=== PATIENT | female | born 1950 | race Caucasian/White ===

== ENCOUNTER 2016-12-21 05:28 | Emergency (ER) | payer OTHER ==
[~2016-12-21] VITALS: Ht 160 cm; Wt 117.4 kg
[~2016-12-21 05:28] MED LIST: ALBU1AER9 INH; ALBU1NEB10 INH; BISA-16 PO; HYDR-5688 PO; PRAV40TA2 PO; RANITAB6 PO; RSTOPS OP; SYMIN160 INH
[2016-12-21 05:32] VITALS: TEMP 37; Ht 160 cm; Wt 117.4 kg
[2016-12-21] MEDS ORDERED: SODIUM CHLORIDE 0.9% 1000ML 1,000 ML IV STA (05:48)
[2016-12-21] MEDS ORDERED: CEFTRIAXONE SOD INJ 1 GM ADDVIAL IV STA (05:48)
[2016-12-21] MEDS ORDERED: ONDANSETRON INJ 2 MG/ML 2 ML VIAL IV STA (05:59)
[2016-12-21] MEDS ORDERED: KETOROLAC TROMETHAMINE 30 MG/ML VIAL IV STA (05:59)
[2016-12-21 06:07] LABS: BASO % 0.4 %; BASO ABS # 0.03 K/uL (0-0.2); COMPLETE YES; EOS % 3.1 %; IG% 0.3 %; LYMPH % 31.4 %; MEAN CELL VOLUME 85.9 fL (80-100); MEAN CORPUSCULAR HEMOGLOBIN 30.2 pg (25-34); MEAN CORPUSCULAR HGB CONC 35.1 g/dl (32-36); MEAN PLATELET VOLUME 10.9 fL (7.4-10.4); NEUT % 53.8 %; PLATELET COUNT 160 K/uL (130-400); RED BLOOD COUNT 4.54 M/uL (4.2-5.4)
[2016-12-21] MEDS ORDERED: TOLT1TAB6 PO (06:07)
--- NOTE | 2016-12-21 06:24 | EMERGENCY ROOM VISIT NOTE ---
History Report prepared by Carlene: Ron Reynoso Under the Supervision of: Dr. Randy Fritz M.D. First contact with patient: 05:36 Chief Complaint: FLANK PAIN Stated Complaint: PAIN LOWER BACK AROUND KIDNEYS History of Present Illness The patient is a 66 year old female who presents to the Emergency Room with complaints of worsening right sided flank pain that began a few days prior to arrival. The patient states that her symptoms began to worsen yesterday as she began to experience shakes, burning with urination, and increased urgency and pressure. She denies having any fevers. She has not received any relief from her pain with Aleve. The patient also noted that her urine has been very dark and strong smelling lately. She has a history of kidney stones, but states that this episode is not similar. She is a diabetic. 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 A total of 10 systems reviewed and were otherwise negative. Past Medical & Surgical Medical Problems: (1) Asthma (2) CAD (coronary artery disease) (3) CAD (coronary artery disease) (4) Chest discomfort (5) Chest pain (6) COPD (chronic obstructive pulmonary disease) (7) Depression (8) Diabetes mellitus type 2 (9) Dyspnea (10) Gastroesophageal reflux disease (11) HTN (hypertension) (12) Hyperlipidemia (13) Hypoxia (14) Lumbar stenosis with neurogenic claudication (15) Morbid Obesity (16) Obstructive sleep apnea syndrome (17) Osteoporosis Nos (18) SHORTNESS OF BREATH (19) Spinal stenosis (20) Vitamin D deficiency (21) Wheezing Surgical Problems: (1) History of cholecystectomy (2) History of cholecystectomy (3) History of herniorrhaphy (4) History of hysterectomy (5) History of repair of rotator cuff (6) Lens Replacement Nec Family History Diabetes mellitus Heart disease FATHER ( of [place]) Hypertension MOTHER Social History Smoking Status: Former Smoker Alcohol Use: none Marital Status: Housing Status: lives with family Occupation Status: retired Current/Historical Medications Scheduled Budesonide/Formoterol Fumarate (Symbicort 160/4.5 Inhaler ), 2 PUFFS INH HS Cyclosporine (Restasis Eye Drops), 1 DROP OP BID Pravastatin Sodium (Pravastatin Sodium), 40 MG PO HS Ranitidine Hcl (Zantac 150 Maximum Streng), 1 TAB PO HS Sulfa/Trimethoprim (Bactrim Ds 800MG/160MG), 1 TAB PO BID Tolterodine Tartrate (Tolterodine Tartrate), 1 MG PO DAILY Scheduled PRN Albuterol (Proair Hfa), 2 PUFFS INH QID PRN for SOB/Wheezing Allergies Coded Allergies: Perflutren (Verified Allergy, Severe, Back Pain, 09/01/16) Cardiopulmonary Tech states patient should not receive in the future. Lorazepam (Verified Adverse Reaction, Mild, DIZZY, 09/01/16) Codeine (Verified Adverse Reaction, Unknown, NAUSEA, 09/01/16) Meloxicam (Verified Adverse Reaction, Unknown, DIZZINESS, 09/01/16) Oxycodone (Verified Adverse Reaction, Unknown, GI SYMPTOMS, 09/01/16) Propoxyphene (Verified Adverse Reaction, Unknown, NAUSEA, 09/01/16) Tramadol (Verified Adverse Reaction, Unknown, GI SYMPTOMS, 09/01/16) Physical Exam Vital Signs Date Time Temp Pulse Resp B/P Pulse Ox O2 Delivery O2 Flow Rate FiO2 12/21/16 07:41 64 18 142/82 92 12/21/16 06:54 65 18 128/69 95 Room Air 12/21/16 05:32 37.0 74 16 179/98 95 Room Air Physical Exam GENERAL: Patient is a healthy-appearing well-nourished HEAD: Normocephalic atraumatic EYES: Ocular movements intact pupils equal and react to light OROPHARYNX mucous membranes are moist no exudates present no erythema or edema present NECK: Supple no nuchal rigidity CHEST: Good equal expansion LUNGS: Clear and equal to auscultation CARDIAC: Normal S1 and S2 ABDOMEN: Soft nontender no guarding BACK: Positive right sided CVA tenderness EXTREMITIES: No pain upon palpation normal muscle strength in all groups no clubbing cyanosis or edema NEURO: Patient is following commands is answering questions appropriately. Alert and oriented x3 Cranial Nerves 2-12 grossly intact Medical Decision & Procedures Laboratory Results 12/21/16 05:53 Red Blood Count 4.54, Mean Corpuscular Volume 85.9, Mean Corpuscular Hemoglobin 30.2, Mean Corpuscular Hemoglobin Concent 35.1, Mean Platelet Volume 10.9, Neutrophils (%) (Auto) 53.8, Lymphocytes (%) (Auto) 31.4, Monocytes (%) (Auto) 11.0, Eosinophils (%) (Auto) 3.1, Basophils (%) (Auto) 0.4, Neutrophils # (Auto ) 3.76, Lymphocytes # (Auto) 2.20, Monocytes # (Auto) 0.77, Eosinophils # (Auto ) 0.22, Basophils # (Auto) 0.03 12/21/16 05:53 Test 12/21/16 05:53 White Blood Count 7.00 K/uL (4.8-10.8) Red Blood Count 4.54 M/uL (4.2-5.4) Hemoglobin 13.7 g/dL (12.0-16.0) Hematocrit 39.0 % (37-47) Mean Corpuscular Volume 85.9 fL (80-100) Mean Corpuscular Hemoglobin 30.2 pg (25-34) Mean Corpuscular Hemoglobin Concent 35.1 g/dl (32-36) Platelet Count 160 K/uL (130-400) Mean Platelet Volume 10.9 fL (7.4-10.4) Neutrophils (%) (Auto) 53.8 % Lymphocytes (%) (Auto) 31.4 % Monocytes (%) (Auto) 11.0 % Eosinophils (%) (Auto) 3.1 % Basophils (%) (Auto) 0.4 % Neutrophils # (Auto) 3.76 K/uL (1.4-6.5) Lymphocytes # (Auto) 2.20 K/uL (1.2-3.4) Monocytes # (Auto) 0.77 K/uL (0.11-0.59) Eosinophils # (Auto) 0.22 K/uL (0-0.5) Basophils # (Auto) 0.03 K/uL (0-0.2) RDW Standard Deviation 42.6 fL (36.4-46.3) RDW Coefficient of Variation 13.6 % (11.5-14.5) Immature Granulocyte % (Auto) 0.3 % Immature Granulocyte # (Auto) 0.02 K/uL (0.00-0.02) Urine Color YELLOW Urine Appearance CLEAR (CLEAR) Urine pH 5.5 (4.5-7.5) Urine Specific [place] 1.014 (1.000-1.030) Urine Protein NEG (NEG) Urine Glucose (UA) NEG (NEG) Urine Ketones NEG (NEG) Urine Occult Blood NEG (NEG) Urine Nitrite NEG (NEG) Urine Bilirubin NEG (NEG) Urine Urobilinogen NEG (NEG) Urine Leukocyte Esterase MODERATE (NEG) Urine WBC (Auto) 1-5 /hpf (0-5) Urine RBC (Auto) 0-4 /hpf (0-4) Urine Hyaline Casts (Auto) 1-5 /lpf (0-5) Urine Epithelial Cells (Auto) >30 /lpf (0-5) Urine Bacteria (Auto) NEG (NEG) Anion Gap 9.0 mmol/L (3-11) Est Creatinine Clear Calc Drug Dose 92.5 ml/min Estimated GFR () 97.8 Estimated GFR (Non- 84.4 BUN/Creatinine Ratio 17.1 (10-20) Calcium Level 9.2 mg/dl (8.5-10.1) Total Bilirubin 0.4 mg/dl (0.2-1) Direct Bilirubin < 0.1 mg/dl (0-0.2) Aspartate Amino Transf (AST/SGOT) 27 U/L (15-37) Alanine Aminotransferase (ALT/SGPT) 26 U/L (12-78) Alkaline Phosphatase 114 U/L (45-117) Total Protein 6.7 gm/dl (6.4-8.2) Albumin 3.2 gm/dl (3.4-5.0) Lipase 207 U/L (73-393) Labs reviewed by ED physician. Medications Administered Medications (Trade) Dose Ordered Sig/Oz Route Start Time Stop Time Status Last Admin Dose Admin Sodium Chloride (Nss 1000ml) 1,000 ml @ 999 mls/hr Q1H1M STAT IV 12/21/16 05:48 12/21/16 06:48 DC 12/21/16 06:19 999 MLS/HR Ceftriaxone Sodium (Rocephin Inj) 1 gm NOW STAT IV 12/21/16 05:48 12/21/16 05:50 DC 12/21/16 06:19 1 GM Ketorolac Tromethamine (Toradol Inj) 30 mg NOW STAT IV 12/21/16 05:59 12/21/16 06:01 DC 12/21/16 06:20 30 MG Ondansetron HCl (Zofran Inj) 4 mg NOW STAT IV 12/21/16 05:59 12/21/16 06:01 DC 12/21/16 06:20 4 MG Trimethoprim/ Sulfamethoxazole (Septra Ds 800/ 160MG Tab) 1 tab NOW STAT PO 12/21/16 07:35 12/21/16 07:36 DC 12/21/16 07:40 1 TAB ED Course 0537: The patient was evaluated and HPI was obtained by the medical student prior to my evaluation. 0548: Ordered Rocephin 1 gm IV, Sodium Chloride 1000 mL @ 999 mL/hr IV. 0550: Past medical records reviewed. The patient was evaluated in room B3. A complete history and physical examination was performed. 0559: Ordered Zofran 4 mg IV, Toradol 30 mg IV. Medical Decision The patient's history was concerning for abdominal pain. Differential diagnosis: Etiologies such as appendicitis, diverticulitis, PUD, biliary pathology, UTI, pancreatitis, obstruction, mesenteric ischemia, aortic pathology, infections, inflammatory bowel disease, renal colic, as well as others were entertained. This is a 66-year-old female who presents emergency department complaining of right CVA tenderness. The patient's urine dip does appear to have some white blood cells in it for this reason the patient was started on normal saline bolus and given Rocephin. Patient was also given Toradol. Repeat examination revealed improvement patient's symptoms. The patient was sent for CAT scan of the abdomen and pelvis to rule out kidney stone. I did discuss the case with Dr. Barber at change of shift. Impression Primary Impression: Flank pain Scribe Attestation The scribe's documentation has been prepared under my direction and personally reviewed by me in its entirety. I confirm that the note above accurately reflects all work, treatment, procedures, and medical decision making performed by me. Departure Information Dispostion Still a Patient Prescriptions Sulfa/Trimethoprim (Bactrim Ds 800MG/160MG) Tab 1 TAB PO BID for 10 Days, #20 TAB Prov: Randy Fritz MD 12/21/16 Referrals RV. Zepeda MD (PCP) Patient Instructions My [facility]
[2016-12-21 06:26] LABS: ALT/SGPT 26 U/L (12-78); AST/SGOT 27 U/L (15-37); BLOOD UREA NITROGEN 13 mg/dl (7-18); BUN/CREATININE RATIO 17.1 (10-20); CALCIUM 9.2 mg/dl (8.5-10.1); CARBON DIOXIDE 26 mmol/L (21-32); CHLORIDE 108 mmol/L (98-107); CREATININE 0.74 mg/dl (0.60-1.20); GLUCOSE 106 mg/dl (70-99); SODIUM 143 mmol/L (136-145)
[2016-12-21 06:29] LABS: ALKALINE PHOSPHATASE 114 U/L (45-117)
[2016-12-21 06:35] LABS: URINE APPEARANCE CLEAR (CLEAR); URINE BILIRUBIN NEG (NEG); URINE COLOR YELLOW; URINE EPITHELIAL CELL AUTO >30 /lpf (0-5); URINE NITRITE NEG (NEG); URINE PH 5.5 (4.5-7.5); URINE SPECIFIC GRAVITY 1.014 (1.000-1.030); UROBILINOGEN NEG (NEG)
[2016-12-21] MEDS ORDERED: SULF800T23 PO (06:36)
[2016-12-21] MEDS ORDERED: HYDR-5688 PO (06:36)
[2016-12-21 06:42] LABS: MANUAL MICROSCOPIC REQUIRED? NO; REVIEW REQ? NO
--- NOTE | 2016-12-21 07:04 | DIAGNOSTIC IMAGING REPORT ---
CT SCAN OF THE ABDOMEN AND PELVIS WITHOUT CONTRAST CLINICAL HISTORY: Right flank pain COMPARISON STUDY: 06/11/2016 TECHNIQUE: CT scan of the abdomen and pelvis was performed from the lung bases to the proximal femurs. Images are reviewed in the axial, sagittal, and coronal planes. IV contrast was not administered for this examination. CT DOSE: 2075.71 mGy.cm FINDINGS: Lower chest: There are coronary artery calcifications present. There are prominent lymph nodes within the right cardiophrenic angle fat measuring up to 14 mm in diameter. These remain similar. There are left basilar atelectatic changes. Liver: The liver is slightly nodular in contour. No focal masses are visualized on this noncontrast study. Cirrhosis most be considered given the slight hepatic nodularity Gallbladder: Surgically absent Spleen: Top normal in size measuring 11.4 cm Pancreas: Unremarkable. Adrenal glands: Unremarkable. Kidneys: No renal calculi are visualized. No ureteral or bladder calculi are visualized. Bowel: There are no transition zones indicate bowel obstruction. There are no findings to indicate acute diverticulitis. There are no findings to indicate acute appendicitis. Peritoneum: There is no intraperitoneal free air or abdominal ascites. Vasculature: The abdominal aorta is normal in course and caliber. Adenopathy: None. Pelvic viscera: The uterus is either surgically absent or atrophic. There are postsurgical changes of a prior ventral hernia repair Skeletal structures: There are postsurgical changes present within the lumbar spine. IMPRESSION: 1. No acute findings. 2. No renal, ureteral, or bladder calculi identified 3. No evidence of bowel obstruction. No evidence of free air 4. Interval lumbar spinal fusion. Electronically signed by: Jose Conley M.D. 12/21/2016 7:02 AM Dictated Date/Time: 12/21/2016 6:54 AM
--- NOTE | 2016-12-21 07:19 | EMERGENCY ROOM VISIT NOTE ---
ED Visit Note This patient was signed out to me awaiting CT scan and urinalysis. Urinalysis reveals leukocyte esterase. The patient was given a dose of Bactrim by mouth here. A prescription for Bactrim was given. CT scan did not show any acute abnormality. The patient was told results the test. She was discharged. The patient declined narcotic prescriptions as she is allergic to codeine and did not want the hydrocodone. Prescription for Bactrim sent to [facility]
[2016-12-21] MEDS ORDERED: SULFAMETHOXAZOLE/TRIMETHOPRIM DS 800/160MG TAB PO STA (07:35)
[2016-12-21 07:41] VITALS: BP 142/82; PULSE 64; O2SAT 92
[2017-02-20] MEDS ORDERED: CYCL0.052 OPB (08:07)
[2017-02-23] MEDS ORDERED: LYR50 PO (10:01)
[2017-07-07] MEDS ORDERED: FRS/40 PO (08:16)
[2017-07-07] MEDS ORDERED: CLOT1PAK TOP (08:16)
[2017-07-07] MEDS ORDERED: PRAV20TA PO (08:16)
[2017-07-07] MEDS ORDERED: BISA-16 PO (08:16)
[2017-07-07] MEDS ORDERED: CYAN1KIT3 INJ (08:16)
[2017-07-07] MEDS ORDERED: PRLSR20 PO (08:16)
[2017-07-07] MEDS ORDERED: ALBUTEROL NEB INH (08:17)
[2017-07-26] MEDS ORDERED: DLD2 PO (07:33)
[2017-07-26] MEDS ORDERED: ASPEC325 PO (07:33)
== END 2016-12-21 07:41 | disposition home or self-care (01) ==
LOC: C.EDB 05:30
DX: R10.9 Unspecified abdominal pain (principal); J45.909 Unspecified asthma, uncomplicated; I25.10 Atherosclerotic heart disease of native coronary artery without angina pectoris; J44.9 Chronic obstructive pulmonary disease, unspecified; F32.9 Major depressive disorder, single episode, unspecified; E11.9 Type 2 diabetes mellitus without complications; K21.9 Gastro-esophageal reflux disease without esophagitis; I10 Essential (primary) hypertension; E78.5 Hyperlipidemia, unspecified; G47.33 Obstructive sleep apnea (adult) (pediatric); Z90.49 Acquired absence of other specified parts of digestive tract; Z87.891 Personal history of nicotine dependence

== ENCOUNTER → 2016-12-24 | Outpatient (CLI) | payer OTHER ==
[~2016-12-24] MED LIST changes: -ALBU1NEB10 INH; +ALBUTEROL NEB INH; +ASPEC325 PO; +CLOT1PAK TOP; +CYAN1KIT3 INJ; +CYCL0.052 OPB; +DLD2 PO; +FRS/40 PO; -HYDR-5688 PO; +LYR50 PO; +PRAV20TA PO; +PRLSR20 PO; +SULF800T23 PO; +TOLT1TAB6 PO
[2016-12-24 13:21] LABS: ESTIMATED AVERAGE GLUCOSE 126 mg/dl; HA1C FLAG Normal (Normal)
[2016-12-24 13:29] LABS: CHOLESTEROL/HDL RATIO 2.4
== END | disposition home or self-care (01) ==
LOC: C.LABBC 09:36
PROVIDERS: ATTEND Internal Medicine
DX: E53.8 Deficiency of other specified B group vitamins (principal); E11.9 Type 2 diabetes mellitus without complications; E78.5 Hyperlipidemia, unspecified

== ENCOUNTER → 2017-02-20 | Outpatient (CLI) | payer OTHER ==
[~2017-02-20] MED LIST changes: -SULF800T23 PO
[2017-02-20 12:20] LABS: URINE APPEARANCE CLEAR (CLEAR); URINE BILIRUBIN NEG (NEG); URINE COLOR YELLOW; URINE NITRITE NEG (NEG); URINE PH 7.5 (4.5-7.5); URINE SPECIFIC GRAVITY 1.007 (1.000-1.030); UROBILINOGEN NEG (NEG); ZZUR CULT IF INDIC CLEAN CATCH NO
[2017-02-20 12:24] LABS: MANUAL MICROSCOPIC REQUIRED? NO; REVIEW REQ? NO
[2017-02-20 12:39] LABS: BLOOD UREA NITROGEN 8 mg/dl (7-18); BUN/CREATININE RATIO 12.3 (10-20); CARBON DIOXIDE 28 mmol/L (21-32); CHLORIDE 108 mmol/L (98-107); CREATININE 0.64 mg/dl (0.60-1.20); GLUCOSE 94 mg/dl (70-99); POTASSIUM 3.9 mmol/L (3.5-5.1); SODIUM 143 mmol/L (136-145)
== END | disposition home or self-care (01) ==
LOC: C.LAB1850 11:17
PROVIDERS: ATTEND Physician Assistant
DX: R35.0 Frequency of micturition (principal); Z86.39 Personal history of other endocrine, nutritional and metabolic disease

== ENCOUNTER → 2017-02-20 | Outpatient (CLI) | payer OTHER ==
--- NOTE | 2017-02-20 12:28 | DIAGNOSTIC IMAGING REPORT ---
ULTRASOUND RIGHT UPPER QUADRANT ABDOMEN CLINICAL HISTORY: Cirrhosis. COMPARISON STUDY: Abdominal CT dated 12/21/2016. TECHNIQUE: Real-time, grayscale, and color flow sonography of the right upper quadrant of the abdomen was performed. Images are reviewed in the transverse and longitudinal planes. FINDINGS: Liver: The liver is cirrhotic in morphology and heterogeneous in echotexture. There is nodularity of the surface contour. There is minimal central intrahepatic biliary ductal dilatation. The main portal vein is patent. Gallbladder: The gallbladder is surgically absent. The common bile duct measures up to 0.7 cm in diameter. Pancreas: Visualized portions of the pancreatic head and body are normal in appearance. Right kidney: Survey images of the right kidney demonstrate cortical atrophy. There is no hydronephrosis. Ascites: None. IMPRESSION: 1. The liver is cirrhotic in morphology and heterogeneous in echotexture. 2. The gallbladder surgically absent. Electronically signed by: Devang Camp M.D. 02/20/2017 12:27 PM Dictated Date/Time: 02/20/2017 12:23 PM
== END | disposition home or self-care (01) ==
LOC: C.ULTR 11:54
PROVIDERS: ATTEND Internal Medicine
DX: K74.60 Unspecified cirrhosis of liver (principal); Z90.49 Acquired absence of other specified parts of digestive tract; R35.0 Frequency of micturition; Z86.39 Personal history of other endocrine, nutritional and metabolic disease

== ENCOUNTER → 2017-02-23 | Day surgery (SDC) | payer OTHER ==
[2017-02-20 08:08] VITALS: Ht 160 cm; Wt 121.4 kg
[~2017-02-23] VITALS: Ht 160 cm; Wt 121.4 kg
[~2017-02-23] MED LIST changes: +LIDOCAINE HCL 2% 2 ML VIAL (20MG/ML) ONE; +ONDANSETRON INJ 2 MG/ML 2 ML VIAL ONE; +PROPOFOL IV EMULSION 10 MG/ML 20 ML VIAL IV ONE; -RSTOPS OP; +SODIUM CHLORIDE 0.9% 500ML 500 ML IV ONE
--- NOTE | 2017-02-23 10:31 | Endo History and Physical ---
History & Physical Date of Service: Feb 23, 2017. Chief Complaint: Hx Cirrhosis, Bloating Referring Physician: Dr Gar History of Present Illness cirrhosis and bloating Past Medical History Asthma, Anxiety, Reflux, High Cholesterol, Heart Disease Past Surgical History Hx Cardiac Surgery: No Hx Internal Defibrillator: No Hx Pacemaker: No Hx Abdominal Surgery: Yes (LAP IRMA, TESHA BSO, EXP LAP WITH REMOVAL OF ABDOMINAL TUMOR) Hx of Implantable Prosthesis: No Hx Post-Op Nausea and Vomiting: Yes Hx Cancer Surgery: No Hx Thoracic Surgery: No Hx Orthopedic: Yes (LUMBAR FUSION) Hx Urinary Tract Surgery: No Family History None Social History Smoking Status: Former Smoker Hx Substance Use: No Hx Alcohol Use: No Allergies Coded Allergies: Metformin (Verified Allergy, Unknown, DIARRHEA, 02/20/17) Lorazepam (Verified Adverse Reaction, Mild, DIZZY, 02/20/17) Codeine (Verified Adverse Reaction, Unknown, NAUSEA, 02/20/17) Meloxicam (Verified Adverse Reaction, Unknown, DIZZINESS, 02/20/17) Oxycodone (Verified Adverse Reaction, Unknown, GI SYMPTOMS, 02/20/17) Propoxyphene (Verified Adverse Reaction, Unknown, NAUSEA, 02/20/17) Tramadol (Verified Adverse Reaction, Unknown, GI SYMPTOMS, 02/20/17) Current Medications Reported Home Medications Medications Dose Route/Sig Max Daily Dose Days Date Category Lyrica (Pregabalin) 50 Mg Cap 50 Mg PO HS 02/23/17 Reported Restasis (Cyclosporine (Ophth)) 0.05 % Emu 1 Drop OPB BID PRN 02/20/17 Reported Tolterodine Tartrate 1 Mg Tab 1 Mg PO QAM 12/21/16 Reported Pravastatin Sodium 40 Mg Tab 40 Mg PO HS 06/02/16 Reported Zantac 150 Maximum Streng (Ranitidine Hcl) 150 Mg Tab 1 Tab PO HS 05/29/16 Reported Proair Hfa (Albuterol) Aers 2 Puffs INH QID PRN 12/22/14 Reported Symbicort 160/4.5 Inhaler (Budesonide/Formoterol Fumarate) Aero 2 Puffs INH BID PRN 12/22/14 Reported Vital Signs Weight (Kilograms): 121.36 Height (Feet): 5 Height (Inches): 3 Date Time Temp Pulse Resp B/P Pulse Ox O2 Delivery O2 Flow Rate FiO2 02/23/17 10:06 36.9 84 20 169/76 95 Room Air Physical Exam General Appearance: WD/WN, no apparent distress Assessment and Plan EGD today
--- NOTE | 2017-02-23 10:58 | GI REPORT ---
Procedure Date: 02/23/2017 10:41 AM Procedure: Upper GI endoscopy Indications: Cirrhosis rule out esophageal varices, Abdominal bloating Medicines: Propofol per Anesthesia Complications: No immediate complications. Estimated blood loss: Minimal. Estimated Blood Loss: Estimated blood loss was minimal. Procedure: Pre-Anesthesia Assessment: - Prior to the procedure, a History and Physical was performed, and patient medications, allergies and sensitivities were reviewed. The patient's tolerance of previous anesthesia was reviewed. - The risks and benefits of the procedure and the sedation options and risks were discussed with the patient. All questions were answered and informed consent was obtained. - Patient identification and proposed procedure were verified prior to the procedure by the physician and the nurse. The procedure was verified in the pre-procedure area in the procedure room. - Mental Status Examination: alert and oriented. Airway Examination: normal oropharyngeal airway and neck mobility. Respiratory Examination: clear to auscultation. CV Examination: normal. Abdominal Examination: bowel sounds present, abdomen soft and non-tender, no masses or organomegaly noted. - ASA Grade Assessment: III - A patient with severe systemic disease. After obtaining informed consent, the endoscope was passed under direct vision. Throughout the procedure, the patient's blood pressure, pulse, and oxygen saturations were monitored continuously. The scope was introduced through the mouth, and advanced to the second part of duodenum. The upper GI endoscopy was accomplished without difficulty. The patient tolerated the procedure well. Findings: The esophagus was normal. Few non-bleeding superficial gastric ulcers with no stigmata of bleeding were found in the gastric antrum. Biopsies were taken with a cold forceps for Helicobacter pylori testing. Verification of patient identification for the specimen was done by the physician and nurse using the patient's name and date. Estimated blood loss was minimal. The examined duodenum was normal. Biopsies for histology were taken with a cold forceps for evaluation of celiac disease. Verification of patient identification for the specimen was done by the physician and nurse using the patient's name and date. Estimated blood loss was minimal. Impression: - Normal esophagus. No varices. - Non-bleeding gastric ulcers with no stigmata of bleeding. Biopsied. - Normal examined duodenum. Biopsied. Recommendation: - Await pathology results. - No aspirin, ibuprofen, naproxen, or other non-steroidal anti-inflammatory drugs. - Use Prilosec (omeprazole) 20 mg PO BID for 6 weeks then once a day thereafter. - Return to referring physician as previously scheduled. - Discharge patient to home. Jailene Riggins D.O. Jailene Riggins, 02/23/2017 10:57:34 AM This report has been signed electronically. Note Initiated On: 02/23/2017 10:41 AM I attest to the content of the Intraoperative Record and orders documented therein, exceptions below
--- NOTE | 2017-02-23 11:25 | Anesthesiology Progress Note ---
Anesthesia Post Op Note Date & Time Feb 23, 2017 at 11:25 Vital Signs Pain Intensity: 0 Vital Signs Past 12 Hours Date Time Temp Pulse Resp B/P Pulse Ox O2 Delivery O2 Flow Rate FiO2 02/23/17 11:10 75 20 133/76 93 Room Air 02/23/17 10:58 78 20 90/30 95 Room Air 02/23/17 10:06 36.9 84 20 169/76 95 Room Air Notes Mental Status: alert / awake / arousable, participated in evaluation Pt Amnestic to Procedure: Yes Nausea / Vomiting: adequately controlled Pain: adequately controlled Airway Patency, RR, SpO2: stable & adequate BP & HR: stable & adequate Hydration State: stable & adequate Anesthetic Complications: no major complications apparent
[2017-02-23 11:29] VITALS: BP 115/56; PULSE 70; O2SAT 93
--- NOTE | 2017-02-23 11:31 | Discharge Instructions ---
Endoscopy Patient Instructions Date / Procedure(s) Performed Feb 23, 2017. EGD Allergy Information Coded Allergies: Metformin (Verified Allergy, Unknown, DIARRHEA, 02/20/17) Lorazepam (Verified Adverse Reaction, Mild, DIZZY, 02/20/17) Codeine (Verified Adverse Reaction, Unknown, NAUSEA, 02/20/17) Meloxicam (Verified Adverse Reaction, Unknown, DIZZINESS, 02/20/17) Oxycodone (Verified Adverse Reaction, Unknown, GI SYMPTOMS, 02/20/17) Propoxyphene (Verified Adverse Reaction, Unknown, NAUSEA, 02/20/17) Tramadol (Verified Adverse Reaction, Unknown, GI SYMPTOMS, 02/20/17) Discharge Date / Findings Feb 23, 2017. Gastric ulcers Medication Instructions Restart Stopped Medication(s): OK to resume home medications. Take omeprazole 20 mg twice a day for 6 weeks then once a day thereafter. Avoid ibuprofen, Excedrin, Aleve, etc. Provider Instructions Activity Restrictions - No exercising or heavy lifting for 24 hours. - Do not drink alcohol the day of the procedure. - Do not drive a car or operate machinery until the day after the procedure. - Do not make any important decisions or sign important papers in 24 hours after the procedure. Following Day: - Return to full activity which may include returning to work/school. Diet Start your diet with liquids and light foods (jello, soup, juice, toast). Then eat your usual diet if not nauseated. Treatment For Common After Affects For mild abdominal pain, bloating, or excessive gas: - Rest - Eat lightly - Lie on right side Follow-Up Information Follow-up with Dr Gar as scheduled Anesthesia Information What You Should Know You have had a procedure that required some medicine to reduce anxiety and discomfort. This treatment is called moderate sedation. After receiving the treatment, you may be sleepy, but you will be able to breathe on your own. The effects of the treatment may last for several hours. Follow these instructions along with Activity/Diet recommendations noted above: * Do NOT do anything where dizziness or clumsiness would be dangerous. * Rest quietly at home today, then you can be up and about tomorrow. * Have a responsible person stay with you the rest of today. * You may have had an I.V. today. If so, you may take the dressing off later today. Recommendations Call your doctor if: * Trouble breathing * Continuous vomiting for more than 24 hours * Temperature above 101 degrees * Severe abdominal pain or bloating * Pain not relieved by pain medicine ordered * There is increased drainage or redness from any incision * A large amount of rectal bleeding greater than 2-3 tablespoons. (If you had a polyp/s removed or have hemorrhoids, a small amount of blood - from the rectum is to be expected.) * You have any unanswered questions or concerns. IN THE EVENT OF A SERIOUS EMERGENCY, GO TO THE NEAREST EMERGENCY ROOM Your discharge instructions were prepared by provider Jailene Riggins. Patient Instructions Signature Page Citlalli Roche Patient (or Guardian) Signature/Date: I have read and understand the instructions given to me by my caregivers. Caregiver/RN/Doctor Signature/Date: The above-named patient and/or guardian has received patient instructions on this date. + Original Patient Signature Page (only) stays with chart. Please make copy for patient.
== END | disposition home or self-care (01) ==
LOC: C.GI 09:44
PROVIDERS: ATTEND Internal Medicine
DX: K29.70 Gastritis, unspecified, without bleeding (principal); K74.69 Other cirrhosis of liver; K25.5 Chronic or unspecified gastric ulcer with perforation; K21.9 Gastro-esophageal reflux disease without esophagitis; J45.909 Unspecified asthma, uncomplicated; F41.9 Anxiety disorder, unspecified; E78.5 Hyperlipidemia, unspecified; I51.9 Heart disease, unspecified; Z98.890 Other specified postprocedural states; Z98.1 Arthrodesis status; Z88.5 Allergy status to narcotic agent; Z88.8 Allergy status to other drugs, medicaments and biological substances

== ENCOUNTER → 2017-03-06 | Outpatient (CLI) | payer OTHER ==
[~2017-03-06] MED LIST changes: -DLD2 PO; +HYDR2TAB3 PO; -LIDOCAINE HCL 2% 2 ML VIAL (20MG/ML) ONE; -ONDANSETRON INJ 2 MG/ML 2 ML VIAL ONE; -PROPOFOL IV EMULSION 10 MG/ML 20 ML VIAL IV ONE; -SODIUM CHLORIDE 0.9% 500ML 500 ML IV ONE
[2017-03-06 11:43] LABS: BASO % 0.4 %; BASO ABS # 0.02 K/uL (0-0.2); COMPLETE YES; EOS % 4.1 %; HEMATOCRIT 37.1 % (37-47); IG% 0.2 %; LYMPH % 31.9 %; LYMPH ABS # 1.64 K/uL (1.2-3.4); MEAN CELL VOLUME 87.1 fL (80-100); MEAN CORPUSCULAR HGB CONC 35.6 g/dl (32-36); MEAN PLATELET VOLUME 11.4 fL (7.4-10.4); MONO % 13.2 %; NEUT % 50.2 %; PLATELET COUNT 178 K/uL (130-400); RED BLOOD COUNT 4.26 M/uL (4.2-5.4); WHITE BLOOD COUNT 5.14 K/uL (4.8-10.8)
== END | disposition home or self-care (01) ==
LOC: C.LABBC 08:58
PROVIDERS: ATTEND Physician Assistant
DX: M54.5 Low back pain (principal)

== ENCOUNTER → 2017-03-23 | Outpatient (CLI) | payer OTHER ==
--- NOTE | 2017-03-23 13:30 | DIAGNOSTIC IMAGING REPORT ---
MRI OF THE LUMBAR SPINE WITHOUT CONTRAST CLINICAL HISTORY: Low back pain. Prior lumbar spine surgery. COMPARISON STUDY: Lumbar spine MRI November 26, 2016. TECHNIQUE: Utilizing a 0.7 Laura open magnet and dedicated coil, multiplanar, multiecho imaging of the lumbar spine was performed without IV contrast. FINDINGS: There are findings consistent with an L4-L5 discectomy and L2-S1 bilateral pedicle screw fusion with decompression. A 5.9 x 2.7 x 4.2 cm laminectomy bed fluid collection is similar to exam of November 26, 2016. Adjacent increased T2 signal is likely postsurgical. There are no additional fluid collections. The conus terminates at the mid L2 level. There is no additional fluid collection. Mild anterolisthesis of L4 and L5 is unchanged. A hemangioma within T12 is unchanged. L1-2: There is mild disc bulge, ligamentous hypertrophy and facet arthrosis. Central canal and neural foramen are patent. L2-3: There is disc bulge. The central canal is patent. The neural foramen are patent. L3-4: Central canal is patent. There is mild mass effect upon the thecal sac by the fluid collection. Neural foramen are patent. L4-5: There is grade I anterolisthesis. There is mild narrowing of the thecal sac due to mass effect by the fluid collection. This is unchanged. There is mild narrowing of both neural foramen. L5-S1: The central canal and neural foramen are patent. There is moderate right-sided neural foraminal stenosis. IMPRESSION: 1. Status post L4-L5 discectomy and L2-S1 bilateral pedicle screw fusion with decompression. 2. No significant change in the 5.9 x 2.7 x 4.2 cm laminectomy bed fluid collection since exam of November 26, 2016. Mild stable mass effect upon the posterior aspect of the thecal sac. This is postsurgical and could reflect a seroma. A pseudomeningocele could appear similar although is considered less likely. 3. No significant change in appearance of the lumbar spine since prior exam, as described above. Electronically signed by: Jaiden Tucker M.D. 03/23/2017 1:28 PM Dictated Date/Time: 03/23/2017 12:59 PM
== END | disposition home or self-care (01) ==
LOC: C.OPENMRI 10:26
PROVIDERS: ATTEND Orthopaedic Surgery Orthopaedic Surgery of the Spine
DX: M54.16 Radiculopathy, lumbar region (principal); Z98.1 Arthrodesis status; R93.7 Abnormal findings on diagnostic imaging of other parts of musculoskeletal system

== ENCOUNTER → 2017-06-24 | Outpatient (CLI) | payer OTHER ==
[~2017-06-24] MED LIST changes: +DLD2 PO; -HYDR2TAB3 PO
--- NOTE | 2017-06-24 09:21 | DIAGNOSTIC IMAGING REPORT ---
C-SPINE ROUTINE 4 OR 5 VIEWS HISTORY: Pain M62.838 Muscle [id number] COMPARISON: None. FINDINGS: Limited study due to patient body habitus. There is no fracture. No subluxation. Moderate degenerative disc change. Osteophytic narrowing of the neuroforamina at C4 C5 and to a lesser extent C5-C6. Degenerative change of lateral elements. IMPRESSION: Moderate degenerative change. Osteophytic narrowing of the neural foramina as noted. No acute process. The above report was generated using voice recognition software. It may contain grammatical, syntax or spelling errors. Electronically signed by: Melecio Johnson M.D. 06/24/2017 9:20 AM Dictated Date/Time: 06/24/2017 9:18 AM
== END | disposition home or self-care (01) ==
LOC: C.RAD1850 08:56
PROVIDERS: ATTEND Internal Medicine
DX: M62.838 Other muscle spasm (principal)

== ENCOUNTER 2017-07-24 08:50 | Inpatient (IN) | payer OTHER ==
[2017-07-07 08:18] VITALS: BMI 46.0
--- NOTE | 2017-07-07 08:56 | PAT Medication Instructions ---
Service Date Jul 07, 2017. Current Home Medication List Albuterol (Proair Hfa), 2 PUFFS INH QID PRN for SOB/Wheezing Bisacodyl (Dulcolax), 2 TAB PO UD PRN for PRN Budesonide/Formoterol Fumarate (Symbicort 160/4.5 Inhaler ), 2 PUFFS INH BID PRN for Shortness of Breath Hjstzzayhtch-Tndwwrxgxvnmf-Mfr (Dermacinrx Therazole Regan 1-0.05 & 20 %), 1 DOSE TOP BID PRN for RN Cyanocobalamin (B-12 Compliance Injection), 1,000 MCG INJ MONTHLY Furosemide (Lasix), 40 MG PO PRN Omeprazole (Prilosec), 20 MG PO BID Pravastatin (Pravachol ), 20 MG PO HS Tolterodine Tartrate (Tolterodine Tartrate), 1 MG PO QAM [Albuterol Neb], 1 DOSE INH PRN Medication Instructions For Your Scheduled Surgery -Continue as directed: Cyanocobalamin (B-12 Compliance Injection), 1,000 MCG INJ MONTHLY - Hold the following medications 24 hours prior to surgery: Hkzvjlaqshzl-Lmnihtwbnfroa-Dmh (Dermacinrx Therazole Regan 1-0.05 & 20 %), 1 DOSE TOP BID PRN for RN - Hold the following medications the morning of surgery: Bisacodyl (Dulcolax), 2 TAB PO UD PRN for PRN Tolterodine Tartrate (Tolterodine Tartrate), 1 MG PO QAM Furosemide (Lasix), 40 MG PO PRN - Take the following medications the morning of surgery with a sip of water OTHERWISE NOTHING TO EAT OR DRINK AFTER MIDNIGHT: [Albuterol Neb], 1 DOSE INH PRN Albuterol (Proair Hfa), 2 PUFFS INH QID PRN for SOB/Wheezing (use if needed; BRING TO HOSPITAL) Omeprazole (Prilosec), 20 MG PO BID Budesonide/Formoterol Fumarate (Symbicort 160/4.5 Inhaler ), 2 PUFFS INH BID PRN for Shortness of Breath - Take the following medications as scheduled the night before surgery: [Albuterol Neb], 1 DOSE INH PRN Albuterol (Proair Hfa), 2 PUFFS INH QID PRN for SOB/Wheezing Pravastatin (Pravachol ), 20 MG PO HS Omeprazole (Prilosec), 20 MG PO BID Budesonide/Formoterol Fumarate (Symbicort 160/4.5 Inhaler ), 2 PUFFS INH BID PRN for Shortness of Breath If you have any questions please call us at [phone] or [phone] or [phone]
--- NOTE | 2017-07-07 09:50 | DIAGNOSTIC IMAGING REPORT ---
CHEST PREADMISSION(PA/LAT) HISTORY: Preop. COMPARISON: Chest 06/02/2016. FINDINGS: Cardiac silhouette is normal in size. No pleural effusions. No pneumothorax. Partially visualized lumbar spine fusion hardware. Small linear scarlike density at the lingula. The lungs are otherwise clear. IMPRESSION: No acute process. Electronically signed by: Eliseo Marroquin M.D. 07/07/2017 9:48 AM Dictated Date/Time: 07/07/2017 9:47 AM
[2017-07-07 10:12] LABS: BASO % 0.2 %; BASO ABS # 0.02 K/uL (0-0.2); COMPLETE YES; EOS % 1.9 %; HEMATOCRIT 40.9 % (37-47); IG% 0.4 %; LYMPH % 21.4 %; LYMPH ABS # 2.13 K/uL (1.2-3.4); MEAN CELL VOLUME 88.3 fL (80-100); MEAN CORPUSCULAR HEMOGLOBIN 30.5 pg (25-34); MEAN CORPUSCULAR HGB CONC 34.5 g/dl (32-36); MEAN PLATELET VOLUME 11.1 fL (7.4-10.4); NEUT % 64.1 %; PLATELET COUNT 156 K/uL (130-400); RED BLOOD COUNT 4.63 M/uL (4.2-5.4); WHITE BLOOD COUNT 9.97 K/uL (4.8-10.8)
[2017-07-07 10:17] LABS: BUN/CREATININE RATIO 19.1 (10-20); CALCIUM 8.9 mg/dl (8.5-10.1); CREATININE 0.69 mg/dl (0.60-1.20); POTASSIUM 3.9 mmol/L (3.5-5.1)
[2017-07-07 10:18] LABS: PARTIAL THROMBOPLASTIN RATIO 0.9; PROTHROMBIN TIME (PATIENT) 11.2 SECONDS (9.0-12.0)
[2017-07-07 10:48] LABS: URINE APPEARANCE CLEAR (CLEAR); URINE BILIRUBIN NEG (NEG); URINE COLOR YELLOW; URINE NITRITE NEG (NEG); URINE SPECIFIC GRAVITY 1.016 (1.000-1.030); UROBILINOGEN NEG (NEG)
[2017-07-07 10:54] LABS: MANUAL MICROSCOPIC REQUIRED? NO; REVIEW REQ? NO
--- NOTE | 2017-07-23 16:50 | HISTORY & PHYSICAL EXAMINATION ---
DATE OF ADMISSION: 07/24/2017 CHIEF COMPLAINT: Primary osteoarthritis of the right hip. HISTORY OF PRESENT ILLNESS: Citlalli is a pleasant 67-year-old female who has been dealing with a several year history of right hip and leg pain. She had lumbar procedure done by Dr. Patel in 2015. That helped with her radicular symptoms, but she is still having a lot of right hip and groin pain. She has gotten to the point where she is ambulating with a cane. She has extensive physical therapy without relief. X-rays and clinical examination were diagnostic for primary osteoarthritis of the right hip. After failing extensive conservative treatment, she elected to proceed with a right total hip arthroplasty. PAST MEDICAL HISTORY: Significant for borderline diet controlled diabetes, primary osteoarthritis, hyperlipidemia, GERD and asthma. PAST SURGICAL HISTORY: Significant for shoulder arthroscopy with rotator cuff repair, hernia repair, cholecystectomy, tumor removal and lumbar fusion in August by Dr. Patel. ALLERGIES: None. MEDICATIONS: Pravastatin daily and albuterol as needed. FAMILY HISTORY: Noncontributory. SOCIAL HISTORY: She is . Rarely drinks. She is moderately active. REVIEW OF SYSTEMS: She complains of right hip and groin pain. All other pertinent review of systems are negative. PHYSICAL EXAMINATION: GENERAL: She is awake, alert and oriented x3. She is in no apparent distress. She is very pleasant. HEENT: Pupils are equal, round and reactive to light. Extraocular motion intact. Oral mucosa is pink and moist. HEART: Regular rate per radial pulse. LUNGS: Earline symmetrically bilaterally with no audible breath sounds. ABDOMEN: Soft, nontender, and nondistended. MUSCULOSKELETAL: On physical examination of the right hip, she walks with a cane and a very antalgic gait. She is morbidly obese. She has limited range of motion with severe pain with forced internal and external rotation. No discernible leg length discrepancy. X-rays from an outside institution show advanced osteoarthritis of the right hip with ncal-tn-wuco articulation. There is complete loss of joint space and osteophyte formation. IMPRESSION: Advanced osteoarthritis of the right hip. PLAN: We will proceed with a right total hip arthroplasty. Postoperatively, she will be started on aspirin for DVT prophylaxis. She will be kept in the hospital likely for 2 midnights for postoperative medical management.
[2017-07-24] VITALS (8 sets, daily range): BP systolic 108–190; BP diastolic 57–82; PULSE 71–88; TEMP 36.6–36.9; O2SAT 91–95; Ht 160 cm; Wt 119.6 kg
[~2017-07-24] VITALS: Ht 160 cm; Wt 119.6 kg
[~2017-07-24 08:50] MED LIST changes: +ACETAMINOPHEN 500 MG TAB PO SCH; -ASPEC325 PO; +BUPIVACAINE 0.5 % 5 MG/1 ML PF 10ML VIAL ONE; +CEFAZOLIN 2000 MG/60 ML D5W 60 ML IV SCH; -CYCL0.052 OPB; -DLD2 PO; +LACTATED RINGER'S 1000ML 1,000 ML IV SCH; +LACTATED RINGER'S 1000ML 500 ML IV ONE; +LACTATED RINGER'S 1000ML IV SCH; -LYR50 PO; -PRAV40TA2 PO; -RANITAB6 PO; +ROPIVACAINE 5MG/ML 30 ML 150 MG, BUPIVACAINE/EPINEPHR 0.5% MPF 30 ML, KETOROLAC TROMETH... INFIL SCH
--- NOTE | 2017-07-24 08:59 | History & Physical Bridge Note ---
H&P Re-Evaluation Bridge Note: I have examined the patient, reviewed the History & Physical and in the interval since the performance of the History & Physical I have noted the following changes of clinical significance: No changes noted
[2017-07-24] MEDS ORDERED: FENTANYL CITRATE INJ 50 MCG/1 ML 2 ML VIAL ONE (10:30)
[2017-07-24] MEDS ORDERED: MIDAZOLAM HCL 1 MG/ML 2ML VIAL ONE (10:30)
[2017-07-24] MEDS ORDERED: PROPOFOL IV EMULSION 10 MG/ML 20 ML VIAL IV ONE (11:40)
[2017-07-24] MEDS ORDERED: ORTHO JOINT ANESTHETIC ONE (12:21)
[2017-07-24] MEDS ORDERED: BACITRACIN 50000 UNIT VIAL ONE (12:21)
[2017-07-24] MEDS ORDERED: FENTANYL CITRATE INJ 50 MCG/1 ML 2 ML VIAL IV PRN (13:00)
[2017-07-24] MEDS ORDERED: PROMETHAZINE HCL INJ 6.25 MG in SODIUM CHLORIDE 0.9% 50ML 50 ML IV PRN (13:00)
[2017-07-24] MEDS ORDERED: EpHEDrine SULFATE INJ 50 MG/ML AMP IV PRN (13:00)
[2017-07-24] MEDS ORDERED: ONDANSETRON INJ 2 MG/ML 2 ML VIAL IV PRN ×2 (13:00→14:45)
[2017-07-24] MEDS ORDERED: ATROPINE SULFATE 0.1 MG/ML 5ML SYR IV PRN (13:00)
--- NOTE | 2017-07-24 13:56 | DIAGNOSTIC IMAGING REPORT ---
RIGHT HIP UNILATERAL 1 VIEW CLINICAL HISTORY: Postop right hip replacement. COMPARISON STUDY: Right hip 05/19/2017. FINDINGS: Single AP view of the pelvis was submitted. Near nondiagnostic evaluation of the pelvis due to the patient's large body habitus. There is evidence for a right total hip arthroplasty. The femoral spacer is in place. No definite acute fracture or dislocation. Lumbar spine fusion hardware is partially visualized. IMPRESSION: Interval right total hip arthroplasty. Electronically signed by: Eliseo Marroquin M.D. 07/24/2017 1:55 PM Dictated Date/Time: 07/24/2017 1:53 PM
[2017-07-24] MEDS ORDERED: PHENYLEPHRINE 100MCG/ML 5ML SYR ONE (13:57)
--- NOTE | 2017-07-24 14:34 | [facility] Post Operative Brief Note ---
Immediate Operative Summary Operative Date Jul 24, 2017. Pre-Operative Diagnosis Advanced Osteoarthritis Right Hip Post-Operative Diagnosis Advanced Osteoarthritis Right Hip Procedure(s) Performed Right Lateral Total Hip Arthroplasty--Uncemented Surgeon Dr. Anguiano Sand Mill Operator Core Sand Surgeon(s) CHRISTIAN Alejandra Estimated Blood Loss 250 ml Findings ABOVE Specimens A. Right Femoral Head Complication(s) None Disposition Recovery Room / PACU
[2017-07-24] MEDS ORDERED: BUDESONIDE/FORMOTEROL FUMARATE 160/4.5 60 PUFFS/INHALER INH PRN (14:45)
[2017-07-24] MEDS ORDERED: MAGNESIUM HYDROXIDE SUSP 30 ML UDC PO PRN (14:45)
[2017-07-24] MEDS ORDERED: BISACODYL 10 MG SUPP PR PRN (14:45)
[2017-07-24] MEDS ORDERED: HYDROmorphone INJ 1 MG/ML SYR IV PRN (14:45)
[2017-07-24] MEDS ORDERED: FUROSEMIDE 40 MG TAB PO PRN (14:45)
[2017-07-24] MEDS ORDERED: METOCLOPRAMIDE HCL INJ 5 MG/ML 2 ML VIAL IV PRN (14:45)
[2017-07-24] MEDS ORDERED: ALBUTEROL HFA 8 GM INHALER INH PRN (14:45)
[2017-07-24] MEDS ORDERED: SILVER SULFADIAZINE 1% CR 50 GM JAR EXT PRN (14:45)
[2017-07-24] MEDS ORDERED: SOD PHOSPHATE/SOD BIPHOSPHATE ENEMA 132 ML BTL PR PRN (14:45)
--- NOTE | 2017-07-24 15:10 | OPERATIVE REPORT ---
DATE OF OPERATION: 07/24/2017 PREOPERATIVE DIAGNOSIS: Primary osteoarthritis of the right hip. PROCEDURE: Right total hip arthroplasty. SURGEON: Dr. Andre Anguiano. NAVAL DESIGNER: Lex Aragon PA-C, whose assistance was necessary for positioning of the leg and helping with retraction. ANESTHESIA: Spinal with sedation. COMPLICATIONS: None. CONDITION: Stable to PACU. IMPLANTS USED: I used a [employer] Taperloc total hip arthroplasty system with a size 11 standard offset Taperloc stem, a size 50 G7 acetabulum with a single 30-mm screw, a G7 E1 poly liner and a 36 standard ceramic head. INDICATIONS: Citlalli is a pleasant 67-year-old female who presented to my office with chronic right hip and groin pain. X-rays and clinical examination revealed primary osteoarthritis of the right hip. After failing extensive conservative treatment, she elected to undergo a right total hip arthroplasty. DESCRIPTION OF PROCEDURE: On 07/24/2017, she arrived at [facility] for the above procedure. She was seen in the preoperative holding area and the operative extremity was identified and signed. She was given a preoperative antibiotic and a spinal anesthetic. She was taken back to the operating room, laid on the table in the supine position and put under basic sedation. She was then put in the lateral decubitus position. The right hip was prepped and draped in sterile fashion. Time-out was done and the patient and operative extremity was properly identified. Because of her size, I decided to a lateral Hardinge approach. Dissection was taken down through the fascia and the anterior third of the abductors were elevated off the greater trochanter. The capsule was then excised. The femoral neck was resected and the femoral head was removed. The acetabulum was exposed. Time was spent doing a complete circumferential capsular and labral release. Sequential reaming up to a size 49 reamer was done. This gave good circumferential bleeding bone. A size 50 G7 cup was then impacted into place and a single 30-mm screw was placed. The E1 poly liner was then snapped into place. The proximal femur was then exposed. Sequential broaching up to a size 11 broach was done. A standard head and neck assembly was applied and the hip was reduced. A single flat plate x-ray was taken and I was happy with the alignment of the components and the leg length. The stem was removed and the final size 11 Taperloc standard offset stem was impacted into place. A size 36 standard neck ceramic head was then impacted on the trunnion, the hip was reduced, brought through a full range of motion and felt to be stable. The wound was then irrigated. The surrounding soft tissues were injected with 100 mL of an orthopedic pain control cocktail. The joint was then irrigated with a total of 3 liters of normal saline solution with bacitracin. The abductors were then tenodesed back to the greater trochanter with transosseous FiberWire sutures and [id number] sutures. A drain was placed. The deep fascia was closed with #1 Vicryl and skin was then closed with 2-0 Vicryl and 3-0 V-Loc suture and wesley. She was placed in a soft dressing and taken to the postanesthesia care unit in stable condition. She tolerated the procedure well. I attest to the content of the Intraoperative Record and any orders documented therein. Any exception s are noted below.
--- NOTE | 2017-07-24 15:12 | Anesthesiology Progress Note ---
Anesthesia Post Op Note Date & Time Jul 24, 2017 at 15:12 Vital Signs Pain Intensity: 0 Vital Signs Past 12 Hours Date Time Temp Pulse Resp B/P (MAP) Pulse Ox O2 Delivery O2 Flow Rate FiO2 07/24/17 14:36 36.5 80 16 126/51 96 Nasal Cannula 4 07/24/17 09:40 36.9 88 20 190/82 95 Room Air Notes Mental Status: alert / awake / arousable, participated in evaluation Pt Amnestic to Procedure: Yes Nausea / Vomiting: adequately controlled Pain: adequately controlled Airway Patency, RR, SpO2: stable & adequate BP & HR: stable & adequate Hydration State: stable & adequate Neuraxial Anesthesia: was administered, sensory block is resolving Anesthetic Complications: no major complications apparent
--- NOTE | 2017-07-24 15:24 | DIAGNOSTIC IMAGING REPORT ---
AP PELVIS, CROSSTABLE LATERAL RIGHT HIP History: Right total hip arthroplasty. Degenerative arthritis. Postop. FINDINGS: The patient is status post a right total hip arthroplasty. The hardware is intact. No fracture or dislocation. Skin wesley and surgical drains are in place. IMPRESSION: Right total hip arthroplasty. No evidence for hardware complication Electronically signed by: Eliseo Marroquin M.D. 07/24/2017 3:22 PM Dictated Date/Time: 07/24/2017 3:22 PM
[2017-07-24] MEDS ORDERED: NURSING DECISION MEDICATION ORDER SCH (15:45)
[2017-07-24] MEDS: SODIUM CHLORIDE 0.9% 1000ML 1,000 ML IV SCH (16:51)
[2017-07-24] MEDS: ACETAMINOPHEN IV 1,000 MG in EMPTY BAG 0 ML IV SCH (18:04)
[2017-07-24] MEDS: KETOROLAC TROMETHAMINE 15 MG/ML VIAL IV. SCH (18:05)
[2017-07-24] MEDS: HYDROmorphone HCL 2 MG TAB PO PRN (19:58)
[2017-07-24] MEDS: CEFAZOLIN IV 2,000 MG in DEXTROSE 5% 50ML 50 ML IV SCH (19:58)
[2017-07-24] MEDS: ASPIRIN 325 MG ECTAB PO SCH (20:54)
[2017-07-24] MEDS: PRAVASTATIN SOD 20 MG TAB PO SCH (20:55)
[2017-07-24] MEDS: DOCUSATE SODIUM 100 MG CAP PO SCH (20:55)
[2017-07-24] MEDS: SENNA 8.6 MG TAB PO SCH (20:59)
[2017-07-25] MEDS: SODIUM CHLORIDE 0.9% 1000ML 1,000 ML IV SCH ×2 (00:42→11:30)
[2017-07-25] MEDS: KETOROLAC TROMETHAMINE 15 MG/ML VIAL IV. SCH ×4 (00:42→17:37)
[2017-07-25] MEDS: ACETAMINOPHEN IV 1,000 MG in EMPTY BAG 0 ML IV SCH ×2 (02:19→10:21)
[2017-07-25 03:59] VITALS: BP 114/62; PULSE 69; TEMP 37.1; O2SAT 93
[2017-07-25] MEDS: CEFAZOLIN IV 2,000 MG in DEXTROSE 5% 50ML 50 ML IV SCH (04:09)
[2017-07-25] MEDS: HYDROmorphone HCL 2 MG TAB PO PRN ×4 (04:09→19:48)
[2017-07-25 06:53] LABS: COMPLETE YES; HEMATOCRIT 36.1 % (37-47); IG% 0.5 %; LYMPH % 5.4 %; LYMPH ABS # 1.09 K/uL (1.2-3.4); MEAN CORPUSCULAR HEMOGLOBIN 30.4 pg (25-34); MEAN CORPUSCULAR HGB CONC 34.9 g/dl (32-36); MEAN PLATELET VOLUME 10.7 fL (7.4-10.4); MONO % 6.1 %; PLATELET COUNT 199 K/uL (130-400); RED BLOOD COUNT 4.15 M/uL (4.2-5.4); WHITE BLOOD COUNT 20.26 K/uL (4.8-10.8)
[2017-07-25 07:28] LABS: BUN/CREATININE RATIO 9.1 (10-20); CALCIUM 8.6 mg/dl (8.5-10.1); CREATININE 1.2 mg/dl (0.60-1.20); POTASSIUM 3.9 mmol/L (3.5-5.1)
[2017-07-25 09:00] VITALS: BP 133/74; PULSE 72; TEMP 37; O2SAT 94
[2017-07-25] MEDS: DOCUSATE SODIUM 100 MG CAP PO SCH ×2 (09:17→20:43)
[2017-07-25] MEDS: PANTOprazole SOD 40 MG TAB PO SCH (09:17)
[2017-07-25] MEDS: ASPIRIN 325 MG ECTAB PO SCH ×2 (09:17→20:43)
[2017-07-25] MEDS: TOLTERODINE TARTRATE 1 MG TAB PO SCH (09:18)
[2017-07-25] MEDS: MULTIVITAMIN TAB PO SCH (09:18)
--- NOTE | 2017-07-25 11:11 | PROGRESS NOTE ---
DATE: 07/25/2017 DATE: 07/25/2017 CHIEF COMPLAINT: Status post right total hip arthroplasty postop day #1. PROGRESS: Citlalli was seen and examined at bedside today. Overall she is doing fairly well. She is sitting upright in a chair. She was already ambulating with physical therapy. She has no complaints. PHYSICAL EXAMINATION: RIGHT HIP: The dressing is clean and dry and the drain is to suction. She has active dorsiflexion and plantarflexion of her right ankle and sensation is intact throughout. LABORATORY DATA: She has an H&H today of 12.6 and 36.1. Her white count is a little high at 20.26. Her glucose is 167. Her vital signs are all stable on room air. She is voiding on her own. X-rays postoperatively of the right hip show the prosthesis to be anatomical alignment without any evidence of fracture, dislocation or loosening. IMPRESSION: Status post right total hip arthroplasty postop day #1. PLAN: At this point, she is doing very well and happy with her progress. She will continue to work with physical therapy. She is on aspirin for DVT prophylaxis. Tomorrow morning the nursing staff can pull the drain and change the dressing. Will likely discharge her to home with home health.
[2017-07-25 11:17] VITALS: BP 130/69; PULSE 65; TEMP 36.4; O2SAT 94
[2017-07-25 15:11] VITALS: BP 115/67; PULSE 66; TEMP 36.3; O2SAT 95
[2017-07-25] MEDS: ACETAMINOPHEN 500 MG TAB PO SCH (17:38)
[2017-07-25] MEDS: PRAVASTATIN SOD 20 MG TAB PO SCH (20:43)
[2017-07-25] MEDS: SENNA 8.6 MG TAB PO SCH (20:43)
[2017-07-25 22:47] VITALS: BP 128/74; PULSE 68; TEMP 36.6; O2SAT 93
[2017-07-26] MEDS: KETOROLAC TROMETHAMINE 15 MG/ML VIAL IV. SCH ×2 (00:24→06:08)
[2017-07-26] MEDS: ACETAMINOPHEN 500 MG TAB PO SCH (02:09)
[2017-07-26 06:54] VITALS: BP 130/74; PULSE 64; TEMP 36.5; O2SAT 96
[2017-07-26] MEDS ORDERED: DLD2 PO (07:33)
[2017-07-26] MEDS ORDERED: ASPEC325 PO (07:33)
--- NOTE | 2017-07-26 07:34 | Discharge Instructions ---
Discharge Instructions Date of Service Jul 26, 2017. Admission Reason for Admission: Right Hip Degenerative Joint Disease Discharge Discharge Diagnosis / Problem: Right Total Hip Discharge Goals Goal(s): Decrease discomfort, Improve function Activity Recommendations Activity Limitations: as noted below . Instructions / Follow-Up Instructions / Follow-Up Activity and Therapy Recommendations: * If you are using [facility] then Physical Therapy will be provided until they feel you are ready to start Outpatient Physical Therapy. If you are not using a Home Health agency then Outpatient Physical Therapy should start about 3-5 days from your day of surgery. Therapy will last about 3-6 weeks * You were shown a series of exercises in the hospital. Do these exercises three times each day including the exercises you were shown in physical therapy. * Get up and walk several times each day.~ For the first four weeks, try not to stand or walk for more than one hour at a time. If you do stand or walk for more than one hour, you will not hurt anything, but your leg will likely swell.~ ~ * As you feel comfortable, you may change from the walker or crutches to a cane and~then to independent walking. Medications: * Narcotic You will likely be sent home from the hospital with a prescription for the narcotic pain medication that worked best throughout your stay. * Aspirin Most patients will be required to take Aspirin 325mg twice a day for 6 weeks after surgery. This is obtained kcaq-mny-bgljtyy and a prescription is not necessary. * Other medications may be prescribed for specific circumstances. If you have any questions, please call the office at . * Resume previous home medications unless otherwise instructed TEDs/Elastic Stockings: The white elastic stockings help limit swelling and prevent blood clots from forming in your legs. The more you wear them, the more they work. Wear them for six weeks. Showering: You may shower 5 days from the day of surgery. Let the soapy shower water run over the wesley. Do not scrub or soak the incision. Things To Watch For: * Drainage from the incision site that occurs more than one week after your surgery. * Increased redness at the incision site. * Fever above 102 degrees Fahrenheit. * Unusual chest pain or shortness of breath. * Call [facility] at with any of the above problems Follow-Up Visit: Follow-up with Dr. Anguiano 2-3 weeks after your day of surgery. An appointment was probably scheduled when you signed-up for surgery in the office. If you have any questions call Office Instructions: More detailed instructions as well as Frequently Asked Questions were provided in a folder by our office when you signed-up for surgery. Please review these instructions when you get home. If you have any further questions or concerns, please feel free to call the office at [phone] Current Hospital Diet Patient's current hospital diet: Regular Diet Discharge Diet Recommended Diet: Regular Diet Procedures Procedures Performed: Right Lateral Total Hip Arthroplasty--Uncemented Pending Studies Studies pending at discharge: no Medical Emergencies . Who to Call and When: Medical Emergencies: If at any time you feel your situation is an emergency, please call 911 immediately. . Non-Emergent Contact Non-Emergency issues call your: Surgeon Call Non-Emergent contact if: wound has increased drainage, wound has increased redness . "Provider Documentation" section prepared by Andre Anguiano. . VTE Core Measure Inpt VTE Proph given/why not?: Other Anticoagulation (Aspirin 325 twice a day for 6 weeks)
--- NOTE | 2017-07-26 08:15 | PROGRESS NOTE ---
DATE: 07/26/2017 CHIEF COMPLAINT: Status post right total hip arthroplasty, postop day #2. PROGRESS: Citlalli was seen and examined at bedside today. Overall, she is doing very well. She states she has very little pain in her hip. She is working well with physical therapy, has no complaints. PHYSICAL EXAMINATION: RIGHT HIP: The dressing has been changed and drain has been pulled. Her leg lengths are equal. She is neurovascularly intact. IMPRESSION: Status post right total hip arthroplasty, postoperative day #2. PLAN: At this point, she is doing very well and happy with the progress. She is on aspirin for DVT prophylaxis. She will be seen by physical therapy this morning and we will discharge her to home on oral pain medications.
[2017-07-26] MEDS: DOCUSATE SODIUM 100 MG CAP PO SCH (08:33)
[2017-07-26] MEDS: TOLTERODINE TARTRATE 1 MG TAB PO SCH (08:33)
[2017-07-26] MEDS: ASPIRIN 325 MG ECTAB PO SCH (08:34)
[2017-07-26] MEDS: MULTIVITAMIN TAB PO SCH (08:34)
[2017-07-26] MEDS: HYDROmorphone HCL 2 MG TAB PO PRN (08:34)
[2017-07-26] MEDS: PANTOprazole SOD 40 MG TAB PO SCH (08:34)
[2017-07-26 08:47] VITALS: BP 130/74; PULSE 64; TEMP 36.5; O2SAT 96
--- NOTE | 2017-07-26 22:24 | DISCHARGE SUMMARY ---
DISCHARGE DIAGNOSIS: Primary osteoarthritis of the right hip. PROCEDURE: Right total hip arthroplasty on 07/24/[address] Andre Anguiano. DISCHARGE INSTRUCTIONS: 1. Aspirin 325 mg twice a day. 2. Dilaudid 2 mg every 4 hours as needed for pain. 3. Albuterol 2 puffs 4 times a day as needed. 4. Dulcolax 2 tabs as needed. 5. Symbicort inhaler 2 puffs twice a day as needed. 6. Lasix 40 mg as needed. 7. Prilosec 20 mg twice a day. 8. Pravachol 20 mg at night. 9. Tolterodine 1 tab daily. 10. Vitamin B12 injection every month. 11. Follow up with Dr. Anguiano in 2-3 weeks. 12. Call the office of Dr. Anguiano with any questions or concerns. HOSPITAL COURSE: Citlalli is a pleasant 67-year-old female who presented to my office with complaints of chronic right hip pain. X-rays and clinical examination were diagnostic for primary osteoarthritis of the right hip. After failing conservative treatment, she elected to undergo a right total hip arthroplasty. On 07/24/2017, she arrived at [facility] and underwent a right hip replacement without complications. She had a spinal anesthetic. Postoperatively, she was discharged to general orthopedic floors and started on aspirin 325 mg twice a day. Her hospital course was uneventful. On postop day #1, her H&H was stable at 12.6 and 36.1. She was able to ambulate well with physical therapy and her pain was controlled. On postoperative day #2, the dressing was changed, the drain was pulled and she continued to work well with physical therapy. She was subsequently discharged to home with oral pain medications, un[place] and the above instructions.
== END 2017-07-26 10:30 | disposition home health service (06) | DRG 470 ==
LOC: C.ACU 08:50 → C.3E 11:44 → ENRESERV 15:04
PROVIDERS: ADMIT Orthopaedic Surgery; ATTEND Orthopaedic Surgery
PROC: 0SR904A Replacement of Right Hip Joint with Ceramic on Polyethylene Synthetic Substitute, Uncemented, Open Approach (ICD-10-PCS; principal; 2017-07-24 11:40)
DX: M16.11 Unilateral primary osteoarthritis, right hip (principal); Z68.42 Body mass index [BMI] 45.0-49.9, adult; J44.9 Chronic obstructive pulmonary disease, unspecified; E11.9 Type 2 diabetes mellitus without complications; E78.5 Hyperlipidemia, unspecified; K21.9 Gastro-esophageal reflux disease without esophagitis; Z98.1 Arthrodesis status; K76.0 Fatty (change of) liver, not elsewhere classified; E78.00 Pure hypercholesterolemia, unspecified; G47.33 Obstructive sleep apnea (adult) (pediatric); K44.9 Diaphragmatic hernia without obstruction or gangrene; E66.01 Morbid (severe) obesity due to excess calories; Z79.899 Other long term (current) drug therapy; Z79.51 Long term (current) use of inhaled steroids

== ENCOUNTER → 2017-08-24 | Outpatient (CLI) | payer OTHER ==
[~2017-08-24] MED LIST changes: -ACETAMINOPHEN 500 MG TAB PO SCH; +ASPEC325 PO; -BUPIVACAINE 0.5 % 5 MG/1 ML PF 10ML VIAL ONE; -CEFAZOLIN 2000 MG/60 ML D5W 60 ML IV SCH; +DLD2 PO; -LACTATED RINGER'S 1000ML 1,000 ML IV SCH; -LACTATED RINGER'S 1000ML 500 ML IV ONE; -LACTATED RINGER'S 1000ML IV SCH; -ROPIVACAINE 5MG/ML 30 ML 150 MG, BUPIVACAINE/EPINEPHR 0.5% MPF 30 ML, KETOROLAC TROMETH... INFIL SCH
[2017-08-24 11:42] LABS: URINE APPEARANCE CLOUDY (CLEAR); URINE BILIRUBIN NEG (NEG); URINE COLOR YELLOW; URINE EPITHELIAL CELL AUTO >30 /lpf (0-5); URINE NITRITE NEG (NEG); URINE SPECIFIC GRAVITY 1.016 (1.000-1.030); UROBILINOGEN NEG (NEG)
[2017-08-24 11:43] LABS: ALT/SGPT 22 U/L (12-78); AST/SGOT 27 U/L (15-37); BLOOD UREA NITROGEN 8 mg/dl (7-18); BUN/CREATININE RATIO 10.6 (10-20); CALCIUM 9.5 mg/dl (8.5-10.1); CARBON DIOXIDE 24 mmol/L (21-32); CHLORIDE 105 mmol/L (98-107); CHOLESTEROL 184 mg/dl (0-200); CREATININE 0.79 mg/dl (0.60-1.20); GLUCOSE 101 mg/dl (70-99); POTASSIUM 4.2 mmol/L (3.5-5.1); SODIUM 138 mmol/L (136-145)
[2017-08-24 11:44] LABS: MANUAL MICROSCOPIC REQUIRED? NO; REVIEW REQ? NO
[2017-08-24 11:45] LABS: ZZUR CULT IF INDIC CLEAN CATCH NO
[2017-08-24 11:46] LABS: ALB/GLOB RATIO 0.9 (0.9-2); ALKALINE PHOSPHATASE 149 U/L (45-117); CHOLESTEROL/HDL RATIO 3.3; HDL CHOLESTEROL 55 mg/dl; LDL CHOLESTEROL CALCULATED 100 mg/dl; TRIGLYCERIDES 144 mg/dl (0-150); VERY LOW DENSITY LIPOPROT CALC 29 mg/dl
== END | disposition home or self-care (01) ==
LOC: C.LAB1850 10:11
PROVIDERS: ATTEND Internal Medicine
DX: E78.5 Hyperlipidemia, unspecified (principal); R35.0 Frequency of micturition

== ENCOUNTER → 2017-09-11 | Outpatient (CLI) | payer OTHER ==
--- NOTE | 2017-09-11 12:42 | DIAGNOSTIC IMAGING REPORT ---
ABDOMEN COMPLETE (US) CLINICAL HISTORY: R10.811 Right upper quadrant abdominal [id number] COMPARISON STUDY: 02/20/2017 FINDINGS: The examination was limited from a technical standpoint due to the patient's body habitus. The liver was enlarged measuring 22 cm. There is increased hepatic echogenicity, likely secondary to hepatic steatosis. No focal masses were visualized. The gallbladder is surgically absent. The visualized portions of the pancreas appear within normal limits. The spleen measures 12.6 cm. The common bile duct measured 7 mm. Visualized portions of the aorta reveal no dilatation. The right kidney measured 10 cm in length. The left kidney measures 12.1 cm in length. There is a suspected dromedary hump. Review of a noncontrast CT scan performed November 2016 revealed no suspicious mid pole left renal mass although the examination was limited due to the lack of intravenous contrast IMPRESSION: 1. Technically limited study secondary to the patient's body habitus 2. Limited penetration of the liver. Possible hepatic steatosis 3. Surgically absent gallbladder 4. 7 mm common bile duct 5. Contour deformity involving the midpole the left kidney, likely representing a dromedary hump. Electronically signed by: Jose Conley M.D. 09/11/2017 12:41 PM Dictated Date/Time: 09/11/2017 12:37 PM
== END | disposition home or self-care (01) ==
LOC: C.ULTR 11:25
PROVIDERS: ATTEND Internal Medicine
DX: R10.811 Right upper quadrant abdominal tenderness (principal); R93.2 Abnormal findings on diagnostic imaging of liver and biliary tract; R93.422 Abnormal radiologic findings on diagnostic imaging of left kidney; Z90.49 Acquired absence of other specified parts of digestive tract

== ENCOUNTER → 2017-10-14 | Outpatient (CLI) | payer OTHER ==
[~2017-10-14] MED LIST changes: -DLD2 PO; +HYDR2TAB3 PO; +OPTIRAY 320 IV PRN
--- NOTE | 2017-10-14 11:49 | DIAGNOSTIC IMAGING REPORT ---
CT OF THE ABDOMEN AND PELVIS WITH CONTRAST CLINICAL HISTORY: Upper abdominal pain. Early satiety. COMPARISON STUDY: CT of the abdomen and pelvis April or 2016 and abdominal ultrasound September 11, 2017. TECHNIQUE: Following IV administration of 94 mL of Optiray-320, axial images of the abdomen and pelvis were obtained from the lung bases to the proximal femurs. Images were reviewed in the axial, sagittal, and coronal planes. IV contrast was administered without complication. A dose lowering technique was utilized adhering to the principles of ALARA. Oral contrast was administered. CT DOSE: 1757.75 mGy.cm FINDINGS: There is subtle nodularity of the liver surface. Paraumbilical vein is recannulated. There are small upper abdominal varices. Mild splenomegaly is unchanged. There is no ascites. Sensitivity for detection of hypervascular hepatic lesions is diminished on this portal venous phase study however no hepatic lesions are identified. The main, left and right portal veins are patent. There is no biliary ductal dilatation status post cholecystectomy. The adrenal glands, kidneys and pancreas are unremarkable. There is moderate atherosclerotic plaque of the abdominal aorta. Caliber and wall thickness of small and large bowel are normal. The appendix is not visualized. A right hip arthroplasty and postoperative findings within the spine are incidentally noted. There are no suspicious osseous lesions. IMPRESSION: 1. No acute process within the abdomen or pelvis. 2. Fatty infiltration of the liver with suspected cirrhosis and small upper abdominal collaterals which suggest portal hypertension. Electronically signed by: Jaiden Tucker M.D. 10/14/2017 11:48 AM Dictated Date/Time: 10/14/2017 11:40 AM
== END | disposition home or self-care (01) ==
LOC: C.CTS 11:04
PROVIDERS: ATTEND Physician Assistant
DX: R68.81 Early satiety (principal)

== ENCOUNTER → 2018-01-11 | Outpatient (CLI) | payer OTHER ==
[~2018-01-11] MED LIST changes: -OPTIRAY 320 IV PRN
--- NOTE | 2018-01-11 10:07 | DIAGNOSTIC IMAGING REPORT ---
ABDOMINAL ULTRASOUND, RIGHT UPPER QUADRANT HISTORY: LIVER CIRRHOSIS SECONDARY TO NONALCOHOLIC STEATOHEPATITIS. COMPARISON: Abdominal ultrasound 09/11/2017. FINDINGS: Pancreas: The pancreatic tail is obscured by overlying bowel gas. The remaining portions of the pancreas are within normal limits. Liver: The liver is echogenic consistent with fatty change. Slightly nodular contour to the liver consistent with cirrhosis. No hepatic masses. The liver measures 17.5 cm in length. Gallbladder: The gallbladder is surgically absent. CBD: 6 mm. Right kidney: No hydronephrosis. IMPRESSION: 1. Cirrhotic liver demonstrating fatty change. 2. Cholecystectomy. Electronically signed by: Eliseo Marroquin M.D. 01/11/2018 10:05 AM Dictated Date/Time: 01/11/2018 10:03 AM
== END | disposition home or self-care (01) ==
LOC: C.ULTR 09:37
PROVIDERS: ATTEND Internal Medicine
DX: K75.81 Nonalcoholic steatohepatitis (NASH) (principal); K74.60 Unspecified cirrhosis of liver; E11.9 Type 2 diabetes mellitus without complications; K21.9 Gastro-esophageal reflux disease without esophagitis; E66.9 Obesity, unspecified; Z68.42 Body mass index [BMI] 45.0-49.9, adult

== ENCOUNTER → 2018-02-23 | Outpatient (CLI) | payer OTHER ==
[~2018-02-23] MED LIST changes: +TOLT1TAB PO; -TOLT1TAB6 PO
--- NOTE | 2018-02-23 12:07 | DIAGNOSTIC IMAGING REPORT ---
LUMBAR SPINE W/O CONTRAST CLINICAL HISTORY: 67 years-old Female presenting with LUMBAR SPINE PAIN. TECHNIQUE: Multisequence, multiplanar MR imaging of the lumbar spine was performed 03/23/2017. IV contrast: None. COMPARISON: None. FINDINGS: Localizer images: Posterior lumbar fusion hardware from L2 to S1. Bilateral transpedicular screw and russel fixation from L2 to S1. Regional susceptibility artifact somewhat limits evaluation. An interbody spacer is noted at L4-5. No bony edema at the operative levels. Extensive edema in the spinal musculature at the operative bed, where there are laminectomy defects of and L2-L5. A fluid collection is again noted along the dorsal aspect of the thecal sac at the L3-4 level, slightly decreased in size from prior, now measuring 5.4 x 2.2 x 4.1 cm, previously 5.9 x 2.7 x 4.2 cm. There is no gross evidence of continuity with the thecal sac with the fluid collection. Subcutaneous edema in the lumbar region also noted. T1 hyperintense, T2 hyperintense, partially fat containing lesion at T12 is most consistent with a benign a hemangioma and is unchanged from prior. 2 to 3 mm of grade 1 anterolisthesis of L4 on L5 is unchanged. Otherwise normal lumbar lordosis. Mild intervertebral disc desiccation from L1-2 through L3-4. Minimal disc bulges noted at these levels greatest at L1-2. More significantly, at L1-2, there is facet hypertrophy and ligamentum flavum thickening that further efface the thecal sac resulting in mild spinal stenosis. CSF signal intensity is preserved at this level. Moderate to severe bilateral neural foraminal narrowing at L1-2. The operative levels demonstrate grossly patent neural foramina and adequate decompression of the posterior thecal sac. The spinal cord ends at L2. Cauda equina grossly normal in morphology. IMPRESSION: 1. Postsurgical changes of L2-S1 fusion with laminectomies of L2-L5. 2. Redemonstration of the laminectomy bed fluid collection, which is stable to minimally decreased in size. This does not have a clear connection with the thecal sac and is favored to represent a seroma. The primary alternative differential consideration is a pseudomeningocele, which is considered less likely. 3. Adjacent level degenerative change at L1-2 has minimally progressed with greater neural foraminal narrowing. Electronically signed by: Hermelindo Taveras M.D. 02/23/2018 12:06 PM Dictated Date/Time: 02/23/2018 11:57 AM
== END | disposition home or self-care (01) ==
LOC: C.MRI 10:54
PROVIDERS: ATTEND Physician Assistant Medical
DX: M54.16 Radiculopathy, lumbar region (principal); Z98.1 Arthrodesis status

== ENCOUNTER → 2018-03-05 | Outpatient (CLI) | payer OTHER ==
[2018-03-05 12:28] LABS: BASO % 0.3 %; BASO ABS # 0.02 K/uL (0-0.2); EOS % 3.1 %; EOS ABS # 0.18 K/uL (0-0.5); HEMATOCRIT 41.7 % (37-47); HEMOGLOBIN 14.4 g/dL (12.0-16.0); IG# 0.02 K/uL (0.00-0.02); LYMPH % 31.7 %; LYMPH ABS # 1.87 K/uL (1.2-3.4); MEAN CELL VOLUME 87.2 fL (80-100); MEAN CORPUSCULAR HEMOGLOBIN 30.1 pg (25-34); MEAN CORPUSCULAR HGB CONC 34.5 g/dl (32-36); MEAN PLATELET VOLUME 11.7 fL (7.4-10.4); MONO % 15.1 %; MONO ABS # 0.89 K/uL (0.11-0.59); NEUT % 49.5 %; NEUT ABS # 2.92 K/uL (1.4-6.5); PLATELET COUNT 160 K/uL (130-400); RED CELL DISTRIBUTION WIDTH CV 14.4 % (11.5-14.5)
[2018-03-05 16:40] LABS: ALBUMIN 3.6 gm/dl (3.4-5.0); ALT/SGPT 37 U/L (12-78); AST/SGOT 43 U/L (15-37); BLOOD UREA NITROGEN 8 mg/dl (7-18); CARBON DIOXIDE 25 mmol/L (21-32); GLUCOSE 100 mg/dl (70-99); POTASSIUM 3.8 mmol/L (3.5-5.1); SODIUM 139 mmol/L (136-145)
[2018-03-05 16:51] LABS: ALKALINE PHOSPHATASE 139 U/L (45-117); CHOLESTEROL 193 mg/dl (0-200); LDL CHOLESTEROL CALCULATED 117 mg/dl; TOTAL PROTEIN 7.1 gm/dl (6.4-8.2)
== END | disposition home or self-care (01) ==
LOC: C.LAB1850 11:10
PROVIDERS: ATTEND Internal Medicine
DX: E53.8 Deficiency of other specified B group vitamins (principal); I10 Essential (primary) hypertension; E88.81 Metabolic syndrome and other insulin resistance; R09.82 Postnasal drip

== ENCOUNTER → 2018-03-08 | Outpatient (CLI) | payer OTHER ==
[2018-03-08 14:41] LABS: ALBUMIN 3.4 gm/dl (3.4-5.0)
== END | disposition home or self-care (01) ==
LOC: C.LAB 12:00
PROVIDERS: ATTEND Internal Medicine
DX: R74.8 Abnormal levels of other serum enzymes (principal)

== ENCOUNTER → 2018-04-16 | Outpatient (CLI) | payer OTHER ==
--- NOTE | 2018-04-16 10:41 | DIAGNOSTIC IMAGING REPORT ---
LEFT SHOULDER MRI HISTORY: Left shoulder pain. TECHNIQUE: Multiplanar multisequence MRI of the left shoulder was performed without contrast. COMPARISON STUDY: None. FINDINGS: AC joint: Moderate AC joint arthrosis demonstrated by joint space narrowing and marginal osteophytes. Rotator cuff: Mild fatty atrophy of the supraspinatus muscle. The infraspinatus demonstrates mild tendinopathy without definite tear. There is a focal full-thickness tear involving the supraspinatus tendon which measures 8 x 3 mm. The teres minor and subscapularis tendons appear intact. Trace fluid within the subacromial/subdeltoid bursa. Labrum: Suboptimal evaluation due to the patient's body habitus. No definite labral tear identified. Biceps tendon: Intact Bones: Small focus of cystic change at the lateral humeral head. No fracture or dislocation. Cartilage: Mild cartilage thinning within the glenoid and humeral head. Miscellaneous: No significant joint effusion. IMPRESSION: 1. Small focal full-thickness tear within the supraspinatus tendon. This mild fatty atrophy of the supraspinatus muscle. 2. Infraspinatus tendinopathy. 3. Moderate AC joint arthrosis. Electronically signed by: Eliseo Marroquin M.D. 04/16/2018 11:12 AM Dictated Date/Time: 04/16/2018 10:39 AM
== END | disposition home or self-care (01) ==
LOC: C.MRI 04-08 09:27
PROVIDERS: ATTEND Orthopaedic Surgery
DX: M75.102 Unspecified rotator cuff tear or rupture of left shoulder, not specified as traumatic (principal); M75.82 Other shoulder lesions, left shoulder; M19.012 Primary osteoarthritis, left shoulder

== ENCOUNTER 2018-07-16 18:16 | Emergency (ER) | payer OTHER ==
[~2018-07-16] VITALS: Ht 160 cm; Wt 116.7 kg
[~2018-07-16 18:16] MED LIST changes: -ASPEC325 PO; -BISA-16 PO; -FRS/40 PO; -HYDR2TAB3 PO; +NAPR1TAB9 PO; -PRAV20TA PO; -PRLSR20 PO; -TOLT1TAB PO
[2018-07-16 18:23] VITALS: Ht 160 cm; Wt 116.7 kg
--- NOTE | 2018-07-16 19:51 | DIAGNOSTIC IMAGING REPORT ---
L KNEE 3 VIEWS CLINICAL HISTORY: Left knee pain following fall. COMPARISON: Knee radiographs February 20, 2018. FINDINGS: Note is made of a vertical nondisplaced fracture through the lateral patella. A left knee joint effusion is noted. There are no additional fractures. Note is made of mild to moderate tricompartmental osteophytosis of the left knee. IMPRESSION: 1. Acute vertical nondisplaced fracture of the lateral patella. 2. Left knee joint effusion. Electronically signed by: Jaiden Tucker M.D. 07/16/2018 7:50 PM Dictated Date/Time: 07/16/2018 7:49 PM
--- NOTE | 2018-07-16 20:17 | EMERGENCY ROOM VISIT NOTE ---
History Report prepared by Carlene: Layla Burns Under the Supervision of: Dr. Ezra Meyers M.D. First contact with patient: 18:43 Chief Complaint: KNEEPAIN Stated Complaint: FALL- HURT LEFT SIDE/KNEE History of Present Illness The patient is a 68 year old female who presents to the Emergency Room with complaints of left knee pain beginning at 1330 today. She reports she was walking through her front door when she slipped and hit her left knee on the door and ground. She applied ice to her knee which alleviated some of her pain, but she is in pain so she came to the ED. Pt denies any back pain. Source of History: patient Onset: 1330 today Position: knee (left) Quality: other (left knee pain) Modifying Factors (Relieving): ice Associated Symptoms: No back pain Review of Systems See HPI for pertinent positives and negatives. A total of ten systems were reviewed and were otherwise negative. Past Medical & Surgical Medical Problems: (1) Asthma (2) CAD (coronary artery disease) (3) CAD (coronary artery disease) (4) Chest discomfort (5) Chest pain (6) COPD (chronic obstructive pulmonary disease) (7) Depression (8) Diabetes mellitus type 2 (9) Dyspnea (10) Gastroesophageal reflux disease (11) HTN (hypertension) (12) Hyperlipidemia (13) Hypoxia (14) Lumbar stenosis with neurogenic claudication (15) Morbid Obesity (16) Obstructive sleep apnea syndrome (17) Osteoarthritis of right hip (18) Osteoporosis Nos (19) SHORTNESS OF BREATH (20) Spinal stenosis (21) Vitamin D deficiency (22) Wheezing Surgical Problems: (1) History of cholecystectomy (2) History of cholecystectomy (3) History of herniorrhaphy (4) History of hysterectomy (5) History of repair of rotator cuff (6) Lens Replacement Nec Family History Diabetes mellitus Heart disease FATHER ( of [place]) Hypertension MOTHER Social History Smoking Status: Never Smoker Alcohol Use: none Marital Status: Housing Status: lives with family Occupation Status: retired Current/Historical Medications Scheduled Cyanocobalamin (B-12 Compliance Injection), 1,000 MCG INJ MONTHLY Naproxen (Aleve), 440 MG PO BID [Albuterol Neb], 1 DOSE INH PRN Scheduled PRN Albuterol (Proair Hfa), 2 PUFFS INH QID PRN for SOB/Wheezing Budesonide/Formoterol Fumarate (Symbicort 160/4.5 Inhaler ), 2 PUFFS INH BID PRN for Shortness of Breath Pmqdxotqnory-Iiadgrsvfxhhr-Tks (Dermacinrx Therazole Regan 1-0.05 & 20 %), 1 DOSE TOP BID PRN for RN Allergies Coded Allergies: Lorazepam (Verified Adverse Reaction, Mild, DIZZY, 07/07/17) Codeine (Verified Adverse Reaction, Unknown, NAUSEA, 07/07/17) Gabapentin (Unverified Adverse Reaction, Unknown, DIZZINESS, FIDGETY, 07/21) Lovastatin (Unverified Adverse Reaction, Unknown, WASN'T EFFECTIVE, 07/07/17 ) Meloxicam (Verified Adverse Reaction, Unknown, DIZZINESS, 07/07/17) Metformin (Unverified Adverse Reaction, Unknown, DIARRHEA, 07/21/17) Oxycodone (Verified Adverse Reaction, Unknown, GI SYMPTOMS-DISORIENTATION , 07/07/17) Propoxyphene (Verified Adverse Reaction, Unknown, NAUSEA, 07/07/17) Tramadol (Verified Adverse Reaction, Unknown, GI SYMPTOMS, 07/07/17) Physical Exam Vital Signs Date Time Temp Pulse Resp B/P (MAP) Pulse Ox O2 Delivery O2 Flow Rate FiO2 07/16/18 18:23 36.7 82 16 100/46 94 Room Air Physical Exam GENERAL: Awake, alert, well-appearing, in no acute distress HENT: Normocephalic, atraumatic. Oropharynx unremarkable. EYES: Normal conjunctiva. Sclera non-icteric. NECK: Supple. No nuchal rigidity. RESPIRATORY: Clear to auscultation. Normal respiratory effort. CARDIAC: Normal rate. Normal rhythm. Extremities warm and well perfused. GI: Obese soft, non-distended. No tenderness to palpation. No rebound or guarding. RECTAL: Deferred. MUSCULOSKELETAL: Atraumatic. Chest examination reveals no tenderness. LOWER EXTREMITIES: Calves are equal size bilaterally and non-tender. Mild ecchymosis and tenderness of the left patella. Intact extension of LLE. Pain on ROM of L knee. NEURO: Normal sensorium. No sensory or motor deficits noted. No facial droop. SKIN: Warm and dry. No rash or jaundice noted. Medical Decision & Procedures ER Provider Diagnostic Interpretation: Radiology results as stated below per my review and radiologist interpretation: L KNEE 3 VIEWS CLINICAL HISTORY: Left knee pain following fall. COMPARISON: Knee radiographs February 20, 2018. FINDINGS: Note is made of a vertical nondisplaced fracture through the lateral patella. A left knee joint effusion is noted. There are no additional fractures. Note is made of mild to moderate tricompartmental osteophytosis of the left knee. IMPRESSION: 1. Acute vertical nondisplaced fracture of the lateral patella. 2. Left knee joint effusion. Electronically signed by: Jaiden Tucker M.D. 07/16/2018 7:50 PM ED Course 184: The patient was evaluated in room D1. A complete history and physical exam was performed. 1952: I reevaluated the patient. Discussed results and discharge instructions: She verbalized understanding and agreement. The patient is ready for discharge. Medical Decision Triage Nursing notes reviewed. Differential diagnosis: Etiologies such as fracture, dislocation, intra-abdominal, pneumothorax, intrathoracic , intracranial, neurologic, as well as other traumatic pathologies were entertained. Patient suffered a mechanical fall while walking to her house at her entryway today. Fell to her knees with pain in the left knee. Took some Aleve and ice the area but still with pain so came here for evaluation. No hip pain or back pain. No injury to the right lower leg. Left knee pain only. No distal numbness that is new. Some evidence of slight bruising overlying the area. No significant effusion noted. Doubt DVT or infection. Knee x-ray to exclude fracture completed. Does not appear dislocated. Did not strike head and have no concerns about any further traumatic injuries. Does not seem syncopal according to her. X-ray showed nondisplaced vertical lateral small patellar fracture. Doubt other significant injuries and I believe another x-rays are indicated. Intact extensor mechanism. She is advised to continue use Aleve that she is tolerated for along with ice to the area. He also use some over-the -counter Aspercreme with lidocaine to assist with pain control given her multiple allergies. Rest advised. Placed in knee immobilizer. Has a cane that she can utilize to assist ambulation. Follow-up with orthopedic doctor (Dr. Anguiano) in the next week to ensure healing. Medication Reconcilliation Current Medication List: was personally reviewed by me Blood Pressure Screening Patient's blood pressure: Normal blood pressure Blood pressure disposition: Did not require urgent referral Impression Primary Impression: Left patella fracture Scribe Attestation The scribe's documentation has been prepared under my direction and personally reviewed by me in its entirety. I confirm that the note above accurately reflects all work, treatment, procedures, and medical decision making performed by me. Departure Information Dispostion Home / Self-Care Referrals Za Gee M.D. (PCP) Forms HOME CARE DOCUMENTATION FORM, IMPORTANT VISIT INFORMATION Patient Instructions My [facility] Additional Instructions Utilize a knee immobilizer to help with pain and use a cane to help with her ambulation. Keep the area iced to help with swelling and pain. Elevate as able. May continue to use Aleve to help with pain. Recommend follow-up with your regular doctor orthopedist in the next week. Please be careful to avoid additional falls. Problem Qualifiers Primary Impression: Left patella fracture Encounter type: initial encounter Fracture type: closed Fracture morphology : other fracture Qualified Codes: S82.092A - Other fracture of left patella, initial encounter for closed fracture
[2018-07-16 20:18] VITALS: BP 100/46; PULSE 82; TEMP 36.7; O2SAT 94
== END 2018-07-16 20:20 | disposition home or self-care (01) ==
LOC: C.EDB 18:19 → C.EDD 20:20
DX: S82.092A Other fracture of left patella, initial encounter for closed fracture (principal); W01.198A Fall on same level from slipping, tripping and stumbling with subsequent striking against other object, initial encounter; Y93.01 Activity, walking, marching and hiking; Z88.8 Allergy status to other drugs, medicaments and biological substances; Z88.6 Allergy status to analgesic agent; Z88.5 Allergy status to narcotic agent

== ENCOUNTER 2020-01-18 08:41 | Inpatient (IN) ==
--- NOTE | 2019-12-28 11:28 | PAT Medication Instructions ---
Medication Instructions Date of Service December 28, 2019 Home Medications Medication Instructions Recorded budesonide-formoterol HFA 160 2 puffs INH BID #10.2 gm 11/16/19 mcg-4.5 mcg/actuation aerosol inhaler albuterol sulfate 2.5 mg INH Q4H PRN #90 ml 12/06/19 rosuvastatin 5 mg tablet 5 mg PO QAM #90 tab 12/06/19 nebulizer accessories #1 ea 12/07/19 methylprednisolone 4 mg tablets in See Rx Instructions .ROUTE 12/28/19 a dose pack .COMPLEX #21 ea albuterol sulfate 90 mcg/actuation aerosol inhaler 2 puffs INH Q4H PRN pantoprazole 20 mg tablet,delayed release 20 mg PO BID naproxen sodium [Aleve] 220 mg PO UD PRN budesonide-formoterol HFA 160 mcg-4.5 mcg/actuation aerosol inhaler 2 puffs INH BID clotrimazole-betamethasone 1 %-0.05 % topical cream 1 applic TOPICAL DAILY PRN cyclobenzaprine 10 mg tablet 10 mg PO TID PRN albuterol sulfate 2.5 mg INH Q4H PRN rosuvastatin 5 mg tablet 5 mg PO QAM B 12 Injection 1 dose UD hydroxyzine pamoate 25 mg PO TID PRN lidocaine [Lidoderm] 1 patch TOP UD PRN methylprednisolone 4 mg tablets in a dose pack See Rx Instructions .ROUTE .COMPLEX Continue as directed lidocaine [Lidoderm] 1 patch TOP UD PRN (okay to continue as directed but avoid placement over surgery site prior to surgery) methylprednisolone 4 mg tablets in a dose pack See Rx Instructions .ROUTE .COMPLEX ASK your surgeon for instructions naproxen sodium [Aleve] 220 mg PO UD PRN STOP taking 24 hours before surgery clotrimazole-betamethasone 1 %-0.05 % topical cream 1 applic TOPICAL DAILY PRN DO NOT take the morning of surgery cyclobenzaprine 10 mg tablet 10 mg PO TID PRN B 12 Injection 1 dose UD hydroxyzine pamoate 25 mg PO TID PRN Take morning of surgery With a small sip of water, OTHERWISE NOTHING TO EAT OR DRINK AFTER MIDNIGHT: albuterol sulfate 90 mcg/actuation aerosol inhaler 2 puffs INH Q4H PRN (use if needed; please bring with you to hospital day of surgery if possible) pantoprazole 20 mg tablet,delayed release 20 mg PO BID budesonide-formoterol HFA 160 mcg-4.5 mcg/actuation aerosol inhaler 2 puffs INH BID albuterol sulfate 2.5 mg INH Q4H PRN (use if needed; please bring with you to hospital day of surgery if possible) rosuvastatin 5 mg tablet 5 mg PO QAM Take evening before surgery albuterol sulfate 90 mcg/actuation aerosol inhaler 2 puffs INH Q4H PRN (if needed) pantoprazole 20 mg tablet,delayed release 20 mg PO BID budesonide-formoterol HFA 160 mcg-4.5 mcg/actuation aerosol inhaler 2 puffs INH BID cyclobenzaprine 10 mg tablet 10 mg PO TID PRN (if needed) albuterol sulfate 2.5 mg INH Q4H PRN (if needed) hydroxyzine pamoate 25 mg PO TID PRN (if needed) Other Notes If you have any questions please call us at [phone] or [phone] or [phone] or [phone]
--- NOTE | 2019-12-29 14:21 | Anesthesiology Consultation ---
Date of Service December 29, 2019 Assessment & Plan (1) Encounter for pre-operative examination: Chart Review Chart Review: Pending: Refer to Additional Notes / Consult section (Awaiting PCP clearance/response from PCP re: glucose (PCP clearance 01/02) and awaiting pulm clearance (01/10)) and Patient seen in Pre Admission Testing Pt with significant history of PONV- also admits to mild memory impairment- will leave to anesthesiologist discretion re: scop patch AM of surgery At [facility] appt- pt requesting left arm be used for vitals due to pain to right UE from back- ongoing/stable. Previous lumbar surgery 09/01/16- [place]- Grade I view- [place] #2- 1 attempt (pt does have significant decreased ROM of neck, thick short neck, and small mouth/airway) Glucose significantly elevated- pt is taking steroid but denied hx of pre diabetes or diabetes- note wrote to surgeon- still awaiting response re: sugar and PCP clearance (01/02). Also awaiting pulm clearance (01/10) Surgeon's office was informed of elevated glucose History Surgery Operation Date: 01/18/20 10:55 Proposed Procedures p L1-L2 Decompression, T11-L2 Fusion, L2-S1 Hardware Removal, Spinal Cord Monitoring - Adrian Patel, DO Height/Weight Height: 5 ft 1 in Weight: 113.5 kg Allergies Allergy/AdvReac Type Severity Reaction Status Date / Time gabapentin Allergy Mild DIZZINESS, Verified 12/26/19 11:42 FIDGETY hydrocodone Allergy Unknown "MADE ME Verified 12/26/19 11:42 FEEL WEIRD" ampicillin AdvReac Unknown Nausea/vomi Verified 12/26/19 11:42 ting codeine AdvReac Unknown NAUSEA Verified 12/26/19 11:42 lorazepam AdvReac Unknown DIZZY Verified 12/26/19 11:42 lovastatin AdvReac Unknown WASN'T Verified 12/26/19 11:42 EFFECTIVE meloxicam AdvReac Unknown DIZZINESS Verified 12/26/19 11:42 metformin AdvReac Unknown DIARRHEA Verified 12/26/19 11:42 oxycodone AdvReac Unknown GI Verified 12/26/19 11:42 SYMPTOMS, DISORIENTATION propoxyphene AdvReac Unknown NAUSEA Verified 12/26/19 11:42 tramadol AdvReac Unknown GI SYMPTOMS Verified 12/26/19 11:42 Medications Home Medications Medication Instructions Recorded Confirmed Last Taken albuterol sulfate 90 mcg/actuation 2 puffs INH Q4H PRN gm 08/07/19 12/26/19 10/18/19 aerosol inhaler pantoprazole 20 mg tablet,delayed 20 mg PO BID tab 09/09/19 12/26/19 10/16/19 release naproxen sodium [Aleve] 220 mg PO UD PRN 10/11/19 12/26/19 10/15/19 budesonide-formoterol HFA 160 2 puffs INH BID #10.2 gm 11/16/19 12/26/19 Unknown mcg-4.5 mcg/actuation aerosol inhaler clotrimazole-betamethasone 1 1 applic TOPICAL DAILY PRN gm 11/21/19 12/26/19 Unknown %-0.05 % topical cream cyclobenzaprine 10 mg tablet 10 mg PO TID PRN tab 12/05/19 12/26/19 Unknown albuterol sulfate 2.5 mg INH Q4H PRN #90 ml 12/06/19 12/26/19 Unknown rosuvastatin 5 mg tablet 5 mg PO QAM #90 tab 12/06/19 12/26/19 Unknown nebulizer accessories #1 ea 12/07/19 12/22/19 Unknown B 12 Injection 1 dose UD 12/26/19 12/26/19 Unknown hydroxyzine pamoate 25 mg PO TID PRN 12/26/19 12/26/19 Unknown lidocaine [Lidoderm] 1 patch TOP UD PRN 12/26/19 12/26/19 Unknown methylprednisolone 4 mg tablets in See Rx Instructions .ROUTE 12/28/19 12/28/19 Unknown a dose pack .COMPLEX #21 ea Past Medical History Medical History Anxiety (Chronic) Asthma (Chronic) Stable- has albuterol nebulizer and inhaler- uses 1-2 times daily Borderline high cholesterol BPPV (benign paroxysmal positional vertigo) CAD (coronary artery disease) (Chronic) Pt denies COPD (chronic obstructive pulmonary disease) (Chronic) Depression (Chronic 01/03/12) Dysmetabolic syndrome X (Chronic) Fatty (change of) liver, not elsewhere classified (Chronic) Gastroesophageal reflux disease with esophagitis (Chronic) Well controlled with Protonix 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 Hiatal hernia Hypertension (Chronic) Impaired memory (Chronic) Mild- feels back pain making memory worse Lumbar stenosis with neurogenic claudication (Chronic) Morbid obesity with BMI of 45.0-49.9, adult Nausea and vomiting after administration of anesthetic agent Obstructive sleep apnea syndrome (Chronic 01/03/12) Uses CPAP q HS Osteopenia (Chronic) Prediabetes (Chronic) Pt denies - pre op glucose 249- getting clarification from PCP Restrictive lung disease (Chronic) Unspecified cirrhosis of liver (Chronic) Secondary to fatty liver - follows with GI - stable at this time (LFTs WNL 11/07/19) Venous insufficiency (Chronic) Varicose veins- no treatment needed - no current LE edema Exercise / Class Metabolic Activity III < 4 Walking/Shop/Light housework (ambulates with cane/walker; one flight of stairs - once daily- AVELAR- stops alf up- rests- continues- no chest pain (limited activity secondary to back pain)) Past Family History Family History Unknown Heart disease Father Asthma Mother Alzheimer disease Aortic aneurysm Aunt Family history of diabetes mellitus Grandmother Family history of diabetes mellitus Other No family history of adverse response to anesthesia Past Surgical History Surgical History History of abdominal surgery removed benign tumor from stomach History of bilateral cataract extraction History of cardiac cath 30+YR AGO, NO SIG ISSUES PER PT- DENIES STENTS OR BYPASS History of carpal tunnel surgery of right wrist History of cholecystectomy (Resolved) History of colonoscopy History of esophagogastroduodenoscopy (EGD) History of herniorrhaphy (Resolved) History of lumbar fusion (Resolved) L2 through S1 fusion August [address] Patel History of right shoulder replacement History of tonsillectomy and adenoidectomy History of tooth extraction all upper teeth History of total hysterectomy with bilateral salpingo-oophorectomy (BSO) History of total right hip arthroplasty (Resolved) Status post trigger finger release HX OF right hand Past Anesthesia History No Hx of Anesthesia Complications (only PONV ) and No Family Hx of Anesthesia Complications History of PONV No Hx of Motion Sickness and History of PONV Social History Smoking Status: Never smoker Do You Dip or Chew Tobacco: No Hx Alcohol Use: No Hx Substance Use: No substance use type: does not use Review of Systems Occ cough due to dry mouth- PCP did put pt on steroid - Medrol dose pack curren tly x six days- last dose expected 01/04/20 AVELAR with mild wheezing- chronic/stable. Patient denies chest pain, palpitations. Reflux- controlled with meds No hx of seizures, stroke, PA. No hx of blood clots or blood transfusions Physical Exam Vital Signs VITALS BP 146/87 (checks at home- usually 130s/70's) P 83 TEMP 98.1 SP02 93% RESP 20 Constitutional + morbidly obese; no acute distress ENMT Mouth: + small oral opening; no TMJ clicking Thyromental Distance: > or= 3.5 Finger Breadths (3.5) Mallampati Class: III Full upper dentures. Several missing molars on bottom Neck + short neck, + thick neck and + limited neck extension (significant ) Respiratory normal respiratory effort; no respiratory distress Auscultation: lungs clear to auscultation bilaterally and + diminished lung sounds (throughout); no wheezes Cardiovascular Rate/Rhythm: regular rate and regular rhythm Vessels: no carotid bruit Musculoskeletal Spine: + limited cervical ROM and + pain with cervical ROM (moderate pain ) No LE edema Psychiatric Orientation: alert Testing Laboratory Results 12/29/19 14:35 12/29/19 14:35 PT 11.2 Seconds (9.0-12.0) 12/29/19 14:35 INR 1.1 (0.9-1.1) 12/29/19 14:35 APTT 23.6 Seconds (21.0-31.0) 12/29/19 14:35 Urine Color Yellow 12/29/19 14:35 Urine Appearance Clear (Clear) 12/29/19 14:35 Urine pH 5.5 (4.5-7.5) 12/29/19 14:35 Ur Specific [place] 1.009 (1.000-1.030) 12/29/19 14:35 Urine Protein Negative (Negative) 12/29/19 14:35 Urine Glucose (UA) 1+ (Negative) H 12/29/19 14:35 Urine Ketones Negative (Negative) 12/29/19 14:35 Urine Nitrite Negative (Negative) 12/29/19 14:35 Ur Leukocyte Esterase Negative (Negative) 12/29/19 14:35 Blood Type B Positive 12/29/19 14:35 Antibody Screen NEGATIVE 12/29/19 14:35 Electrocardiogram Date: 12/05/19 Findings: + NSR @ (62) Chest X-Ray Date: 12/28/19 Findings: + NAD Anterior fusion of the thoracic spine suggestive of diffuse idiopathic skeletal hyperostosis.
[2019-12-29 15:18] LABS: Appearance Urine Clear (Clear); Bilirubin Urine Negative (Negative); Blood Urine Negative (Negative); Color Urine Yellow; Glucose Urine UA 1+ (Negative); Ketones Urine Negative (Negative); Leukocyte Esterase Urine Negative (Negative); Nitrite Urine Negative (Negative); Protein Urine Negative (Negative); Specific Gravity Urine 1.009 (1.000-1.030); Urobilinogen Urine Negative (Negative); pH Urine 5.5 (4.5-7.5)
[2019-12-29 15:21] LABS: Basophils # (auto) 0.01 K/uL (0-0.2); Basophils % (auto) 0.1 %; Eosinophils # (auto) 0.02 K/uL (0-0.5); Eosinophils % (auto) 0.2 %; Hematocrit (blood only) 42.7 % (37-47); Immature Granulocytes # (auto) 0.03 K/uL (0.00-0.02); Immature Granulocytes % (auto) 0.4 %; Lymphocytes # (auto) 0.64 K/uL (1.2-3.4); Lymphocytes % (auto) 7.6 %; Mean Corpuscular Hgb Conc 35.1 g/dL (32-36); Mean Corpuscular Volume 94.1 fL (80-100); Mean Platelet Volume 11.8 fL (7.4-10.4); Monocytes # (auto) 0.17 K/uL (0.11-0.59); Neutrophils # (auto) 7.58 K/uL (1.4-6.5); Neutrophils % (auto) 89.7 %; Platelet Count 188 K/uL (130-400); RDW Coefficient of Variation 13.5 % (11.5-14.5); RDW Standard Deviation 46.7 fL (36.4-46.3); Red Blood Count 4.54 M/uL (4.2-5.4); White Blood Count 8.45 K/uL (4.8-10.8)
[2019-12-29 15:24] LABS: BUN Creatinine Ratio 17.6 (10-20); Creatinine Clr Calc Pharmacy 67.5 ml/min; Est GFR (African American) 73.6; Est GFR (Non-African American) 63.5; Potassium 4.2 mmol/L (3.5-5.1)
[2019-12-29 15:37] LABS: INR 1.1 (0.9-1.1); Partial Thromboplastin Ratio 0.9; Partial Thromboplastin Time 23.6 Seconds (21.0-31.0); Prothrombin Time 11.2 Seconds (9.0-12.0)
--- NOTE | 2019-12-29 16:04 | XRay Report ---
XR chest Pre-admission PA/Lat HISTORY: Preop. COMPARISON: Chest 11/18/2018. FINDINGS: The lungs are clear. The heart is normal in size. No pleural effusions. No pneumothorax. An terior fusion of the thoracic spine suggestive of diffuse idiopathic skeletal hyperostosis. There is partially visualized lumbar spinal fusion hardware. IMPRESSION: No acute process. ACT 112: Negative or not required by law. Electronically signed by: Eliseo Marroquin M.D. 12/29/2019 4:02 PM
[~2020-01-18 08:41] MED LIST changes: +ACETAMINOPHEN 500 MG TAB PO SCH; -ALBU1AER9 INH; -ALBUTEROL NEB INH; +CEFAZOLIN 2000MG 2,000 MG/15 ML SYR IV SCH; +CEFAZOLIN 3000MG 72.5 ML IV SCH; -CLOT1PAK TOP; -CYAN1KIT3 INJ; +GABAPENTIN 300 MG CAP PO SCH; +LR 15ML/HR IV SCH; -NAPR1TAB9 PO; -SYMIN160 INH
[2020-01-18] MEDS ORDERED: CeleBREX 200 MG CAP ONE (09:39)
[2020-01-18] MEDS ORDERED: DEXAMETHASONE SOD INJ 4 MG/ML VIAL ONE (09:47)
[2020-01-18] MEDS ORDERED: fentaNYL citrate 100 MCG/2 ML VIAL ONE ×3 (09:47→14:44)
[2020-01-18] MEDS ORDERED: MIDAZOLAM HCL 1 MG/ML 2ML VIAL ONE (09:47)
[2020-01-18] MEDS ORDERED: LIDOCAINE HCL 2% 2 ML VIAL/AMP(20MG/ML) INFIL ONE (09:47)
[2020-01-18] MEDS ORDERED: ONDANSETRON INJ 2 MG/ML 2 ML VIAL ONE (09:47)
[2020-01-18] MEDS ORDERED: PROPOFOL IV EMULSION 10 MG/ML 20 ML VIAL IV ONE (09:47)
[2020-01-18] MEDS ORDERED: ROCURONIUM BROMIDE 10 MG/ML 5 ML VIAL ONE ×2 (09:47→13:27)
[2020-01-18] MEDS ORDERED: NEOSTIGMINE METHYLSULFATE 1 MG/ML 10ML VIAL ONE (09:47)
[2020-01-18] MEDS ORDERED: GLYCOPYRROLATE 0.2 MG/ML VIAL ONE (09:47)
--- NOTE | 2020-01-18 10:31 | History & Physical Bridge Note ---
Date of Service January 18, 2020 History & Physical Bridge Note I have examined the patient, reviewed the History & Physical and in the interval since the performance of the History & Physical I have noted the following changes of clinical significance: no changes noted
--- NOTE | 2020-01-18 10:32 | History & Physical Report ---
Date of Service January 18, 2020 Assessment & Plan (1) Neurogenic claudication due to lumbar spinal stenosis: L1-L2 decompression, T11-L2 fusion, possible L2-S1 hardware removal. Present on Admission?: Yes History of Present Illness Chief Complaint: Back and bilateral leg pain Primary Care Provider: Za Gee MD This is a 69-year-old female who presents with chronic persistent back and bilateral leg pain. After failing extensive course of nonoperative care she is here for surgical intervention. Allergies Allergy/AdvReac Type Severity Reaction Status Date / Time metformin AdvReac Intermediate DIARRHEA Verified 01/18/20 09:16 oxycodone AdvReac Intermediate GI Verified 01/18/20 09:16 SYMPTOMS, DISORIENTATION ampicillin AdvReac Mild Nausea/vomi Verified 01/18/20 09:16 ting codeine AdvReac Mild NAUSEA Verified 01/18/20 09:16 gabapentin AdvReac Mild DIZZINESS, Verified 01/18/20 09:16 FIDGETY hydrocodone AdvReac Mild "MADE ME Verified 01/18/20 09:16 FEEL WEIRD" lorazepam AdvReac Mild DIZZY Verified 01/18/20 09:16 lovastatin AdvReac Mild WASN'T Verified 01/18/20 09:16 EFFECTIVE meloxicam AdvReac Mild DIZZINESS Verified 01/18/20 09:16 propoxyphene AdvReac Mild NAUSEA Verified 01/18/20 09:16 tramadol AdvReac Mild GI SYMPTOMS Verified 01/18/20 09:16 narcotics AdvReac Mild Gastrointestinal Uncoded 01/18/20 09:17 Upset Home Medications Home Medications Medication Instructions Recorded Confirmed Type albuterol sulfate 90 mcg/actuation 2 puffs INH Q4H PRN gm 08/07/19 01/18/20 History aerosol inhaler pantoprazole 20 mg tablet,delayed 20 mg PO BID tab 09/09/19 01/18/20 History release naproxen sodium [Aleve] 220 mg PO UD PRN 10/11/19 01/18/20 History budesonide-formoterol HFA 160 2 puffs INH BID #10.2 gm 11/16/19 01/18/20 Rx mcg-4.5 mcg/actuation aerosol inhaler clotrimazole-betamethasone 1 1 applic TOPICAL DAILY PRN gm 11/21/19 01/18/20 History %-0.05 % topical cream cyclobenzaprine 10 mg tablet 10 mg PO TID PRN tab 12/05/19 01/18/20 History albuterol sulfate 2.5 mg INH Q4H PRN #90 ml 12/06/19 01/18/20 Rx rosuvastatin 5 mg tablet 5 mg PO QAM #90 tab 12/06/19 01/18/20 Rx nebulizer accessories #1 ea 12/07/19 01/10/20 Rx lidocaine [Lidoderm] 1 patch TOP UD PRN 12/26/19 01/18/20 History cyanocobalamin (vitamin B-12) 100 mcg IM MONTHLY ml 01/10/20 01/18/20 History 1,000 mcg/mL injection solution hydroxyzine pamoate [Vistaril] 25 mg PO TID PRN 01/18/20 01/18/20 History Past Med/Surg History Medical History Anxiety (Chronic) Asthma (Chronic) Stable- has albuterol nebulizer and inhaler- uses 1-2 times daily Borderline high cholesterol BPPV (benign paroxysmal positional vertigo) CAD (coronary artery disease) (Chronic) Pt denies COPD (chronic obstructive pulmonary disease) (Chronic) Depression (Chronic 01/03/12) Dysmetabolic syndrome X (Chronic) Fatty (change of) liver, not elsewhere classified (Chronic) Gastroesophageal reflux disease with esophagitis (Chronic) Well controlled with Protonix 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 Hiatal hernia Hypertension (Chronic) Impaired memory (Chronic) Mild- feels back pain making memory worse Lumbar stenosis with neurogenic claudication (Chronic) Morbid obesity with BMI of 45.0-49.9, adult Nausea and vomiting after administration of anesthetic agent Obstructive sleep apnea syndrome (Chronic 01/03/12) Uses CPAP q HS Osteopenia (Chronic) Prediabetes (Chronic) Pt denies - pre op glucose 249- getting clarification from PCP Restrictive lung disease (Chronic) Unspecified cirrhosis of liver (Chronic) Secondary to fatty liver - follows with GI - stable at this time (LFTs WNL 11/07/19) Venous insufficiency (Chronic) Varicose veins- no treatment needed - no current LE edema Surgical History History of abdominal surgery removed benign tumor from stomach History of bilateral cataract extraction History of cardiac cath 30+YR AGO, NO SIG ISSUES PER PT- DENIES STENTS OR BYPASS History of carpal tunnel surgery of right wrist History of cholecystectomy (Resolved) History of colonoscopy History of esophagogastroduodenoscopy (EGD) History of herniorrhaphy (Resolved) History of lumbar fusion (Resolved) L2 through S1 fusion August [address] Patel History of right shoulder replacement History of tonsillectomy and adenoidectomy History of tooth extraction all upper teeth History of total hysterectomy with bilateral salpingo-oophorectomy (BSO) History of total right hip arthroplasty (Resolved) Status post trigger finger release HX OF right hand Family History Unknown Heart disease Father Asthma Mother Alzheimer disease Aortic aneurysm Aunt Family history of diabetes mellitus Grandmother Family history of diabetes mellitus Other No family history of adverse response to anesthesia Social History Preferred Language: Kazakh Communication Ability: Effective Visual Impairment: Limited Hearing Ability: Hard of Hearing Forming Process Worker Required: No Beliefs That Will Affect Care: None marital status: Current Living Situation: Spouse and Family Current Living Situation Comment: Lives with and older son current occupational status: retired Other Information That Helps Us Care for You: No Feels Safe at Home: Yes Smoking Status: Never smoker Do You Dip or Chew Tobacco: No ; Smoking End Date: IN 20'S ; Second Hand Exposure: Yes ( smoked) ; Hx Alcohol Use: No Hx Substance Use: No caffeine: Yes Seatbelt Use: always Physical Exam Physical Exam: Patient is alert and oriented neurologically intact. Results & Data Vital Signs (Past 12 Hours) Vital Signs Temp Pulse Resp BP Pulse Ox 01/18/20 09:43 36.9 C 84 20 158/77 H 94
[2020-01-18] MEDS ORDERED: BUPIVACAINE/EPINEPHRINE 0.5% MPF 1:200,000 10 ML VIAL ONE (10:54)
[2020-01-18] MEDS ORDERED: BACITRACIN INJ 50,000 UNIT VIAL ONE (10:54)
[2020-01-18] MEDS ORDERED: FLOSEAL HEMOSTATIC MATRIX 10ML TOP ONE (12:17)
--- NOTE | 2020-01-18 14:15 | Operative Report ---
Post Operative Report Pre & Post Diagnosis Operation Date: 01/18/20 10:55 Pre-Op Diagnosis: LUMBAR SPINAL STENOSIS W/NEUROGENIC CLAUDICATION Post-Op Diagnosis: LUMBAR SPINAL STENOSIS W/NEUROGENIC CLAUDICATION I identified the patient and participated in the time-out.: Yes Procedure Operation Date: 01/18/20 10:55 Actual Procedures #1 lumbar decompression with bilateral medial facetectomies and foraminotomies T12-L1, L1-L2. #2 posterior spinal fusion T11-L2. #3 placement posterior segmental instrumentation T11-L1 with globus connecting rods to L2-3. #4 interbody fusion L1-2. #5 placement of peek cage 8 x 22 mm at L1-2. #6 placement locally harvested morselized autograft in the posterior lateral gutters. #7 placement infuse collagen sponge, master graft in the posterior lateral gutters and ostial amp and interbody space. Surgeon Adrian Patel, DO Bag Tester Yudelka Andrews Estimated Blood Loss 300 Findings See Below The patient is 5 foot 1 inch tall weighing over 113 kg with a BMI in excess of 47. The patient's body habitus did add significant technical difficulty throughout the procedure requiring her deepest retractors and longest instruments in order to perform surgery. She will also require closer postoperative care in light of her body habitus and concerns for healing. This added at least 50% increase in operative time. Specimens None Indications This is a 69-year-old female known to me the presents with above-mentioned diagnosis after failing extensive course of nonoperative care is here to undergo the above-mentioned procedure. Description of Procedure Patient was met with identified informed consent obtained. Patient was then taken to the operative suite underwent intubation placed in prone position the Mars table on top of the Arturo frame. All bony prominences well-padded eyes inspected to ensure no external pressure placed upon the. This point the thoracolumbar spine is prepped and draped in sterile fashion. Sharp dissection with the assistance of Bovie cautery was performed down to and exposing the lamina and transverse processes of T11 T12-L1 and instrumentation L2-L3 bilaterally. I then proceeded perform a midline complete laminectomy of L1 and partial laminectomy of T12 addressing severe bilateral neuroforaminal disease and lateral recess stenosis. Pedicle screws were then placed in T11 T12-L1 bilaterally with assistance of fluoroscopy and globus connecting apparatus was then used to attached to the proximal portion of the russel between L to L3 to the new screws placed from T11-L1. By way of a transforaminal approach on the right a complete discectomy of L1-2 was performed endplates curetted to subcortical bleeding bone and an 8 x 22 mm peek cage filled with osteo-bone graft tapped in position. The rods were then locked into final position bilaterally. The lamina and transverse processes at T11-T12 L1-L2 were then burred to subcortical being bone. Infuse collagen sponge master graft local autograft was placed in the posterior gutters. 15 round JULIAN drain inserted. The incision was then closed with 1 Vicryl in the fascia 2-0 Vicryl subcutaneously and 4 Monocryl for final skin closure. Steri-Strip sterile dressings placed. Patient will continue PACU stable addition. Please note spinal cord monitoring was utilized that procedure no changes noted. Lastly Yudelka Andrews was present at the entire procedure involved the patient positioning complex portions of the surgery and final skin closure I attest to the content of the Intraoperative Record and any orders documented therein. Any exceptions are noted below.
--- NOTE | 2020-01-18 14:37 | Fluoroscopy Report ---
FL lumbar spine 2-3V CLINICAL HISTORY: L2-S1 REMOVE HARDWARE,L1-2 DECOMPRESSION,T11-L2 FUSION COMPARISON STUDY: None FLUOROSCOPY TIME: 24 seconds NUMBER OF FLUOROSCOPIC IMAGES: 3 FINDINGS: Image intensifier support for lumbar laminectomy and fusion and hardware revision IMPRESSION: Image intensifier support for lumbar laminectomy, fusion, and hardware revision. ACT 112: Negative or not required by law. The above report was generated using voice recognition software. It may contain grammatical, syntax or spelling errors. Electronically signed by: Melecio Johnson M.D. 01/18/2020 2:35 PM
[2020-01-18] MEDS ORDERED: ATROPINE SULFATE 0.1 MG/ML 10ML SYR IV PRN (14:46)
[2020-01-18] MEDS ORDERED: ONDANSETRON INJ 2 MG/ML 2 ML VIAL IV PRN ×2 (14:46→15:57)
[2020-01-18] MEDS ORDERED: HYDROmorphone INJ 2 MG/ML SYR/VIAL IV PRN (14:46)
[2020-01-18] MEDS ORDERED: fentaNYL citrate 100 MCG/2 ML VIAL IV PRN (14:46)
[2020-01-18] MEDS ORDERED: PROMETHAZINE HCL 12.5 MG in SODIUM CHLORIDE 0.9% 50 ML IV PRN ×2 (14:46→15:57)
[2020-01-18] MEDS ORDERED: METOCLOPRAMIDE HCL INJ 5 MG/ML 2 ML VIAL IV PRN ×2 (14:46→15:57)
[2020-01-18] MEDS ORDERED: ePHEDrine sulfate 50 MG/ML AMP IV PRN (14:46)
--- NOTE | 2020-01-18 15:46 | Anesthesiology Progress Note ---
Date of Service January 18, 2020 Anesthesia Post Procedure Vital Signs Vital Signs: Temp Pulse Pulse Resp BP Pulse Ox 01/18/20 15:35 36.7 C 64 14 114/53 L 96 01/18/20 15:25 36.7 C 67 13 122/60 96 01/18/20 15:15 36.7 C 66 12 144/75 H 95 01/18/20 15:05 60 10 L 125/80 92 01/18/20 14:55 72 14 145/80 H 95 01/18/20 14:45 84 23 162/91 H 98 01/18/20 14:36 36.2 C L 94 H 12 183/90 H 96 01/18/20 09:43 36.9 C 84 20 158/77 H 94 Pain Intensity Back: Pain Intensity: 4 Transfer of Care Handoff Completed per policy Notes Mental Status: alert / awake / arousable and participated in evaluation Patient Amnestic to Procedure: Yes Nausea / Vomiting: adequately controlled Pain: adequately controlled Airway Patency, RR, SpO2: stable & adequate BP & HR: stable & adequate Hydration State: stable & adequate Anesthetic Complications: no major complications apparent
[2020-01-18] MEDS ORDERED: ONDANSETRON 4 MG OD TAB PO PRN (15:57)
[2020-01-18] MEDS ORDERED: FAMOTIDINE 20 MG TAB PO PRN (15:57)
[2020-01-18] MEDS ORDERED: DO NOT ADMINISTER FLU VACCINE PRN (15:57)
[2020-01-18] MEDS ORDERED: LORazepam 0.5 MG TAB PO PRN (15:57)
[2020-01-18] MEDS ORDERED: DO NOT ADMINISTER PNEUMOCOCCAL VACCINE PRN (15:57)
[2020-01-18] MEDS ORDERED: ALBUTEROL HFA 8 GM INHALER INH PRN (15:57)
[2020-01-18] MEDS ORDERED: LORazepam 0.5 MG/1 ML VIAL IV PRN (15:57)
[2020-01-18] MEDS ORDERED: ALBUTEROL 0.083% NEBU SOLN 3 ML VIAL INH PRN (15:57)
[2020-01-18] MEDS ORDERED: SOD PHOSPHATE/SOD BIPHOSPHATE ENEMA 132 ML BTL PR PRN (15:57)
[2020-01-18] MEDS ORDERED: bisacodyL 10 MG SUPP PR PRN (15:57)
[2020-01-18] MEDS ORDERED: ALUMINUM/MAGNESIUM SUSP 30 ML UDC PO PRN (15:57)
[2020-01-18] MEDS ORDERED: NALOXONE HCL 0.4 MG/1 ML VIAL/CARP IV PRN (15:57)
[2020-01-18] MEDS ORDERED: MAGNESIUM HYDROXIDE SUSP 30 ML UDC PO PRN (15:57)
[2020-01-18] MEDS: ACETAMINOPHEN 1,000 MG/100 ML VIAL IV PRN (17:00)
[2020-01-18] MEDS: CLINDAMYCIN 600 MG in DEXTROSE 5% 50 ML IV SCH (18:33)
[2020-01-18] MEDS: SODIUM CHLORIDE 0.9% 1000ML 1,000 ML IV SCH (18:33)
[2020-01-18] MEDS: DOCUSATE SODIUM/SENNA 50/8.6MG TAB PO SCH (20:44)
[2020-01-18] MEDS: PANTOprazole 40 MG TAB PO SCH (20:45)
[2020-01-19] MEDS: CLINDAMYCIN 600 MG in DEXTROSE 5% 50 ML IV SCH (02:15)
[2020-01-19] MEDS: ACETAMINOPHEN 1,000 MG/100 ML VIAL IV PRN ×2 (04:59→15:47)
[2020-01-19] MEDS: POLYETHYLENE (MIRALAX) 17 GM PACK PO SCH ×3 (05:23→17:45)
[2020-01-19] MEDS: SODIUM CHLORIDE 0.9% 1000ML 1,000 ML IV SCH (05:56)
[2020-01-19 07:58] LABS: Basophils # (auto) 0.01 K/uL (0-0.2); Basophils % (auto) 0.1 %; Eosinophils # (auto) 0.02 K/uL (0-0.5); Eosinophils % (auto) 0.2 %; Hematocrit (blood only) 32.9 % (37-47); Hemoglobin 11.4 g/dL (12.0-16.0); Immature Granulocytes # (auto) 0.03 K/uL (0.00-0.02); Immature Granulocytes % (auto) 0.3 %; Lymphocytes # (auto) 0.79 K/uL (1.2-3.4); Lymphocytes % (auto) 7.6 %; Mean Corpuscular Hemoglobin 31.9 pg (25-34); Mean Corpuscular Hgb Conc 34.7 g/dL (32-36); Mean Corpuscular Volume 92.2 fL (80-100); Mean Platelet Volume 11.4 fL (7.4-10.4); Monocytes % (auto) 8.7 %; Neutrophils # (auto) 8.58 K/uL (1.4-6.5); Neutrophils % (auto) 83.1 %; Platelet Count 149 K/uL (130-400); Platelet Estimate Normal (Normal); RDW Coefficient of Variation 13.2 % (11.5-14.5); RDW Standard Deviation 44.4 fL (36.4-46.3); Red Blood Count 3.57 M/uL (4.2-5.4); White Blood Count 10.33 K/uL (4.8-10.8)
[2020-01-19] MEDS: FLUTICASONE/VILANTEROL 100/25MCG 14 PUFFS/INHALER INH SCH (08:07)
[2020-01-19] MEDS: ROSUVASTATIN CALCIUM 5 MG TAB PO SCH (08:08)
[2020-01-19] MEDS: CeleBREX 200 MG CAP PO SCH (08:08)
[2020-01-19] MEDS: PANTOprazole 40 MG TAB PO SCH ×2 (08:08→20:39)
[2020-01-19 08:16] LABS: BUN Creatinine Ratio 19.3 (10-20); Calcium 8.9 mg/dl (8.5-10.1); Creatinine Clr Calc Pharmacy 81.7 ml/min; Est GFR (African American) 92.8
--- NOTE | 2020-01-19 08:19 | Orthopedic Progress Note ---
Date of Service January 19, 2020 Assessment & Plan (1) Neurogenic claudication due to lumbar spinal stenosis: Initiate physical therapy today monitor her JULIAN output. Hopefully she will be candidate for rehab in the next few days. Present on Admission?: Yes Admission and Anticipated Discharge Date Admission Date: January 18, 2020 Subjective Back pain controlled leg symptoms improved. Physical Exam Physical Exam: Patient is good strength testing. Appears comfortable. Results & Data ([facility]) Vital Signs (Past 12 Hours) Vital Signs Temp Pulse Pulse Resp BP Pulse Ox 01/19/20 07:08 36.8 C 62 18 115/65 93 01/19/20 02:15 36.5 C 77 16 115/68 91 01/18/20 23:21 36.8 C 70 16 118/73 92 01/18/20 22:52 73 14 93
--- NOTE | 2020-01-19 10:21 | Anesthesiology Progress Note ---
Date of Service January 19, 2020 Anesthesia Post Procedure Vital Signs Vital Signs: Temp Pulse Pulse Pulse Pulse Resp BP 01/19/20 07:08 36.8 C 62 18 01/19/20 02:15 36.5 C 77 16 01/18/20 23:21 36.8 C 70 16 01/18/20 22:52 73 14 01/18/20 18:42 36.4 C L 72 15 133/80 01/18/20 17:46 36.6 C 68 18 111/73 01/18/20 16:45 36.6 C 64 18 109/66 01/18/20 16:15 36.6 C 61 18 106/67 01/18/20 15:45 36.5 C 62 14 119/59 L 01/18/20 15:35 36.7 C 64 14 114/53 L 01/18/20 15:25 36.7 C 67 13 122/60 01/18/20 15:15 36.7 C 66 12 144/75 H 01/18/20 15:05 60 10 L 125/80 01/18/20 14:55 72 14 145/80 H 01/18/20 14:45 84 23 162/91 H 01/18/20 14:36 36.2 C L 94 H 12 183/90 H BP Pulse Ox 01/19/20 07:08 115/65 93 01/19/20 02:15 115/68 91 01/18/20 23:21 118/73 92 01/18/20 22:52 93 01/18/20 18:42 94 01/18/20 17:46 99 01/18/20 16:45 97 01/18/20 16:15 97 01/18/20 15:45 96 01/18/20 15:35 96 01/18/20 15:25 96 01/18/20 15:15 95 01/18/20 15:05 92 01/18/20 14:55 95 01/18/20 14:45 98 01/18/20 14:36 96 Pain Intensity Back: Pain Intensity: 4 Notes Mental Status: alert / awake / arousable and participated in evaluation Patient Amnestic to Procedure: Yes Nausea / Vomiting: adequately controlled Pain: adequately controlled Airway Patency, RR, SpO2: stable & adequate BP & HR: stable & adequate Hydration State: stable & adequate Anesthetic Complications: no major complications apparent and Pt Satisfied with anesthetic care
--- NOTE | 2020-01-19 11:16 | Hospitalist Consultation ---
Date of Consultation January 19, 2020 Assessment & Plan (1) Neurogenic claudication due to lumbar spinal stenosis: S/p T12/L1 & L1/L2 fusion with Dr. Patel on 01/18. No complications noted, though EBL was 300 mL. - Acute blood loss anemia -> baseline hgb ~15, now down to 11.4. - Will give one dose of IV iron - Post-op pain control, PT/OT, and DVT ppx per primary team (2) Asthma: Reports mild symptoms this morning with hospital CPAP, but no wheezing on exam. - Continue home inhalers - Albuterol PRN (3) Hypertension: BP today is 140/60. Does not appear to be on any meds at home. - Monitor (4) Prediabetes: A1c was 5.5% this month. - Blood sugars elevated on BMPs - Will start sliding scale insulin ACHS (5) Obstructive sleep apnea syndrome: Used hospital CPAP last night, but felt it worsened her asthma. - will bring in home device. Can use overnights. (6) Hyperlipidemia: - Continue statin (7) DVT prophylaxis: SCDs - Heparin per primary team given post-op status History of Present Illness Attending Physician: Adrian Patel, DO History of Present Illness 69yo F w/ hx of lower back pain and asthma who presents as a medical consult after surgery with Dr. Patel. Overall, her back hurts today, but not too badly. Her breathing is stable. She does hav asthma, but doesn't have any wheezing today. Allergies Allergy/AdvReac Type Severity Reaction Status Date / Time metformin AdvReac Intermediate DIARRHEA Verified 01/18/20 09:16 oxycodone AdvReac Intermediate GI Verified 01/18/20 09:16 SYMPTOMS, DISORIENTATION ampicillin AdvReac Mild Nausea/vomi Verified 01/18/20 09:16 ting codeine AdvReac Mild NAUSEA Verified 01/18/20 09:16 gabapentin AdvReac Mild DIZZINESS, Verified 01/18/20 09:16 FIDGETY hydrocodone AdvReac Mild "MADE ME Verified 01/18/20 09:16 FEEL WEIRD" lorazepam AdvReac Mild DIZZY Verified 01/18/20 09:16 lovastatin AdvReac Mild WASN'T Verified 01/18/20 09:16 EFFECTIVE meloxicam AdvReac Mild DIZZINESS Verified 01/18/20 09:16 propoxyphene AdvReac Mild NAUSEA Verified 01/18/20 09:16 tramadol AdvReac Mild GI SYMPTOMS Verified 01/18/20 09:16 narcotics AdvReac Mild Gastrointestinal Uncoded 01/18/20 09:17 Upset Home Medications Home Medications Medication Instructions Recorded Confirmed Type albuterol sulfate 90 mcg/actuation 2 puffs INH Q4H PRN gm 08/07/19 01/18/20 History aerosol inhaler pantoprazole 20 mg tablet,delayed 20 mg PO BID tab 09/09/19 01/18/20 History release naproxen sodium [Aleve] 220 mg PO UD PRN 10/11/19 01/18/20 History budesonide-formoterol HFA 160 2 puffs INH BID #10.2 gm 11/16/19 01/18/20 Rx mcg-4.5 mcg/actuation aerosol inhaler clotrimazole-betamethasone 1 1 applic TOPICAL DAILY PRN gm 11/21/19 01/18/20 H istory %-0.05 % topical cream cyclobenzaprine 10 mg tablet 10 mg PO TID PRN tab 12/05/19 01/18/20 History albuterol sulfate 2.5 mg INH Q4H PRN #90 ml 12/06/19 01/18/20 Rx rosuvastatin 5 mg tablet 5 mg PO QAM #90 tab 12/06/19 01/18/20 Rx nebulizer accessories #1 ea 12/07/19 01/10/20 Rx lidocaine [Lidoderm] 1 patch TOP UD PRN 12/26/19 01/18/20 History cyanocobalamin (vitamin B-12) 100 mcg IM MONTHLY ml 01/10/20 01/18/20 History 1,000 mcg/mL injection solution hydroxyzine pamoate [Vistaril] 25 mg PO TID PRN 01/18/20 01/18/20 History Patient History Medical History Anxiety (Chronic) Asthma (Chronic) Stable- has albuterol nebulizer and inhaler- uses 1-2 times daily Borderline high cholesterol BPPV (benign paroxysmal positional vertigo) CAD (coronary artery disease) (Chronic) Pt denies COPD (chronic obstructive pulmonary disease) (Chronic) Depression (Chronic 01/03/12) Dysmetabolic syndrome X (Chronic) Fatty (change of) liver, not elsewhere classified (Chronic) Gastroesophageal reflux disease with esophagitis (Chronic) Well controlled with Protonix 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 Hiatal hernia Hypertension (Chronic) Impaired memory (Chronic) Mild- feels back pain making memory worse Lumbar stenosis with neurogenic claudication (Chronic) Morbid obesity with BMI of 45.0-49.9, adult Obstructive sleep apnea syndrome (Chronic 01/03/12) Uses CPAP q HS Osteopenia (Chronic) Prediabetes (Chronic) Pt denies - pre op glucose 249- getting clarification from PCP Restrictive lung disease (Chronic) Unspecified cirrhosis of liver (Chronic) Secondary to fatty liver - follows with GI - stable at this time (LFTs WNL 11/07/19) Venous insufficiency (Chronic) Varicose veins- no treatment needed - no current LE edema Surgical History History of abdominal surgery removed benign tumor from stomach History of bilateral cataract extraction History of cardiac cath 30+YR AGO, NO SIG ISSUES PER PT- DENIES STENTS OR BYPASS History of carpal tunnel surgery of right wrist History of cholecystectomy (Resolved) History of colonoscopy History of esophagogastroduodenoscopy (EGD) History of herniorrhaphy (Resolved) History of lumbar fusion (Resolved) L2 through S1 fusion August [address] Patel History of right shoulder replacement History of tonsillectomy and adenoidectomy History of tooth extraction all upper teeth History of total hysterectomy with bilateral salpingo-oophorectomy (BSO) History of total right hip arthroplasty (Resolved) Nausea and vomiting after administration of anesthetic agent Status post trigger finger release HX OF right hand Family History Unknown Heart disease Father Asthma Mother Alzheimer disease Aortic aneurysm Aunt Family history of diabetes mellitus Grandmother Family history of diabetes mellitus Other No family history of adverse response to anesthesia Social History Preferred Language: Argentine Communication Ability: Effective Visual Impairment: Limited Hearing Ability: Hard of Hearing Surveillance Operator Required: No Beliefs That Will Affect Care: None marital status: Current Living Situation: Spouse and Family Current Living Situation Comment: Lives with and older son current occupational status: retired Other Information That Helps Us Care for You: No Feels Safe at Home: Yes Smoking Status: Never smoker Do You Dip or Chew Tobacco: No ; Smoking End Date: IN ; Second Hand Exposure: Yes ( smoked) ; Hx Alcohol Use: No Hx Substance Use: No caffeine: Yes Seatbelt Use: always Review of Systems Review of Systems: All systems reviewed & are unremarkable except as noted in HPI & below Physical Exam Constitutional: WD/WN, vitals as above Eyes: EOM intact bilaterally; no conjunctival abnormality ENMT: external ear and nose normal, oropharynx normal Neck: trachea midline, no thyromegaly normal visual inspection Respiratory: normal respiratory effort, lungs clear to auscultation no respiratory distress Cardiovascular: RRR, no murmur, no edema Gastrointestinal (Abdomen): Inspection/Auscultation: abdomen normal to inspection; abdomen not distended Musculoskeletal: no cyanosis or clubbing, extremities motor strength 5/5 Skin: no rashes, warm and dry + wound (Right knee abrasion from falling.) Neurologic: moves all extremities and awake Psychiatric: Orientation: alert, oriented to person and cooperative Results & Data ([facility]) Vital Signs (Past 12 Hours) Vital Signs Temp Pulse Resp BP Pulse Ox 01/19/20 11:00 36.8 C 70 20 137/63 96 01/19/20 07:08 36.8 C 62 18 115/65 93 01/19/20 02:15 36.5 C 77 16 115/68 91 01/18/20 23:21 36.8 C 70 16 118/73 92 PG Care Time/CCT Total # of Minutes Spent Total Time Spent with Patient: Total time spent is greater than 50% in coordination of care (as documented) at patient's floor/unit and/or counseling patient: Coding Level of Care Code 66922 Inpt Consult Level 4 Diagnoses Neurogenic claudication due to lumbar spinal stenosis M48.062 Asthma J45.909 Asthma complication type: with acute exacerbation Hypertension I10 Prediabetes R73.03 Obstructive sleep apnea syndrome G47.33 Hyperlipidemia E78.5 DVT prophylaxis Z29.9 (1) Asthma Asthma complication type: with acute exacerbation
[2020-01-19] MEDS ORDERED: IRON SUCROSE 200 MG in 0.9 % SODIUM CHLORIDE 100 ML IV ONE (12:15)
[2020-01-19] MEDS: MICONAZOLE NITRATE POWDER 43 GM EXT PRN (14:36)
[2020-01-19] MEDS: DOCUSATE SODIUM/SENNA 50/8.6MG TAB PO SCH (20:39)
[2020-01-20] MEDS: POLYETHYLENE (MIRALAX) 17 GM PACK PO SCH ×5 (00:42→23:42)
[2020-01-20] MEDS: ACETAMINOPHEN 500 MG TAB PO PRN ×2 (05:24→17:59)
[2020-01-20 06:59] LABS: Mean Corpuscular Hemoglobin 32.3 pg (25-34); Mean Corpuscular Hgb Conc 34.4 g/dL (32-36); Mean Corpuscular Volume 93.8 fL (80-100); Mean Platelet Volume 10.5 fL (7.4-10.4); Platelet Count 130 K/uL (130-400); RDW Coefficient of Variation 13.4 % (11.5-14.5); RDW Standard Deviation 46.4 fL (36.4-46.3); Red Blood Count 3.41 M/uL (4.2-5.4); White Blood Count 6.89 K/uL (4.8-10.8)
[2020-01-20] MEDS: ROSUVASTATIN CALCIUM 5 MG TAB PO SCH (07:56)
[2020-01-20] MEDS: CeleBREX 200 MG CAP PO SCH (07:56)
[2020-01-20] MEDS: FLUTICASONE/VILANTEROL 100/25MCG 14 PUFFS/INHALER INH SCH (07:57)
[2020-01-20] MEDS: PANTOprazole 40 MG TAB PO SCH ×2 (08:19→21:07)
--- NOTE | 2020-01-20 09:25 | Orthopedic Progress Note ---
Date of Service January 20, 2020 Assessment & Plan (1) Neurogenic claudication due to lumbar spinal stenosis: At this time we will give her a small dose of Decadron will attempt Dilaudid for pain control hopefully she will be able to tolerate this. I will obtain x-rays today. Present on Admission?: Yes Admission and Anticipated Discharge Date Admission Date: January 18, 2020 Subjective Patient complaining of considerable back pain and left sciatica. Physical Exam Physical Exam: On exam she is good strength testing. Results & Data ([facility]) Vital Signs (Past 12 Hours) Vital Signs Temp Pulse Pulse Resp BP Pulse Ox 01/20/20 07:55 36.6 C 93 H 20 130/80 94 01/19/20 23:39 37.0 C 78 16 126/66 92
[2020-01-20] MEDS ORDERED: DEXAMETHASONE SOD PHOSPHATE 8 MG in SYRINGE 0 ML IV ONE (09:30)
--- NOTE | 2020-01-20 10:39 | XRay Report ---
LUMBAR SPINE 3 VIEWS CLINICAL HISTORY: Postoperative examination. FINDINGS: AP, lateral, and cone-down views of the thoracolumbar spine are compared to study dated 08/01 and correlated with MRI lumbar spine dated 12/15/2019. The skeletal structures are osteopenic. There is no radiographic evidence of acute fracture or malalignment. Vertebral body height is maintai ilir throughout the lumbar spine. There is minimal anterolisthesis at L2-L3 and L3-L4. There is extens aneesh postoperative change seen throughout the thoracolumbar spine. There has been laminectomy and post erior fusion with interposition bone graft seen from T11-S1. Interpedicular screws are present at all levels. The orthopedic hardware appears intact. There is evidence of discectomy at L1-L2 and L4-L5. Mild disc space narrowing is seen at the remaining lumbar levels. Posterior disc osteophyte complexes are seen at L2-L3 and L3-L4. A surgical drain is in place. The visualized bony pelvis appears intact . A right hip arthroplasty is partially visualized. There is no evidence of bowel obstruction. Cholec ystectomy clips are noted in the right upper quadrant. Advanced atherosclerotic calcification is seen in the abdominal aorta. IMPRESSION: 1. No acute bony abnormality is identified. 2. Osteopenia with extensive postoperative change as above. Electronically signed by: Devang Camp M.D. 01/20/2020 10:37 AM
[2020-01-20] MEDS: MICONAZOLE NITRATE POWDER 43 GM EXT PRN (10:42)
[2020-01-20] MEDS: HYDROmorphone INJ 0.5 MG/0.5 ML SYR IV PRN ×2 (12:09→21:01)
[2020-01-20] MEDS ORDERED: CARBOHYDRATES FOR HYPOGLYCEMIA PO PRN (14:21)
[2020-01-20] MEDS ORDERED: GLUCAGON FOR INJ 1 MG VIAL SQ PRN (14:21)
[2020-01-20] MEDS ORDERED: GLUCOSE 40% GEL 15 GM TUBE PO PRN (14:21)
[2020-01-20] MEDS ORDERED: DEXTROSE 50% 50 ML SYRINGE IV PRN (14:21)
[2020-01-20] MEDS ORDERED: GLUCOSE 10 TABS/TUBE PO PRN (14:21)
--- NOTE | 2020-01-20 14:21 | Hospitalist Progress Note ---
Date of Service January 20, 2020 Assessment & Plan (1) Neurogenic claudication due to lumbar spinal stenosis: S/p T12/L1 & L1/L2 fusion with Dr. Patel on 01/18. No complications noted, though EBL was 300 mL. - Acute blood loss anemia -> baseline hgb ~15, now down to 11.0. - Got one dose of IV iron on 01/19 - Post-op pain control, PT/OT, and DVT ppx per primary team - Lumbar x-rays today for left radicular pain. They are stable per my read and radiologist's read. (2) Asthma: Reports mild symptoms this morning with hospital CPAP, but no wheezing on exam. - Continue home inhalers - Albuterol PRN - Doing well today. (3) Hypertension: BP today is 135/80. Does not appear to be on any meds at home. - Monitor (4) Prediabetes: A1c was 5.5% this month. - Blood sugars elevated on BMPs - Will start sliding scale insulin ACHS (5) Obstructive sleep apnea syndrome: Used hospital CPAP last night, but felt it worsened her asthma. - Now with home device. (6) Hyperlipidemia: - Continue statin (7) DVT prophylaxis: SCDs - Heparin per primary team given post-op status Given medical stability, Hospital Medicine team will sign off. Please re-consult with any questions or concerns. Thank you for letting us assist in the care of this patient! Admission and Anticipated Discharge Date Admission Date: January 18, 2020 Subjective Has some radicular left leg pain. Breathing is better using her own CPAP. Reports no fevers/chills, chest pain, shortness of breath, abdominal pain, nausea, or vomiting. Physical Exam Constitutional: WD/WN, vitals as above Eyes: EOM intact bilaterally; no conjunctival abnormality ENMT: external ear and nose normal, oropharynx normal Neck: trachea midline, no thyromegaly normal visual inspection Respiratory: normal respiratory effort, lungs clear to auscultation no respiratory distress Cardiovascular: RRR, no murmur, no edema Gastrointestinal (Abdomen): Inspection/Auscultation: abdomen normal to inspection; abdomen not distended Musculoskeletal: no cyanosis or clubbing, extremities motor strength 5/5 Skin: no rashes, warm and dry + wound (Right knee abrasion from falling.) Neurologic: moves all extremities and awake Psychiatric: Orientation: alert, oriented to person and cooperative Results & Data ([facility]) Vital Signs (Past 12 Hours) Vital Signs Temp Pulse Resp BP Pulse Ox 01/20/20 12:07 36.7 C 79 19 136/78 93 01/20/20 07:55 36.6 C 93 H 20 130/80 94 PG Care Time/CCT Total # of Minutes Spent Total Time Spent with Patient: Total time spent is greater than 50% in coordination of care (as documented) at patient's floor/unit and/or counseling patient: Coding Level of Care Code 72539 Subseq Hosp Care Lvl 2 Diagnoses Neurogenic claudication due to lumbar spinal stenosis M48.062 Asthma J45.909 Asthma complication type: with acute exacerbation Hypertension I10 Prediabetes R73.03 Obstructive sleep apnea syndrome G47.33 Hyperlipidemia E78.5 DVT prophylaxis Z29.9 (1) Asthma Asthma complication type: with acute exacerbation
[2020-01-20] MEDS: INSULIN ASPART 100 UNITS/ML 3 ML PEN SC SCH ×2 (17:32→21:06)
[2020-01-20] MEDS: DOCUSATE SODIUM/SENNA 50/8.6MG TAB PO SCH (21:07)
[2020-01-21] MEDS: POLYETHYLENE (MIRALAX) 17 GM PACK PO SCH (06:03)
[2020-01-21] MEDS: FLUTICASONE/VILANTEROL 100/25MCG 14 PUFFS/INHALER INH SCH (07:27)
[2020-01-21] MEDS: ROSUVASTATIN CALCIUM 5 MG TAB PO SCH (07:28)
[2020-01-21] MEDS: PANTOprazole 40 MG TAB PO SCH (07:28)
[2020-01-21] MEDS: CeleBREX 200 MG CAP PO SCH (07:28)
[2020-01-21] MEDS: INSULIN ASPART 100 UNITS/ML 3 ML PEN SC SCH ×2 (07:30→12:25)
[2020-01-21] MEDS: ACETAMINOPHEN 500 MG TAB PO PRN (09:16)
--- NOTE | 2020-01-21 09:43 | Discharge Summary ---
Date of Service January 21, 2020 Admission HPI Per Admitting Provider This is a 69-year-old female who presents with chronic persistent back and bilateral leg pain. After failing extensive course of nonoperative care she is here for surgical intervention. Principal Diagnosis Lumbar spinal stenosis with neurogenic claudication Discharge Data Allergies Allergy/AdvReac Type Severity Reaction Status Date / Time metformin AdvReac Intermediate DIARRHEA Verified 01/18/20 09:16 oxycodone AdvReac Intermediate GI Verified 01/18/20 09:16 SYMPTOMS, DISORIENTATION ampicillin AdvReac Mild Nausea/vomi Verified 01/18/20 09:16 ting codeine AdvReac Mild NAUSEA Verified 01/18/20 09:16 gabapentin AdvReac Mild DIZZINESS, Verified 01/18/20 09:16 FIDGETY hydrocodone AdvReac Mild "MADE ME Verified 01/18/20 09:16 FEEL WEIRD" lorazepam AdvReac Mild DIZZY Verified 01/18/20 09:16 lovastatin AdvReac Mild WASN'T Verified 01/18/20 09:16 EFFECTIVE meloxicam AdvReac Mild DIZZINESS Verified 01/18/20 09:16 propoxyphene AdvReac Mild NAUSEA Verified 01/18/20 09:16 tramadol AdvReac Mild GI SYMPTOMS Verified 01/18/20 09:16 narcotics AdvReac Mild Gastrointestinal Uncoded 01/18/20 09:17 Upset Consultations 01/18/20 15:57 Consult Case Management - Discharge Planning Routine Consult Hospitalist Routine Procedures Performed Operation Date: 01/18/20 10:55 Actual Procedures p L1-L2 Decompression, T12-L2 Fusion, Interbody Insertion L1-L2, Spinal Cord Monitoring(Not Applicable) - Adrian Patel DO Ordered Studies 01/18/20 10:55 FL fluoroscopy <1hr Routine FL lumbar spine 2-3V Routine Hospital Course (1) Neurogenic claudication due to lumbar spinal stenosis: Patient underwent thoracolumbar fusion tolerated so was taken to orthopedic floor possibly. Postop day 1 she was ambulating leg symptoms improve d progressed to postop day #2 JULIAN drain decreasing appropriately. Subsequently postop day #3 she was discharged to rehab. She was sitting in a chair with good strength testing appearing comfortable. Discharge orders instructions from the chart for further review. Total Time Total Time Spent Total Time Spent (In Minutes): 20 minutes Discharge Plan Discharge Items Patient Disposition: Transfer Inpatient Rehab Fac Reason For Visit: LUMBAR SPINAL STENOSIS W/NEUROGENIC CLAUDICATION Discharge Diagnosis: lumbar stenosis Activity: As commented below Non-emergency contact: Primary Care Provider Call non-emergency contact if: you have any medication questions Follow-up/Referrals: Za Gee MD [Primary Care Provider] - Diet: Regular Addtl Attending Provider Instructions: ACTIVITY RECOMMENDATIONS: SELF CARE INSTRUCTIONS AFTER THORACIC/LUMBAR FUSIONS 1. You may walk to your tolerance. It is good exercise for your legs and back. Expect some back and intermittent leg aches and pains. 2. You may perform "counter-top" level activities (make a sandwich, vicente with a project, etc.). 3. No bending or lifting of more than 10 pounds or back twisting of any nature (roll like a log when turning in bed). 4. You may ride in a car for 20-30 minutes at a time. No driving until after your first visit with your doctor. 5. Frequent changes of position and restricting sitting to 30 minutes at a time will help limit the amount of back spasms and stiffness you may experience. 6. You may discontinue the use of ambulatory aids (cane, crutches, etc.) once your strength and confidence allow. 7. You may wharfinger chief the shower and let water strike your incision when you arrive home at least once daily. Do not take a tub bath, sit in a hot tub or go into a swimming pool until after your first recheck in the office. SPECIAL CARE INSTRUCTIONS: VERY IMPORTANT TO READ AND REVIEW A. Your surgical incision has been closed with a cosmetic suture under the skin that will dissolve in about 6 weeks. In 14 days, you can use a pair of clean scissors and cut the suture that is left outside of the skin at the ends of your incision. 1. The small skin tapes can be removed 7 days after surgery if they have not fallen off by that point. 2. You may keep the wound open to air as much as possible to promote healing after post-op day number 5 unless told otherwise by your doctor. 3. If you think the wound looks like it is becoming infected (redness or worsening drainage) and/or you are experiencing fever, chill or worsening back pain and muscle spasms, contact the office so that we may evaluate you as soon as possible. B. Complications are uncommon, but please contact us if you have any signs or symptoms of: 1. wound infection (fever higher than 102.5 degrees F, redness, separation of wound, drainage, or increasing pain from the incision) 2. blood clots in legs (pain, swelling, redness and warmth in legs) 3. urinary tract infection (fever higher than 102.5 degrees F, burning upon urination or increased frequency of urination) 4. nerve problems (inability to walk on your toes or heels, numbness, loss of bowel or bladder control) 5. any other symptoms that concern you C. Please call the office at if you have any concerns or questions about your operation or recovery. D. No smoking! Smoking drastically decreases the chance of a solid fusion. E. Do not take any anti-inflammatory medications (Indocin, Advil, Motrin, Aspirin, Naprosyn, etc.) as these may inhibit the chance of a solid fusion. Tylenol is okay to take for pain. MANAGING PAIN AFTER SPINAL SURGERY 1. Narcotic medication is intended for short-term use and will be provided for surgical pain. Surgical pain usually lasts for a period of 4-6 weeks. Narcotic medication includes Percocet, Vicodin, Darvocet, Tylenol #3 or Lortab. 2. Longer-term pain is more appropriately treated with non-narcotic medication such as Tylenol ES. 3. Muscle spasm is not appropriately treated with narcotics. Muscle relaxers such as Soma, Flexeril or Skelaxin can be used along with Tylenol ES. 4. Remember that we all live with some "aches and pains". This is not unusual or uncommon after an injury or as we get older. a. Back pain is expected and may include muscle spasms for 4 to 6 weeks after surgery. The pain should gradually improve. If the pain worsens for no apparent reason, please contact the office. b. Intermittent leg pain may also be experienced and should not be concerned about unless it worsens for no apparent reason. If so, please contact the office. 5. We will provide appropriate medication within the normal guidelines of their prescribed use. We will also be very cautious and aware of potential abuse and extended duration of patients' medication needs. a. Pain medications are for your comfort and to assist with sleep and rest so that the tissue can heal. They are not provided in order to return to normal activity and should not be used through the day. To do so or worsening pain at night can result from ongoing tissue damage and development of tolerance to the prescribed medicine. 6. Please allow 2-3 days to process refills. Prescriptions will not be mailed but must be picked up at the office. FOLLOW UP VISIT: Keep your scheduled follow-up appointment. Any questions, please call the office at . Pending Studies at Discharge: No Stand-Alone Forms: My [facility] Skilled Items Patient informed of condition?: Yes DNR: No Discharge Level of Care: Acute rehab Communicable Disease: No Lines: None Urinary Catheter: No Medications and DC Order Prescriptions: Continued albuterol sulfate [ProAir HFA] 90 mcg/actuation HFA aerosol inhaler 2 puffs INH Q4H PRN (Reason: shortness of breath or wheezing) RF: 0 Symbicort 160-4.5 mcg/actuation HFA aerosol inhaler 2 puffs INH BID Qty: 10.2 RF: 2 albuterol sulfate 2.5 mg /3 mL (0.083 %) solution for nebulization 2.5 mg INH Q4H PRN (Reason: shortness of breath or wheezing) Qty: 90 RF: 5 rosuvastatin [Crestor] 5 mg tablet 5 mg PO QAM Qty: 90 RF: 1 (DME) nebulizer accessories Kit See Rx Instructions .ROUTE .MEDSUPPLY Qty: 1 RF: 0 cyanocobalamin (vitamin B-12) 1,000 mcg/mL solution 100 mcg IM MONTHLY RF: 0 clotrimazole-betamethasone [Lotrisone] 1-0.05 % cream 1 applic TOPICAL DAILY PRN (Reason: Rash) RF: 0 cyclobenzaprine 10 mg tablet 10 mg PO TID PRN (Reason: muscle spasm) RF: 0 lidocaine [Lidoderm] 5 % adhesive patch,medicated 1 patch TOP UD PRN (Reason: Pain) RF: 0 hydroxyzine pamoate [Vistaril] 25 mg capsule 25 mg PO TID PRN (Reason: Itching) RF: 0 pantoprazole 20 mg tablet,delayed release (DR/EC) 20 mg PO BID RF: 0 naproxen sodium [Aleve] 220 mg Tablet 220 mg PO UD PRN (Reason: Pain) RF: 0 Discharge Orders: Discharge Order (Routine); Ordered 01/21/20 Ordered By: Adrian Patel Admission Data Admit Date/Time: 01/18/20 14:51 Attending Provider: Adrian Patel Admit Provider: Adrian Patel Primary Care Provider: Za Gee Other Providers: Enmanuel Bryan ; Miriam Carvajal [facility]
== END 2020-01-21 12:44 | DRG 454 ==
LOC: ASU 08:41 → 3E 14:51

== ENCOUNTER 2020-04-05 15:37 | Inpatient (IN) ==
[2020-04-05] MEDS ORDERED: SODIUM CHLORIDE 0.9% 1000ML 2,000 ML IV ONE (15:57)
[2020-04-05] MEDS ORDERED: ACETAMINOPHEN 1000 MG/100 ML IV IV ONE (15:57)
--- NOTE | 2020-04-05 16:01 | Emergency Department Note ---
Impression & Plan TOMMY (acute kidney injury), Abdominal pain, Acute dehydration ED Provider Note NAME: IZABELLA DOUGLASS AGE: 69 SEX: F : 1950 ARRIVES VIA: Ambulance INFORMANT: Patient, ED PROVIDER(S): Samson Tapia MD Chief Complaint: Abdominal pain, weakness HPI: Patient does present from home with the above complaints. Patient has had abdominal pain since yesterday. The patient was seen and evaluated here where she did have a rectal disimpaction enema given and the patient did have subsequent bowel movements. Patient reportedly has had continued valgus at home. The patient does have mid abdominal discomfort. It has been constant. Nonradiating. Patient states he does feel similar to compared to yesterday. No alleviating factors. It is worse with palpation. No fevers or chills. Patient does not present with cough, fevers, chills, coronavirus contacts, coronavirus testing, or recent travel. ROS: See HPI for pertinent positives and negatives. A total of 10 systems were reviewed and otherwise negative. Past medical history: See below Surgical history: See below Social history: See below Physical Exam: GENERAL: Pale in appearance, mildly uncomfortable. Wearing a mask. EYE EXAM: Normal conjunctiva. PERRL, no anisocoria and EOM's grossly intact w/o pain. NECK: Supple, no nuchal rigidity, no adenopathy, non-tender. No signs of meningismus. LUNGS: Clear to auscultation. Normal chest wall mechanics. HEART: NSR, no MRG. ABDOMEN: Mild abdominal distention with mid abdominal pain, not peritonitic, no masses, no rebound or guarding. BACK: No CVA TTP. SKIN: No rashes and no bruising. UPPER EXTREMITIES: Upper extremities are grossly normal. LOWER EXTREMITIES: Grossly normal, no edema. NEURO EXAM: Awake alert, follows commands, slurred speech, no anisocoria, moves all 4 extremities. Differential diagnoses: Appendicitis, ovarian cyst, ovarian torsion, ectopic , TOA, PID, infections, diverticulitis, UTI, obstruction, mesenteric ischemia, aortic pathology, inflammatory bowel disease, renal colic, PUD, pancreatitis, biliary pathology, hernia, volvulus, constipation, as well as ot her pathologies. Course: Patient was seen in [facility] at the bedside. A full history and physical exam was performed. EKG: Indication: Abdominal pain Normal sinus rhythm, rate of 99, prolonged QT, left axis deviation, T wave inversions in the anterior lateral leads. Imaging Studies: Radiology results as stated below per my review in the radiologist's interpretation: ABDOMEN AND PELVIS CT WITHOUT CONTRAST CT DOSE: 2184.82 mGy.cm HISTORY: Generalized abdominal pain. Acute kidney injury. TECHNIQUE: Multiaxial CT images of the abdomen and pelvis were performed without contrast. A dose lowering technique was utilized adhering to the principles of ALARA. COMPARISON STUDY: Abdomen and pelvis CT 04/04/2020. FINDINGS: Patchy bilateral lower lobe densities are nonspecific but favor atelectasis. A pneumonia could also have a similar appearance but is considered less likely. No pneumoperitoneum. No pneumatosis. There is a right total hip arthroplasty. Posterior decompression and fusion within the lower thoracic and lumbar spine with pedicle screws and rods. Cholecystectomy. Subtle nodular contour to the liver consistent with mild cirrhosis. Hepatic steatosis. The unenhanced spleen and pancreas are unremarkable. Contrast remaining within the kidneys from the prior CT examination. No hydronephrosis. Surgical clips within the expected location of the right adrenal gland. There is a 7 mm left adrenal gland nodule. No retroperitoneal lymphadenopathy. Normal caliber abdominal aorta containing mild calcified plaque. Contrast within the bladder from the prior CT examination. No bladder wall thickening. Borderline distended fluid-filled loops of large and small bowel. No transition point to suggest obstruction at this time. This may represent a reactive ileus. Mild bowel wall thickening involving the sigmoid colon and moderate thickening of the rectum with surrounding inflammatory change. Findings likely represent a distal posterior colitis. This has slightly progressed in the interval. The uterus is surgically absent. The appendix is not identified and reportedly surgically absent. IMPRESSION: 1. Slight progression of the distal proctocolitis. This may represent an infect ious or inflammatory process. 2. Fluid-filled borderline distended loops of large and small bowel. No clear transition point. This may represent an ileus or diarrheal illness. A low-grade partial large bowel obstruction due to the thickened distal sigmoid colon/rectum could also have a similar appearance. 3. Cirrhotic liver. 4. Additional findings as described above. ACT 112: Negative or not required by law. Electronically signed by: Eliseo Marroquin M.D. 04/05/2020 5:34 PM Dictated: 04/05/201724 Transcribed: 04/05/201724 Cardiac monitoring: An order was placed for continuous cardiac monitoring. The monitor shows a rate of 101 with sinus tachycardia rhythm. MDM: Patient was seen and there was concern for abdominal pain. Patient has had some persistent bowel movement since yesterday. The patient does complain of persistent mid abdominal discomfort. The patient was diagnosed with a rectal disimpaction yesterday but no other acute findings on CAT scan of the abdomen a nd pelvis. Repeat CAT scan was ordered along with blood work and IV fluids as the patient was hypotensive. IV was started patient was given IV fluids. Patient was given some over math. Patient's blood work showed does show concern for TOMMY. Patient does have a borderline elevated troponin of 0.046. Zosyn was ordered given the patient's white count of 22,000. A MRSA screen was also ordered as well and received the patient would require additional broad-spectrum antibiotics. Initial lactate was 2.8. Repeat was 2.6. Patient did go to CAT scan. CAT scan did show possible distal proctocolitis which may be infectious or inflammatory. There were some borderline distended loops of large and small bowel without any transition point which could be an ileus or diarrheal illness. Patient has been having a lot of bowel movements. I do not believe that the patient has a large bowel obstruction as the patient is actively having bowel movements in the emergency department. I believe the majority of her symptoms are unforeseen related to persistent bowel movements since she received her enema and medications to help stimulate bowel movements. This certainly may have precipitated the TOMMY and dehydration as well. I did speak the on-call hospitalist who agreed to further evaluate treat the patient. The patient was subsequently mated to the medicine service. Was ordered additional IV fluids a Prasad was placed. Patient did have modest improvement in her blood pressure 90s over 50s. Also of note the patient's lactate did improve slightly but certainly was not worsening. The patient's troponin was slightly positive with some T wave inversions I believe this is more related to the patient's dehydration and volume status. Do not believe the patient requires a heparin drip at this time. 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 Required: No Beliefs That Will Affect Care: None marital status: Current Living Situation: Spouse and Family Current Living Situation Comment: AND SON current occupational status: retired Feels Safe at Home: Yes Smoking Status: Never smoker Second Hand Exposure: Yes ( smoked/parents smoked) ; Hx Alcohol Use: No Hx Substance Use: No caffeine: Yes Seatbelt Use: always Allergies Allergies Allergy/AdvReac Type Severity Reaction Status Date / Time metformin AdvReac Intermediate DIARRHEA Verified 04/05/20 16:46 oxycodone AdvReac Intermediate GI Verified 04/05/20 16:46 SYMPTOMS, DISORIENTATION ampicillin AdvReac Mild Nausea/vomi Verified 04/05/20 16:46 ting codeine AdvReac Mild NAUSEA Verified 04/05/20 16:46 gabapentin AdvReac Mild DIZZINESS, Verified 04/05/20 16:46 FIDGETY hydrocodone AdvReac Mild "MADE ME Verified 04/05/20 16:46 FEEL WEIRD" lorazepam AdvReac Mild DIZZY Verified 04/05/20 16:46 lovastatin AdvReac Mild WASN'T Verified 04/05/20 16:46 EFFECTIVE meloxicam AdvReac Mild DIZZINESS Verified 04/05/20 16:46 propoxyphene AdvReac Mild NAUSEA Verified 04/05/20 16:46 tramadol AdvReac Mild GI SYMPTOMS Verified 04/05/20 16:46 narcotics AdvReac Mild Hallucinati Uncoded 04/05/20 16:46 ng Home Meds Home Medications Medication Instructions Recorded Confirmed albuterol sulfate 90 mcg/actuation 2 puffs INH Q4H PRN gm 08/07/19 04/05/20 aerosol inhaler pantoprazole 20 mg tablet,delayed 20 mg PO BID tab 09/09/19 04/05/20 release naproxen sodium [Aleve] 220 mg PO BID 10/11/19 04/05/20 lidocaine [Lidoderm] 1 patch TOP UD PRN 12/26/19 04/05/20 hydroxyzine pamoate [Vistaril] 25 mg PO TID PRN 01/18/20 04/05/20 albuterol sulfate 2.5 mg INH BID 04/04/20 04/05/20 cyclobenzaprine 10 mg PO TID PRN 04/04/20 04/05/20 Previous Rx's Medication Instructions Recorded budesonide-formoterol HFA 160 2 puffs INH BID #10.2 gm 11/16/19 mcg-4.5 mcg/actuation aerosol inhaler rosuvastatin 5 mg tablet 5 mg PO QAM #90 tab 12/06/19 nebulizer accessories #1 ea 12/07/19 cyanocobalamin (vitamin B-12) 1,000 mcg IM MONTHLY #10 ml 02/28/20 1,000 mcg/mL injection solution syringe with needle 3 mL 25 gauge #3 ea 02/28/20 x 1" fluconazole 150 mg tablet 150 mg PO .COMPLEX 28 Days #4 tab 03/14/20 nystatin 100,000 unit/gram topical 1 appln TOP BID #60 gm 03/14/20 powder miscellaneous medical supply #1 ea 03/23/20 Wheelchair (Manual or Powered) #1 ea 03/26/20 Results & Data (ED) Vital Signs Vital Signs - 24 hr 04/05/20 15:46 04/05/20 15:50 04/05/20 16:00 Temperature Temperature Source Pulse Rate 107 H 109 H 110 H Pulse Rate [Right] Pulse Rate from SpO2 Sensor 107 H 109 H Pulse Rhythm [Right] Pulse Strength [Right] Respiratory Rate 18 Respiratory Effort / Characteristics Respiratory Depth Blood Pressure 74/42 L Blood Pressure [Right Arm] Blood Pressure Mean 53 Blood Pressure Mean [Right Arm] Blood Pressure Position [Right Arm] Pulse Oximetry 92 92 Oxygen Delivery Method Sepsis Recent Fever Within 48 Hours Sepsis Action Taken by Nursing 04/05/20 16:01 04/05/20 16:03 04/05/20 16:06 Temperature 36.7 C Temperature Source Oral Pulse Rate 109 H 109 H 113 H Pulse Rate [Right] Pulse Rate from SpO2 Sensor 109 H 109 H Pulse Rhythm [Right] Pulse Strength [Right] Respiratory Rate 20 22 Respiratory Effort / Characteristics Non-Labored Spontaneous Respiratory Depth Normal Blood Pressure 90/51 L 74/42 L Blood Pressure [Right Arm] Blood Pressure Mean 61 52 Blood Pressure Mean [Right Arm] Blood Pressure Position [Right Arm] Pulse Oximetry 91 91 94 Oxygen Delivery Method Room Air Sepsis Recent Fever Within 48 Hours No Sepsis Action Taken by Nursing No Action Required 04/05/20 16:30 04/05/20 16:31 04/05/20 16:37 Temperature Temperature Source Pulse Rate 100 H 106 H 100 H Pulse Rate [Right] Pulse Rate from SpO2 Sensor 103 H Pulse Rhythm [Right] Pulse Strength [Right] Respiratory Rate 32 H 29 H Respiratory Effort / Characteristics Respiratory Depth Blood Pressure 80/49 L 103/44 L Blood Pressure [Right Arm] Blood Pressure Mean 53 61 Blood Pressure Mean [Right Arm] Blood Pressure Position [Right Arm] Pulse Oximetry 93 Oxygen Delivery Method Sepsis Recent Fever Within 48 Hours Sepsis Action Taken by Nursing 04/05/20 17:00 04/05/20 17:13 04/05/20 17:30 Temperature Temperature Source Pulse Rate 94 H 100 H 98 H Pulse Rate [Right] Pulse Rate from SpO2 Sensor 97 H 98 H 103 H Pulse Rhythm [Right] Pulse Strength [Right] Respiratory Rate 28 H 21 20 Respiratory Effort / Characteristics Respiratory Depth Blood Pressure 77/46 L 84/55 L 82/49 L Blood Pressure [Right Arm] Blood Pressure Mean 62 60 66 Blood Pressure Mean [Right Arm] Blood Pressure Position [Right Arm] Pulse Oximetry 93 95 94 Oxygen Delivery Method Sepsis Recent Fever Within 48 Hours Sepsis Action Taken by Nursing 04/05/20 17:58 04/05/20 18:00 04/05/20 18:05 Temperature Temperature Source Pulse Rate 104 H 107 H 106 H Pulse Rate [Right] Pulse Rate from SpO2 Sensor 101 H 100 H 104 H Pulse Rhythm [Right] Pulse Strength [Right] Respiratory Rate 19 20 Respiratory Effort / Characteristics Respiratory Depth Blood Pressure 77/50 L 76/47 L 63/53 L Blood Pressure [Right Arm] Blood Pressure Mean 61 53 54 Blood Pressure Mean [Right Arm] Blood Pressure Position [Right Arm] Pulse Oximetry 93 92 91 Oxygen Delivery Method Sepsis Recent Fever Within 48 Hours Sepsis Action Taken by Nursing 04/05/20 18:06 04/05/20 18:13 04/05/20 18:30 Temperature Temperature Source Pulse Rate 103 H 107 H 104 H Pulse Rate [Right] Pulse Rate from SpO2 Sensor 107 H 104 H 104 H Pulse Rhythm [Right] Pulse Strength [Right] Respiratory Rate 22 20 20 Respiratory Effort / Characteristics Respiratory Depth Blood Pressure 79/51 L 78/44 L Blood Pressure [Right Arm] 68/42 L Blood Pressure Mean 31 53 61 Blood Pressure Mean [Right Arm] 50 Blood Pressure Position [Right Arm] Pulse Oximetry 91 90 92 Oxygen Delivery Method Sepsis Recent Fever Within 48 Hours Sepsis Action Taken by Nursing 04/05/20 18:46 04/05/20 19:32 04/05/20 19:55 Temperature Temperature Source Pulse Rate 102 H Pulse Rate [Right] 105 H 107 H Pulse Rate from SpO2 Sensor 104 H Pulse Rhythm [Right] Regular Regular Pulse Strength [Right] Normal Respiratory Rate 24 20 16 Respiratory Effort / Characteristics Non-Labored Spontaneous Non-Labored Spontaneous Respiratory Depth Normal Normal Blood Pressure 87/51 L Blood Pressure [Right Arm] 80/45 L 91/51 L Blood Pressure Mean 68 Blood Pressure Mean [Right Arm] 56 64 Blood Pressure Position [Right Arm] Lying Lying Pulse Oximetry 93 93 Oxygen Delivery Method Room Air Room Air Sepsis Recent Fever Within 48 Hours Sepsis Action Taken by Skilled Nursing Medications Current Medication List: was personally reviewed by me Laboratory Data Attestation: I reviewed the patient's lab results. Result diagrams: 04/05/20 16:35 04/05/20 16:35 Lab Results 04/05/20 04/05/20 04/05/20 Range/Units 16:35 16:35 16:35 WBC 21.48 H (4.8-10.8) K/uL RBC 4.78 (4.2-5.4) M/uL Hgb 14.6 (12.0-16.0) g/dL Hct 42.5 (37-47) % MCV 88.9 (80-100) fL MCH 30.5 (25-34) pg MCHC 34.4 (32-36) g/dL RDW Std Deviation 45.2 (36.4-46.3) fL RDW Coeff of Ricardo 13.9 (11.5-14.5) % Plt Count 200 (130-400) K/uL MPV 10.9 H (7.4-10.4) fL Immature Gran % (Auto) 1.4 % Neut % (Auto) 86.5 % Lymph % (Auto) 3.8 % Mcminn % (Auto) 8.1 % Eos % (Auto) 0.1 % Baso % (Auto) 0.1 % Immature Gran # (Auto) 0.31 H (0.00-0.02) K/uL Neut # (Auto) 18.57 H (1.4-6.5) K/uL Lymph # (Auto) 0.81 L (1.2-3.4) K/uL Mcminn # (Auto) 1.75 H (0.11-0.59) K/uL Eos # (Auto) 0.02 (0-0.5) K/uL Baso # (Auto) 0.02 (0-0.2) K/uL Sodium 138 (136-145) mmol/L Potassium 3.2 L (3.5-5.1) mmol/L Chloride 107 (98-107) mmol/L Carbon Dioxide 23 (21-32) mmol/L Anion Gap 8.0 (3-11) BUN 13 (7-18) mg/dl Creatinine 2.01 H D (0.6-1.2) mg/dl Est Cr Clr Drug Dosing Not Reportable Est GFR ( Amer) 28.6 Est GFR (Non-Af Amer) 24.7 BUN/Creatinine Ratio 6.6 L (10-20) Glucose 109 H (70-99) mg/dl Lactate 2.8 H* (0.4-2.0) mmol/L Calcium 8.7 (8.5-10.1) mg/dl Total Bilirubin 0.9 (0.2-1) mg/dl AST 77 H (15-37) U/L ALT 36 (12-78) U/L Alkaline Phosphatase 134 H (45-117) U/L Troponin I 0.046 H* (0-0.045) ng/ml Total Protein 5.5 L D (6.4-8.2) gm/dl Albumin 2.4 L (3.4-5.0) gm/dl Globulin 3.1 (2.5-4.0) gm/dl Albumin/Globulin Ratio 0.8 L (0.9-2) Lipase 22 L (73-393) U/L Urine Color Urine Appearance (Clear) Urine pH (4.5-7.5) Ur Specific Zoe (1.000-1.030) Urine Protein (Negative) Urine Glucose (UA) (Negative) Urine Ketones (Negative) Urine Blood (Negative) Urine Nitrite (Negative) Urine Bilirubin (Negative) Urine Urobilinogen (Negative) Ur Leukocyte Esterase (Negative) Urine RBC (0-4) /hpf Urine WBC (0-5) /hpf Ur Epithelial Cells (0-5) /lpf Urine Bacteria (Negative) Nasal Screen MRSA (PCR) (Negative) 04/05/20 04/05/20 04/05/20 Range/Units 18:31 18:50 18:50 WBC (4.8-10.8) K/uL RBC (4.2-5.4) M/uL Hgb (12.0-16.0) g/dL Hct (37-47) % MCV (80-100) fL MCH (25-34) pg MCHC (32-36) g/dL RDW Std Deviation (36.4-46.3) fL RDW Coeff of Ricardo (11.5-14.5) % Plt Count (130-400) K/uL MPV (7.4-10.4) fL Immature Gran % (Auto) % Neut % (Auto) % Lymph % (Auto) % Mcminn % (Auto) % Eos % (Auto) % Baso % (Auto) % Immature Gran # (Auto) (0.00-0.02) K/uL Neut # (Auto) (1.4-6.5) K/uL Lymph # (Auto) (1.2-3.4) K/uL Mcminn # (Auto) (0.11-0.59) K/uL Eos # (Auto) (0-0.5) K/uL Baso # (Auto) (0-0.2) K/uL Sodium (136-145) mmol/L Potassium (3.5-5.1) mmol/L Chloride (98-107) mmol/L Carbon Dioxide (21-32) mmol/L Anion Gap (3-11) BUN (7-18) mg/dl Creatinine (0.6-1.2) mg/dl Est Cr Clr Drug Dosing Est GFR ( Amer) Est GFR (Non-Af Amer) BUN/Creatinine Ratio (10-20) Glucose (70-99) mg/dl Lactate 2.6 H* (0.4-2.0) mmol/L Calcium (8.5-10.1) mg/dl Total Bilirubin (0.2-1) mg/dl AST (15-37) U/L ALT (12-78) U/L Alkaline Phosphatase (45-117) U/L Troponin I (0-0.045) ng/ml Total Protein (6.4-8.2) gm/dl Albumin (3.4-5.0) gm/dl Globulin (2.5-4.0) gm/dl Albumin/Globulin Ratio (0.9-2) Lipase (73-393) U/L Urine Color Hilda Urine Appearance Slightly Cloudy (Clear) Urine pH 5.0 (4.5-7.5) Ur Specific Zoe 1.015 (1.000-1.030) Urine Protein Negative (Negative) Urine Glucose (UA) Negative (Negative) Urine Ketones Trace H (Negative) Urine Blood Negative (Negative) Urine Nitrite Positive A (Negative) Urine Bilirubin Negative (Negative) Urine Urobilinogen Negative (Negative) Ur Leukocyte Esterase Negative (Negative) Urine RBC 0-4 (0-4) /hpf Urine WBC 5-10 H (0-5) /hpf Ur Epithelial Cells >30 H (0-5) /lpf Urine Bacteria Negative (Negative) Nasal Screen MRSA (PCR) Positive A (Negative) Administered Medications Discontinued Medications Acetaminophen (Ofirmev) 1,000 mg IV ONE ONE Stop: 04/05/20 15:58 Last Admin: 04/05/20 16:19 Dose: 1,000 mg Documented by: [id number] Sodium Chloride (Nss 1000ml) 2,000 mls @ 999 mls/hr IV .Q2H1M ONE Stop: 04/05/20 17:57 Last Infusion: 04/05/20 18:13 Dose: 0 mls/hr Documented by: [id number] Admin: 04/05/20 16:16 Dose: 999 mls/hr Documented by: [id number] Piperacillin Sod/Tazobactam Sod (Zosyn) 4.5 gm in 120 mls @ 240 mls/hr IV NOW ONE Stop: 04/05/20 17:38 Last Infusion: 04/05/20 17:56 Dose: 0 mls/hr Documented by: [id number] Admin: 04/05/20 17:28 Dose: 240 mls/hr Documented by: [id number] Sodium Chloride (Nss 1000ml) 1,000 mls @ 999 mls/hr IV .Q1H1M ONE Stop: 04/05/20 19:07 Last Infusion: 04/05/20 19:21 Dose: 0 mls/hr Documented by: [id number] Admin: 04/05/20 18:13 Dose: 999 mls/hr Documented by: [id number] Discharge Plan Visit Data Chief Complaint: Abdominal Pain Stated Complaint: WEAKNESS, AB PAIN, ED Provider: Samson Tapia Discharge Problem: TOMMY (acute kidney injury), Abdominal pain, Acute dehydration Forms Stand Alone Forms: My [facility] Prescriptions Prescriptions: No Action albuterol sulfate [ProAir HFA] 90 mcg/actuation HFA aerosol inhaler 2 puffs INH Q4H PRN (Reason: shortness of breath or wheezing) RF: 0 Symbicort 160-4.5 mcg/actuation HFA aerosol inhaler 2 puffs INH BID Qty: 10.2 RF: 2 rosuvastatin [Crestor] 5 mg tablet 5 mg PO QAM Qty: 90 RF: 1 (DME) nebulizer accessories Kit See Rx Instructions .ROUTE .MEDSUPPLY Qty: 1 RF: 0 (DME) BD Luer-Rafat Syringe 3 mL 25 gauge x 1" syringe See Rx Instructions .ROUTE .MEDSUPPLY Qty: 3 RF: 3 cyanocobalamin (vitamin B-12) 1,000 mcg/mL solution 1,000 mcg IM MONTHLY Qty: 10 RF: 3 fluconazole [Diflucan] 150 mg tablet 150 mg PO .COMPLEX 28 Days Qty: 4 RF: 0 nystatin 100,000 unit/gram powder 1 appln TOP BID Qty: 60 RF: 0 (DME) Wheelchair (Manual) Device See Rx Instructions .ROUTE .MEDSUPPLY Qty: 1 RF: 0 (DME) Hospital Bed Misc See Rx Instructions .ROUTE .MEDSUPPLY Qty: 1 RF: 0 lidocaine [Lidoderm] 5 % adhesive patch,medicated 1 patch TOP UD PRN (Reason: Pain) RF: 0 hydroxyzine pamoate [Vistaril] 25 mg capsule 25 mg PO TID PRN (Reason: Itching) RF: 0 cyclobenzaprine 10 mg tablet 10 mg PO TID PRN (Reason: Muscle Spasm) RF: 0 albuterol sulfate 2.5 mg /3 mL (0.083 %) solution for nebulization 2.5 mg INH BID RF: 0 pantoprazole 20 mg tablet,delayed release (DR/EC) 20 mg PO BID RF: 0 naproxen sodium [Aleve] 220 mg Tablet 220 mg PO BID RF: 0 Discharge Problem: Abdominal pain Qualifiers: Abdominal location: periumbilical Qualified Code(s): R10.33 - Periumbilical pain
[2020-04-05 17:01] LABS: Basophils # (auto) 0.02 K/uL (0-0.2); Basophils % (auto) 0.1 %; Eosinophils # (auto) 0.02 K/uL (0-0.5); Eosinophils % (auto) 0.1 %; Hematocrit (blood only) 42.5 % (37-47); Hemoglobin 14.6 g/dL (12.0-16.0); Immature Granulocytes # (auto) 0.31 K/uL (0.00-0.02); Immature Granulocytes % (auto) 1.4 %; Lymphocytes # (auto) 0.81 K/uL (1.2-3.4); Lymphocytes % (auto) 3.8 %; Mean Corpuscular Hemoglobin 30.5 pg (25-34); Mean Corpuscular Hgb Conc 34.4 g/dL (32-36); Mean Corpuscular Volume 88.9 fL (80-100); Mean Platelet Volume 10.9 fL (7.4-10.4); Monocytes # (auto) 1.75 K/uL (0.11-0.59); Monocytes % (auto) 8.1 %; Neutrophils # (auto) 18.57 K/uL (1.4-6.5); Neutrophils % (auto) 86.5 %; Platelet Count 200 K/uL (130-400); RDW Coefficient of Variation 13.9 % (11.5-14.5); RDW Standard Deviation 45.2 fL (36.4-46.3); Red Blood Count 4.78 M/uL (4.2-5.4); White Blood Count 21.48 K/uL (4.8-10.8)
[2020-04-05 17:05] LABS: Alanine Aminotransferase 36 U/L (12-78); Albumin Globulin Ratio 0.8 (0.9-2); Albumin Level 2.4 gm/dl (3.4-5.0); Alkaline Phosphatase 134 U/L (45-117); Aspartate Aminotransferase 77 U/L (15-37); BUN Creatinine Ratio 6.6 (10-20); Bilirubin,Total 0.9 mg/dl (0.2-1); Blood Urea Nitrogen 13 mg/dl (7-18); Calcium 8.7 mg/dl (8.5-10.1); Carbon Dioxide 23 mmol/L (21-32); Chloride 107 mmol/L (98-107); Est GFR (African American) 28.6; Est GFR (Non-African American) 24.7; Globulin 3.1 gm/dl (2.5-4.0); Glucose 109 mg/dl (70-99); Lipase 22 U/L (73-393); Potassium 3.2 mmol/L (3.5-5.1); Sodium 138 mmol/L (136-145); Total Protein 5.5 gm/dl (6.4-8.2)
[2020-04-05 17:06] LABS: Troponin I 0.046 ng/ml (0-0.045)
[2020-04-05] MEDS ORDERED: PIPERACILL/TAZOBAC CONSULT ACTIVE PRN (17:09)
[2020-04-05] MEDS ORDERED: PIPERACILLIN/TAZOBACTAM 4.5 GM/120 ML BAG IV ONE (17:09)
--- NOTE | 2020-04-05 17:36 | CT Scan Report ---
ABDOMEN AND PELVIS CT WITHOUT CONTRAST CT DOSE: 2184.82 mGy.cm HISTORY: Generalized abdominal pain. Acute kidney injury. TECHNIQUE: Multiaxial CT images of the abdomen and pelvis were performed without contrast. A dose lo wering technique was utilized adhering to the principles of ALARA. COMPARISON STUDY: Abdomen and pelvis CT 04/04/2020. FINDINGS: Patchy bilateral lower lobe densities are nonspecific but favor atelectasis. A pneumonia co uld also have a similar appearance but is considered less likely. No pneumoperitoneum. No pneumatosis . There is a right total hip arthroplasty. Posterior decompression and fusion within the lower thorac ic and lumbar spine with pedicle screws and rods. Cholecystectomy. Subtle nodular contour to the live r consistent with mild cirrhosis. Hepatic steatosis. The unenhanced spleen and pancreas are unremarka ble. Contrast remaining within the kidneys from the prior CT examination. No hydronephrosis. Surgical clips within the expected location of the right adrenal gland. There is a 7 mm left adrenal gland no dule. No retroperitoneal lymphadenopathy. Normal caliber abdominal aorta containing mild calcified pl aque. Contrast within the bladder from the prior CT examination. No bladder wall thickening. Borderli ne distended fluid-filled loops of large and small bowel. No transition point to suggest obstruction at this time. This may represent a reactive ileus. Mild bowel wall thickening involving the sigmoid c olon and moderate thickening of the rectum with surrounding inflammatory change. Findings likely repr esent a distal posterior colitis. This has slightly progressed in the interval. The uterus is surgica lly absent. The appendix is not identified and reportedly surgically absent. IMPRESSION: 1. Slight progression of the distal proctocolitis. This may represent an infectious or inflammatory p rocess. 2. Fluid-filled borderline distended loops of large and small bowel. No clear transition point. This may represent an ileus or diarrheal illness. A low-grade partial large bowel obstruction due to the t hickened distal sigmoid colon/rectum could also have a similar appearance. 3. Cirrhotic liver. 4. Additional findings as described above. ACT 112: Negative or not required by law. Electronically signed by: Eliseo Marroquin M.D. 04/05/2020 5:34 PM
[2020-04-05] MEDS ORDERED: SODIUM CHLORIDE 0.9% 1000ML 1,000 ML IV ONE (18:07)
[2020-04-05 19:21] LABS: Appearance Urine Slightly Cloudy (Clear); Blood Urine Negative (Negative); Color Urine Amber; Glucose Urine UA Negative (Negative); Ketones Urine Trace (Negative); Leukocyte Esterase Urine Negative (Negative); Nitrite Urine Positive (Negative); Protein Urine Negative (Negative); Specific Gravity Urine 1.015 (1.000-1.030); Urobilinogen Urine Negative (Negative)
[2020-04-05 19:24] LABS: Bilirubin Urine Negative (Negative); Ictotest Urine Negative (Negative)
[2020-04-05 19:25] LABS: Bacteria Urine Negative (Negative); Epithelial Cell Urine >30 /lpf (0-5); RBC Urine 0-4 /hpf (0-4)
[2020-04-05] MEDS ORDERED: ACETAMINOPHEN 325 MG TAB PO PRN (21:15)
[2020-04-05] MEDS: LACTATED RINGER'S 1,000 ML IV SCH (21:18)
[2020-04-05] MEDS ORDERED: ALBUTEROL HFA 8 GM INHALER INH PRN (21:31)
[2020-04-05 22:01] LABS: Magnesium 1.9 mg/dl (1.8-2.4); Phosphorus 3.9 mg/dl (2.5-4.9)
[2020-04-05] MEDS: NYSTATIN POWDER 15GM BTL EXT SCH (22:47)
[2020-04-05] MEDS: PANTOprazole 40 MG TAB PO SCH (22:48)
--- NOTE | 2020-04-05 23:42 | History & Physical Report ---
Date of Service April 05, 2020 Assessment & Plan (1) Hypotension: Patient with significant hypotension on arrival to the ER. Ddx to include hypovolemia in setting of persistent diarrhea, sepsis. BP has improved with crystalloid infusion - 4L given in ER, now on maintenance fluids. MAP is >65 -Admit to medical floor -Closely monitor BP -Continue IVF - LR at 125mL/hr -Hold antihypertensive agents Present on Admission?: Yes (2) Diarrhea: Patient continues to have copious amounts of watery diarrhea. ?secondary to medications administered for previous constipation vs infectious/inflammatory colitis. Patient appears quite dry on clinical exam, laboratory evidence of poor perfusion to include increased Cr, lactate -IVF as above -Check stool for C.diff, stool culture and fecal leukocytes -Repeat Lactate in AM - if persistently elevated, persistent abdominal discomfort or worsening of symptoms would consider General Surgery consultation Present on Admission?: Yes (3) Abdominal pain: Concern for proctitis/colitis, less likely large bowel obstruction. CT with slight worsening of colitis -Tx as above for diarrhea -Check KUB in AM Present on Admission?: Yes (4) TOMMY (acute kidney injury): Patient with acutely elevated Cr = 2.01 from 0.7. Possibly secondary to hypotension, pre-renal azotemia + ATN. Also with elevated CK -Aggressive IVF -Monitor BUN, Cr, electrolytes -Repeat CK in AM -Avoid nephrotoxic agents -Renal dosing where needed Present on Admission?: Yes (5) Elevated troponin: Patient denies chest pain. Troponin = 0.046, EKG with lateral TWI. Repeat troponin improved. Suspect demand ischemic in setting of prolonged hypotension -Continue to trend troponin -ASA 81mg po daily Present on Admission?: Yes (6) Asthma: Chronic. No SOB or wheeze -Albuterol PRN -Continue Trelegy -Supplemental O2 as needed Present on Admission?: Yes (7) CAD (coronary artery disease): Chronic -ASA 81mg po daily initiated -Continue Crestor 5mg po qAM Present on Admission?: Yes (8) COPD (chronic obstructive pulmonary disease): Stable. No SOB/Cough/Wheeze or other respiratory complaints -Continue Albuterol, Fluticasone/Vilanterol Present on Admission?: Yes (9) Hyperlipidemia: Chronic -Continue Crestor Present on Admission?: Yes (10) Hypertension: Hypotension as above. Patient currently not on any anti-hypertensives -Closely monitor BP F/E/N - LR at 125mL/hr, monitor electrolytes and replete as needed, NPO for now Ppx - Heparin Code - Full Dispo - Admit to medical floor Present on Admission?: Yes Admission and Anticipated Discharge Date Admission Date: April 05, 2020 Anticipated date of discharge: 04/08/20 History of Present Illness Chief Complaint: diarrhea, hypotension Primary Care Provider: Za Gee MD Citlalli Roche is a 69yo C female with history of CAD, COPD, Depression, HTN. She was seen in the ER yesterday with complaint of constipation x 7-8 days with abdominal pain. CT of the abdomen was performed which revealed rectal fecal impaction with mild perirectal infiltrative change suggesting proctitis. Patient had rectal disimpaction performed. Noted to have nonbleeding hemorrhoids, no melena or hematochezia. She was treated with and enema, Lactulose, Senna/Docusate with successful BM and discharged home in stable condition. She returns to the ER today with complaint of abdominal pain and weakness since yesterday. She has had continuous diarrhea at home. In the ER the patient was afebrile, tachycardic (94-110), significantly hypotensive with BP ranging 63-103/42-59, adequate oxygenation on room air She was administered NSS x 4L bolus with improvement in blood pressure ER Course: Tylenol, NSS x 4L bolus, Zosyn 4.5gm Allergies Allergy/AdvReac Type Severity Reaction Status Date / Time metformin AdvReac Intermediate DIARRHEA Verified 04/05/20 16:46 oxycodone AdvReac Intermediate GI Verified 04/05/20 16:46 SYMPTOMS, DISORIENTATION ampicillin AdvReac Mild Nausea/vomi Verified 04/05/20 16:46 ting codeine AdvReac Mild NAUSEA Verified 04/05/20 16:46 gabapentin AdvReac Mild DIZZINESS, Verified 04/05/20 16:46 FIDGETY hydrocodone AdvReac Mild "MADE ME Verified 04/05/20 16:46 FEEL WEIRD" lorazepam AdvReac Mild DIZZY Verified 04/05/20 16:46 lovastatin AdvReac Mild WASN'T Verified 04/05/20 16:46 EFFECTIVE meloxicam AdvReac Mild DIZZINESS Verified 04/05/20 16:46 propoxyphene AdvReac Mild NAUSEA Verified 04/05/20 16:46 tramadol AdvReac Mild GI SYMPTOMS Verified 04/05/20 16:46 narcotics AdvReac Mild Hallucinati Uncoded 04/05/20 16:46 ng Home Medications Home Medications Medication Instructions Recorded Confirmed Type albuterol sulfate 90 mcg/actuation 2 puffs INH Q4H PRN gm 08/07/19 04/05/20 History aerosol inhaler pantoprazole 20 mg tablet,delayed 20 mg PO BID tab 09/09/19 04/05/20 History release naproxen sodium [Aleve] 220 mg PO BID 10/11/19 04/05/20 History budesonide-formoterol HFA 160 2 puffs INH BID #10.2 gm 11/16/19 04/05/20 Rx mcg-4.5 mcg/actuation aerosol inhaler rosuvastatin 5 mg tablet 5 mg PO QAM #90 tab 12/06/19 04/05/20 Rx nebulizer accessories #1 ea 12/07/19 04/04/20 Rx lidocaine [Lidoderm] 1 patch TOP UD PRN 12/26/19 04/05/20 History hydroxyzine pamoate [Vistaril] 25 mg PO TID PRN 01/18/20 04/05/20 History cyanocobalamin (vitamin B-12) 1,000 mcg IM MONTHLY #10 ml 02/28/20 04/05/20 Rx 1,000 mcg/mL injection solution syringe with needle 3 mL 25 gauge #3 ea 02/28/20 04/04/20 Rx x 1" fluconazole 150 mg tablet 150 mg PO .COMPLEX 28 Days #4 tab 03/14/20 04/05/20 Rx nystatin 100,000 unit/gram topical 1 appln TOP BID #60 gm 03/14/20 04/05/20 Rx powder miscellaneous medical supply #1 ea 03/23/20 04/04/20 Rx Wheelchair (Manual or Powered) #1 ea 03/26/20 04/04/20 Rx albuterol sulfate 2.5 mg INH BID 04/04/20 04/05/20 History cyclobenzaprine 10 mg PO TID PRN 04/04/20 04/05/20 History Past Med/Surg History Social History Preferred Language: Italian Communication Ability: Effective Visual Impairment: Limited Hearing Ability: Hard of Hearing Ski Topper Required: No Beliefs That Will Affect Care: None marital status: Current Living Situation: Spouse and Family Current Living Situation Comment: AND SON current occupational status: retired Other Information That Helps Us Care for You: No Feels Safe at Home: Yes Safety Concerns: Feels Safe At This Time Smoking Status: Never smoker Second Hand Exposure: Yes ( smoked/parents smoked) ; Hx Alcohol Use: No Hx Substance Use: No caffeine: Yes Seatbelt Use: always Review of Systems Review of Systems: Unobtainable due to cognitive status Patient not answering questions Physical Exam Physical Exam: General: patient appears uncomfortable, answers some questions and follows some commands Skin: warm, dry, intact, no rashes or lesions HEENT: NC/AT, PERRL, anicteric sclera, conjunctiva without injection, external ear normal to inspection and nontender, nares patent, dry mucus membranes, dentition intact, no oropharyngeal lesions, neck supple, trachea midline, no LAD, no thyromegaly, no JVD Heart: +S1/S2, regular, tachycardic, no m/r/g Lungs: equal air entry bilaterally, no rales/rhonchi/wheezes Abd: +BS, soft, ND, mildly tender with deep palpation with some voluntary guarding, no rebound Ext: warm, 2+ pulses in UE/LE bilaterally, no clubbing/cyanosis or edema Neuro: nonfocal Results & Data Results & Data ([facility]) Vital Signs (Past 12 Hours) Vital Signs Temp Pulse Pulse Resp BP BP Pulse Ox 04/05/20 21:25 90/57 L 04/05/20 21:15 36.8 C 110 H 24 88/59 L 97 04/05/20 20:42 100 H 16 98/49 L 99 04/05/20 19:55 107 H 16 91/51 L 93 04/05/20 19:32 105 H 20 80/45 L 04/05/20 18:46 102 H 24 87/51 L 93 04/05/20 18:30 104 H 20 78/44 L 92 04/05/20 18:13 107 H 20 79/51 L 68/42 L 90 04/05/20 18:06 103 H 22 91 04/05/20 18:05 106 H 20 63/53 L 91 04/05/20 18:00 107 H 19 76/47 L 92 04/05/20 17:58 104 H 77/50 L 93 04/05/20 17:30 98 H 20 82/49 L 94 04/05/20 17:13 100 H 21 84/55 L 95 04/05/20 17:00 94 H 28 H 77/46 L 93 04/05/20 16:37 100 H 29 H 103/44 L 93 04/05/20 16:31 106 H 32 H 80/49 L 04/05/20 16:30 100 H 04/05/20 16:06 36.7 C 113 H 22 74/42 L 94 04/05/20 16:03 109 H 20 90/51 L 91 04/05/20 16:01 109 H 91 04/05/20 16:00 110 H 04/05/20 15:50 109 H 18 92 04/05/20 15:46 107 H 74/42 L 92 Laboratory Results Lab Results 04/05/20 04/05/20 04/05/20 Range/Units 16:35 16:35 16:35 WBC 21.48 H (4.8-10.8) K/uL RBC 4.78 (4.2-5.4) M/uL Hgb 14.6 (12.0-16.0) g/dL Hct 42.5 (37-47) % MCV 88.9 (80-100) fL MCH 30.5 (25-34) pg MCHC 34.4 (32-36) g/dL RDW Std Deviation 45.2 (36.4-46.3) fL RDW Coeff of Ricardo 13.9 (11.5-14.5) % Plt Count 200 (130-400) K/uL MPV 10.9 H (7.4-10.4) fL Immature Gran % (Auto) 1.4 % Neut % (Auto) 86.5 % Lymph % (Auto) 3.8 % Amelia % (Auto) 8.1 % Eos % (Auto) 0.1 % Baso % (Auto) 0.1 % Immature Gran # (Auto) 0.31 H (0.00-0.02) K/uL Neut # (Auto) 18.57 H (1.4-6.5) K/uL Lymph # (Auto) 0.81 L (1.2-3.4) K/uL Amelia # (Auto) 1.75 H (0.11-0.59) K/uL Eos # (Auto) 0.02 (0-0.5) K/uL Baso # (Auto) 0.02 (0-0.2) K/uL Sodium 138 (136-145) mmol/L Potassium 3.2 L (3.5-5.1) mmol/L Chloride 107 (98-107) mmol/L Carbon Dioxide 23 (21-32) mmol/L Anion Gap 8.0 (3-11) BUN 13 (7-18) mg/dl Creatinine 2.01 H D (0.6-1.2) mg/dl Est Cr Clr Drug Dosing Not Reportable Est GFR ( Amer) 28.6 Est GFR (Non-Af Amer) 24.7 BUN/Creatinine Ratio 6.6 L (10-20) Glucose 109 H (70-99) mg/dl Lactate 2.8 H* (0.4-2.0) mmol/L Calcium 8.7 (8.5-10.1) mg/dl Phosphorus (2.5-4.9) mg/dl Magnesium (1.8-2.4) mg/dl Total Bilirubin 0.9 (0.2-1) mg/dl AST 77 H (15-37) U/L ALT 36 (12-78) U/L Alkaline Phosphatase 134 H (45-117) U/L Total Creatine Kinase (26-192) U/L Troponin I 0.046 H* (0-0.045) ng/ml Total Protein 5.5 L D (6.4-8.2) gm/dl Albumin 2.4 L (3.4-5.0) gm/dl Globulin 3.1 (2.5-4.0) gm/dl Albumin/Globulin Ratio 0.8 L (0.9-2) Lipase 22 L (73-393) U/L Urine Color Urine Appearance (Clear) Urine pH (4.5-7.5) Ur Specific [place] (1.000-1.030) Urine Protein (Negative) Urine Glucose (UA) (Negative) Urine Ketones (Negative) Urine Blood (Negative) Urine Nitrite (Negative) Urine Bilirubin (Negative) Urine Urobilinogen (Negative) Ur Leukocyte Esterase (Negative) Urine RBC (0-4) /hpf Urine WBC (0-5) /hpf Ur Epithelial Cells (0-5) /lpf Urine Bacteria (Negative) Nasal Screen MRSA (PCR) (Negative) 04/05/20 04/05/20 04/05/20 Range/Units 18:31 18:50 18:50 WBC (4.8-10.8) K/uL RBC (4.2-5.4) M/uL Hgb (12.0-16.0) g/dL Hct (37-47) % MCV (80-100) fL MCH (25-34) pg MCHC (32-36) g/dL RDW Std Deviation (36.4-46.3) fL RDW Coeff of Ricardo (11.5-14.5) % Plt Count (130-400) K/uL MPV (7.4-10.4) fL Immature Gran % (Auto) % Neut % (Auto) % Lymph % (Auto) % Amelia % (Auto) % Eos % (Auto) % Baso % (Auto) % Immature Gran # (Auto) (0.00-0.02) K/uL Neut # (Auto) (1.4-6.5) K/uL Lymph # (Auto) (1.2-3.4) K/uL Amelia # (Auto) (0.11-0.59) K/uL Eos # (Auto) (0-0.5) K/uL Baso # (Auto) (0-0.2) K/uL Sodium (136-145) mmol/L Potassium (3.5-5.1) mmol/L Chloride (98-107) mmol/L Carbon Dioxide (21-32) mmol/L Anion Gap (3-11) BUN (7-18) mg/dl Creatinine (0.6-1.2) mg/dl Est Cr Clr Drug Dosing Est GFR ( Amer) Est GFR (Non-Af Amer) BUN/Creatinine Ratio (10-20) Glucose (70-99) mg/dl Lactate 2.6 H* (0.4-2.0) mmol/L Calcium (8.5-10.1) mg/dl Phosphorus (2.5-4.9) mg/dl Magnesium (1.8-2.4) mg/dl Total Bilirubin (0.2-1) mg/dl AST (15-37) U/L ALT (12-78) U/L Alkaline Phosphatase (45-117) U/L Total Creatine Kinase (26-192) U/L Troponin I (0-0.045) ng/ml Total Protein (6.4-8.2) gm/dl Albumin (3.4-5.0) gm/dl Globulin (2.5-4.0) gm/dl Albumin/Globulin Ratio (0.9-2) Lipase (73-393) U/L Urine Color Hilda Urine Appearance Slightly Cloudy (Clear) Urine pH 5.0 (4.5-7.5) Ur Specific [place] 1.015 (1.000-1.030) Urine Protein Negative (Negative) Urine Glucose (UA) Negative (Negative) Urine Ketones Trace H (Negative) Urine Blood Negative (Negative) Urine Nitrite Positive A (Negative) Urine Bilirubin Negative (Negative) Urine Urobilinogen Negative (Negative) Ur Leukocyte Esterase Negative (Negative) Urine RBC 0-4 (0-4) /hpf Urine WBC 5-10 H (0-5) /hpf Ur Epithelial Cells >30 H (0-5) /lpf Urine Bacteria Negative (Negative) Nasal Screen MRSA (PCR) Positive A (Negative) 04/05/20 04/05/20 Range/Units 21:24 22:31 WBC (4.8-10.8) K/uL RBC (4.2-5.4) M/uL Hgb (12.0-16.0) g/dL Hct (37-47) % MCV (80-100) fL MCH (25-34) pg MCHC (32-36) g/dL RDW Std Deviation (36.4-46.3) fL RDW Coeff of Ricardo (11.5-14.5) % Plt Count (130-400) K/uL MPV (7.4-10.4) fL Immature Gran % (Auto) % Neut % (Auto) % Lymph % (Auto) % Amelia % (Auto) % Eos % (Auto) % Baso % (Auto) % Immature Gran # (Auto) (0.00-0.02) K/uL Neut # (Auto) (1.4-6.5) K/uL Lymph # (Auto) (1.2-3.4) K/uL Amelia # (Auto) (0.11-0.59) K/uL Eos # (Auto) (0-0.5) K/uL Baso # (Auto) (0-0.2) K/uL Sodium (136-145) mmol/L Potassium (3.5-5.1) mmol/L Chloride (98-107) mmol/L Carbon Dioxide (21-32) mmol/L Anion Gap (3-11) BUN (7-18) mg/dl Creatinine (0.6-1.2) mg/dl Est Cr Clr Drug Dosing Est GFR ( Amer) Est GFR (Non-Af Amer) BUN/Creatinine Ratio (10-20) Glucose (70-99) mg/dl Lactate (0.4-2.0) mmol/L Calcium (8.5-10.1) mg/dl Phosphorus 3.9 (2.5-4.9) mg/dl Magnesium 1.9 (1.8-2.4) mg/dl Total Bilirubin (0.2-1) mg/dl AST (15-37) U/L ALT (12-78) U/L Alkaline Phosphatase (45-117) U/L Total Creatine Kinase 964 H (26-192) U/L Troponin I 0.037 (0-0.045) ng/ml Total Protein (6.4-8.2) gm/dl Albumin (3.4-5.0) gm/dl Globulin (2.5-4.0) gm/dl Albumin/Globulin Ratio (0.9-2) Lipase (73-393) U/L Urine Color Urine Appearance (Clear) Urine pH (4.5-7.5) Ur Specific [place] (1.000-1.030) Urine Protein (Negative) Urine Glucose (UA) (Negative) Urine Ketones (Negative) Urine Blood (Negative) Urine Nitrite (Negative) Urine Bilirubin (Negative) Urine Urobilinogen (Negative) Ur Leukocyte Esterase (Negative) Urine RBC (0-4) /hpf Urine WBC (0-5) /hpf Ur Epithelial Cells (0-5) /lpf Urine Bacteria (Negative) Nasal Screen MRSA (PCR) (Negative) Diagnostic Findings ABDOMEN AND PELVIS CT WITHOUT CONTRAST CT DOSE: 2184.82 mGy.cm HISTORY: Generalized abdominal pain. Acute kidney injury. TECHNIQUE: Multiaxial CT images of the abdomen and pelvis were performed without contrast. A dose lowering technique was utilized adhering to the principles of ALARA. COMPARISON STUDY: Abdomen and pelvis CT 04/04/2020. FINDINGS: Patchy bilateral lower lobe densities are nonspecific but favor atelectasis. A pneumonia could also have a similar appearance but is considered less likely. No pneumoperitoneum. No pneumatosis. There is a right total hip arthroplasty. Posterior decompression and fusion within the lower thoracic and lumbar spine with pedicle screws and rods. Cholecystectomy. Subtle nodular contour to the liver consistent with mild cirrhosis. Hepatic steatosis. The unenhanced spleen and pancreas are unremarkable. Contrast remaining within the kidneys from the prior CT examination. No hydronephrosis. Surgical clips within the expected location of the right adrenal gland. There is a 7 mm left adrenal gland nodule. No retroperitoneal lymphadenopathy. Normal caliber abdominal aorta containing mild calcified plaque. Contrast within the bladder from the prior CT examination. No bladder wall thickening. Borderline distended fluid-filled loops of large and small bowel. No transition point to suggest obstruction at this time. This may represent a reactive ileus. Mild bowel wall thickening involving the sigmoid colon and moderate thickening of the rectum with surrounding inflammatory change. Findings likely represent a distal posterior colitis. This has slightly progressed in the interval. The uterus is surgically absent. The appendix is not identified and reportedly surgically absent. IMPRESSION: 1. Slight progression of the distal proctocolitis. This may represent an infectious or inflammatory process. 2. Fluid-filled borderline distended loops of large and small bowel. No clear transition point. This may represent an ileus or diarrheal illness. A low-grade partial large bowel obstruction due to the thickened distal sigmoid colon/rectum could also have a similar appearance. 3. Cirrhotic liver. 4. Additional findings as described above. ACT 112: Negative or not required by law. Electronically signed by: Eliseo Marroquin M.D. 04/05/2020 5:34 PM Dictated: 04/05/201724 Transcribed: 04/05/201724 ECG Additional Comments: Thew study shows NSR at 99bpm, leftward axis lateral TWI, [id number] Code Status & VTE Plan Code Status FULL PG Care Time/CCT Total # of Minutes Spent Total Time Spent with Patient: Total time spent is greater than 50% in coordination of care (as documented) at patient's floor/unit and/or counseling patient: Coding Level of Care Code 86106 Initial Inpt Care Lvl 3 Diagnoses Hypotension I95.9 Hypotension type: unspecified hypotension type Diarrhea R19.7 Diarrhea type: unspecified type Abdominal pain R10.33 Abdominal location: periumbilical TOMMY (acute kidney injury) N17.9 Elevated troponin R79.89 Asthma J45.40 Asthma complication type: unspecified Asthma severity: moderate Asthma persistence: persistent CAD (coronary artery disease) I25.10 Coronary Disease-Associated Artery/Lesion type: unspecified vessel or lesion type [place] vs. transplanted heart: [place] heart Associated angina: without angina COPD (chronic obstructive pulmonary disease) J44.9 COPD type: unspecified COPD Hyperlipidemia E78.5 Hyperlipidemia type: unspecified Hypertension I10 Hypertension type: essential hypertension (1) Hypotension Hypotension type: unspecified hypotension type Qualified Code(s): I95.9 - Hypotension, unspecified (2) Diarrhea Diarrhea type: unspecified type Qualified Code(s): R19.7 - Diarrhea, unspecified (3) Abdominal pain Abdominal location: periumbilical Qualified Code(s): R10.33 - Periumbilical pain (4) Asthma Asthma complication type: unspecified Asthma severity: moderate Asthma persistence: persistent Qualified Code(s): J45.40 - Moderate persistent asthma, uncomplicated (5) CAD (coronary artery disease) Coronary Disease-Associated Artery/Lesion type: unspecified vessel or lesion type [place] vs. transplanted heart: [place] heart Associated angina: without angina Qualified Code(s): I25.10 - Atherosclerotic heart disease of [place] coronary artery without angina pectoris (6) COPD (chronic obstructive pulmonary disease) COPD type: unspecified COPD Qualified Code(s): J44.9 - Chronic obstructive pulmonary disease, unspecified (7) Hyperlipidemia Hyperlipidemia type: unspecified Qualified Code(s): E78.5 - Hyperlipidemia, unspecified (8) Hypertension Hypertension type: essential hypertension Qualified Code(s): I10 - Essential (primary) hypertension
[2020-04-06 01:07] LABS: Cdiff Antigen Positive; Cdiff Toxin A+B Negative Cdiff Toxin (Negative)
[2020-04-06 03:04] LABS: Basophils # (auto) 0.01 K/uL (0-0.2); Basophils % (auto) 0.1 %; Eosinophils # (auto) 0.08 K/uL (0-0.5); Eosinophils % (auto) 0.6 %; Immature Granulocytes # (auto) 0.11 K/uL (0.00-0.02); Immature Granulocytes % (auto) 0.8 %; Lymphocytes # (auto) 0.68 K/uL (1.2-3.4); Lymphocytes % (auto) 5.1 %; Mean Corpuscular Hemoglobin 30.9 pg (25-34); Mean Corpuscular Volume 88.3 fL (80-100); Mean Platelet Volume 11.1 fL (7.4-10.4); Monocytes # (auto) 1.66 K/uL (0.11-0.59); Monocytes % (auto) 12.5 %; Neutrophils # (auto) 10.76 K/uL (1.4-6.5); Neutrophils % (auto) 80.9 %; Platelet Count 166 K/uL (130-400); RDW Coefficient of Variation 14.1 % (11.5-14.5); RDW Standard Deviation 45.6 fL (36.4-46.3); Red Blood Count 4.53 M/uL (4.2-5.4)
[2020-04-06 03:21] LABS: Albumin Level 2.2 gm/dl (3.4-5.0); Bilirubin Direct 0.4 mg/dl (0-0.2); Calcium 7.9 mg/dl (8.5-10.1); Creatinine Clr Calc Pharmacy 27.6 ml/min; Est GFR (African American) 26.8; Est GFR (Non-African American) 23.2; Potassium 3.2 mmol/L (3.5-5.1)
[2020-04-06 03:36] LABS: Bilirubin,Total 0.8 mg/dl (0.2-1); Total Protein 5.1 gm/dl (6.4-8.2)
--- NOTE | 2020-04-06 05:04 | Surgery Consultation ---
Date of Consultation April 06, 2020 Assessment & Plan (1) Abdominal pain: This is a 69y F with PMH of CAD, HTN, pre diabetes, eustachian tube dysfunction and speech difficulties, cirrhosis, COPD, and depression who presents to the [facility] ED on 04/05 with complaints of abdominal pain. Patient here on 04/04 for constipation and was manually disimpacted and given laxatives with success. After being sent home from the ED she developed abdominal pain and diarrhea and returned to the ED. CT scan on 04/05 concerning for progression of the distal proctocolitis, possibly representing an infectious or inflammatory process. She also has fluid-filled borderline distended loops of large and small bowel, this may represent an ileus or diarrheal illness or a low-grade partial large bowel obstruction due to the thickened distal sigmoid colon/rectum could also have a similar appearance. Since admission pt has been given 4L IVF with ongoing hypotension and labs revealing a rising lactate. On examination patient appears uncomfortable. Her abdomen is soft, non distended, and she is tender to palpation mostly in the upper quadrants bilaterally. At this time we would recommend a transfer to the ICU for aggressive resuscitation, close monitoring of vital signs, trending of labs, and would start empiric abx such as IV zosyn & flagyl. This is most likely representing an infectious process & development of a colitis... agree with sending off stool studies for cdiff and cultures (ordered) and sending off blood cultures. No plans for surgical intervention at this time. We will continue to follow with you. as above. clinical picture is infectious colitis with associated dehydration, ileus, and possible bacteremia. pt seen. denies abdominal pain currently. discussed with Dr. Draper. Pt doing better already with antibiotics and resuscitation. abd: soft. with mild diffuse tenderness. no peritoneal signs. continue supportive care and antibiotics. will continue to follow. Dr. Yuan covering for weekend. History of Present Illness Attending Physician: Dory Youngblood DO History of Present Illness This is a 69y F with PMH of CAD, HTN, pre diabetes, eustachian tube dysfunction and speech difficulties, cirrhosis, COPD, and depression who presents to the [facility] ED on 04/05 with complaints of abdominal pain. Of note the patient was evaluated in the ED the day prior on (04/04) with constipation. CT showed fecal impaction, and she underwent manual disimpaction & was given laxatives with success. She was sent home from the ED and since return started having multiple loose bowel movements in addition to a development in abdominal pain. Her abdominal pain remained constant prompting her to return for evaluation. A subsequent CT a/p was obtained that revealed slight progression of the distal proctocolitis, possibly representing an infectious or inflammatory process, with fluid-filled borderline distended loops of large and small bowel without a clear transition point. This may represent an ileus or diarrheal illness, but low- grade partial large bowel obstruction due to the thickened distal sigmoid colon/rectum could also have a similar appearance. Patient was admitted under the medicine service for CT findings and hypotension & TOMMY (Cr: 2). Since admission her labs were trended including WBC initially 21 now 13, but a increase in lactate from 2.6 to 3.7, and elevated CK >1000. Surgery was consulted to rule out possible ischemic etiology from possible bowel obstruction as patient continues to remain hypotensive with a rising lactate despite IVF resuscitation and continues with ongoing abdominal pain. Majority of history obtained from chart review and hospitalists, due to patient's speech difficulty. Allergies Allergy/AdvReac Type Severity Reaction Status Date / Time metformin AdvReac Intermediate DIARRHEA Verified 04/05/20 16:46 oxycodone AdvReac Intermediate GI Verified 04/05/20 16:46 SYMPTOMS, DISORIENTATION ampicillin AdvReac Mild Nausea/vomi Verified 04/05/20 16:46 ting codeine AdvReac Mild NAUSEA Verified 04/05/20 16:46 gabapentin AdvReac Mild DIZZINESS, Verified 04/05/20 16:46 FIDGETY hydrocodone AdvReac Mild "MADE ME Verified 04/05/20 16:46 FEEL WEIRD" lorazepam AdvReac Mild DIZZY Verified 04/05/20 16:46 lovastatin AdvReac Mild WASN'T Verified 04/05/20 16:46 EFFECTIVE meloxicam AdvReac Mild DIZZINESS Verified 04/05/20 16:46 propoxyphene AdvReac Mild NAUSEA Verified 04/05/20 16:46 tramadol AdvReac Mild GI SYMPTOMS Verified 04/05/20 16:46 narcotics AdvReac Mild Hallucinati Uncoded 04/05/20 16:46 ng Home Medications Home Medications Medication Instructions Recorded Confirmed Type albuterol sulfate 90 mcg/actuation 2 puffs INH Q4H PRN gm 08/07/19 04/05/20 History aerosol inhaler pantoprazole 20 mg tablet,delayed 20 mg PO BID tab 09/09/19 04/05/20 History release naproxen sodium [Aleve] 220 mg PO BID 10/11/19 04/05/20 History budesonide-formoterol HFA 160 2 puffs INH BID #10.2 gm 11/16/19 04/05/20 Rx mcg-4.5 mcg/actuation aerosol inhaler rosuvastatin 5 mg tablet 5 mg PO QAM #90 tab 12/06/19 04/05/20 Rx nebulizer accessories #1 ea 12/07/19 04/04/20 Rx lidocaine [Lidoderm] 1 patch TOP UD PRN 12/26/19 04/05/20 History hydroxyzine pamoate [Vistaril] 25 mg PO TID PRN 01/18/20 04/05/20 History cyanocobalamin (vitamin B-12) 1,000 mcg IM MONTHLY #10 ml 02/28/20 04/05/20 Rx 1,000 mcg/mL injection solution syringe with needle 3 mL 25 gauge #3 ea 02/28/20 04/04/20 Rx x 1" fluconazole 150 mg tablet 150 mg PO .COMPLEX 28 Days #4 tab 03/14/20 04/05/20 Rx nystatin 100,000 unit/gram topical 1 appln TOP BID #60 gm 03/14/20 04/05/20 Rx powder miscellaneous medical supply #1 ea 03/23/20 04/04/20 Rx Wheelchair (Manual or Powered) #1 ea 03/26/20 04/04/20 Rx albuterol sulfate 2.5 mg INH BID 04/04/20 04/05/20 History cyclobenzaprine 10 mg PO TID PRN 04/04/20 04/05/20 History Patient History Medical History Anxiety (Chronic) Asthma (Chronic) Stable- has albuterol nebulizer and inhaler- uses 1-2 times daily Borderline high cholesterol BPPV (benign paroxysmal positional vertigo) CAD (coronary artery disease) (Chronic) Pt denies COPD (chronic obstructive pulmonary disease) (Chronic) Depression (Chronic 02/04/12) Dysmetabolic syndrome X (Chronic) Fatty (change of) liver, not elsewhere classified (Chronic) Gastroesophageal reflux disease with esophagitis (Chronic) Well controlled with Protonix 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 Hiatal hernia Hypertension (Chronic) Impaired memory (Chronic) Mild- feels back pain making memory worse Lumbar stenosis with neurogenic claudication (Chronic) Morbid obesity with BMI of 45.0-49.9, adult Obstructive sleep apnea syndrome (Chronic 01/03/12) Uses CPAP q HS Osteopenia (Chronic) Prediabetes (Chronic) Pt denies - pre op glucose 249- getting clarification from PCP Restrictive lung disease (Chronic) Unspecified cirrhosis of liver (Chronic) Secondary to fatty liver - follows with GI - stable at this time (LFTs WNL 11/07/19) Venous insufficiency (Chronic) Varicose veins- no treatment needed - no current LE edema Surgical History History of abdominal surgery removed benign tumor from stomach History of bilateral cataract extraction History of cardiac cath 30+YR AGO, NO SIG ISSUES PER PT- DENIES STENTS OR BYPASS History of carpal tunnel surgery of right wrist History of cholecystectomy (Resolved) History of colonoscopy History of esophagogastroduodenoscopy (EGD) History of herniorrhaphy (Resolved) History of lumbar fusion (Resolved) L2 through S1 fusion August [address] Patel History of right shoulder replacement History of tonsillectomy and adenoidectomy History of tooth extraction all upper teeth History of total hysterectomy with bilateral salpingo-oophorectomy (BSO) History of total right hip arthroplasty (Resolved) Nausea and vomiting after administration of anesthetic agent Status post trigger finger release HX OF right hand Family History Unknown Heart disease Father Asthma Mother Alzheimer disease Aortic aneurysm Aunt Family history of diabetes mellitus Grandmother Family history of diabetes mellitus Other No family history of adverse response to anesthesia Social History Preferred Language: Mauritanian Communication Ability: Effective Visual Impairment: Limited Hearing Ability: Hard of Hearing 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: No Beliefs That Will Affect Care: None marital status: Current Living Situation: Spouse and Family Current Living Situation Comment: AND SON current occupational status: retired Other Information That Helps Us Care for You: No Feels Safe at Home: Yes Safety Concerns: Feels Safe At This Time Smoking Status: Never smoker Second Hand Exposure: Yes ( smoked/parents smoked) ; Hx Alcohol Use: No Hx Substance Use: No caffeine: Yes Seatbelt Use: always Review of Systems Gastrointestinal: + abdominal pain (pt points to upper abdomen); no nausea and no vomiting Physical Exam Physical Exam: awake, moaning intermittently Constitutional: + morbidly obese appears uncomfortable, moaning intermitte ntly Respiratory: normal respiratory effort Gastrointestinal (Abdomen): Inspection/Auscultation: abdomen not distended Percussion/Palpation: + abdomen tender (ttp mostly in upper abdomen) and abdomen soft + rectal roll out manager in place with brown liquid output Results & Data Vital Signs (Past 12 Hours) Vital Signs Temp Pulse Pulse Resp BP BP BP 04/06/20 03:38 93/63 L 04/06/20 02:00 106 H 18 80/52 L 78/41 L 04/06/20 00:20 36.6 C 108 H 20 91/56 L 04/05/20 21:25 90/57 L 04/05/20 21:15 36.8 C 110 H 24 88/59 L 04/05/20 20:42 100 H 16 98/49 L 04/05/20 19:55 107 H 16 91/51 L 04/05/20 19:32 105 H 20 80/45 L 04/05/20 18:46 102 H 24 87/51 L 04/05/20 18:30 104 H 20 78/44 L 04/05/20 18:13 107 H 20 79/51 L 68/42 L 04/05/20 18:06 103 H 22 04/05/20 18:05 106 H 20 63/53 L 04/05/20 18:00 107 H 19 76/47 L 04/05/20 17:58 104 H 77/50 L 04/05/20 17:30 98 H 20 82/49 L 04/05/20 17:13 100 H 21 84/55 L Pulse Ox 04/06/20 03:38 04/06/20 02:00 94 04/06/20 00:20 92 04/05/20 21:25 04/05/20 21:15 97 04/05/20 20:42 99 04/05/20 19:55 93 04/05/20 19:32 04/05/20 18:46 93 04/05/20 18:30 92 04/05/20 18:13 90 04/05/20 18:06 91 04/05/20 18:05 91 04/05/20 18:00 92 04/05/20 17:58 93 04/05/20 17:30 94 04/05/20 17:[address] WITHOUT CONTRAST CT DOSE: 2184.82 mGy.cm HISTORY: Generalized abdominal pain. Acute kidney injury. TECHNIQUE: Multiaxial CT images of the abdomen and pelvis were performed without contrast. A dose lowering technique was utilized adhering to the principles of ALARA. COMPARISON STUDY: Abdomen and pelvis CT 04/04/2020. FINDINGS: Patchy bilateral lower lobe densities are nonspecific but favor atelectasis. A pneumonia could also have a similar appearance but is considered less likely. No pneumoperitoneum. No pneumatosis. There is a right total hip arthroplasty. Posterior decompression and fusion within the lower thoracic and lumbar spine with pedicle screws and rods. Cholecystectomy. Subtle nodular co ntour to the liver consistent with mild cirrhosis. Hepatic steatosis. The unenhanced spleen and pancreas are unremarkable. Contrast remaining within the kidneys from the prior CT examination. No hydronephrosis. Surgical clips within the expected location of the right adrenal gland. There is a 7 mm left adrenal gland nodule. No retroperitoneal lymphadenopathy. Normal caliber abdominal aorta containing mild calcified plaque. Contrast within the bladder from the prior CT examination. No bladder wall thickening. Borderline distended fluid-filled loops of large and small bowel. No transition point to suggest obstruction at this time. This may represent a reactive ileus. Mild bowel wall thickening involving the sigmoid colon and moderate thickening of the rectum with surrounding inflammatory change. Findings likely represent a distal posterior colitis. This has slightly progressed in the interval. The uterus is surgically absent. The appendix is not identified and reportedly surgically absent. IMPRESSION: 1. Slight progression of the distal proctocolitis. This may represent an infectious or inflammatory process. 2. Fluid-filled borderline distended loops of large and small bowel. No clear transition point. This may represent an ileus or diarrheal illness. A low-grade partial large bowel obstruction due to the thickened distal sigmoid colon/rectum could also have a similar appearance. 3. Cirrhotic liver. 4. Additional findings as described above. ACT 112: Negative or not required by law. Electronically signed by: Eliseo Marroquin M.D. 04/05/2020 5:34 PM PG Care Time/CCT Total # of Minutes Spent Total Time Spent with Patient: Total time spent is greater than 50% in coordina tion of care (as documented) at patient's floor/unit and/or counseling patient: Coding Level of Care Code 68474 Initial Inpt Care Lvl 3 Diagnoses Abdominal pain R10.33 Abdominal location: periumbilical (1) Abdominal pain Abdominal location: periumbilical Qualified Code(s): R10.33 - Periumbilical pain
[2020-04-06] MEDS: metroNIDAZOLE 500 MG/100 ML BAG IV SCH ×3 (06:05→21:25)
[2020-04-06] MEDS: LACTATED RINGER'S 1,000 ML IV SCH (06:05)
[2020-04-06] MEDS: BENZOCAINE 20% AER SPR 82.5 GM CAN EXT PRN (06:08)
--- NOTE | 2020-04-06 08:15 | Hospitalist Progress Note ---
Date of Service April 06, 2020 Assessment & Plan (1) Septic shock: Patient with significant hypotension and profuse diarrhea requiring rectal tube in setting of likely stercoral colitis/suspected bacterial translocation. BP only minimally improved with crystalloid infusion - 4L given then on m aintenance fluids. Overnight pt had rising lactate, worsening abdominal pain. Surgical consult obtained and recommended no surgery but transfer to ICU Pt then with worsening status and had BPs 60s systolic on AM after admission--> bolused IVFs and transferred to ICU for vasopressors and continued volume resuscitation and treatment of septic shock. With leukocytosis, tachycardia, tachypnea, lactate rising to 5, hypotension, but afebrile. Source intraabdominal with distal colitis and ileus. -Random cortisol checked and 25 (noted surgical clips in region of right adrenal gland noted on CT UA without evidence of infection CXR without PNA -transfer to ICU -continue IVFs with D5LR (also with hypoglycemia) -start levophed -consult Plumbing Foreman appreciated -Central line and A-line placed -follow lactate-defer to ICU for further orders -follow lytes, renal function, CBC-leukocytosis improving -treat with broad spectrum abx Cefepime and Flagyl -follow blood, stool cultures -C. diff gene positive but toxin negative-no po Vanco indicated -sodium bicarb and IV calcium given (2) Elevated lactic acid level: With lactic acidosis, accounts for tachypnea No ischemic bowel suspected but with colitis on CT Follow lactate -continue IVF resuscitation (3) Diarrhea: Patient continues to have copious amounts of watery diarrhea. ?secondary to medications administered for previous constipation vs infectious/inflammatory colitis. Patient appears quite dry on clinical exam, laboratory evidence of poor perfusion to include increased Cr, lactate -IVF as above -Check stool for C.diff, stool culture and fecal leukocytes -Repeat Lactate in AM - if persistently elevated, persistent abdominal discomfort or worsening of symptoms would consider General Surgery consultation (4) Abdominal pain: Concern for proctitis/colitis, less likely large bowel obstruction. CT with slight worsening of colitis -Tx as above for diarrhea -KUB shows ileus as does CT abd/pel (5) TOMMY (acute kidney injury): Patient with acutely elevated Cr = 2.01 from 0.7 on admission. Possibly secondary to hypotension, pre-renal azotemia + ATN. Also with elevated CK Cable Splicer Assistant now down to 2.12 UOP low CPK trending downward to 800 -continue aggressive IVF -Monitor BUN, Cr, electrolytes -Avoid nephrotoxic agents -Renal dosing where needed (6) Elevated troponin: Patient denies chest pain. Troponin = 0.046 and repeat down to within normal range x 2, EKG with lateral TWI. Suspect demand ischemic in setting of prolonged hypotension -ASA 81mg po daily (7) Hypokalemia: replaced follow bmp (8) Asthma: Chronic. No SOB or wheeze -Albuterol PRN -Continue Trelegy -Supplemental O2 as needed (9) CAD (coronary artery disease): Chronic -ASA 81mg po daily initiated -Continue Crestor 5mg po qAM (10) COPD (chronic obstructive pulmonary disease): Stable. No SOB/Cough/Wheeze or other respiratory complaints -Continue Albuterol, Fluticasone/Vilanterol (11) Hyperlipidemia: Chronic -Continue Crestor (12) Hypertension: Hypotension as above. Patient currently not on any anti-hypertensives -Closely monitor BP (13) Unspecified cirrhosis of liver: likely secondary to DOLAN no acute issues (14) Obstructive sleep apnea syndrome: -continue CPAP qhs (15) DVT prophylaxis: - Heparin Code - Full Dispo - transfer to ICU I called her Pablo and discussed her care with him today Admission and Anticipated Discharge Date Admission Date: April 05, 2020 Subjective I was contacted by the RN early this AM noting that the pt did not look well and was not able to articulate any words, had a possible rt facial droop and right- sided weakness. The RN had just come on shift and did not have a baseline to compare to. I asked her to call a stroke alert as I was on my way to urgently evaluate her. When I arrived, the pt appeared in distress and could only grunt at me and was pointing towards her lower abdomen. She did have a slight right sided facial droop and mild RUE drift but had 4/5 strength throughout right side, 5/5 on the left. Review of her chart noted she p/w right sided weakness and dysarthria with a normal MRI brain back in January to our ER. Her BP was 64 systolic and she was tachypneic, tachycardic. She was placed in Trendelenberg and bolused a liter of NS. I called the Plumbing Foreman who was already on his way to the bedside for the stroke alert. Given her prior history, noted severe hypotension and septic shock, deemed unlikely she was having a new stroke and moreso neuro changes from hypotension. Stroke alert was then cancelled. I discussed her care with Plumbing Foreman and she was transferred to ICU, had central line and a-line placed and started on vasopressors. Review of Systems Review of Systems: Unobtainable due to cognitive status Physical Exam Constitutional: + acute distress, + ill appearing and + obese Eyes: + anicteric sclerae and EOM intact bilaterally ENMT: Mouth: + oral mucosal abnormality (dry mucus membranes) Neck: trachea midline, no thyromegaly Respiratory: + labored breathing and + tachypneic Auscultation: + diminished lung sounds (throughout due to body habitus) Cardiovascular: Rate/Rhythm: regular rhythm and + tachycardic Heart Sounds: no murmur Extremities: no edema Chest (Breasts): Chest: normal inspection of chest Gastrointestinal (Abdomen): Inspection/Auscultation: abdomen normal to inspection (except rectal tube in place with brown liquid stool in bag), + abdomen distended (mild) and + hypoactive bowel sounds Percussion/Palpation: + abdomen tender (diffusely, no guarding) and abdomen soft; abdomen not rigid Musculoskeletal: Extremities: extremities normal to inspection; no cyanosis and no clubbing Skin: no rashes, warm and dry Neurologic: awake Speech / Cognition: + abnormal speech and + expressive aphasia (moaning noises) Motor/Sensory: + pronator drift (RUE only) Right corner of mouth with slight droop when asked to smile with teeth Tongue protrudes in midline EOMI RUE and RLE 4/5 strength, Left side with 5/5 strength throughout Psychiatric: Orientation: alert and cooperative (followed all commands) Eye Contact: good eye contact Affect: + anxious affect Cognition: + language not intact Lymphatic: no lymphedema Results & Data Results & Data ([facility]) Vital Signs (Past 12 Hours) Vital Signs Temp Pulse Resp BP BP Pulse Ox 04/06/20 06:26 94/61 L 04/06/20 03:38 93/63 L 04/06/20 02:00 106 H 18 80/52 L 78/41 L 94 04/06/20 00:20 36.6 C 108 H 20 91/56 L 92 04/05/20 21:25 90/57 L 04/05/20 21:15 36.8 C 110 H 24 88/59 L 97 04/05/20 20:42 100 H 16 98/49 L 99 Laboratory Results 04/06/20 04/06/20 04/06/20 Range/Units 17:01 16:17 12:07 WBC (4.8-10.8) K/uL RBC (4.2-5.4) M/uL Hgb (12.0-16.0) g/dL Hct (37-47) % MCV (80-100) fL MCH (25-34) pg MCHC (32-36) g/dL RDW Std Deviation (36.4-46.3) fL RDW Coeff of Ricardo (11.5-14.5) % Plt Count (130-400) K/uL MPV (7.4-10.4) fL Immature Gran % (Auto) % Neut % (Auto) % Lymph % (Auto) % [place] % (Auto) % Eos % (Auto) % Baso % (Auto) % Immature Gran # (Auto) (0.00-0.02) K/uL Neut # (Auto) (1.4-6.5) K/uL Lymph # (Auto) (1.2-3.4) K/uL [place] # (Auto) (0.11-0.59) K/uL Eos # (Auto) (0-0.5) K/uL Baso # (Auto) (0-0.2) K/uL Toxic Granulation Echinocytes Sample Site POC pH (7.35-7.45) POC pCO2 (35-46) mmHg POC pO2 (80-95) mmHg POC HCO3 (19-24) andie/L POC Total CO2 (24-31) mmol/L POC Base Excess (-9-1.8) andie/L POC ABG O2 Sat (90-95) % Maxime Test O2 Delivery Device Sodium (136-145) mmol/L Potassium (3.5-5.1) mmol/L Chloride (98-107) mmol/L Carbon Dioxide (21-32) mmol/L Anion Gap (3-11) BUN (7-18) mg/dl Creatinine (0.6-1.2) mg/dl Est Cr Clr Drug Dosing ml/min Est GFR ( Amer) Est GFR (Non-Af Amer) BUN/Creatinine Ratio (10-20) Glucose (70-99) mg/dl POC Glucose 82 (70-99) mg/dl POC Glucose (other) 114 H (70-99) mg/dl Lactate 5.8 H* (0.4-2.0) mmol/L Calcium (8.5-10.1) mg/dl Total Bilirubin (0.2-1) mg/dl Direct Bilirubin (0-0.2) mg/dl AST (15-37) U/L ALT (12-78) U/L Alkaline Phosphatase (45-117) U/L Total Creatine Kinase (26-192) U/L Troponin I (0-0.045) ng/ml Total Protein (6.4-8.2) gm/dl Albumin (3.4-5.0) gm/dl Globulin (2.5-4.0) gm/dl Albumin/Globulin Ratio (0.9-2) Random Cortisol mcg/dl Stl C. diff Tox B Gene (Neg) Stl C.difficile Tox A&B (Negative) 04/06/20 04/06/20 04/06/20 Range/Units 11:49 10:52 10:52 WBC (4.8-10.8) K/uL RBC (4.2-5.4) M/uL Hgb (12.0-16.0) g/dL Hct (37-47) % MCV (80-100) fL MCH (25-34) pg MCHC (32-36) g/dL RDW Std Deviation (36.4-46.3) fL RDW Coeff of Ricardo (11.5-14.5) % Plt Count (130-400) K/uL MPV (7.4-10.4) fL Immature Gran % (Auto) % Neut % (Auto) % Lymph % (Auto) % [place] % (Auto) % Eos % (Auto) % Baso % (Auto) % Immature Gran # (Auto) (0.00-0.02) K/uL Neut # (Auto) (1.4-6.5) K/uL Lymph # (Auto) (1.2-3.4) K/uL [place] # (Auto) (0.11-0.59) K/uL Eos # (Auto) (0-0.5) K/uL Baso # (Auto) (0-0.2) K/uL Toxic Granulation Echinocytes Sample Site POC pH (7.35-7.45) POC pCO2 (35-46) mmHg POC pO2 (80-95) mmHg POC HCO3 (19-24) andie/L POC Total CO2 (24-31) mmol/L POC Base Excess (-9-1.8) andie/L POC ABG O2 Sat (90-95) % Maxime Test O2 Delivery Device Sodium 143 (136-145) mmol/L Potassium 3.9 D (3.5-5.1) mmol/L Chloride 111 H (98-107) mmol/L Carbon Dioxide 22 (21-32) mmol/L Anion Gap 10.0 (3-11) BUN 17 (7-18) mg/dl Creatinine 2.06 H (0.6-1.2) mg/dl Est Cr Clr Drug Dosing 28.4 ml/min Est GFR ( Amer) 27.8 Est GFR (Non-Af Amer) 24.0 BUN/Creatinine Ratio 8.3 L (10-20) Glucose 57 L (70-99) mg/dl POC Glucose 48 L* (70-99) mg/dl POC Glucose (other) (70-99) mg/dl Lactate (0.4-2.0) mmol/L Calcium 8.5 (8.5-10.1) mg/dl Total Bilirubin 0.8 (0.2-1) mg/dl Direct Bilirubin (0-0.2) mg/dl AST 99 H (15-37) U/L ALT 38 (12-78) U/L Alkaline Phosphatase 94 (45-117) U/L Total Creatine Kinase 800 H (26-192) U/L Troponin I (0-0.045) ng/ml Total Protein 4.6 L (6.4-8.2) gm/dl Albumin 1.9 L (3.4-5.0) gm/dl Globulin 2.7 (2.5-4.0) gm/dl Albumin/Globulin Ratio 0.7 L (0.9-2) Random Cortisol 25.15 mcg/dl Stl C. diff Tox B Gene (Neg) Stl C.difficile Tox A&B (Negative) 04/06/20 04/06/20 04/06/20 Range/Units 10:52 10:52 08:57 WBC 11.90 H (4.8-10.8) K/uL RBC 4.20 (4.2-5.4) M/uL Hgb 12.8 (12.0-16.0) g/dL Hct 37.1 (37-47) % MCV 88.3 (80-100) fL MCH 30.5 (25-34) pg MCHC 34.5 (32-36) g/dL RDW Std Deviation 45.9 (36.4-46.3) fL RDW Coeff of Ricardo 14.3 (11.5-14.5) % Plt Count 150 (130-400) K/uL MPV 10.9 H (7.4-10.4) fL Immature Gran % (Auto) 0.8 % Neut % (Auto) 80.7 % Lymph % (Auto) 5.1 % [place] % (Auto) 12.2 % Eos % (Auto) 1.0 % Baso % (Auto) 0.2 % Immature Gran # (Auto) 0.10 H (0.00-0.02) K/uL Neut # (Auto) 9.60 H (1.4-6.5) K/uL Lymph # (Auto) 0.61 L (1.2-3.4) K/uL [place] # (Auto) 1.45 H (0.11-0.59) K/uL Eos # (Auto) 0.12 (0-0.5) K/uL Baso # (Auto) 0.02 (0-0.2) K/uL Toxic Granulation 1+ Echinocytes 1+ Sample Site Art Line POC pH 7.29 L (7.35-7.45) POC pCO2 42 (35-46) mmHg POC pO2 60 L (80-95) mmHg POC HCO3 20 (19-24) andie/L POC Total CO2 21 L (24-31) mmol/L POC Base Excess -7.0 (-9-1.8) andie/L POC ABG O2 Sat 87.0 L (90-95) % Maxime Test NA O2 Delivery Device Cannula Sodium (136-145) mmol/L Potassium (3.5-5.1) mmol/L Chloride (98-107) mmol/L Carbon Dioxide (21-32) mmol/L Anion Gap (3-11) BUN (7-18) mg/dl Creatinine (0.6-1.2) mg/dl Est Cr Clr Drug Dosing ml/min Est GFR ( Amer) Est GFR (Non-Af Amer) BUN/Creatinine Ratio (10-20) Glucose (70-99) mg/dl POC Glucose (70-99) mg/dl POC Glucose (other) (70-99) mg/dl Lactate 4.8 H* (0.4-2.0) mmol/L Calcium (8.5-10.1) mg/dl Total Bilirubin (0.2-1) mg/dl Direct Bilirubin (0-0.2) mg/dl AST (15-37) U/L ALT (12-78) U/L Alkaline Phosphatase (45-117) U/L Total Creatine Kinase (26-192) U/L Troponin I (0-0.045) ng/ml Total Protein (6.4-8.2) gm/dl Albumin (3.4-5.0) gm/dl Globulin (2.5-4.0) gm/dl Albumin/Globulin Ratio (0.9-2) Random Cortisol mcg/dl Stl C. diff Tox B Gene (Neg) Stl C.difficile Tox A&B (Negative) 04/06/20 04/06/20 04/06/20 Range/Units 07:40 07:27 02:57 WBC (4.8-10.8) K/uL RBC (4.2-5.4) M/uL Hgb (12.0-16.0) g/dL Hct (37-47) % MCV (80-100) fL MCH (25-34) pg MCHC (32-36) g/dL RDW Std Deviation (36.4-46.3) fL RDW Coeff of Ricardo (11.5-14.5) % Plt Count (130-400) K/uL MPV (7.4-10.4) fL Immature Gran % (Auto) % Neut % (Auto) % Lymph % (Auto) % [place] % (Auto) % Eos % (Auto) % Baso % (Auto) % Immature Gran # (Auto) (0.00-0.02) K/uL Neut # (Auto) (1.4-6.5) K/uL Lymph # (Auto) (1.2-3.4) K/uL [place] # (Auto) (0.11-0.59) K/uL Eos # (Auto) (0-0.5) K/uL Baso # (Auto) (0-0.2) K/uL Toxic Granulation Echinocytes Sample Site POC pH (7.35-7.45) POC pCO2 (35-46) mmHg POC pO2 (80-95) mmHg POC HCO3 (19-24) andie/L POC Total CO2 (24-31) mmol/L POC Base Excess (-9-1.8) andie/L POC ABG O2 Sat (90-95) % Maxime Test O2 Delivery Device Sodium (136-145) mmol/L Potassium (3.5-5.1) mmol/L Chloride (98-107) mmol/L Carbon Dioxide (21-32) mmol/L Anion Gap (3-11) BUN (7-18) mg/dl Creatinine (0.6-1.2) mg/dl Est Cr Clr Drug Dosing ml/min Est GFR ( Amer) Est GFR (Non-Af Amer) BUN/Creatinine Ratio (10-20) Glucose (70-99) mg/dl POC Glucose 119 H (70-99) mg/dl POC Glucose (other) (70-99) mg/dl Lactate 3.7 H* (0.4-2.0) mmol/L Calcium (8.5-10.1) mg/dl Total Bilirubin (0.2-1) mg/dl Direct Bilirubin (0-0.2) mg/dl AST (15-37) U/L ALT (12-78) U/L Alkaline Phosphatase (45-117) U/L Total Creatine Kinase (26-192) U/L Troponin I 0.022 (0-0.045) ng/ml Total Protein (6.4-8.2) gm/dl Albumin (3.4-5.0) gm/dl Globulin (2.5-4.0) gm/dl Albumin/Globulin Ratio (0.9-2) Random Cortisol mcg/dl Stl C. diff Tox B Gene (Neg) Stl C.difficile Tox A&B (Negative) 04/06/20 04/06/20 04/05/20 Range/Units 02:57 02:57 22:31 WBC 13.30 H (4.8-10.8) K/uL RBC 4.53 (4.2-5.4) M/uL Hgb 14.0 (12.0-16.0) g/dL Hct 40.0 (37-47) % MCV 88.3 (80-100) fL MCH 30.9 (25-34) pg MCHC 35.0 (32-36) g/dL RDW Std Deviation 45.6 (36.4-46.3) fL RDW Coeff of Ricardo 14.1 (11.5-14.5) % Plt Count 166 (130-400) K/uL MPV 11.1 H (7.4-10.4) fL Immature Gran % (Auto) 0.8 % Neut % (Auto) 80.9 % Lymph % (Auto) 5.1 % [place] % (Auto) 12.5 % Eos % (Auto) 0.6 % Baso % (Auto) 0.1 % Immature Gran # (Auto) 0.11 H (0.00-0.02) K/uL Neut # (Auto) 10.76 H (1.4-6.5) K/uL Lymph # (Auto) 0.68 L (1.2-3.4) K/uL [place] # (Auto) 1.66 H (0.11-0.59) K/uL Eos # (Auto) 0.08 (0-0.5) K/uL Baso # (Auto) 0.01 (0-0.2) K/uL Toxic Granulation Echinocytes Sample Site POC pH (7.35-7.45) POC pCO2 (35-46) mmHg POC pO2 (80-95) mmHg POC HCO3 (19-24) andie/L POC Total CO2 (24-31) mmol/L POC Base Excess (-9-1.8) andie/L POC ABG O2 Sat (90-95) % Maxime Test O2 Delivery Device Sodium 143 (136-145) mmol/L Potassium 3.2 L (3.5-5.1) mmol/L Chloride 113 H (98-107) mmol/L Carbon Dioxide 20 L (21-32) mmol/L Anion Gap 10.0 (3-11) BUN 17 (7-18) mg/dl Creatinine 2.12 H (0.6-1.2) mg/dl Est Cr Clr Drug Dosing 27.6 ml/min Est GFR ( Amer) 26.8 Est GFR (Non-Af Amer) 23.2 BUN/Creatinine Ratio 8.0 L (10-20) Glucose 102 H (70-99) mg/dl POC Glucose (70-99) mg/dl POC Glucose (other) (70-99) mg/dl Lactate (0.4-2.0) mmol/L Calcium 7.9 L (8.5-10.1) mg/dl Total Bilirubin 0.8 (0.2-1) mg/dl Direct Bilirubin 0.4 H (0-0.2) mg/dl AST 95 H (15-37) U/L ALT 38 (12-78) U/L Alkaline Phosphatase 107 (45-117) U/L Total Creatine Kinase 1081 H (26-192) U/L Troponin I 0.037 (0-0.045) ng/ml Total Protein 5.1 L (6.4-8.2) gm/dl Albumin 2.2 L (3.4-5.0) gm/dl Globulin (2.5-4.0) gm/dl Albumin/Globulin Ratio (0.9-2) Random Cortisol mcg/dl Stl C. diff Tox B Gene (Neg) Stl C.difficile Tox A&B (Negative) 04/05/20 Range/Units 22:30 WBC (4.8-10.8) K/uL RBC (4.2-5.4) M/uL Hgb (12.0-16.0) g/dL Hct (37-47) % MCV (80-100) fL MCH (25-34) pg MCHC (32-36) g/dL RDW Std Deviation (36.4-46.3) fL RDW Coeff of Ricardo (11.5-14.5) % Plt Count (130-400) K/uL MPV (7.4-10.4) fL Immature Gran % (Auto) % Neut % (Auto) % Lymph % (Auto) % [place] % (Auto) % Eos % (Auto) % Baso % (Auto) % Immature Gran # (Auto) (0.00-0.02) K/uL Neut # (Auto) (1.4-6.5) K/uL Lymph # (Auto) (1.2-3.4) K/uL [place] # (Auto) (0.11-0.59) K/uL Eos # (Auto) (0-0.5) K/uL Baso # (Auto) (0-0.2) K/uL Toxic Granulation Echinocytes Sample Site POC pH (7.35-7.45) POC pCO2 (35-46) mmHg POC pO2 (80-95) mmHg POC HCO3 (19-24) andie/L POC Total CO2 (24-31) mmol/L POC Base Excess (-9-1.8) andie/L POC ABG O2 Sat (90-95) % Maxime Test O2 Delivery Device Sodium (136-145) mmol/L Potassium (3.5-5.1) mmol/L Chloride (98-107) mmol/L Carbon Dioxide (21-32) mmol/L Anion Gap (3-11) BUN (7-18) mg/dl Creatinine (0.6-1.2) mg/dl Est Cr Clr Drug Dosing ml/min Est GFR ( Amer) Est GFR (Non-Af Amer) BUN/Creatinine Ratio (10-20) Glucose (70-99) mg/dl POC Glucose (70-99) mg/dl POC Glucose (other) (70-99) mg/dl Lactate (0.4-2.0) mmol/L Calcium (8.5-10.1) mg/dl Total Bilirubin (0.2-1) mg/dl Direct Bilirubin (0-0.2) mg/dl AST (15-37) U/L ALT (12-78) U/L Alkaline Phosphatase (45-117) U/L Total Creatine Kinase (26-192) U/L Troponin I (0-0.045) ng/ml Total Protein (6.4-8.2) gm/dl Albumin (3.4-5.0) gm/dl Globulin (2.5-4.0) gm/dl Albumin/Globulin Ratio (0.9-2) Random Cortisol mcg/dl Stl C. diff Tox B Gene Positive Cdiff Gene H (Neg) Stl C.difficile Tox A&B Negative Cdiff Toxin (Negative) Diagnostic Findings CT Abd/pel: IMPRESSION: 1. Slight progression of the distal proctocolitis. This may represent an infectious or inflammatory process. 2. Fluid-filled borderline distended loops of large and small bowel. No clear transition point. This may represent an ileus or diarrheal illness. A low-grade partial large bowel obstruction due to the thickened distal sigmoid colon/rectum could also have a similar appearance. 3. Cirrhotic liver. PG Care Time/CCT Total # of Minutes Spent Total Time Spent with Patient: Total time spent is greater than 50% in coordination of care (as documented) at patient's floor/unit and/or counseling patient: Coding Level of Care Code 68592 Subseq Hosp Care Lvl 3 Diagnoses Septic shock A41.9; R65.21 Elevated lactic acid level R79.89 Diarrhea R19.7 Diarrhea type: unspecified type Abdominal pain R10.33 Abdominal location: periumbilical TOMMY (acute kidney injury) N17.9 Elevated troponin R79.89 Hypokalemia E87.6 Asthma J45.40 Asthma complication type: unspecified Asthma persistence: persistent Asthma severity: moderate CAD (coronary artery disease) I25.10 Associated angina: without angina Coronary Disease-Associated Artery/Lesion type: unspecified vessel or lesion type [place] vs. transplanted heart: [place] heart COPD (chronic obstructive pulmonary disease) J44.9 COPD type: unspecified COPD Hyperlipidemia E78.5 Hyperlipidemia type: unspecified Hypertension I10 Hypertension type: essential hypertension Unspecified cirrhosis of liver K74.60 Obstructive sleep apnea syndrome G47.33 DVT prophylaxis Z29.9 (1) CAD (coronary artery disease) Associated angina: without angina Coronary Disease-Associated Artery/Lesion type: unspecified vessel or lesion type [place] vs. transplanted heart: [place] heart Qualified Code(s): I25.10 - Atherosclerotic heart disease of [place] coronary artery without angina pectoris (2) Diarrhea Diarrhea type: unspecified type Qualified Code(s): R19.7 - Diarrhea, unspecified (3) Hyperlipidemia Hyperlipidemia type: unspecified Qualified Code(s): E78.5 - Hyperlipidemia, unspecified (4) COPD (chronic obstructive pulmonary disease) COPD type: unspecified COPD Qualified Code(s): J44.9 - Chronic obstructive pulmonary disease, unspecified (5) Abdominal pain Abdominal location: periumbilical Qualified Code(s): R10.33 - Periumbilical pain (6) Hypertension Hypertension type: essential hypertension Qualified Code(s): I10 - Essential (primary) hypertension (7) Asthma Asthma complication type: unspecified Asthma persistence: persistent Asthma severity: moderate Qualified Code(s): J45.40 - Moderate persistent asthma, uncomplicated
[2020-04-06] MEDS: ASPIRIN 81 MG ECTAB PO SCH (08:33)
[2020-04-06] MEDS: PANTOprazole 40 MG TAB PO SCH ×2 (08:33→20:51)
[2020-04-06] MEDS: FLUTICASONE/VILANTEROL 200/25MCG 14 PUFFS/INHALER INH SCH (08:33)
[2020-04-06] MEDS: ROSUVASTATIN CALCIUM 5 MG TAB PO SCH (08:33)
--- NOTE | 2020-04-06 08:41 | Electrocardiogram Report ---
Test Reason : Blood Pressure : / mmHG Vent. Rate : 099 BPM Atrial Rate : 099 BPM P-R Int : 154 ms QRS Dur : 090 ms QT Int : 434 ms P-R-T Axes : 021 -20 147 degrees QTc Int : 556 ms Poor data quality, interpretation may be adversely affected Normal sinus rhythm with sinus arrhythmia Left ventricular hypertrophy with repolarization abnormality Poor R wave progression, consider anterior MA vs. lead placement vs. LVH Prolonged QT Abnormal ECG When compared with ECG of 21-FEB-2020 12:49, Inverted T waves have replaced nonspecific T wave abnormality in Lateral leads QT has lengthened Confirmed by Mil Rodríguez ([id number]) on 04/06/2020 8:41:13 AM Referred By: REFERRED SELF Confirmed By:Mil Rodríguez
[2020-04-06] MEDS ORDERED: NORMOSOL-R 2,000 ML IV ONE (08:43)
[2020-04-06] MEDS ORDERED: STAT IV Infusion **Titration per Protocol STA (08:43)
[2020-04-06] MEDS: NYSTATIN POWDER 15GM BTL EXT SCH ×2 (08:46→20:50)
[2020-04-06] MEDS: HEPARIN SOD 5,000 UNIT/0.5 ML VIAL SQ SCH ×2 (08:47→20:50)
--- NOTE | 2020-04-06 08:58 | XRay Report ---
XR chest 1V portable CLINICAL HISTORY: 69 years-old Female presenting with line placement. TECHNIQUE: Portable upright AP view of the chest was obtained. COMPARISON: 12/29/2019. FINDINGS: Left IJ central venous catheter terminates at the brachiocephalic confluence. Atherosclerosis of the aortic arch. Cardiac silhouette moderately enlarged. Pulmonary vascular prominence and interstitial p rominence new from prior. Low lung volumes new from prior. Poor aeration of the left lung base. Bandl pau opacity at the right lung base. No large effusion or pneumothorax. Degenerative changes of the th oracic spine. Lumbar fusion hardware. Cholecystectomy clips noted. IMPRESSION: 1. Appropriately positioned left IJ central venous catheter. No pneumothorax. 2. Cardiomegaly with volume overload and congestive change. No olga pulmonary edema at this time. 3. Low lung volumes with bibasilar atelectasis. ACT 112: Negative or not required by law. Electronically signed by: Hermelindo Taveras M.D. 04/06/2020 8:56 AM
[2020-04-06] MEDS ORDERED: CALCIUM CHLORIDE 10% 1,000 MG in SODIUM CHLORIDE 0.9% 50 ML IV ONE (09:00)
--- NOTE | 2020-04-06 09:05 | Procedure Note ---
Procedure Note Date of Service April 06, 2020 CENTRAL LINE PROCEDURE NOTE: Procedure: Central Line Placement Provider: Adrian Draper MD Indication: Central Drug Administration, Poor Venous Access, Multiple Lab Draws Necessary, etc. Anesthesia: 5 mL's 1% lidocaine without epinephrine Site: Left internal jugular Verbal consent was obtained to the patient after explaining risks and benefits. Unable to obtain written consent due to acuity of situation A time-out was completed verifying correct patient, procedure, site, positionin g, and implants(s) or special equipment if applicable. Patients left neck was cleansed and draped in the typical sterile fashion using Chloraprep. The Internal Jugular Vein and Carotid Artery were identified using ultrasound. The superficial tissue was anesthetized using 5 mL of 1% lidocaine without epinephrine under direct visualization with the ultrasound. After adequate anesthetization was achieved, the Internal Jugular vein was cannulated under direct ultrasound guidance using an introducer needle on a syringe. Good venous blood return was maintained prior to removal of syringe from introducer needle. Using Seldinger Technique, a guide wire was advanced through the introducer needle without resistance. The introducer needle was removed and ultrasound images were obtained of the guide wire within the Internal Jugular Vein and saved to the patients medical record. A small incision was made in penetrating fashion at the guide wire insertion site utilizing an 11 blade scalpel. The di lator was advanced to the vessel without resistance. The dilator was exchanged for the triple lumen catheter which was advanced into the vessel without resistance. The guide wire was removed intact from the catheter without issue. Claves were placed on each catheter tip with confirmation of good blood flow from each lumen. Each port was easily flushed with sterile saline. The catheter was placed at 24 cm and sut[address] in place. BioPatch was applied to the catheter and a sterile Tegaderm dressing was applied over the catheter with careful attention to sterility. Patient tolerated procedure well. No immediate complications were met. Post procedure x-ray was completed, placement was appropriate and no pneumothorax was noted. Ultrasound images were not able to be saved due to acuity of the situation Coding CPT Codes Tubes, Drains, and Vasc Access - Tubes, Drains, and Vasc Access: [id number] Place catheter in vein superior or inferior vena cava ([id number]) Tubes, Drains, and Vasc Access - Tubes, Drains, and Vasc Access: [id number] Ultrasound Guidance For Vascular ([id number]) [facility] Procedure Codes (Charges) Tubes, Drains, and Vasc Access Procedure 1: Tubes, Drains, and Vasc Access: [id number] Place catheter in vein superior or inferior vena cava Procedure 2: Tubes, Drains, and Vasc Access: [id number] Ultrasound Guidance For Vascular
--- NOTE | 2020-04-06 09:08 | Procedure Note ---
Procedure Note Date of Service April 06, 2020 ARTERIAL LINE PROCEDURE NOTE: Procedure: Arterial Line Placement Provider: Adrian Draper MD Indication: Monitoring on Pressors Anesthesia: None Risks and benefits were explained to the patient and verbal consent was identified. Due to acuity of the situation, written consent was not obtainable. A time-out was completed verifying correct patient, procedure, site, positioning, and implant(s) or special equipment if applicable. Allens test was performed to ensure adequate perfusion. Patients right wrist was prepped and draped in the usual sterile fashion. A 20g Arrow arterial line was introduced into the right radial artery. Catheter was threaded, and the needle was removed with appropriate blood return. Good waveform was observed. The patient tolerated the procedure well. Blood Loss: Minimal Complications: None Coding CPT Codes Tubes, Drains, and Vasc Access - Tubes, Drains, and Vasc Access: [id number] Insertion Catheter, Artery ([id number]) [facility] [place] Codes (Charges) Tubes, Drains, and Vasc Access Procedure 1: Tubes, Drains, and Vasc Access: [id number] Insertion Catheter, Artery
[2020-04-06] MEDS ORDERED: SODIUM BICARB 8.4% INJ 50 MEQ/50 ML SYR IV ONE (09:09)
[2020-04-06 09:12] LABS: iSTAT Arterial Blood Gas HCO3 20 meg/L (19-24); iSTAT Arterial Blood Gas pCO2 42 mmHg (35-46); iSTAT Arterial Blood Gas pH 7.29 (7.35-7.45); iSTAT Arterial Blood Gas pO2 60 mmHg (80-95); iSTAT Carbon Dioxide 21 mmol/L (24-31); iSTAT Site Art Line
[2020-04-06] MEDS ORDERED: POTASSIUM CHLORIDE / WTR 20 MEQ/100 ML PLCT IV ONE (09:15)
--- NOTE | 2020-04-06 09:26 | Critical Care Consultation ---
Date of Consultation April 06, 2020 Assessment & Plan (1) Septic shock: Impression: 69-year-old female with history of coronary disease, obstructive lung disease, and morbid obesity presenting with septic shock, likely secondary to bacterial translocation from recent manual disimpaction and colonic distention. She likely has some degree of proctitis as well. She was transferred to the ICU 04/06/2020 due to persistent hypotension and progressive lactic acidosis with progressive acute renal failure. Recommendations: 1. Neurologic: Patient did have some neurologic findings on presentation to the ICU largely consisting of expressive aphasia. She is able to move all 4 extremities without focal weakness and I suspect that her neurological complaints may be related to her hypotension. Will correct her electrolyte acid-base abnormalities and treat her septic shock and follow neurological issues. If she fails to improve, additional imaging will be required. Of note the patient did undergo an evaluation for stroke February 21, 2020 with an MRI of the brain without contrast which demonstrated no abnormality at that time. Interestingly the study was performed due to dysarthria and right-sided weakness. 2. Cardiovascular: Severe sepsis with septic shock: Continue volume resuscitati on. Norepinephrine as needed to maintain mean arterial pressure of 65. Check random cortisol. The patient did have a mildly elevated troponin of 0.037 on presentation which decreased to 0.022. I suspect this is likely supply demand mismatch due to hypotension and tachycardia. No indication for systemic anticoagulation. If the patient's blood pressure fails to improve may consider echocardiogram. Continue her lipid-lowering agent. 3. Pulmonary: History of COPD although PFTs are not available in review the electronic medical record. She does not appear bronchospastic currently. She is at risk for restrictive lung disease due to body habitus and diaphragm. Continue CPAP at night at 8 cm of water with oxygen bleed. Can continue inhalers as needed. 4. Renal: Acute renal failure/acute kidney injury: Suspect this is ATN due to hypovolemia. Continue volume resuscitation and follow blood gases. Will trend electrolytes. She is hypocalcemic and has an acidosis. Bicarb and calcium administered as well as potassium. Will follow electrolytes and replete. Prasad catheter in place. Monitor urine output. No evidence of hydronephrosis on CT scan of the abdomen. Will check urine electrolytes and urinalysis. CPK mildly elevated. Continue to trend. 5. GI: Proctitis/colitis likely due to the recent obstipation and manual disimpaction. Continue antibiotics to cover enteric garth. We will continue Flagyl and cefepime. Await cultures and response to therapy. He does continue to complain of some abdominal pain. Appreciate general surgery consultation and following along. No indication for repeat imaging currently. At risk for ischemic colitis however the description on the CT scan would be unusual to develop in rectal region. Notes in the chart indicates cirrhosis, suspect related to nonalcoholic steatohepatitis. 6. ID: Again suspect intra-abdominal process. Day #1 cefepime Flagyl. Continue antibiotics pending culture data. 7. Endocrine: Metabolic syndrome. We will continue to monitor blood sugar and glycemic control per protocol. Await random cortisol. 8. Disposition: Continue to follow in ICU pending clinical improvement. The patient is critically ill at this point time. A total of 65 minutes exclusive of procedures a spent in evaluation management stabilization of this patient. (2) TOMMY (acute kidney injury): History of Present Illness Attending Physician: Jacklyn Gan MD History of Present Illness Asked by hospitalist to assist in care management of this patient admitted with abdominal pain, lactic acidosis, and refractory hypotension. History is obtained from review the electronic medical record as well as discussion with the admitting service. Patient is a 69-year-old female with a history of morbid obesity, coronary disease, depression, and hypertension. She was seen 1 day prior to admission with complaints of constipation. CT showed rectal fecal impaction with some perirectal infiltrates. She had manual disimpaction performed was placed on lactulose senna and docusate. She was discharged home but returned to the emergency room with weakness and progressive abdominal pain yesterday with loose stool output. In the emergency room she was hypotensive. She received fluids which resulted in improvement in her blood pressure. She had an initial elevated lactate and was thought to be appropriate to admit to the floor. She was checked for C. difficile colitis and was found to be gene positive toxin negative. She was now placed on antibiotics. She did have an elevated white blood cell count. During the night she continued to have abdominal pain as well as hypotension. Her lactate was increasing. General surgical consultation was obtained. They did not feel the patient warranted immediate surgical intervention but did feel that additional resuscitation was required and recommended transfer to the ICU. This morning when I arrived to the ICU I contacted the hospitalist. During the course of that conversation, the patient was apparently found to have some altered speech and subjective weakness. A stroke alert was initiated. I presented to the floor to evaluate the patient. She apparently had blood pressures in the 60s. I suspected that her neurological symptoms were likely sequelae of her underlying infection and septic and recommended immediate transfer to the intensive care unit. Once the patient arrived I placed a central line and continue with volume resuscitation. An arterial line was also placed. Electrolyte resuscitation was also conducted. Her heart rate is come down to about 140 with additional crystalloid and vasoactive medications. Antibiotics were also initiated. Discussed with Dr. Gerard this morning from general surgery. Allergies Allergy/AdvReac Type Severity Reaction Status Date / Time metformin AdvReac Intermediate DIARRHEA Verified 04/05/20 16:46 oxycodone AdvReac Intermediate GI Verified 04/05/20 16:46 SYMPTOMS, DISORIENTATION ampicillin AdvReac Mild Nausea/vomi Verified 04/05/20 16:46 ting codeine AdvReac Mild NAUSEA Verified 04/05/20 16:46 gabapentin AdvReac Mild DIZZINESS, Verified 04/05/20 16:46 FIDGETY hydrocodone AdvReac Mild "MADE ME Verified 04/05/20 16:46 FEEL WEIRD" lorazepam AdvReac Mild DIZZY Verified 04/05/20 16:46 lovastatin AdvReac Mild WASN'T Verified 04/05/20 16:46 EFFECTIVE meloxicam AdvReac Mild DIZZINESS Verified 04/05/20 16:46 propoxyphene AdvReac Mild NAUSEA Verified 04/05/20 16:46 tramadol AdvReac Mild GI SYMPTOMS Verified 04/05/20 16:46 narcotics AdvReac Mild Hallucinati Uncoded 04/05/20 16:46 ng Home Medications Home Medications Medication Instructions Recorded Confirmed Type albuterol sulfate 90 mcg/actuation 2 puffs INH Q4H PRN gm 08/07/19 04/05/20 History aerosol inhaler pantoprazole 20 mg tablet,delayed 20 mg PO BID tab 09/09/19 04/05/20 History release naproxen sodium [Aleve] 220 mg PO BID 10/11/19 04/05/20 History budesonide-formoterol HFA 160 2 puffs INH BID #10.2 gm 11/16/19 04/05/20 Rx mcg-4.5 mcg/actuation aerosol inhaler rosuvastatin 5 mg tablet 5 mg PO QAM #90 tab 12/06/19 04/05/20 Rx nebulizer accessories #1 ea 12/07/19 04/04/20 Rx lidocaine [Lidoderm] 1 patch TOP UD PRN 12/26/19 04/05/20 History hydroxyzine pamoate [Vistaril] 25 mg PO TID PRN 01/18/20 04/05/20 History cyanocobalamin (vitamin B-12) 1,000 mcg IM MONTHLY #10 ml 02/28/20 04/05/20 Rx 1,000 mcg/mL injection solution syringe with needle 3 mL 25 gauge #3 ea 02/28/20 04/04/20 Rx x 1" fluconazole 150 mg tablet 150 mg PO .COMPLEX 28 Days #4 tab 03/14/20 04/05/20 Rx nystatin 100,000 unit/gram topical 1 appln TOP BID #60 gm 03/14/20 04/05/20 Rx powder miscellaneous medical supply #1 ea 03/23/20 04/04/20 Rx Wheelchair (Manual or Powered) #1 ea 03/26/20 04/04/20 Rx albuterol sulfate 2.5 mg INH BID 04/04/20 04/05/20 History cyclobenzaprine 10 mg PO TID PRN 04/04/20 04/05/20 History Patient History Medical History Anxiety (Chronic) Asthma (Chronic) Stable- has albuterol nebulizer and inhaler- uses 1-2 times daily Borderline high cholesterol BPPV (benign paroxysmal positional vertigo) CAD (coronary artery disease) (Chronic) Pt denies COPD (chronic obstructive pulmonary disease) (Chronic) Depression (Chronic 01/03/12) Dysmetabolic syndrome X (Chronic) Fatty (change of) liver, not elsewhere classified (Chronic) Gastroesophageal reflux disease with esophagitis (Chronic) Well controlled with Protonix 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 Hiatal hernia Hypertension (Chronic) Impaired memory (Chronic) Mild- feels back pain making memory worse Lumbar stenosis with neurogenic claudication (Chronic) Morbid obesity with BMI of 45.0-49.9, adult Obstructive sleep apnea syndrome (Chronic 01/03/12) Uses CPAP q HS Osteopenia (Chronic) Prediabetes (Chronic) Pt denies - pre op glucose 249- getting clarification from PCP Restrictive lung disease (Chronic) Unspecified cirrhosis of liver (Chronic) Secondary to fatty liver - follows with GI - stable at this time (LFTs WNL 11/07/19) Venous insufficiency (Chronic) Varicose veins- no treatment needed - no current LE edema Surgical History History of abdominal surgery removed benign tumor from stomach History of bilateral cataract extraction History of cardiac cath 30+YR AGO, NO SIG ISSUES PER PT- DENIES STENTS OR BYPASS History of carpal tunnel surgery of right wrist History of cholecystectomy (Resolved) History of colonoscopy History of esophagogastroduodenoscopy (EGD) History of herniorrhaphy (Resolved) History of lumbar fusion (Resolved) L2 through S1 fusion August [address] Patel History of right shoulder replacement History of tonsillectomy and adenoidectomy History of tooth extraction all upper teeth History of total hysterectomy with bilateral salpingo-oophorectomy (BSO) History of total right hip arthroplasty (Resolved) Nausea and vomiting after administration of anesthetic agent Status post trigger finger release HX OF right hand Family History Unknown Heart disease Father Asthma Mother Alzheimer disease Aortic aneurysm Aunt Family history of diabetes mellitus Grandmother Family history of diabetes mellitus Other No family history of adverse response to anesthesia Social History Preferred Language: Romanian Communication Ability: Effective Visual Impairment: Limited Hearing Ability: Hard of Hearing Managing Editor Required: No Beliefs That Will Affect Care: None marital status: Current Living Situation: Spouse and Family Current Living Situation Comment: AND SON current occupational status: retired Other Information That Helps Us Care for You: No Feels Safe at Home: Yes Safety Concerns: Feels Safe At This Time Smoking Status: Never smoker Second Hand Exposure: Yes ( smoked/parents smoked) ; Hx Alcohol Use: No Hx Substance Use: No caffeine: Yes Seatbelt Use: always Review of Systems Review of Systems: Unobtainable due to cognitive status Physical Exam Constitutional: + ill appearing and + obese Eyes: PERRL, conjunctivae normal, anicteric sclerae Neck: Obese, unable to assess JVD. Trachea is midline Respiratory: Breath sounds diminished bilaterally. Exam limited due to body habitus Cardiovascular: Rate/Rhythm: + tachycardic Heart Sounds: normal S1 and normal S2; no murmur Gastrointestinal (Abdomen): Bowel sounds diminished. She is diffusely tender to palpation. She does not appear overtly distended although again her body habitus limits sensitivity physical exam Skin: Few small skin tears and Results & Data Results & Data ([facility]) Vital Signs (Past 12 Hours) Vital Signs Temp Pulse Resp BP BP Pulse Ox 04/06/20 06:26 94/61 L 04/06/20 03:38 93/63 L 04/06/20 02:00 106 H 18 80/52 L 78/41 L 94 04/06/20 00:20 36.6 C 108 H 20 91/56 L 92 04/05/20 21:25 90/57 L Laboratory Results 04/06/20 02:57 04/06/20 02:57 Diagnostic Findings Post procedure chest x-ray was reviewed. The internal jugular appears to be in the brachiocephalic vein. No pneumothorax. Lung volumes are small. Cardiomegaly is noted. CT the abdomen and pelvis from yesterday dependently reviewed: HISTORY: Generalized abdominal pain. Acute kidney injury. TECHNIQUE: Multiaxial CT images of the abdomen and pelvis were performed without contrast. A dose lowering technique was utilized adhering to the principles of ALARA. COMPARISON STUDY: Abdomen and pelvis CT 04/04/2020. FINDINGS: Patchy bilateral lower lobe densities are nonspecific but favor atelectasis. A pneumonia could also have a similar appearance but is considered less likely. No pneumoperitoneum. No pneumatosis. There is a right total hip arthroplasty. Posterior decompression and fusion within the lower thoracic and lumbar spine with pedicle screws and rods. Cholecystectomy. Subtle nodular contour to the liver consistent with mild cirrhosis. Hepatic steatosis. The unenhanced spleen and pancreas are unremarkable. Contrast remaining within the kidneys from the prior CT examination. No hydronephrosis. Surgical clips within the expected location of the right adrenal gland. There is a 7 mm left adrenal gland nodule. No retroperitoneal lymphadenopathy. Normal caliber abdominal aorta containing mild calcified plaque. Contrast within the bladder from the prior CT examination. No bladder wall thickening. Borderline distended fluid-filled loops of large and small bowel. No transition point to suggest obstruction at this time. This may represent a reactive ileus. Mild bowel wall thickening involving the sigmoid colon and moderate thickening of the rectum with surrounding inflammatory change. Findings likely represent a distal posterior colitis. This has slightly progressed in the interval. The uterus is surgically absent. The appendix is not identified and reportedly surgically absent. IMPRESSION: 1. Slight progression of the distal proctocolitis. This may represent an infectious or inflammatory process. 2. Fluid-filled borderline distended loops of large and small bowel. No clear transition point. This may represent an ileus or diarrheal illness. A low-grade partial large bowel obstruction due to the thickened distal sigmoid colon/rectum could also have a similar appearance. 3. Cirrhotic liver. 4. Additional findings as described above. Coding Level of Care Code Critical Care 1st 30-74 mins Diagnoses Septic shock A41.9; R65.21 TOMMY (acute kidney injury) N17.9 Time Spent (min) 65
--- NOTE | 2020-04-06 09:28 | XRay Report ---
KUB CLINICAL HISTORY: Abdominal pain. COMPARISON STUDY: CT of the abdomen and pelvis April 05, 2020. FINDINGS: Incidental note is made of postoperative findings within the spine and a right hip arthropl asty. Mild gaseous distention of small and large bowel is similar to CT of April 05, 2020. IMPRESSION: No significant change in mild dilatation of small and large bowel since CT of April 05 0. The findings favor an ileus although a distal colonic obstruction could appear similar. ACT 112: Negative or not required by law. Electronically signed by: Jaiden Tucker M.D. 04/06/2020 9:27 AM
[2020-04-06] MEDS: NOREPINEPHRINE BIT INJ 8 MG in DEXTROSE 5% 500 ML IV SCH ×2 (09:47→23:57)
[2020-04-06] MEDS ORDERED: CEFEPIME 2,000 MG in SYRINGE 7.5 ML IV ONE (10:00)
[2020-04-06] MEDS ORDERED: CEFEPIME CONSULT ACTIVE PRN (10:14)
[2020-04-06] MEDS ORDERED: NORMOSOL-R 1,000 ML IV SCH (10:30)
[2020-04-06 11:06] LABS: Hematocrit (blood only) 37.1 % (37-47); Hemoglobin 12.8 g/dL (12.0-16.0); Mean Corpuscular Hemoglobin 30.5 pg (25-34); Mean Corpuscular Hgb Conc 34.5 g/dL (32-36); Mean Corpuscular Volume 88.3 fL (80-100); Mean Platelet Volume 10.9 fL (7.4-10.4); Platelet Count 150 K/uL (130-400); RDW Coefficient of Variation 14.3 % (11.5-14.5); RDW Standard Deviation 45.9 fL (36.4-46.3)
[2020-04-06 11:27] LABS: Albumin Level 1.9 gm/dl (3.4-5.0); BUN Creatinine Ratio 8.3 (10-20); Calcium 8.5 mg/dl (8.5-10.1); Creatinine Clr Calc Pharmacy 28.4 ml/min; Est GFR (African American) 27.8; Potassium 3.9 mmol/L (3.5-5.1)
[2020-04-06 11:42] LABS: Basophils # (auto) 0.02 K/uL (0-0.2); Basophils % (auto) 0.2 %; Echinocytes 1+; Eosinophils # (auto) 0.12 K/uL (0-0.5); Immature Granulocytes % (auto) 0.8 %; Lymphocytes # (auto) 0.61 K/uL (1.2-3.4); Lymphocytes % (auto) 5.1 %; Monocytes # (auto) 1.45 K/uL (0.11-0.59); Monocytes % (auto) 12.2 %; Neutrophils % (auto) 80.7 %; Toxic Granulation 1+
[2020-04-06] MEDS ORDERED: DEXTROSE 50% 50 ML SYRINGE IV ONE (11:50)
[2020-04-06 11:51] LABS: Albumin Globulin Ratio 0.7 (0.9-2); Bilirubin,Total 0.8 mg/dl (0.2-1); Globulin 2.7 gm/dl (2.5-4.0); Total Protein 4.6 gm/dl (6.4-8.2)
[2020-04-06] MEDS: D5W AND LACTATED RINGERS 1,000 ML IV SCH ×2 (13:11→23:59)
--- NOTE | 2020-04-06 20:07 | XRay Report ---
XR KUB/Abdomen 1 view CLINICAL HISTORY: OG tube tube position COMPARISON STUDY: No previous studies for comparison. FINDINGS: Nasogastric tube placed in the distal stomach. Infiltrative changes left lung base. IMPRESSION: Nasogastric tube placed in the distal stomach. ACT 112: Negative or not required by law. The above report was generated using voice recognition software. It may contain grammatical, syntax or spelling errors. Electronically signed by: Melecio Johnson M.D. 04/06/2020 8:06 PM
[2020-04-06] MEDS ORDERED: fentaNYL citrate 100 MCG/2 ML VIAL IV STA (20:23)
[2020-04-06] MEDS ORDERED: fentaNYL citrate 100 MCG/2 ML VIAL ONE (20:25)
[2020-04-06] MEDS ORDERED: IOVERSOL 100ml IV PRN (23:27)
[2020-04-07] MEDS ORDERED: fentaNYL citrate 100 MCG/2 ML VIAL IV STA (00:57)
[2020-04-07] MEDS: NOREPINEPHRINE BIT INJ 8 MG in DEXTROSE 5% 500 ML IV SCH (02:25)
[2020-04-07] MEDS: metroNIDAZOLE 500 MG/100 ML BAG IV SCH ×3 (05:26→22:57)
[2020-04-07 06:04] LABS: Hematocrit (blood only) 40.1 % (37-47); Hemoglobin 13.7 g/dL (12.0-16.0); Mean Corpuscular Hemoglobin 30.2 pg (25-34); Mean Corpuscular Hgb Conc 34.2 g/dL (32-36); Mean Corpuscular Volume 88.3 fL (80-100); Mean Platelet Volume 10.3 fL (7.4-10.4); Platelet Count 191 K/uL (130-400); RDW Coefficient of Variation 14.6 % (11.5-14.5); RDW Standard Deviation 47.1 fL (36.4-46.3); Red Blood Count 4.54 M/uL (4.2-5.4); White Blood Count 10.36 K/uL (4.8-10.8)
[2020-04-07 06:21] LABS: Potassium 3.5 mmol/L (3.5-5.1)
[2020-04-07 06:22] LABS: Albumin Level 2.2 gm/dl (3.4-5.0); BUN Creatinine Ratio 10.3 (10-20); Calcium 8.3 mg/dl (8.5-10.1); Creatinine Clr Calc Pharmacy 27.7 ml/min; Est GFR (African American) 25.9; Est GFR (Non-African American) 22.4; Magnesium 1.8 mg/dl (1.8-2.4)
[2020-04-07 06:31] LABS: Basophils # (auto) 0.02 K/uL (0-0.2); Basophils % (auto) 0.2 %; Dohle Bodies 1+; Echinocytes 3+; Eosinophils # (auto) 0.47 K/uL (0-0.5); Eosinophils % (auto) 4.5 %; Immature Granulocytes # (auto) 0.12 K/uL (0.00-0.02); Immature Granulocytes % (auto) 1.2 %; Lymphocytes # (auto) 0.47 K/uL (1.2-3.4); Lymphocytes % (auto) 4.5 %; Monocytes % (auto) 12.5 %; Neutrophils # (auto) 7.98 K/uL (1.4-6.5); Neutrophils % (auto) 77.1 %; Toxic Vacuolation 2+
[2020-04-07 06:53] LABS: Albumin Globulin Ratio 0.8 (0.9-2); Bilirubin,Total 0.7 mg/dl (0.2-1); Globulin 2.9 gm/dl (2.5-4.0); Phosphorus 3.2 mg/dl (2.5-4.9); Total Protein 5.1 gm/dl (6.4-8.2)
--- NOTE | 2020-04-07 06:54 | CT Scan Report ---
CT abd pelvis oral and IV con CLINICAL HISTORY: 69 years-old Female presenting with generalized abdominal pain, concern for bowel i schemia. TECHNIQUE: Multidetector CT of the abdomen and pelvis was performed after the administration of oral and intravenous contrast. IV contrast: 55 mL of Optiray 320. One or more dose lowering techniques wer e used consistent with the principles of ALARA (as low as reasonably achievable), including automatic exposure control, mA or kV adjustment to individual patient size, and/or use of iterative reconstruc tion. COMPARISON: Noncontrast CT from 04/15/2020. CT DOSE (mGy.cm): The estimated cumulative dose is 2218.76 mGy.cm. FINDINGS: Chronic Care Nurse topogram: Cholecystectomy clips, thoracolumbar fusion hardware, and total right hip arthroplast y. Image quality is degraded by patient body habitus and positioning of the arms at the sides. Lung bases: Mild multichamber enlargement of the heart. Coronary artery calcification. Small right an d trace left pleural effusions. Extensive bibasilar volume loss and consolidation cystic with atelect asis, increased from prior. A minority of the lower lobes remain aerated. Liver: Micronodular contour of the liver suggested. No gross evidence of a lesion allowing for image quality single phase of contrast. Grossly patent vasculature. Biliary: Mild biliary ductal prominence likely a reservoir effect in the post cholecystectomy state. Gallbladder surgically absent. Pancreas: Mild parenchymal atrophy. Spleen: Normal. No enlargement, measuring 10 cm in maximal sagittal dimension. Adrenal glands: The right adrenal gland appears absent with surgical clips in the right suprarenal fo ssa. Left adrenal gland normal. Kidneys and ureters: Normal. No hydronephrosis. Bladder: Decompressed with a Prasad catheter. Pelvic organs: Uterus surgically absent. Bowel: Severe wall thickening of the lower rectum, which is circumferential. Moderate wall circumfere ntial wall thickening also extends proximally to involve the entire length of the rectum as well as t he sigmoid colon. There is no significant wall thickening of the descending colon or more proximal co renea. Distal small bowel is decompressed. There is mild distention of proximal to mid small bowel with out a focal transition point. Nasogastric tube terminates in the gastric body. Peritoneal cavity: Small volume ascites in the pelvis. Retroperitoneal fluid in the presacral region is also evident similar to prior. No free intraperitoneal gas. Lymph nodes: No enlarged lymph nodes in the abdomen or pelvis. Vasculature: Atherosclerosis of the normal caliber abdominal aorta. Allowing for the phase of contras t, mesenteric vessels appear grossly patent. IVC patent. Abdominal wall: Postsurgical changes of the periumbilical abdominal wall. Mild to moderate body wall edema predominantly involving the flanks. Overlying skin thickening. Focus of gas within the subcutan eous tissue in the anterior left lower quadrant may relate to medication administration. Musculoskeletal: Thoracolumbar fusion hardware. Extensive degenerative changes of the spine. Since of laminectomy defects. Total right hip arthroplasty. There is an axially oriented fracture deformity a t the superior aspect of the fused levels. The violates the anterior osteophytosis and involves the s uperior endplate of T11 extending into the T10-11 intervertebral disc space. This appears new since t he prior lumbar radiographs on 01/20/2020. This does not appear to involve the posterior elements. Flavio wing anterior osteophytosis in the lower thoracic spine suggest diffuse idiopathic skeletal hyperosto sis and a rigid spine. IMPRESSION: 1. Significant interval increase in extensive bilateral lower lobe atelectasis. 2. Cirrhosis. No convincing evidence of portal hypertension. 3. Atherosclerosis. Allowing for the phase of contrast, mesenteric vessels are grossly patent. 4. Persistent moderate to severe wall thickening of the rectum and sigmoid colon. Compatible with pr octocolitis. The distribution suggests an infectious or inflammatory etiology. This is unchanged from prior. 5. Mild small bowel distention in the proximal to mid portion likely represents an ileus. No convinc ing evidence of bowel obstruction. 6. Fracture of the anterior osteophytosis and superior endplate of T11 the superior margin of the th oracolumbar fusion, new since December. No extension into the posterior elements. This represents fra cture of the rigid spine. 7. Diffuse idiopathic skeletal hyperostosis in the lower thoracic spine. ACT 112: Negative or not required by law. Electronically signed by: Hermelindo Taveras M.D. 04/07/2020 6:53 AM
[2020-04-07] MEDS ORDERED: POTASSIUM CHLORIDE 20 MEQ/15 ML UDC PO STA (07:06)
--- NOTE | 2020-04-07 07:35 | Surgery Progress Note ---
Date of Service April 07, 2020 Assessment & Plan (1) Colitis: con't resuscitation IV abx abdominal exam without peritonitis no surgical issues at this time Subjective moans and reacts to voice won't follow commands Review of Systems Review of Systems: Unobtainable due to cognitive status Physical Exam Constitutional: well developed and well nourished Neck: trachea midline Respiratory: normal respiratory effort, lungs clear to auscultation Cardiovascular: Rate/Rhythm: regular rhythm and + tachycardic Heart Sounds: normal S1 and normal S2 Gastrointestinal (Abdomen): Inspection/Auscultation: abdomen normal to inspection and normal bowel sounds Percussion/Palpation: + abdomen tender; no guarding, abdomen not rigid and no hernia Musculoskeletal: Head/Neck/Chest: normocephalic and head atraumatic Skin: no rashes, warm and dry Results & Data Vital Signs (Past 12 Hours) Vital Signs Temp Pulse Resp BP Pulse Ox 04/07/20 06:55 25 H 95 04/07/20 04:00 103 H 04/07/20 03:37 103 H 19 96 04/07/20 03:27 104 H 21 97/77 L 100 04/07/20 02:27 104 H 18 117/62 97 04/07/20 02:00 105 H 17 97 04/07/20 01:26 110 H 15 136/55 L 96 04/07/20 00:26 109 H 20 126/84 91 04/07/20 00:18 109 H 25 H 95 04/07/20 00:00 112 H 17 148/49 H 99 04/06/20 23:52 107 H 15 130/84 100 04/06/20 22:26 112 H 25 H 131/69 99 04/06/20 22:00 36.8 C 105 H 22 98 04/06/20 21:26 112 H 25 H 141/70 H 98 04/06/20 20:26 117 H 27 H 121/107 H 96 04/06/20 20:00 108 H 31 H 114/53 L 93
[2020-04-07] MEDS ORDERED: MAGNESIUM SULFATE / D5W 1 GM/100 ML BAG IV ONE (07:37)
--- NOTE | 2020-04-07 07:56 | Critical Care Progress Note ---
Date of Service April 07, 2020 Assessment & Plan (1) Septic shock: Impression: 69-year-old female with history of coronary disease, obstructive lung disease, and morbid obesity presenting with septic shock, likely secondary to bacterial translocation from recent manual disimpaction and colonic distention. She likely has some degree of proctitis as well. She was transferred to the ICU 04/06/2020 due to persistent hypotension and progressive lactic acidosis with progressive acute renal failure. 24-hour events: Patient transferred to ICU yesterday. Central line and arterial line placed. Initiated on vasopressors. Additional crystalloid resuscitation undertaken. Antibiotics broadened. Had improvement in heart rate and blood pressure with fluids and pressors however lactate continued to climb. Due to increased lactate, repeat CT of the abdomen and pelvis obtained evening which again demonstrated proctocolitis but no acute changes. No changes concerning for ischemic bowel. Patient remained on CPAP overnight. Pressors have been weaned to this morning. Recommendations: 1. Neurologic: Patient continues to have episodes of encephalopathy. She is able to ground but is not speaking words although she does follow commands clearly and moves all 4 extremities. Having difficulty correlating her speech issues with her neuro exam. Cerebellar or brainstem issues could be possible. Of note the patient did undergo an evaluation for stroke February 21, 2020 with an MRI of the brain without contrast which demonstrated no abnormality at that time. Interestingly the study was performed due to dysarthria and right-sided weakness. For now I would continue to follow her. If she fails to show significant improvement, neurology/ST consultation may be appropriate. 2. Cardiovascular: Severe sepsis with septic shock: Norepinephrine as needed to maintain mean arterial pressure of 65. Random cortisol 25 which is adequate. The patient did have a mildly elevated troponin of 0.037 on presentation which decreased to 0.022. I suspect this is likely supply demand mismatch due to hypotension and tachycardia. No indication for systemic anticoagulation. Continue her lipid-lowering agent. We will pursue a trial of albumin active medications. Her lactate remains elevated. This may be due to impaired clearance due to probable nonalcoholic steatohepatitis and kidney disease. If her pressors continue to be weaned down, unless concerned. She continues to demonstrate a fairly wide pulse pressure. 3. Pulmonary: History of COPD although PFTs are not available in review the electronic medical record. She does not appear bronchospastic currently. She is at risk for restrictive lung disease due to body habitus and diaphragm. Continue CPAP at night at 8 cm of water with oxygen bleed. Can continue inhale rs as needed. Her CT scan does demonstrate some basilar atelectasis which will improve with improved pulmonary toilet, sitting upright, and incentive spirometry 4. Renal: Acute renal failure/acute kidney injury: Suspect this is ATN due to hypovolemia. Will check urine electrolytes to calculate fractional excretion of sodium to see if still sodium avid. Will follow electrolytes and replete. F oley catheter in place. Monitor urine output. No evidence of hydronephrosis on CT scan of the abdomen. CPK mildly elevated on presentation but has trended down. Replacing calcium, magnesium, and potassium 5. GI: Proctitis/colitis likely due to the recent obstipation and manual disimpaction. Continue antibiotics to cover enteric garth. We will continue Flagyl and cefepime. Await cultures and response to therapy. He does continue to complain of some abdominal pain. Appreciate general surgery consultation and following along. Notes in the chart indicates cirrhosis, suspect related to nonalcoholic steatohepatitis. Will check ammonia level. 6. ID: Again suspect intra-abdominal process related to proctitis. Day #2 cefepime Flagyl. Culture data remains negative however white count is now normalized. She is clinically improving. 7. Endocrine: Metabolic syndrome. We will continue to monitor blood sugar and glycemic control per protocol. Await random cortisol. 8. Musculoskeletal: Transverse spinal fracture identified on CT scan. Unclear etiology. Orthopedics consult pending. 9. Disposition: Continue to follow in ICU pending clinical improvement. The patient remains critically ill at this point time. A total of 37 minutes exclusive of procedures a spent in evaluation management stabilization of this patient. (2) TOMMY (acute kidney injury): Admission and Anticipated Discharge Date Admission Date: April 05, 2020 Physical Exam Constitutional: + ill appearing and + obese Eyes: PERRL, conjunctivae normal, anicteric sclerae Respiratory: Diminished breath sounds anteriorly bilaterally. No wheezing few crackles the lung bases. Exam limited by body habitus Cardiovascular: Rate/Rhythm: + tachycardic Heart Sounds: normal S1 and normal S2; no murmur Gastrointestinal (Abdomen): Obese. Not particularly distended. Diffusely slightly tender to palpation but improved compared to yesterday. Skin: No ulcers or lesions identified Results & Data Results & Data ([facility]) Vital Signs (Past 12 Hours) Vital Signs Temp Pulse Resp BP Pulse Ox 04/07/20 06:55 25 H 95 04/07/20 04:00 103 H 04/07/20 03:37 103 H 19 96 04/07/20 03:27 104 H 21 97/77 L 100 04/07/20 02:27 104 H 18 117/62 97 04/07/20 02:00 105 H 17 97 04/07/20 01:26 110 H 15 136/55 L 96 04/07/20 00:26 109 H 20 126/84 91 04/07/20 00:18 109 H 25 H 95 04/07/20 00:00 112 H 17 148/49 H 99 04/06/20 23:52 107 H 15 130/84 100 04/06/20 22:26 112 H 25 H 131/69 99 04/06/20 22:00 36.8 C 105 H 22 98 04/06/20 21:26 112 H 25 H 141/70 H 98 04/06/20 20:26 117 H 27 H 121/107 H 96 04/06/20 20:00 108 H 31 H 114/53 L 93 Laboratory Results 04/07/20 05:56 04/07/20 05:55 Cultures remain negative to date Diagnostic Findings CT abdomen pelvis reviewed. CT abd pelvis oral and IV con CLINICAL HISTORY: 69 years-old Female presenting with generalized abdominal pain, concern for bowel ischemia. TECHNIQUE: Multidetector CT of the abdomen and pelvis was performed after the administration of oral and intravenous contrast. IV contrast: 55 mL of Optiray 320. One or more dose lowering techniques were used consistent with the principles of ALARA (as low as reasonably achievable), including automatic exposure control, mA or kV adjustment to individual patient size, and/or use of iterative reconstruction. COMPARISON: Noncontrast CT from 04/15/2020. CT DOSE (mGy.cm): The estimated cumulative dose is 2218.76 mGy.cm. FINDINGS: Subway Operator topogram: Cholecystectomy clips, thoracolumbar fusion hardware, and total right hip arthroplasty. Image quality is degraded by patient body habitus and positioning of the arms at the sides. Lung bases: Mild multichamber enlargement of the heart. Coronary artery calcif ication. Small right and trace left pleural effusions. Extensive bibasilar volume loss and consolidation cystic with atelectasis, increased from prior. A minority of the lower lobes remain aerated. Liver: Micronodular contour of the liver suggested. No gross evidence of a lesion allowing for image quality single phase of contrast. Grossly patent vasculature. Biliary: Mild biliary ductal prominence likely a reservoir effect in the post cholecystectomy state. Gallbladder surgically absent. Pancreas: Mild parenchymal atrophy. Spleen: Normal. No enlargement, measuring 10 cm in maximal sagittal dimension. Adrenal glands: The right adrenal gland appears absent with surgical clips in the right suprarenal fossa. Left adrenal gland normal. Kidneys and ureters: Normal. No hydronephrosis. Bladder: Decompressed with a Prasad catheter. Pelvic organs: Uterus surgically absent. Bowel: Severe wall thickening of the lower rectum, which is circumferential. Moderate wall circumferential wall thickening also extends proximally to involve the entire length of the rectum as well as the sigmoid colon. There is no significant wall thickening of the descending colon or more proximal colon. Distal small bowel is decompressed. There is mild distention of proximal to mid small bowel without a focal transition point. Nasogastric tube terminates in the gastric body. Peritoneal cavity: Small volume ascites in the pelvis. Retroperitoneal fluid in the presacral region is also evident similar to prior. No free intraperitoneal gas. Lymph nodes: No enlarged lymph nodes in the abdomen or pelvis. Vasculature: Atherosclerosis of the normal caliber abdominal aorta. Allowing for the phase of contrast, mesenteric vessels appear grossly patent. IVC patent. Abdominal wall: Postsurgical changes of the periumbilical abdominal wall. Mild to moderate body wall edema predominantly involving the flanks. Overlying skin thickening. Focus of gas within the subcutaneous tissue in the anterior left lower quadrant may relate to medication administration. Musculoskeletal: Thoracolumbar fusion hardware. Extensive degenerative changes of the spine. Since of laminectomy defects. Total right hip arthroplasty. There is an axially oriented fracture deformity at the superior aspect of the fused levels. The violates the anterior osteophytosis and involves the superior endplate of T11 extending into the T10-11 intervertebral disc space. This appears new since the prior lumbar radiographs on 01/20/2020. This does not appear to involve the posterior elements. Flowing anterior osteophytosis in the lower thoracic spine suggest diffuse idiopathic skeletal hyperostosis and a rigid spine. IMPRESSION: 1. Significant interval increase in extensive bilateral lower lobe atelectasis. 2. Cirrhosis. No convincing evidence of portal hypertension. 3. Atherosclerosis. Allowing for the phase of contrast, mesenteric vessels are grossly patent. 4. Persistent moderate to severe wall thickening of the rectum and sigmoid colon. Compatible with proctocolitis. The distribution suggests an infectious or inflammatory etiology. This is unchanged from prior. 5. Mild small bowel distention in the proximal to mid portion likely represents an ileus. No convincing evidence of bowel obstruction. 6. Fracture of the anterior osteophytosis and superior endplate of T11 the superior margin of the thoracolumbar fusion, new since December. No extension into the posterior elements. This represents fracture of the rigid spine. 7. Diffuse idiopathic skeletal hyperostosis in the lower thoracic spine. Coding Level of Care Code Critical Care 1st 30-74 mins Diagnoses Septic shock A41.9; R65.21 TOMMY (acute kidney injury) N17.9
[2020-04-07] MEDS ORDERED: POTASSIUM CHLORIDE / WTR 20 MEQ/100 ML PLCT IV ONE (08:00)
[2020-04-07] MEDS ORDERED: ALBUMIN 25% 50 ML IV ONE (08:00)
[2020-04-07] MEDS ORDERED: CALCIUM CHLORIDE 10% 1,000 MG in SODIUM CHLORIDE 0.9% 50 ML IV ONE (08:00)
[2020-04-07] MEDS: FLUTICASONE/VILANTEROL 200/25MCG 14 PUFFS/INHALER INH SCH (08:01)
[2020-04-07] MEDS ORDERED: SODIUM BICARBONATE 8.4% INJ 50 MEQ/50 ML VIAL IV ONE (08:15)
[2020-04-07] MEDS: ROSUVASTATIN CALCIUM 5 MG TAB PO SCH (08:17)
[2020-04-07] MEDS: HEPARIN SOD 5,000 UNIT/0.5 ML VIAL SQ SCH ×2 (08:18→21:01)
[2020-04-07] MEDS: ASPIRIN 81 MG ECTAB PO SCH (08:18)
[2020-04-07] MEDS: PANTOprazole 40 MG TAB PO SCH ×2 (08:21→21:02)
[2020-04-07] MEDS: NYSTATIN POWDER 15GM BTL EXT SCH ×2 (08:21→21:01)
[2020-04-07 08:22] LABS: iSTAT Arterial Blood Gas HCO3 21 meg/L (19-24); iSTAT Arterial Blood Gas pCO2 42 mmHg (35-46); iSTAT Arterial Blood Gas pH 7.31 (7.35-7.45); iSTAT Arterial Blood Gas pO2 82 mmHg (80-95); iSTAT Carbon Dioxide 22 mmol/L (24-31); iSTAT Site Art Line
[2020-04-07] MEDS: MAGNESIUM SULFATE / D5W 1 GM/100 ML BAG IV SCH ×2 (08:26→10:29)
[2020-04-07] MEDS ORDERED: SODIUM BICARB 8.4% INJ 50 MEQ/50 ML SYR IV ONE (08:30)
[2020-04-07] MEDS: fentaNYL citrate 100 MCG/2 ML VIAL IV PRN ×2 (11:03→15:17)
[2020-04-07] MEDS: CEFEPIME 2,000 MG in SYRINGE 7.5 ML IV SCH (11:04)
--- NOTE | 2020-04-07 11:35 | CT Scan Report ---
CT thoracic spine wo con CLINICAL HISTORY: 69 years-old Female presenting with assess thoracic fracture. TECHNIQUE: Multidetector CT of the thoracic spine was performed without the use of intravenous contra st. IV contrast: None. One or more dose lowering techniques were used consistent with the principles of ALARA (as low as reasonably achievable), including automatic exposure control, mA or kV adjustment to individual patient size, and/or use of iterative reconstruction. COMPARISON: CT of abdomen and pelvis performed on 04/06/2020, 04/05/2020, and 04/04/2020, plain radiographs of the lumbar spine from 01/20/2020, an MR lumbar spine from 12/15/2019. CT DOSE (mGy.cm): The estimated cumulative dose is 1361.27 mGy.cm. 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 Thoracolumbar fusion hardware. Cholecystectomy clips. Total right hip arthropla sty. Mild gaseous distention of bowel. Right basilar opacity. Extensive bibasilar consolidation and volume loss with near complete collapse of the bilateral lower lobes. Nasogastric tube in place. Cholecystectomy clips noted. The right adrenal gland appears surgic ally absent. Posterior bilateral transpedicular screw and russel fixation of T11 into the lumbar spine. Laminectomy d efects of L1 and below. No evidence of hardware breakage. No radiolucency surrounding the screws. Redemonstration of the axially/horizontally oriented fracture through the T11 level with breakage of the flowing anterior osteophytosis anteriorly and violation of the superior endplate extension into t he T10-11 intervertebral disc space. There is no extension into the posterior elements. No additional fracture is evident. This is new from the prior radiographs from December. No effacement of the spin al canal at this level. No retropulsion of the posterior cortex of T11. Flowing osteophytosis throughout the thoracic spine consistent with a rigid spine in the setting of d iffuse idiopathic skeletal hyperostosis. There is no evidence of osseous spinal canal narrowing. Osse ous neural foraminal narrowing is evident at T1-2, T2-3, T3-4 on the left, and T4-5 bilaterally. IMPRESSION: 1. Axially/horizontally oriented fracture of T11 extending into the T10-11 disc space. No extension into the posterior elements. This represents fracture of the rigid spine in the setting of diffuse id iopathic skeletal hyperostosis. No additional fracture. This is new since December. 2. Unremarkable thoracolumbar fusion hardware. 3. Multilevel osseous neural foraminal narrowing upper thoracic spine. 4. No significant osseous spinal canal narrowing in the thoracic spine. ACT 112: Negative or not required by law. Electronically signed by: Hermelindo Taveras M.D. 04/07/2020 11:33 AM
[2020-04-07] MEDS: D5W AND LACTATED RINGERS 1,000 ML IV SCH (12:53)
--- NOTE | 2020-04-07 20:26 | Hospitalist Progress Note ---
Date of Service April 07, 2020 Assessment & Plan (1) Septic shock: Patient with significant hypotension and profuse diarrhea requiring rectal tube in setting of likely stercoral colitis/suspected bacterial translocation. BP only minimally improved with crystalloid infusion - 4L given then on m aintenance fluids. Then had rising lactate, worsening abdominal pain. Surgical consult obtained and recommended no surgery but transfer to ICU Pt then with worsening status and had BPs 60s systolic on AM after admission--> bolused IVFs and transferred to ICU for vasopressors and continued volume resuscitation and treatment of septic shock. With leukocytosis, tachycardia, tachypnea, lactate rising to 5.8, hypotension, but afebrile. Source intraabdominal with distal colitis and ileus. -Random cortisol checked and 25 (noted surgical clips in region of right adrenal gland noted on CT) UA without evidence of infection CXR without PNA but CT T-spine today with bibasilar consolidation-seems to be atelectasis Remains on vasopressors, renal failure worsened, continued IVFs, added IV albumin -continued stay in ICU -continue IVFs with D5LR (also with hypoglycemia) -continue levophed -consult Product Tester appreciated -Central line and A-line placed -follow lactate-defer to ICU for further orders -follow lytes, renal function, CBC-leukocytosis improving -continue to treat with broad spectrum abx Cefepime and Flagyl -follow blood, stool cultures -C. diff gene positive but toxin negative-no po Vanco indicated -sodium bicarb and IV calcium given (2) Elevated lactic acid level: With lactic acidosis, accounts for tachypnea Trended slightly down to 5.0 today No ischemic bowel suspected but with colitis on CT Follow lactate -continue IVF resuscitation (3) Diarrhea: Presented with copious amounts of watery diarrhea. Likely secondary to medications administered for previous constipation vs infectious/inflammatory colitis. Was quite dry on clinical exam on admission, now improving, laboratory evidence of poor perfusion to include increased Cr, lactate -IVF as above Now only one recorded BM today-improved C.diff gene positive but toxin negative-likely carrier Fecal leuks rare Given that she had lactulose and other laxatives and enemas the day prior to admission, seems to not be C. diff -follow stool culture -Repeat Lactate in AM - if persistently elevated, persistent abdominal discomfort or worsening of symptoms would consider Surgery --they are following (4) Abdominal pain: Concern for proctitis/colitis, less likely large bowel obstruction. CT with slight worsening of colitis and with ileus -Tx as above for diarrhea -KUB shows ileus as does CT abd/pel -NGT in place with high output the last 24 hours -Surgery following, no indication for surgery at this time -IV fentanyl prn (5) TOMMY (acute kidney injury): Patient with acutely elevated Cr = 2.01 from 0.7 on admission. Possibly secondary to hypotension, pre-renal azotemia + ATN. Also with elevated CK Pole Classifier slightly increased today to 2.18 UOP low but picking up CPK trended downward to 800 -continue aggressive IVF, vasopressors for hypotension, added IV albumin -Monitor BUN, Cr, electrolytes -Avoid nephrotoxic agents -Renal dosing where needed (6) Elevated troponin: Patient denies chest pain. Troponin = 0.046 and repeat down to within normal range x 2, EKG with lateral TWI. Suspect demand ischemic in setting of prolonged hypotension -ASA 81mg po daily (7) Hypokalemia: replaced and now improved follow bmp (8) Asthma: Chronic. No SOB or wheeze -Albuterol PRN -Continue Trelegy -Supplemental O2 as needed (9) CAD (coronary artery disease): Chronic -ASA 81mg po daily initiated -Continue Crestor 5mg po qAM (10) COPD (chronic obstructive pulmonary disease): Stable. No SOB/Cough/Wheeze or other respiratory complaints -Continue Albuterol, Fluticasone/Vilanterol (11) Hyperlipidemia: Chronic -Continue Crestor (12) Hypertension: Hypotension as above. Patient currently not on any anti-hypertensives -Closely monitor BP (13) Unspecified cirrhosis of liver: likely secondary to DOLAN no acute issues With mildly elevated LFTs likely from this and hypotension/shock liver (14) Obstructive sleep apnea syndrome: -continue CPAP qhs (15) Closed T11 fracture: Seen on KUB and then on CT ordered by Spine Surgery Appreciate further Ortho SPine recommendations (16) Aphasia: SHe apparently has had difficulty with speaking since January when she was seen in ER for a CVA rule out and had a normal brain MRI Perhaps she had a small stroke not visible on our MRI Nothing new here it seems but worsened aphasia from hypotension -continue ASA, statin -f/u with Neuro after discharge (17) Right sided weakness: as above (18) DVT prophylaxis: - Heparin Code - Full Dispo - continued stay in ICU Admission and Anticipated Discharge Date Admission Date: April 05, 2020 Subjective Pt remains in ICU, on pressors, BPs improved. She is lethargic when I saw her and only briefly woke up to loud verbal stimulus nad made a grimace. But she did shake her head "no" when asked if she had abdominal pain. Review of Systems Review of Systems: Unobtainable due to cognitive status Physical Exam Constitutional: + ill appearing and + obese Eyes: + anicteric sclerae and EOM intact bilaterally Neck: trachea midline, no thyromegaly Respiratory: Auscultation: + diminished lung sounds (throughout due to body habitus) Cardiovascular: Rate/Rhythm: regular rhythm and + tachycardic Heart Sounds: no murmur Extremities: no edema Chest (Breasts): Chest: normal inspection of chest Gastrointestinal (Abdomen): Inspection/Auscultation: + hypoactive bowel sounds Percussion/Palpation: abdomen soft; abdomen nontender and abdomen not rigid Musculoskeletal: Extremities: extremities normal to inspection; no cyanosis and no clubbing Skin: no rashes, warm and dry Neurologic: awake Speech / Cognition: + abnormal speech Psychiatric: Orientation: + not alert (lethargic) Affect: + anxious affect Cognition: + language not intact Genitourinary: Prasad in place with dark yellow urine Lymphatic: no lymphedema Results & Data Results & Data ([facility]) Vital Signs (Past 12 Hours) Vital Signs Pulse Resp BP Pulse Ox 04/07/20 09:30 96 H 21 98 04/07/20 09:26 97 H 24 121/81 98 04/07/20 09:15 95 H 20 97 04/07/20 09:00 97 H 22 97 04/07/20 08:45 96 H 23 97 04/07/20 08:30 95 H 19 98 Laboratory Results Labs reviewed PG Care Time/CCT Total # of Minutes Spent Total Time Spent with Patient: Total time spent is greater than 50% in coordination of care (as documented) at patient's floor/unit and/or counseling patient: Coding Level of Care Code 42449 Subseq Hosp Care Lvl 2 Diagnoses Septic shock A41.9; R65.21 Elevated lactic acid level R79.89 Diarrhea R19.7 Diarrhea type: unspecified type Abdominal pain R10.33 Abdominal location: periumbilical TOMMY (acute kidney injury) N17.9 Elevated troponin R79.89 Hypokalemia E87.6 Asthma J45.40 Asthma complication type: unspecified Asthma persistence: persistent Asthma severity: moderate CAD (coronary artery disease) I25.10 Associated angina: without angina Coronary Disease-Associated Artery/Lesion type: unspecified vessel or lesion type [place] vs. transplanted heart: [place] heart COPD (chronic obstructive pulmonary disease) J44.9 COPD type: unspecified COPD Hyperlipidemia E78.5 Hyperlipidemia type: unspecified Hypertension I10 Hypertension type: essential hypertension Unspecified cirrhosis of liver K74.60 Obstructive sleep apnea syndrome G47.33 Closed T11 fracture S22.089A Aphasia R47.01 Right sided weakness R53.1 DVT prophylaxis Z29.9 (1) CAD (coronary artery disease) Associated angina: without angina Coronary Disease-Associated Artery/Lesion type: unspecified vessel or lesion type [place] vs. transplanted heart: [place] heart Qualified Code(s): I25.10 - Atherosclerotic heart disease of [place] coronary artery without angina pectoris (2) Diarrhea Diarrhea type: unspecified type Qualified Code(s): R19.7 - Diarrhea, unspecified (3) Hyperlipidemia Hyperlipidemia type: unspecified Qualified Code(s): E78.5 - Hyperlipidemia, unspecified (4) COPD (chronic obstructive pulmonary disease) COPD type: unspecified COPD Qualified Code(s): J44.9 - Chronic obstructive pulmonary disease, unspecified (5) Abdominal pain Abdominal location: periumbilical Qualified Code(s): R10.33 - Periumbilical pain (6) Hypertension Hypertension type: essential hypertension Qualified Code(s): I10 - Essential (primary) hypertension (7) Asthma Asthma complication type: unspecified Asthma persistence: persistent Asthma severity: moderate Qualified Code(s): J45.40 - Moderate persistent asthma, uncomplicated
[2020-04-08] MEDS: D5W AND LACTATED RINGERS 1,000 ML IV SCH ×2 (01:33→13:53)
[2020-04-08 04:25] LABS: Basophils # (auto) 0.02 K/uL (0-0.2); Basophils % (auto) 0.3 %; Eosinophils # (auto) 0.57 K/uL (0-0.5); Eosinophils % (auto) 7.3 %; Hematocrit (blood only) 35.9 % (37-47); Hemoglobin 12.3 g/dL (12.0-16.0); Immature Granulocytes # (auto) 0.03 K/uL (0.00-0.02); Immature Granulocytes % (auto) 0.4 %; Lymphocytes # (auto) 0.91 K/uL (1.2-3.4); Lymphocytes % (auto) 11.7 %; Mean Corpuscular Hemoglobin 30.3 pg (25-34); Mean Corpuscular Hgb Conc 34.3 g/dL (32-36); Mean Corpuscular Volume 88.4 fL (80-100); Monocytes # (auto) 0.85 K/uL (0.11-0.59); Neutrophils # (auto) 5.38 K/uL (1.4-6.5); Neutrophils % (auto) 69.3 %; Platelet Count 156 K/uL (130-400); RDW Coefficient of Variation 14.6 % (11.5-14.5); RDW Standard Deviation 47.3 fL (36.4-46.3); Red Blood Count 4.06 M/uL (4.2-5.4); White Blood Count 7.76 K/uL (4.8-10.8)
[2020-04-08 04:52] LABS: Albumin Globulin Ratio 0.7 (0.9-2); Albumin Level 1.9 gm/dl (3.4-5.0); BUN Creatinine Ratio 17.3 (10-20); Bilirubin,Total 0.5 mg/dl (0.2-1); Calcium 8.1 mg/dl (8.5-10.1); Creatinine Clr Calc Pharmacy 43.4 ml/min; Est GFR (African American) 44.7; Est GFR (Non-African American) 38.6; Globulin 2.8 gm/dl (2.5-4.0); Magnesium 2.1 mg/dl (1.8-2.4); Phosphorus 1.9 mg/dl (2.5-4.9); Potassium 3.4 mmol/L (3.5-5.1); Total Protein 4.7 gm/dl (6.4-8.2)
[2020-04-08] MEDS: metroNIDAZOLE 500 MG/100 ML BAG IV SCH ×3 (05:08→22:08)
[2020-04-08] MEDS ORDERED: POTASSIUM PHOS 3 MMOL/1 ML INFUSION IV STA (05:43)
[2020-04-08] MEDS ORDERED: POTASSIUM PHOSPHATE 30 MMOL in SODIUM CHLORIDE 0.9% 500 ML IV ONE (06:15)
[2020-04-08] MEDS: FLUTICASONE/VILANTEROL 200/25MCG 14 PUFFS/INHALER INH SCH (07:44)
[2020-04-08] MEDS: ROSUVASTATIN CALCIUM 5 MG TAB PO SCH (07:50)
[2020-04-08] MEDS: ASPIRIN 81 MG ECTAB PO SCH (07:50)
[2020-04-08] MEDS: PANTOprazole 40 MG TAB PO SCH ×2 (07:50→20:59)
--- NOTE | 2020-04-08 08:11 | Critical Care Progress Note ---
Date of Service April 08, 2020 Assessment & Plan (1) Septic shock: Impression: 69-year-old female with history of coronary disease, obstructive lung disease, and morbid obesity presenting with septic shock, likely secondary to bacterial translocation from recent manual disimpaction and colonic distention. She likely has some degree of proctitis as well. She was transferred to the ICU 04/06/2020 due to persistent hypotension and progressive lactic acidosis with progressive acute renal failure. 24-hour events: Off pressors since yesterday at 8PM. Hemodynamics appear to be holding. She is more awake but continues to have somewhat garbled speech. U rine output is improving and serum creatinine better. Recommendations: 1. Neurologic: Patient's speech appears somewhat muffled although she does follow commands clearly and moves all 4 extremities. She is improved compared to yesterday. Having difficulty correlating her speech issues with her neuro exam. Cerebellar or brainstem issues could be possible. Of note the patient did undergo an evaluation for stroke February 21, 2020 with an MRI of the brain without contrast which demonstrated no abnormality at that time. Interestingly the study was performed due to dysarthria and right-sided weakness. As she has shown clinical improvement would elect to continue to follow her clinically at this point time as a do not believe there would be changes to her management strategy. If she continues to have issues, repeating an MRI of the brain with contrast may be appropriate. 2. Cardiovascular: Severe sepsis with septic shock: Now resolved. She is off pressors and her lactate is clearing. Will discontinue arterial line 3. Pulmonary: History of COPD although PFTs are not available in review the electronic medical record. She does not appear bronchospastic currently. She is at risk for restrictive lung disease due to body habitus and diaphragm dysfunction. Continue CPAP at night at 8 cm of water with oxygen bleed. Can continue inhalers as needed. Her CT scan does demonstrate some basilar atelectasis which will improve with improved pulmonary toilet, sitting upright, and incentive spirometry. Would like to get her out of bed to chair with incent aneesh spirometry however will await orthospine recommendations given the thoracic body fracture. Will hold on PT and OT until evaluated by orthospine 4. Renal: Acute renal failure/acute kidney injury: Suspect this is ATN due to hypovolemia. Improving this morning. Continue to trend. Keep IV fluids until taking adequate p.o. 5. GI: Proctitis/colitis likely due to the recent obstipation and manual disimpaction. Continue antibiotics to cover enteric garth. We will continue Flagyl and cefepime. Await cultures and response to therapy. Ammonia level normal. Appreciate general surgery assistance. Exam and clinically better today 6. ID: Again suspect intra-abdominal process related to proctitis. Day #3 cefepime Flagyl. Culture data remains negative however white count is now normalized. She is clinically improving. Will likely need at least 7 days antimicrobial therapy 7. Endocrine: Metabolic syndrome. We will continue to monitor blood sugar and glycemic control per protocol. 8. Musculoskeletal: Transverse spinal fracture identified on CT scan. Unclear etiology. Orthopedics consult pending. 9. Disposition: Patient is now off pressors with improving mental status and renal function. She may be appropriate to transfer to the floor. Will discuss with hospitalist. Will sign off when she leaves the ICU. (2) TOMMY (acute kidney injury): Admission and Anticipated Discharge Date Admission Date: April 05, 2020 Subjective Patient more awake and interactive. She is able to follow some limited commands. She is currently on her home CPAP settings. She is able to move arms and legs to command and opens eyes to voice. She is able to state her name although with somewhat garbled. Her abdominal pain is markedly less. She is complaining of some back pain. Review of Systems Review of Systems: Unchanged from prior Physical Exam Constitutional: + obese; not ill appearing and not in distress Eyes: PERRL, conjunctivae normal, anicteric sclerae Respiratory: Breath sounds diminished bilaterally. Few basilar crackles. No wheezing Cardiovascular: Rate/Rhythm: + tachycardic Heart Sounds: normal S1 and normal S2; no murmur Gastrointestinal (Abdomen): Bowel sounds are present. She is not distended and less tender to palpation. Neurologic: Voice remains garbled but she is able to state her name. Results & Data Results & Data ([facility]) Vital Signs (Past 12 Hours) Vital Signs Temp Pulse Resp BP Pulse Ox 04/08/20 05:27 36.9 C 90 18 142/85 H 95 04/08/20 04:36 88 20 96 04/08/20 04:35 36.9 C 90 18 138/82 95 04/08/20 04:27 91 H 16 139/73 96 04/08/20 04:00 90 16 95 04/08/20 03:31 90 21 95 04/08/20 03:27 93 H 17 133/77 95 04/08/20 02:27 92 H 20 122/82 97 04/08/20 02:00 91 H 19 95 04/08/20 01:27 91 H 16 141/72 H 95 04/08/20 00:27 94 H 20 137/84 95 04/08/20 00:00 36.9 C 94 H 18 95 04/07/20 23:27 93 H 17 139/73 95 04/07/20 22:28 94 H 17 94 04/07/20 22:27 93 H 15 135/84 94 04/07/20 22:03 94 H 19 95 04/07/20 22:00 96 H 20 96 04/07/20 21:27 94 H 18 120/75 98 04/07/20 20:27 97 H 24 137/76 97 Laboratory Results 04/08/20 04:14 04/08/20 04:[address] of the thoracic spine reviewed. CT thoracic spine wo con CLINICAL HISTORY: 69 years-old Female presenting with assess thoracic fracture. TECHNIQUE: Multidetector CT of the thoracic spine was performed without the use of intravenous contrast. IV contrast: None. One or more dose lowering techniques were used consistent with the principles of ALARA (as low as reasonably achievable), including automatic exposure control, mA or kV adjustment to individual patient size, and/or use of iterative reconstruction. COMPARISON: CT of abdomen and pelvis performed on 04/06/2020, 04/05/2020, and 04/04/2020, plain radiographs of the lumbar spine from 01/20/2020, an MR lumbar spine from 12/15/2019. CT DOSE (mGy.cm): The estimated cumulative dose is 1361.27 mGy.cm. FINDINGS: [employer] View[employer] topogram: Nasogastric tube terminates in the body the stomach with sidehole also contained within the gastric lumen. Thoracolumbar fusion hardware. Cholecystectomy clips. Total right hip arthroplasty. Mild gaseous distention of bowel. Right basilar opacity. Extensive bibasilar consolidation and volume loss with near complete collapse of the bilateral lower lobes. Nasogastric tube in place. Cholecystectomy clips noted. The right adrenal gland appears surgically absent. Posterior bilateral transpedicular screw and russel fixation of T11 into the lumbar spine. Laminectomy defects of L1 and below. No evidence of hardware breakage. No radiolucency surrounding the screws. Redemonstration of the axially/horizontally oriented fracture through the T11 level with breakage of the flowing anterior osteophytosis anteriorly and violation of the superior endplate extension into the T10-11 intervertebral disc space. There is no extension into the posterior elements. No additional fracture is evident. This is new from the prior radiographs from December. No effacement of the spinal canal at this level. No retropulsion of the posterior cortex of T11. Flowing osteophytosis throughout the thoracic spine consistent with a rigid spine in the setting of diffuse idiopathic skeletal hyperostosis. There is no evidence of osseous spinal canal narrowing. Osseous neural foraminal narrowing is evident at T1-2, T2-3, T3-4 on the left, and T4-5 bilaterally. IMPRESSION: 1. Axially/horizontally oriented fracture of T11 extending into the T10-11 disc space. No extension into the posterior elements. This represents fracture of the rigid spine in the setting of diffuse idiopathic skeletal hyperostosis. No additional fracture. This is new since December. 2. Unremarkable thoracolumbar fusion hardware. 3. Multilevel osseous neural foraminal narrowing upper thoracic spine. 4. No significant osseous spinal canal narrowing in the thoracic spine. Coding Level of Care Code 67269 Subseq Hosp Care Lvl 3 Diagnoses Septic shock A41.9; R65.21 TOMMY (acute kidney injury) N17.9
[2020-04-08] MEDS: fentaNYL citrate 100 MCG/2 ML VIAL IV PRN ×3 (08:12→17:35)
[2020-04-08] MEDS: NYSTATIN POWDER 15GM BTL EXT SCH ×2 (08:13→21:01)
[2020-04-08] MEDS: CEFEPIME 2,000 MG in SYRINGE 7.5 ML IV SCH ×2 (10:56→22:13)
--- NOTE | 2020-04-08 10:59 | Surgery Progress Note ---
Date of Service April 08, 2020 Assessment & Plan (1) Proctocolitis: sepsis responding to abx and supportive care abdomen benign con't IV abx improving Subjective a little more alert off levophed vitals good Review of Systems Constitutional: no fever and no chills Respiratory: no dyspnea Cardiovascular: no chest pain Gastrointestinal: no abdominal pain Physical Exam Constitutional: well developed and well nourished; no acute distress Neck: trachea midline Respiratory: normal respiratory effort, lungs clear to auscultation Auscultation: + diminished lung sounds Cardiovascular: RRR, no murmur, no edema Gastrointestinal (Abdomen): Inspection/Auscultation: normal bowel sounds; abdomen not distended Percussion/Palpation: abdomen nontender and no guarding Musculoskeletal: Head/Neck/Chest: normocephalic and head atraumatic Skin: no rashes, warm and dry Results & Data Vital Signs (Past 12 Hours) Vital Signs Temp Pulse Resp BP Pulse Ox 04/08/20 09:35 89 20 139/92 95 04/08/20 09:27 91 H 18 139/92 95 04/08/20 09:00 91 H 20 95 04/08/20 08:27 92 H 14 142/86 H 93 04/08/20 08:00 37 C 91 H 18 96 04/08/20 07:27 90 18 138/96 96 04/08/20 07:00 90 18 96 04/08/20 05:27 36.9 C 90 18 142/85 H 95 04/08/20 04:36 88 20 96 04/08/20 04:35 36.9 C 90 18 138/82 95 04/08/20 04:27 91 H 16 139/73 96 04/08/20 04:00 90 16 95 04/08/20 03:31 90 21 95 04/08/20 03:27 93 H 17 133/77 95 04/08/20 02:27 92 H 20 122/82 97 04/08/20 02:00 91 H 19 95 04/08/20 01:27 91 H 16 141/72 H 95 04/08/20 00:27 94 H 20 137/84 95 04/08/20 00:00 36.9 C 94 H 18 95 04/07/20 23:27 93 H 17 139/73 95
[2020-04-08] MEDS: HEPARIN SOD 5,000 UNIT/0.5 ML VIAL SQ SCH ×2 (11:09→21:00)
--- NOTE | 2020-04-08 11:54 | Orthopedic Consultation ---
Date of Consultation April 08, 2020 Assessment & Plan (1) Closed T11 fracture: This time the patient demonstrates a fracture across the T10-T11 disc space. This is highly unstable in light of her diffuse skeletal hypertrophy. This point recommend strict logroll only. The bed B may be elevated for her to sit up. We may need to consider us for surgical stabilization pending her overall improvement. Present on Admission?: Yes History of Present Illness Reason for Consultation: Back pain Attending Physician: Jacklyn Gan MD History of Present Illness This is a 69-year-old female well-known to me that was admitted with multiple medical problems including septic shock. I was consulted secondary to possible fracture noted on a CAT scan of the chest and abdomen. This morning the patient is not responsive to my questioning. I was unable to arouse her. Allergies Allergy/AdvReac Type Severity Reaction Status Date / Time metformin AdvReac Intermediate DIARRHEA Verified 04/05/20 16:46 oxycodone AdvReac Intermediate GI Verified 04/05/20 16:46 SYMPTOMS, DISORIENTATION ampicillin AdvReac Mild Nausea/vomi Verified 04/05/20 16:46 ting codeine AdvReac Mild NAUSEA Verified 04/05/20 16:46 gabapentin AdvReac Mild DIZZINESS, Verified 04/05/20 16:46 FIDGETY hydrocodone AdvReac Mild "MADE ME Verified 04/05/20 16:46 FEEL WEIRD" lorazepam AdvReac Mild DIZZY Verified 04/05/20 16:46 lovastatin AdvReac Mild WASN'T Verified 04/05/20 16:46 EFFECTIVE meloxicam AdvReac Mild DIZZINESS Verified 04/05/20 16:46 propoxyphene AdvReac Mild NAUSEA Verified 04/05/20 16:46 tramadol AdvReac Mild GI SYMPTOMS Verified 04/05/20 16:46 narcotics AdvReac Mild Hallucinati Uncoded 04/05/20 16:46 ng Home Medications Home Medications Medication Instructions Recorded Confirmed Type albuterol sulfate 90 mcg/actuation 2 puffs INH Q4H PRN gm 08/07/19 04/05/20 History aerosol inhaler pantoprazole 20 mg tablet,delayed 20 mg PO BID tab 09/09/19 04/05/20 History release naproxen sodium [Aleve] 220 mg PO BID 10/11/19 04/05/20 History budesonide-formoterol HFA 160 2 puffs INH BID #10.2 gm 11/16/19 04/05/20 Rx mcg-4.5 mcg/actuation aerosol inhaler rosuvastatin 5 mg tablet 5 mg PO QAM #90 tab 12/06/19 04/05/20 Rx nebulizer accessories #1 ea 12/07/19 04/04/20 Rx lidocaine [Lidoderm] 1 patch TOP UD PRN 12/26/19 04/05/20 History hydroxyzine pamoate [Vistaril] 25 mg PO TID PRN 01/18/20 04/05/20 History cyanocobalamin (vitamin B-12) 1,000 mcg IM MONTHLY #10 ml 02/28/20 04/05/20 Rx 1,000 mcg/mL injection solution syringe with needle 3 mL 25 gauge #3 ea 02/28/20 04/04/20 Rx x 1" fluconazole 150 mg tablet 150 mg PO .COMPLEX 28 Days #4 tab 03/14/20 04/05/20 Rx nystatin 100,000 unit/gram topical 1 appln TOP BID #60 gm 03/14/20 04/05/20 Rx powder miscellaneous medical supply #1 ea 03/23/20 04/04/20 Rx Wheelchair (Manual or Powered) #1 ea 03/26/20 04/04/20 Rx albuterol sulfate 2.5 mg INH BID 04/04/20 04/05/20 History cyclobenzaprine 10 mg PO TID PRN 04/04/20 04/05/20 History Patient History Medical History (Updated 04/08/20 @ 10:58 by Benigno Yuan MD) Anxiety (Chronic) Asthma (Chronic) Stable- has albuterol nebulizer and inhaler- uses 1-2 times daily Borderline high cholesterol BPPV (benign paroxysmal positional vertigo) CAD (coronary artery disease) (Chronic) Pt denies Colitis COPD (chronic obstructive pulmonary disease) (Chronic) Depression (Chronic 01/03/12) Dysmetabolic syndrome X (Chronic) Fatty (change of) liver, not elsewhere classified (Chronic) Gastroesophageal reflux disease with esophagitis (Chronic) Well controlled with Protonix 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 Hiatal hernia Hypertension (Chronic) Impaired memory (Chronic) Mild- feels back pain making memory worse Lumbar stenosis with neurogenic claudication (Chronic) Morbid obesity with BMI of 45.0-49.9, adult Obstructive sleep apnea syndrome (Chronic 01/03/12) Uses CPAP q HS Osteopenia (Chronic) Prediabetes (Chronic) Pt denies - pre op glucose 249- getting clarification from PCP Proctocolitis Restrictive lung disease (Chronic) Unspecified cirrhosis of liver (Chronic) Secondary to fatty liver - follows with GI - stable at this time (LFTs WNL 11/07/19) Venous insufficiency (Chronic) Varicose veins- no treatment needed - no current LE edema Surgical History History of abdominal surgery removed benign tumor from stomach History of bilateral cataract extraction History of cardiac cath 30+YR AGO, NO SIG ISSUES PER PT- DENIES STENTS OR BYPASS History of carpal tunnel surgery of right wrist History of cholecystectomy (Resolved) History of colonoscopy History of esophagogastroduodenoscopy (EGD) History of herniorrhaphy (Resolved) History of lumbar fusion (Resolved) L2 through S1 fusion August [address] Patel History of right shoulder replacement History of tonsillectomy and adenoidectomy History of tooth extraction all upper teeth History of total hysterectomy with bilateral salpingo-oophorectomy (BSO) History of total right hip arthroplasty (Resolved) Nausea and vomiting after administration of anesthetic agent Status post trigger finger release HX OF right hand Family History Unknown Heart disease Father Asthma Mother Alzheimer disease Aortic aneurysm Aunt Family history of diabetes mellitus Grandmother Family history of diabetes mellitus Other No family history of adverse response to anesthesia Social History Preferred Language: Senegalese Communication Ability: Effective Visual Impairment: Limited Hearing Ability: Hard of Hearing Breastfeeding Program Coordinator Required: No Beliefs That Will Affect Care: None marital status: Current Living Situation: Spouse and Family Current Living Situation Comment: AND SON current occupational status: retired Other Information That Helps Us Care for You: No Feels Safe at Home: Yes Safety Concerns: Feels Safe At This Time Smoking Status: Never smoker Second Hand Exposure: Yes ( smoked/parents smoked) ; Hx Alcohol Use: No Hx Substance Use: No caffeine: Yes Seatbelt Use: always Physical Exam Physical Exam: Physical exam she is neurologically intact per my discussion with her nurse. I was unable to assess that she was unresponsive to my attempts this morning. Results & Data ([facility]) Vital Signs (Past 12 Hours) Vital Signs Temp Pulse Resp BP Pulse Ox 04/08/20 11:21 89 21 93 04/08/20 09:35 89 20 139/92 95 04/08/20 09:27 91 H 18 139/92 95 04/08/20 09:00 91 H 20 95 04/08/20 08:27 92 H 14 142/86 H 93 04/08/20 08:00 37 C 91 H 18 96 04/08/20 07:27 90 18 138/96 96 04/08/20 07:00 90 18 96 04/08/20 05:27 36.9 C 90 18 142/85 H 95 04/08/20 04:36 88 20 96 04/08/20 04:35 36.9 C 90 18 138/82 95 04/08/20 04:27 91 H 16 139/73 96 04/08/20 04:00 90 16 95 04/08/20 03:31 90 21 95 04/08/20 03:27 93 H 17 133/77 95 04/08/20 02:27 92 H 20 122/82 97 04/08/20 02:00 91 H 19 95 04/08/20 01:27 91 H 16 141/72 H 95 04/08/20 00:27 94 H 20 137/84 95 04/08/20 00:00 36.9 C 94 H 18 95 Diagnostic Findings CAT scan of the thoracic spine does demonstrate instrumented fusion up to T11. She has a fracture across the T10-T11 disc space. This is consistent with a bony Chance fracture secondary to her diffuse idiopathic skeletal hypertrophy.
--- NOTE | 2020-04-08 17:33 | Hospitalist Progress Note ---
Date of Service April 08, 2020 Assessment & Plan (1) Septic shock: Patient with significant hypotension and profuse diarrhea requiring rectal tube in setting of likely stercoral colitis/suspected bacterial translocation. BP only minimally improved with crystalloid infusion - 4L given then on maintenance fluids. Then had rising lactate, worsening abdominal pain. Surgical consult obtained and recommended no surgery but transfer to ICU Pt then with worsening status and had BPs 60s systolic on AM after admission--> bolused IVFs and transferred to ICU for vasopressors and continued volume resuscitation and treatment of septic shock. With leukocytosis, tachycardia, tachypnea, lactate rising to 5.8, hypotension, but afebrile. Source intraabdominal with distal colitis and ileus. -Random cortisol checked and 25 (noted surgical clips in region of right adrenal gland noted on CT) which was adequate UA without evidence of infection CXR without PNA but CT T-spine with bibasilar consolidation-seems to be atelectasis Now weaned off vasopressors, renal failure resolved, diarrhea resolved, received IV albumin Cultures remain negative, is afebrile, lactate trended back downward to 2.6, leukocytosis resolved BPs stable -transfer out of ICU -continue IVFs with D5LR (also with hypoglycemia) and remains NPO until seen by Speech -Central line and A-line uhvycm-N-zgox removed today -follow lytes, renal function, CBC -continue to treat with broad spectrum abx Cefepime and Flagyl -follow blood, stool cultures -C. diff gene positive but toxin negative-no po Vanco indicated (2) Elevated lactic acid level: With lactic acidosis, accounts for tachypnea, is secondary to sepsis Trended back downward as above No ischemic bowel suspected but with colitis on CT -continue IVF resuscitation (3) Diarrhea: Presented with copious amounts of watery diarrhea. Likely secondary to medications administered for previous constipation vs infectious/inflammatory/stercoral colitis. Was quite dry on clinical exam on admission, now improving, laboratory evidence of poor perfusion to include increased Cr, lactate -IVF as above Now resolved, rectal tube removed C.diff gene positive but toxin negative-likely carrier Fecal leuks rare Given that she had lactulose and other laxatives and enemas the day prior to admission, seems to not be C. diff -follow stool culture (4) Abdominal pain: Concern for proctitis/colitis, less likely large bowel obstruction. CT with slight worsening of colitis and with ileus -Tx as above for diarrhea -KUB shows ileus as does CT abd/pel -NGT in place with less output the last 24 hours -Surgery following, no indication for surgery at this time -was receiving IV fentanyl but is making her very lethargic-discontinue this -avoid opioids as she has a lot of sensitivities to them in allergy list and want her to be less lethargic (5) TOMMY (acute kidney injury): Patient with acutely elevated Cr = 2.01 from 0.7 on admission. Possibly secondary to hypotension, pre-renal azotemia + ATN. Also with elevated CK Decator Operator peaked at 2.18 but now down to 1.39 UOP adequate CPK trended downward to 800 -continue IVF -follow BMP, UOP -Avoid nephrotoxic agents -Renal dosing where needed (6) Elevated troponin: Patient denies chest pain. Troponin = 0.046 and repeat down to within normal range x 2, EKG with lateral TWI. Suspect demand ischemic in setting of prolonged hypotension -ASA 81mg po daily (7) Hypokalemia: replaced follow bmp (8) Asthma: Chronic. No SOB or wheeze -Albuterol PRN -Continue Trelegy -Supplemental O2 as needed (9) CAD (coronary artery disease): Chronic -ASA 81mg po daily initiated -Continue Crestor 5mg po qAM (10) COPD (chronic obstructive pulmonary disease): Stable. No SOB/Cough/Wheeze or other respiratory complaints -Continue Albuterol, Fluticasone/Vilanterol (11) Hyperlipidemia: Chronic -Continue Crestor (12) Hypertension: Hypotension as above. Patient currently not on any anti-hypertensives -Closely monitor BP (13) Unspecified cirrhosis of liver: likely secondary to DOLAN no acute issues With mildly elevated LFTs likely from this and hypotension/shock liver (14) Obstructive sleep apnea syndrome: -continue CPAP qhs (15) Closed T11 fracture: Seen on KUB and then on CT Thoracic spine ordered by Spine Surgery Appreciate further Ortho SPine recommendations--> unstable fracture Needs surgical repair urgently once medically stable Discussed with as she has been so acutely ill but is having some improvement now Would be high risk for surgery given that 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 Patel to discuss with and make final decision soon on Thursday If had back surgery, would be later this week Pain control with tylenol only now to avoid opioids -Strict LOGROLL only, can sit up in bed to eat/drink (16) Aphasia: SHe apparently has had difficulty with speaking since January when she was seen in ER for a CVA rule out and had a normal brain MRI Perhaps she had a small stroke not visible on our MRI Nothing new here it seems but worsened aphasia from hypotension -continue ASA, statin COnsult Neuro here -consider repeat brain imaging She seems slightly worse now than her baseline, but her septic shock may have just augmented her pre-existing deficits (17) Right sided weakness: as above (18) Hypophosphatemia: repalce follow in AM (19) DVT prophylaxis: - Heparin SQ FEN-NGT in place, awaiting SPEECH consult, continue D5LR Code - Full Dispo - transfer out to [facility] Admission and Anticipated Discharge Date Admission Date: April 05, 2020 Subjective Pt lethargic when I saw her, has been receiving intermittent Fentanyl IV for pain in back but says she has no abd pain. She cannot speak and when asked to say her name, she is able to open her mouth and malinad debbi comes out. Her h usband tells me this is worse than her baseline speech pattern since January. She is extremely weak, continues with an NGT in place and has not yet seen Speech Therapy today as per Financial Rep wishes, remains NPO. reports she has trouble with choking with eating at home and they were having home Speech Therapy prior to this admission. also reports she has had great difficulty with her right arm weakness since Jan-February also and has been using her non-dominant hand on the left with which to eat. She has never seen a Neurologist. She has had no diarrhea, BP has been normal off Levophed since last evening. Afebrile. I discussed the case with Financial Rep who says she is stable for transfer out of the ICU. Discussed the case with Dr. Patel of Ortho SPine who said she has an unstable T11 fracture and without surgery, she would likely be bedbound. I discussed all of this with her on the phone and he is leaning towards her having back surgery later this week after more stable from an infectious standpoint.Dr. Patel plans on calling the on Thursday to further discuss. Review of Systems Review of Systems: Unobtainable due to cognitive status Physical Exam Constitutional: + ill appearing and + obese Eyes: + anicteric sclerae and EOM intact bilaterally ENMT: Ears: + hearing impairment Mouth: + oral mucosal abnormality (dry mucus membranes, NGT in place) Neck: trachea midline, no thyromegaly Respiratory: Auscultation: + diminished lung sounds (throughout due to body habitus) Cardiovascular: Rate/Rhythm: regular rate and regular rhythm Heart Sounds: no murmur Extremities: + edema (hands with 2+ edema) Chest (Breasts): Chest: normal inspection of chest Gastrointestinal (Abdomen): Inspection/Auscultation: + hypoactive bowel sounds Percussion/Palpation: abdomen soft; abdomen nontender and abdomen not rigid Musculoskeletal: Extremities: extremities normal to inspection; no cyanosis and no clubbing Skin: no rashes, warm and dry Neurologic: awake Speech / Cognition: + abnormal speech today, she will not even try to squeeze my fingers on either side, very lethargic does dorsiflex ankle on left but not on the right Psychiatric: Orientation: + not alert (lethargic) Cognition: + language not intact Genitourinary: + abnormal external appearance (Prasad catheter in place) Results & Data Results & Data ([facility]) Vital Signs (Past 12 Hours) Vital Signs Temp Pulse Resp BP Pulse Ox 04/08/20 11:21 89 21 93 04/08/20 09:35 89 20 139/92 95 04/08/20 09:27 91 H 18 139/92 95 04/08/20 09:00 91 H 20 95 04/08/20 08:27 92 H 14 142/86 H 93 04/08/20 08:00 37 C 91 H 18 96 04/08/20 07:27 90 18 138/96 96 04/08/20 07:00 90 18 96 Laboratory Results labs reviewed Stool cx pending BCxs no growth PG Care Time/CCT Total # of Minutes Spent Total Time Spent with Patient: Total time spent is greater than 50% in coordination of care (as documented) at patient's floor/unit and/or counseling patient: Coding Level of Care Code 41040 Subseq Hosp Care Lvl 3 Diagnoses Septic shock A41.9; R65.21 Elevated lactic acid level R79.89 Diarrhea R19.7 Diarrhea type: unspecified type Abdominal pain R10.33 Abdominal location: periumbilical TOMMY (acute kidney injury) N17.9 Elevated troponin R79.89 Hypokalemia E87.6 Asthma J45.40 Asthma complication type: unspecified Asthma persistence: persistent Asthma severity: moderate CAD (coronary artery disease) I25.10 Associated angina: without angina Coronary Disease-Associated Artery/Lesion type: unspecified vessel or lesion type [place] vs. transplanted heart: [place] heart COPD (chronic obstructive pulmonary disease) J44.9 COPD type: unspecified COPD Hyperlipidemia E78.5 Hyperlipidemia type: unspecified Hypertension I10 Hypertension type: essential hypertension Unspecified cirrhosis of liver K74.60 Obstructive sleep apnea syndrome G47.33 Closed T11 fracture S22.089A Aphasia R47.01 Right sided weakness R53.1 Hypophosphatemia E83.39 DVT prophylaxis Z29.9 (1) CAD (coronary artery disease) Associated angina: without angina Coronary Disease-Associated Artery/Lesion type: unspecified vessel or lesion type [place] vs. transplanted heart: [place] heart Qualified Code(s): I25.10 - Atherosclerotic heart disease of [place] coronary artery without angina pectoris (2) Diarrhea Diarrhea type: unspecified type Qualified Code(s): R19.7 - Diarrhea, unspecified (3) Hyperlipidemia Hyperlipidemia type: unspecified Qualified Code(s): E78.5 - Hyperlipidemia, unspecified (4) COPD (chronic obstructive pulmonary disease) COPD type: unspecified COPD Qualified Code(s): J44.9 - Chronic obstructive pulmonary disease, unspecified (5) Abdominal pain Abdominal location: periumbilical Qualified Code(s): R10.33 - Periumbilical pain (6) Hypertension Hypertension type: essential hypertension Qualified Code(s): I10 - Essential (primary) hypertension (7) Asthma Asthma complication type: unspecified Asthma persistence: persistent Asthma severity: moderate Qualified Code(s): J45.40 - Moderate persistent asthma, uncomplicated
[2020-04-08] MEDS ORDERED: ALBUTEROL 0.083% NEBU SOLN 3 ML VIAL INH SCH (21:00)
[2020-04-08] MEDS ORDERED: HYDROmorphone INJ 0.5 MG/0.5 ML SYR IV PRN (21:25)
[2020-04-08] MEDS: MoRPHine SULFATE 2 MG/ML CARP IV PRN (21:56)
[2020-04-09] MEDS: MoRPHine SULFATE 2 MG/ML CARP IV PRN ×3 (03:46→13:20)
[2020-04-09] MEDS: D5W AND LACTATED RINGERS 1,000 ML IV SCH ×2 (03:48→15:54)
[2020-04-09 05:57] LABS: Basophils # (auto) 0.01 K/uL (0-0.2); Basophils % (auto) 0.1 %; Hematocrit (blood only) 36.4 % (37-47); Hemoglobin 12.3 g/dL (12.0-16.0); Immature Granulocytes # (auto) 0.06 K/uL (0.00-0.02); Immature Granulocytes % (auto) 0.8 %; Lymphocytes # (auto) 1.05 K/uL (1.2-3.4); Lymphocytes % (auto) 14.7 %; Mean Corpuscular Hemoglobin 30.2 pg (25-34); Mean Corpuscular Hgb Conc 33.8 g/dL (32-36); Mean Corpuscular Volume 89.4 fL (80-100); Mean Platelet Volume 9.9 fL (7.4-10.4); Monocytes # (auto) 1.34 K/uL (0.11-0.59); Monocytes % (auto) 18.7 %; Neutrophils # (auto) 4.19 K/uL (1.4-6.5); Neutrophils % (auto) 58.7 %; Platelet Count 158 K/uL (130-400); RDW Coefficient of Variation 14.5 % (11.5-14.5); RDW Standard Deviation 47.8 fL (36.4-46.3); Red Blood Count 4.07 M/uL (4.2-5.4); White Blood Count 7.15 K/uL (4.8-10.8)
[2020-04-09] MEDS: metroNIDAZOLE 500 MG/100 ML BAG IV SCH ×3 (06:26→21:59)
[2020-04-09 06:28] LABS: Albumin Globulin Ratio 0.7 (0.9-2); Albumin Level 1.9 gm/dl (3.4-5.0); BUN Creatinine Ratio 27.4 (10-20); Bilirubin,Total 0.4 mg/dl (0.2-1); Calcium 7.9 mg/dl (8.5-10.1); Creatinine Clr Calc Pharmacy 73.8 ml/min; Est GFR (African American) 83.4; Est GFR (Non-African American) 71.9; Globulin 2.9 gm/dl (2.5-4.0); Magnesium 2.1 mg/dl (1.8-2.4); Phosphorus 2.2 mg/dl (2.5-4.9); Potassium 3.3 mmol/L (3.5-5.1); Total Protein 4.8 gm/dl (6.4-8.2)
[2020-04-09] MEDS: ALBUTEROL 0.083% NEBU SOLN 3 ML VIAL INH SCH ×2 (07:11→19:25)
[2020-04-09] MEDS: PANTOprazole 40 MG TAB PO SCH ×2 (08:50→21:32)
[2020-04-09] MEDS: ROSUVASTATIN CALCIUM 5 MG TAB PO SCH (08:51)
[2020-04-09] MEDS: HEPARIN SOD 5,000 UNIT/0.5 ML VIAL SQ SCH ×2 (08:51→21:30)
[2020-04-09] MEDS: NYSTATIN POWDER 15GM BTL EXT SCH ×2 (08:52→21:29)
[2020-04-09] MEDS ORDERED: Nursing to Pharmacy Communication ONE (10:02)
[2020-04-09] MEDS: CEFEPIME 2,000 MG in SYRINGE 7.5 ML IV SCH ×2 (10:08→22:06)
[2020-04-09] MEDS: FLUTICASONE/VILANTEROL 200/25MCG 14 PUFFS/INHALER INH SCH (10:09)
--- NOTE | 2020-04-09 10:14 | Surgery Progress Note ---
Date of Service April 09, 2020 Assessment & Plan (1) Proctocolitis: pt clinically improving no surgical indications at this point will sign of but will be available if we can assist in any way. Subjective pt seen. "groggy" from recent morphine administration. does not appear to be in pain. Physical Exam Physical Exam: somnolent abd: obese. soft. no peritoneal signs. Results & Data Vital Signs (Past 12 Hours) Vital Signs Temp Pulse Pulse Pulse Resp BP BP 04/09/20 07:31 36.7 C 94 H 20 126/69 04/09/20 07:15 92 H 04/09/20 07:12 89 20 04/09/20 04:10 93 H 16 04/09/20 03:49 36.8 C 90 20 132/78 04/09/20 01:10 89 16 04/08/20 22:57 36.9 C 91 H 20 129/76 04/08/20 22:20 92 H Pulse Ox 04/09/20 07:31 94 04/09/20 07:15 04/09/20 07:12 94 04/09/20 04:10 94 04/09/20 03:49 94 04/09/20 01:10 93 04/08/20 22:57 95 04/08/20 22:20 PG Care Time/CCT Total # of Minutes Spent Total Time Spent with Patient: Total time spent is greater than 50% in coordination of care (as documented) at patient's floor/unit and/or counseling patient: Coding Level of Care Code 89824 Subseq Hosp Care Lvl 2 Diagnoses Proctocolitis K52.9
[2020-04-09] MEDS: ASPIRIN 81 MG CHEW PO SCH (11:45)
[2020-04-09] MEDS: ONDANSETRON INJ 2 MG/ML 2 ML VIAL IV PRN (15:53)
[2020-04-09] MEDS ORDERED: MoRPHine SULFATE 2 MG/ML CARP IV PRN (17:33)
[2020-04-09] MEDS ORDERED: POTASSIUM PHOS 3 MMOL/1 ML INFUSION IV STA (18:02)
[2020-04-09] MEDS ORDERED: POTASSIUM PHOSPHATE 15 MMOL in SODIUM CHLORIDE 0.9% 250 ML IV ONE (18:15)
--- NOTE | 2020-04-09 18:16 | Hospitalist Progress Note ---
Date of Service April 09, 2020 Assessment & Plan (1) Septic shock: Source proctocolitis. Patient with significant hypotension and profuse diarrhea requiring rectal tube in setting of likely stercoral colitis/suspected bacterial translocation. BP only minimally improved with crystalloid infusion - 4L given then on maintenance fluids. Then had rising lactate, worsening abdominal pain. Surgical consult obtained and recommended no surgery. Pt then with worsening status and had BPs 60s systolic on AM after admission--> bolused IVFs and transferred to ICU for vasopressors and continued volume resuscitation and treatment of septic shock. With leukocytosis, tachycardia, tachypnea, lactate rising to 5.8, hypotension, but afebrile. Source intraabdominal with distal colitis and ileus. UA without evidence of infection CXR without PNA but CT T-spine with bibasilar consolidation-seems to be a telectasis Now weaned off vasopressors, renal failure resolved, diarrhea resolved, received IV albumin Cultures remain negative, is afebrile, lactate trended back downward to 2.6, leukocytosis resolved BPs stable -continue IVFs with D5LR (also with hypoglycemia) and remains NPO until seen by Speech -follow lytes, renal function, CBC -continue to treat with broad spectrum abx Cefepime and Flagyl -follow blood, stool cultures -C. diff gene positive but toxin negative-no po Vanco indicated (initially presented with fecal impaction) (2) AMS (altered mental status): Unclear etiology but certainly morphine use likely contributing. Discontinued and will use IV acetaminophen + PRN IV Toradol since renal function has improved. Since this is the first day I have had her unclear if significant acute change but as per prior hospitalist note she seems similar to yesterday. Appreciate neurology recommendations - unlikely to get good imaging with MRI at present state therefore will get CT head. If AMS remains in AM will get MRI brain and L-spine as per neuro recommendations. Speech consult appreciated but currently too altered to participate, hopefully as morphine is discontinued her mentation will improve. (3) Ileus: No BS on exam, ongoing abdominal pain but NG tube clamped due to minimal output without vomiting therefore discussed with Dr Gerard and ok to start NG feeds at this time, [place] feeding tube to be placed. Hopefully ileus will also resolve now morphine discontinued. (4) Elevated lactic acid level: With lactic acidosis, accounts for tachypnea, is secondary to sepsis Trended back downward as above No ischemic bowel suspected but with colitis on CT -continue IVF as patient not yet taking PO (5) Diarrhea: Presented with copious amounts of watery diarrhea secondary to laxatives and enemas. Now resolved, rectal tube removed C.diff gene positive but toxin negative-likely carrier Fecal leuks rare Given that she had lactulose and other laxatives and enemas the day prior to admission, seems to not be C. diff Stool culture negative (6) Abdominal pain: Secondary to proctitis/colitis, less likely large bowel obstruction. CT with slight worsening of colitis and with ileus from to 7th but unchanged from to 8th -Tx as above for diarrhea -Surgery now signed off -discontinued morphine above (7) TOMMY (acute kidney injury): Now resolved. Patient with acutely elevated Cr = 2.01 from 0.7 on admission. Possibly secondary to hypotension, pre-renal azotemia + ATN. Also with elevated CK Cr peaked at 2.18 but now down to 1.39 UOP adequate CPK trended downward to 800 -continue IVF -follow BMP, UOP -Avoid nephrotoxic agents (8) Elevated troponin: Patient denies chest pain. Troponin = 0.046 and repeat down to within normal range x 2, EKG with lateral TWI. Suspect demand ischemic in setting of prolonged hypotension -ASA 81mg po daily (9) Hypokalemia: replaced follow bmp daily (10) Asthma: Chronic. No SOB or wheeze -Albuterol PRN -Continue Trelegy -Supplemental O2 as needed (11) CAD (coronary artery disease): Chronic -ASA 81mg po daily initiated -Continue Crestor 5mg po qAM (12) COPD (chronic obstructive pulmonary disease): Stable. No SOB/Cough/Wheeze or other respiratory complaints -Continue Albuterol, Fluticasone/Vilanterol (13) Hyperlipidemia: Chronic -Continue Crestor (14) Unspecified cirrhosis of liver: likely secondary to DOLAN no acute issues With mildly elevated LFTs likely from this and hypotension/shock liver (15) Obstructive sleep apnea syndrome: -continue CPAP qhs (16) Closed T11 fracture: Seen on KUB and then on CT Thoracic spine ordered by Spine Surgery Appreciate further Ortho spine recommendations--> unstable fracture Needs surgical repair urgently once medically stable However, alternative would be bed bound status and with her body habitus and comorbidities, 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 If had back surgery, would be later this week Pain control with tylenol only now to avoid opioids -Strict LOGROLL only, can sit up in bed to eat/drink (17) Aphasia: She apparently has had difficulty with speaking since January when she was seen in ER for a CVA rule out and had a normal brain MRI Perhaps she had a small stroke not visible on our MRI Nothing new here it seems but worsened aphasia from hypotension -continue ASA, statin -consider repeat brain imaging Appreciate neurology consult, Rx as per AMS above (18) Right sided weakness: as above (19) Hypophosphatemia: replace IV potassium phos 15 mmol follow in AM (20) DVT prophylaxis: - Heparin SQ FEN-NGT in place to be switched to Cores[place], not awake enough for speech consult, hopefully start to be more alert now morphine discontinued Code - Full Dispo - continue on med/tele Admission and Anticipated Discharge Date Admission Date: April 05, 2020 Subjective Patient very somnolent when seen. Unobtainable history from patient due to cognitive status. Nursing report patient groaning in pain and morphine only lasting approximately 1 hour. Open eyes to voice but non-verbal. She had been given morphine earlier. Discussed with her over the phone given poor prognosis. All questions answered. Review of Systems Review of Systems: Unobtainable due to cognitive status Physical Exam Constitutional: + ill appearing and + morbidly obese Eyes: + anicteric sclerae and PERRL; normal pupil size ENMT: Ears: + hearing impairment Mouth: + oral mucosal abnormality (dry mucus membranes, NGT in place) Neck: trachea midline, no thyromegaly Respiratory: normal respiratory effort; no respiratory distress and no labored breathing Auscultation: + diminished lung sounds (throughout due to body habitus); no wheezes Cardiovascular: Rate/Rhythm: regular rate and regular rhythm Heart Sounds: no murmur Extremities: + edema (hands/legs with 2+ edema) Chest (Breasts): Chest: normal inspection of chest Gastrointestinal (Abdomen): Inspection/Auscultation: + abnormal bowel sounds (scant) Percussion/Palpation: + abdomen tender (generalized throughout) and abdomen soft; no guarding and abdomen not rigid Musculoskeletal: Extremities: extremities normal to inspection; no cyanosis and no clubbing Skin: no rashes, warm and dry Neurologic: awake (no voice but wuickly falls back to sleep, non verbal); + does not move all extremities (unable to assess) Genitourinary: + abnormal external appearance (Prasad catheter in place) Results & Data Results & Data ([facility]) Vital Signs (Past 12 Hours) Vital Signs Temp Pulse Pulse Resp BP Pulse Ox 04/09/20 15:39 96 H 04/09/20 15:05 36.6 C 95 H 20 137/70 91 04/09/20 11:51 36.7 C 103 H 22 165/75 H 94 04/09/20 07:31 36.7 C 94 H 20 126/69 94 04/09/20 07:15 92 H 04/09/20 07:12 89 20 94 PG Care Time/CCT Total # of Minutes Spent Total Time Spent with Patient: Total time spent is greater than 50% in coordination of care (as documented) at patient's floor/unit and/or counseling patient: Coding Level of Care Code 02042 Subseq Hosp Care Lvl 3 Diagnoses Septic shock A41.9; R65.21 AMS (altered mental status) R41.82 Ileus K56.7 Elevated lactic acid level R79.89 Diarrhea R19.7 Diarrhea type: unspecified type Abdominal pain R10.33 Abdominal location: periumbilical TOMMY (acute kidney injury) N17.9 Elevated troponin R79.89 Hypokalemia E87.6 Asthma J45.40 Asthma complication type: unspecified Asthma persistence: persistent Asthma severity: moderate CAD (coronary artery disease) I25.10 Associated angina: without angina Coronary Disease-Associated Artery/Lesion type: unspecified vessel or lesion type [place] vs. transplanted heart: [place] heart COPD (chronic obstructive pulmonary disease) J44.9 COPD type: unspecified COPD Hyperlipidemia E78.5 Hyperlipidemia type: unspecified Unspecified cirrhosis of liver K74.60 Obstructive sleep apnea syndrome G47.33 Closed T11 fracture S22.089A Aphasia R47.01 Right sided weakness R53.1 Hypophosphatemia E83.39 DVT prophylaxis Z29.9 (1) CAD (coronary artery disease) Associated angina: without angina Coronary Disease-Associated Artery/Lesion type: unspecified vessel or lesion type [place] vs. transplanted heart: [place] heart Qualified Code(s): I25.10 - Atherosclerotic heart disease of [place] coronary artery without angina pectoris (2) Diarrhea Diarrhea type: unspecified type Qualified Code(s): R19.7 - Diarrhea, unspecified (3) Hyperlipidemia Hyperlipidemia type: unspecified Qualified Code(s): E78.5 - Hyperlipidemia, unspecified (4) COPD (chronic obstructive pulmonary disease) COPD type: unspecified COPD Qualified Code(s): J44.9 - Chronic obstructive pulmonary disease, unspecified (5) Abdominal pain Abdominal location: periumbilical Qualified Code(s): R10.33 - Periumbilical pain (6) Asthma Asthma complication type: unspecified Asthma persistence: persistent Asthma severity: moderate Qualified Code(s): J45.40 - Moderate persistent asthma, uncomplicated
--- NOTE | 2020-04-09 18:30 | Neurology Consultation ---
Date of Consultation April 09, 2020 Assessment & Plan (1) Proctocolitis: (2) Hypophosphatemia: (3) Right sided weakness: (4) Closed T11 fracture: (5) Abdominal pain: (6) Neurogenic claudication due to lumbar spinal stenosis: (7) Vitamin B12 deficiency: (8) Sensorineural hearing loss (SNHL) of both ears: (9) AMS (altered mental status): Citlalli Roche is a 69 yo woman w/ PMH of anxiety/depression, CAD, hyperlipidemia, COPD, metabolic syndrome, GERD, hearing loss in the left ear, morbid obesity, TREVOR on CPAP, prediabetes, restrictive lung disease, history of impaired memory, hypertension, lumbar stenosis status post T11-L2 PLIF in December 2019 who presented to [facility] on 04/05/2020 with abdominal pain, diarrhea and hypotension, found to have proctocolitis, TOMMY, troponinemia and difficulties with speech presentation initially attributed to hypotension. # AMS: Suspect that this is multifactorial in the setting of recent septic shock, proctocolitis or multiple electrolyte abnormalities. She also has listed in her allergies hallucinations to narcotics which I am not sure how much this is actually contributing to her current picture. It sounds like her initial symptoms started within 1 month postop which could represent postop delirium in the setting of underlying known cognitive impairment. It is not clear that she actually had a stroke back in January because right-sided weakness and aphasia would actually localize to either the left MCA territory or the left thalamus, neither of which was noted to be abnormal on most recent MRI brain back in January. -Recommend screening for treatable causes of delirium with UA, TSH, B12, ammonia and treating accordingly Recommend changing pain management to Toradol or IV Tylenol as needed and discontinue further opiates or benzos Continue with delirium precautions, lights on during day, lights off during night, frequent reorientation Would attempt to obtain MRI brain without contrast to rule out stroke and MRI of L-spine with and without contrast to rule out phlegmon in the postoperative setting as she is unable to fully describe if she has any pain or other symptoms -If above work-up is completely unremarkable, low threshold to obtain EEG and lumbar puncture Thank you for this interesting consult. Plan of care discussed with primary team. Please call or text with questions. History of Present Illness Attending Physician: Erik Gudino MD History of Present Illness Citlalli Roche is a 69 yo woman w/ PMH of anxiety/depression, CAD, hyperlipidemia, COPD, metabolic syndrome, GERD, hearing loss in the left ear, morbid obesity, TREVOR on CPAP, prediabetes, restrictive lung disease, history of impaired memory, hypertension, lumbar stenosis status post T11-L2 PLIF in December 2019 who presented to [facility] on 04/05/2020 with abdominal pain, diarrhea and hypotension, found to have proctocolitis, TOMMY, troponinemia and di fficulties with speech presentation initially attributed to hypotension. Neurology consulted for ongoing AMS. Citlalli has had a complicated hospital course with septic shock secondary to profuse diarrhea requiring brief pressor support and volume resuscitation. She did have an elevated lactate of 5.8 which is now resolved down to 2.6 on most recent recheck. UA did not show any sign of infection initially. Chest x-ray showed no pneumonia but was notable for atelectasis. She was noted to have C. difficile positive gene but negative toxin, hence no p.o. Vanco given. She was treated with cefepime and Flagyl given her GI illness. She had been receiving fentanyl and morphine as needed for abdominal pain secondary to diarrhea and ileus. She did have an TOMMY with creatinine peaking at 2.18, now down to 0.83. She does have ongoing electrolyte abnormalities including hypocalcemia 7.9, hypophosphatemia 2.2, hypokalemia 3.3, hyperchloremia 111. She was also noted to have a closed T11 fracture on CT spine. She has been seen by Dr. aPtel her recommends urgent surgical repair once medically stable. Of note, there is reports that she has had difficulty with speaking since the end of January 2020 when she was noted to have pain in her right lower extremity and questionable aphasia. She was seen in the emergency department on 02/21/2020 with an MRI of the brain that showed small chronic lacunar infarct in the right centrum semiovale and mild small vessel disease but no acute infarct. She was supposed to follow-up with neurology as an outpatient. On examination today, Citlalli is only able to state her name and did endorse having pain in her right arm and her abdomen. She would not follow commands consistently aside from opening her eyes and wiggling her toes. Nursing did note that after she receives morphine as needed, she would generally be worse in terms of mental status. She does have a history of hallucinations to narcotics listed in her allergy list. Allergies Allergy/AdvReac Type Severity Reaction Status Date / Time metformin AdvReac Intermediate DIARRHEA Verified 04/05/20 16:46 oxycodone AdvReac Intermediate GI Verified 04/05/20 16:46 SYMPTOMS, DISORIENTATION ampicillin AdvReac Mild Nausea/vomi Verified 04/05/20 16:46 ting codeine AdvReac Mild NAUSEA Verified 04/05/20 16:46 gabapentin AdvReac Mild DIZZINESS, Verified 04/05/20 16:46 FIDGETY hydrocodone AdvReac Mild "MADE ME Verified 04/05/20 16:46 FEEL WEIRD" lorazepam AdvReac Mild DIZZY Verified 04/05/20 16:46 lovastatin AdvReac Mild WASN'T Verified 04/05/20 16:46 EFFECTIVE meloxicam AdvReac Mild DIZZINESS Verified 04/05/20 16:46 propoxyphene AdvReac Mild NAUSEA Verified 04/05/20 16:46 tramadol AdvReac Mild GI SYMPTOMS Verified 04/05/20 16:46 narcotics AdvReac Mild Hallucinati Uncoded 04/05/20 16:46 ng Home Medications Home Medications Medication Instructions Recorded Confirmed Type albuterol sulfate 90 mcg/actuation 2 puffs INH Q4H PRN gm 08/07/19 04/05/20 History aerosol inhaler pantoprazole 20 mg tablet,delayed 20 mg PO BID tab 09/09/19 04/05/20 History release naproxen sodium [Aleve] 220 mg PO BID 10/11/19 04/05/20 History budesonide-formoterol HFA 160 2 puffs INH BID #10.2 gm 11/16/19 04/05/20 Rx mcg-4.5 mcg/actuation aerosol inhaler rosuvastatin 5 mg tablet 5 mg PO QAM #90 tab 12/06/19 04/05/20 Rx nebulizer accessories #1 ea 12/07/19 04/04/20 Rx lidocaine [Lidoderm] 1 patch TOP UD PRN 12/26/19 04/05/20 History hydroxyzine pamoate [Vistaril] 25 mg PO TID PRN 01/18/20 04/05/20 History cyanocobalamin (vitamin B-12) 1,000 mcg IM MONTHLY #10 ml 02/28/20 04/05/20 Rx 1,000 mcg/mL injection solution syringe with needle 3 mL 25 gauge #3 ea 02/28/20 04/04/20 Rx x 1" fluconazole 150 mg tablet 150 mg PO .COMPLEX 28 Days #4 tab 03/14/20 04/05/20 Rx nystatin 100,000 unit/gram topical 1 appln TOP BID #60 gm 03/14/20 04/05/20 Rx powder miscellaneous medical supply #1 ea 03/23/20 04/04/20 Rx Wheelchair (Manual or Powered) #1 ea 03/26/20 04/04/20 Rx albuterol sulfate 2.5 mg INH BID 04/04/20 04/05/20 History cyclobenzaprine 10 mg PO TID PRN 04/04/20 04/05/20 History Patient History Medical History (Updated 04/09/20 @ 18:25 by Ly Meyers MD) Anxiety (Chronic) Asthma (Chronic) Stable- has albuterol nebulizer and inhaler- uses 1-2 times daily Borderline high cholesterol BPPV (benign paroxysmal positional vertigo) CAD (coronary artery disease) (Chronic) Pt denies Colitis COPD (chronic obstructive pulmonary disease) (Chronic) Depression (Chronic 01/03/12) Dysmetabolic syndrome X (Chronic) Fatty (change of) liver, not elsewhere classified (Chronic) Gastroesophageal reflux disease with esophagitis (Chronic) Well controlled with Protonix 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 Hiatal hernia Hypertension (Chronic) Impaired memory (Chronic) Mild- feels back pain making memory worse Lumbar stenosis with neurogenic claudication (Chronic) Morbid obesity with BMI of 45.0-49.9, adult Obstructive sleep apnea syndrome (Chronic 01/03/12) Uses CPAP q HS Osteopenia (Chronic) Prediabetes (Chronic) Pt denies - pre op glucose 249- getting clarification from PCP Proctocolitis Restrictive lung disease (Chronic) Unspecified cirrhosis of liver (Chronic) Secondary to fatty liver - follows with GI - stable at this time (LFTs WNL 11/07/19) Venous insufficiency (Chronic) Varicose veins- no treatment needed - no current LE edema Surgical History History of abdominal surgery removed benign tumor from stomach History of bilateral cataract extraction History of cardiac cath 30+YR AGO, NO SIG ISSUES PER PT- DENIES STENTS OR BYPASS History of carpal tunnel surgery of right wrist History of cholecystectomy (Resolved) History of colonoscopy History of esophagogastroduodenoscopy (EGD) History of herniorrhaphy (Resolved) History of lumbar fusion (Resolved) L2 through S1 fusion August [address] Patel History of right shoulder replacement History of tonsillectomy and adenoidectomy History of tooth extraction all upper teeth History of total hysterectomy with bilateral salpingo-oophorectomy (BSO) History of total right hip arthroplasty (Resolved) Nausea and vomiting after administration of anesthetic agent Status post trigger finger release HX OF right hand Family History Unknown Heart disease Father Asthma Mother Alzheimer disease Aortic aneurysm Aunt Family history of diabetes mellitus Grandmother Family history of diabetes mellitus Other No family history of adverse response to anesthesia Social History Preferred Language: [place] Communication Ability: Effective Visual Impairment: Limited Hearing Ability: Hard of Hearing [place] Heater Required: No Beliefs That Will Affect Care: None marital status: Current Living Situation: Spouse and Family Current Living Situation Comment: AND SON current occupational status: retired Other Information That Helps Us Care for You: No Feels Safe at Home: Yes Safety Concerns: Feels Safe At This Time Smoking Status: Never smoker Second Hand Exposure: Yes ( smoked/parents smoked) ; Hx Alcohol Use: No Hx Substance Use: No caffeine: Yes Seatbelt Use: always Review of Systems Review of Systems: Unobtainable due to cognitive status Exam (Neuro) Physical Exam: General Exam: GEN: +distress, moaning, lying in bed HEENT: No conjunctival injection, no rhinorrhea. CV: RRR, 1+ peripheral edema in bilateral hands PULM: Nonlabored respirations on 2L NC Neuro Exam: MS: Drowsy, easily arousable. Oriented to self only and otherwise did not answer any other orientation questions. Speech was nonfluent and consisted mainly of her moaning. She was not able to name or repeat, would intermittently follow commands. Unable to fully assess cognition and memory at this time given language impairment. Inattentive. No clear neglect. CN: Positive blink to threat in right hemifield, no clear blink to threat in left hemifield. Unable to perform fundoscopic exam secondary to patient closing eyes and noncompliance. PERRLA OU. EOMI in horizontal plane. Facial muscles full and symmetric. Hearing intact to conversation. Unable to evaluate cranial nerves further given mental status. MOTOR: Normal bulk and tone. She will move both upper and lower extremities spontaneously antigravity, but did seem weaker on the right side when compared to the left on passive elevation. REFLEXES: 1+ at biceps, triceps, brachioradialis, trace patella and absent Achilles bilaterally. Flexor plantar responses bilaterally. SENSORY: Withdraws to noxious stimuli in all extremities COORDINATION: Unable to assess secondary to mental status GAIT: Deferred given physical status and known spine fracture Results & Data ([facility]) Vital Signs (Past 12 Hours) Vital Signs Temp Pulse Pulse Resp BP Pulse Ox 04/09/20 15:39 96 H 04/09/20 15:05 36.6 C 95 H 20 137/70 91 04/09/20 11:51 36.7 C 103 H 22 165/75 H 94 04/09/20 07:31 36.7 C 94 H 20 126/69 94 04/09/20 07:15 92 H 04/09/20 07:12 89 20 94 PG Care Time/CCT Total # of Minutes Spent Total Time Spent with Patient: Total time spent is greater than 50% in coordination of care (as documented) at patient's floor/unit and/or counseling patient: Coding Level of Care Code 13070 Initial Inpt Care Lvl 3 Diagnoses Proctocolitis K52.9 Hypophosphatemia E83.39 Right sided weakness R53.1 Closed T11 fracture S22.089A Abdominal pain R10.33 Abdominal location: periumbilical Neurogenic claudication due to lumbar spinal stenosis M48.062 Vitamin B12 deficiency E53.8 Sensorineural hearing loss (SNHL) of both ears H90.3 AMS (altered mental status) R41.82 (1) Abdominal pain Abdominal location: periumbilical Qualified Code(s): R10.33 - Periumbilical pain
[2020-04-09] MEDS: ACETAMINOPHEN 1000 MG/100 ML IV IV SCH (18:32)
--- NOTE | 2020-04-09 18:33 | CT Scan Report ---
CT head/brain wo con CLINICAL HISTORY: altered mental state COMPARISON STUDY: MRI the brain dated 02/21/2020 TECHNIQUE: Axial CT of the brain is performed from the vertex to the skull base. IV contrast was not administered for this examination. A dose lowering technique was utilized adhering to the principles of ALARA. CT DOSE: 884.08 mGy.cm FINDINGS: No intra or extra-axial mass lesions are visualized. There is no CT evidence of acute cortical infarc tion. There is no evidence of midline shift. There is no acute hemorrhage. No calvarial fractures ar e visualized. Frontal lobe hypodensities are felt to be secondary to beam hardening artifact. There is no evidence of pathologic ventricular dilatation. There is no evidence of acute sinusitis. There are multiple scalp nodules, likely representing sebaceous cysts. IMPRESSION: No acute intracranial findings ACT 112: Negative or not required by law. Electronically signed by: Jose Conley M.D. 04/09/2020 6:32 PM
[2020-04-09] MEDS: ASPIRIN 81 MG ECTAB PO SCH (19:21)
[2020-04-09] MEDS: NOREPINEPHRINE BIT INJ 8 MG in DEXTROSE 5% 500 ML IV SCH (19:22)
[2020-04-09] MEDS: KETOROLAC TROMETHAMINE 15 MG/ML VIAL IV PRN (21:31)
[2020-04-09] MEDS: PANTOprazole 40 MG in SYRINGE 0 ML IV SCH (22:06)
[2020-04-10] MEDS: ACETAMINOPHEN 1000 MG/100 ML IV IV SCH ×3 (02:15→17:43)
[2020-04-10] MEDS: D5W AND LACTATED RINGERS 1,000 ML IV SCH ×2 (05:12→17:43)
[2020-04-10] MEDS: KETOROLAC TROMETHAMINE 15 MG/ML VIAL IV PRN (05:46)
[2020-04-10] MEDS: metroNIDAZOLE 500 MG/100 ML BAG IV SCH ×3 (05:47→22:08)
[2020-04-10 06:19] LABS: Hematocrit (blood only) 36.3 % (37-47); Mean Corpuscular Hemoglobin 29.9 pg (25-34); Mean Corpuscular Hgb Conc 33.1 g/dL (32-36); Mean Corpuscular Volume 90.5 fL (80-100); Mean Platelet Volume 10.2 fL (7.4-10.4); Platelet Count 132 K/uL (130-400); RDW Standard Deviation 49.6 fL (36.4-46.3); Red Blood Count 4.01 M/uL (4.2-5.4); White Blood Count 6.08 K/uL (4.8-10.8)
[2020-04-10 06:42] LABS: Albumin Level 1.7 gm/dl (3.4-5.0); BUN Creatinine Ratio 25.7 (10-20); Calcium 7.6 mg/dl (8.5-10.1); Creatinine Clr Calc Pharmacy 78.6 ml/min; Est GFR (African American) 89.9; Est GFR (Non-African American) 77.6; Potassium 3.5 mmol/L (3.5-5.1)
[2020-04-10 06:53] LABS: Albumin Globulin Ratio 0.6 (0.9-2); Bilirubin,Total 0.4 mg/dl (0.2-1); Phosphorus 2.3 mg/dl (2.5-4.9); Thyroid Stimulating Hormone 7.39 uIu/ml (0.300-4.500); Total Protein 4.7 gm/dl (6.4-8.2)
[2020-04-10 07:08] LABS: T4 Free Thyroxine 0.96 ng/dl (0.8-1.6)
[2020-04-10] MEDS: ALBUTEROL 0.083% NEBU SOLN 3 ML VIAL INH SCH ×2 (07:10→19:08)
[2020-04-10] MEDS: NYSTATIN POWDER 15GM BTL EXT SCH ×2 (07:39→20:17)
[2020-04-10] MEDS: ROSUVASTATIN CALCIUM 5 MG TAB PO SCH (07:39)
[2020-04-10] MEDS: PANTOprazole 40 MG TAB PO SCH ×2 (07:39→18:50)
[2020-04-10] MEDS: HEPARIN SOD 5,000 UNIT/0.5 ML VIAL SQ SCH ×2 (07:39→20:18)
[2020-04-10] MEDS: FLUTICASONE/VILANTEROL 200/25MCG 14 PUFFS/INHALER INH SCH (07:40)
[2020-04-10] MEDS: ASPIRIN 81 MG CHEW PO SCH (07:44)
[2020-04-10] MEDS: PANTOprazole 40 MG in SYRINGE 0 ML IV SCH ×2 (08:34→20:18)
[2020-04-10] MEDS: CEFEPIME 2,000 MG in SYRINGE 7.5 ML IV SCH (09:52)
[2020-04-10] MEDS ORDERED: LORazepam 1 MG/2 ML VIAL IV PRN (11:51)
--- NOTE | 2020-04-10 12:36 | Magnetic Resonance Report ---
MRI OF THE BRAIN WITHOUT IV CONTRAST CLINICAL HISTORY: Change in mental status. COMPARISON STUDY: CT of the brain dated 04/09/2020. TECHNIQUE: Limited MRI of the brain was performed. The examination was initiated and axial diffusion- weighted and sagittal T1-weighted sequences were acquired. The patient declined further imaging. FINDINGS: Brain parenchyma: There is no restricted diffusion identified to indicate acute ischemia. Mann-white matter differentiation appears preserved. There is no obvious hemorrhage or mass effect. The cerebell ar tonsils are normal in configuration. Ventricles, sulci, and cisterns: Grossly normal in configuration. Pituitary and sella: Unremarkable. Calvarium: Unremarkable as visualized. Numerous sebaceous cysts are noted in the scalp. Cervical cord: Partially visualized cervical spinal cord is normal in morphology and signal intensity . IMPRESSION: 1. Incomplete examination. The patient declined the majority of the procedure. 2. There is no restricted diffusion to indicate acute ischemia. 3. There is no obvious hemorrhage or mass effect. ACT 112: Negative or not required by law. Electronically signed by: Devang Camp M.D. 04/10/2020 12:34 PM
--- NOTE | 2020-04-10 15:00 | Palliative Care Consultation ---
Date of Consultation April 10, 2020 Assessment & Plan (1) Goals of care, counseling/discussion: -69 year old female patient with PMH CAD, COPD, Depression, HTN, obstructive lung disease, morbid obesity, episode of aphasia and right sided weakness back in , but MRI in ED at the time was negative, and others, presented to the hospital five days ago with c/o abdominal pain. Patient was seen in the ED one day prior to arrival for constipation and fecal impaction. She was manually disimpacted and given multiple agents to help move bowels. She went home and continued to have bowel movements. She returned to the ED the next day with increased abdominal pain and weakness. Patient reported that she had ongoing diarrhea at home. In ED, she was hypotensive, tachycardic, and oxygenating well on room air. She was given fluid boluses and admitted. Patient unfortunately had ongoing hypotension, lactic acidosis, and progressive renal failure. She was transferred to the ICU for septic shock likely due to bacterial translocation from recent disimpaction and colonic distention. CT scan on 04/05 concerning for progression of the distal proctocolitis, possibly representing an infectious or inflammatory process. She also has fluid-filled borderline distended loops of large and small bowel, this may represent an ileus or diarrheal illness or a low-grade partial large bowel obstruction due to the thickened distal sigmoid colon/rectum could also have a similar appearance. Surgical team consulted who recommended continuing abx, no immediate need for surgery. On imaging, patient was also noted to have an unstable thoracic spine fracture. Ortho consulted who stated to strictly log roll patient-- fracture is unstable and likely would require surgery but she is not currently medically stable. Patient has also been having ongoing issues with lethargy and confusion-- was receiving IV narcotics for the pain. Patient has narcotics listed as an allergy due to severe sensitivity and hallucinations. Neurology consulted and recommended to stop narcotics. MRI brain again negative, but sub optimal study due to uncooperativeness. Patient is now moaning and continues to have pain. Palliative care is consulted to assist with pain management and goals. -Patient seen by palliative MD this afternoon. She was attempting to speak, which came out as a moan. Patient shook her head "no" to pain. -Agree with discontinuing narcotics. -Patient has seen pain management in the past. Would recommend consulted them again if pain continues to be an issue and non-narcotic meds are not sufficient. Perhapys they have something procedural such as a block to be offered. -Prior to this incident, patient lived at home with her . She ambulated with a walker. She did not wear oxygen. She did have a hospital bed on first floor just recently due to difficulty getting up and down stairs. -At this time, no end-stage medical conditions which would warrant an immediate discussion about goals of care while in the hospital. Certainly though, if patient's condition deteriorates or changes, we would be happy to engage with family. -Continue with current treatment in hopes that her condition will improve. Uncertain if surgery will be an option for her. Ortho following. -For now we will continue to follow along peripherally during hospitalization. Please contact us with any changes. (2) AMS (altered mental status): (3) Proctocolitis: (4) Septic shock: Supervising Physician Co-Signing Physician Notes Chart reviewed, patient seen and examined. Collaborated with YUDITH Gutierrez as well as attending physician Dr. Gudino Patient was awake and alert, expressive aphasia, was able to answer simple questions by nodding yes or no. Patient did attempt to speak -comes out as a loud moan. When asked if she was having pain she did shake her head no, was able to indicate that her pain is in her back, denies abdominal pain, did not have any tenderness with palpation on exam. Patient is exquisitely sensitive to narcotics. PE: Patient awake and alert, appears comfortable at rest HEENT: EOMI, hearing within normal limits Respirations: Clear breath sounds CV: Regular rate, positive edema Abdomen: Soft, nontender to palpation, positive bowel sounds Neuro: Expressive aphasia, able to follow simple commands and answer questions by nodding yes or no. Agree with above note, assessment and plan as per YUDITH Gutierrez. Patient may benefit from an interventional pain consult to see if she be a candidate for a nerve block. History of Present Illness Attending Physician: Erik Gudino MD History of Present Illness This 69 year old female patient with PMH CAD, COPD, Depression, HTN, obstructive lung disease, morbid obesity, episode of aphasia and right sided weakness back in January/February, but MRI in ED at the time was negative, and others, presented to the hospital five days ago with c/o abdominal pain. Patient was seen in the ED one day prior to arrival for constipation and fecal impaction. She was manually disimpacted and given multiple agents to help move bowels. She went home and continued to have bowel movements. She returned to the ED the next day with increased abdominal pain and weakness. Patient reported that she had ongoing diarrhea at home. In ED, she was hypotensive, tachycardic, and oxygenating well on room air. She was given fluid boluses and admitted. Patient unfortunately had ongoing hypotension, lactic acidosis, and progressive renal failure. She was transferred to the ICU for septic shock likely due to bacterial translocation from recent disimpaction and colonic distention. CT scan on 04/05 concerning for progression of the distal proctocolitis, possibly representing an infectious or inflammatory process. She also has fluid-filled borderline distended loops of large and small bowel, this may represent an ileus or diarrheal illness or a low-grade partial large bowel obstruction due to the thickened distal sigmoid colon/rectum could also have a similar appearance. Surgical team consulted who recommended continuing abx, no immediate need for surgery. On imaging, patient was also noted to have an unstable thoracic spine fracture. Ortho consulted who stated to strictly log roll patient-- fracture is unstable and likely would require surgery but she is not currently medically stable. Patient has also been having ongoing issues with lethargy and confusion-- was receiving IV narcotics for the pain. Patient has narcotics listed as an allergy due to severe sensitivity and hallucinations. Neurology consulted and recommended to stop narcotics. MRI brain again negative, but suboptimal study due to uncooperativeness. Patient is now moaning and continues to have pain. Palliative care is consulted to assist with pain management and goals. Thank you kindly for this consult. Palliative care team will follow as needed. Allergies Allergy/AdvReac Type Severity Reaction Status Date / Time metformin AdvReac Intermediate DIARRHEA Verified 04/05/20 16:46 oxycodone AdvReac Intermediate GI Verified 04/05/20 16:46 SYMPTOMS, DISORIENTATION ampicillin AdvReac Mild Nausea/vomi Verified 04/05/20 16:46 ting codeine AdvReac Mild NAUSEA Verified 04/05/20 16:46 gabapentin AdvReac Mild DIZZINESS, Verified 04/05/20 16:46 FIDGETY hydrocodone AdvReac Mild "MADE ME Verified 04/05/20 16:46 FEEL WEIRD" lorazepam AdvReac Mild DIZZY Verified 04/05/20 16:46 lovastatin AdvReac Mild WASN'T Verified 04/05/20 16:46 EFFECTIVE meloxicam AdvReac Mild DIZZINESS Verified 04/05/20 16:46 propoxyphene AdvReac Mild NAUSEA Verified 04/05/20 16:46 tramadol AdvReac Mild GI SYMPTOMS Verified 04/05/20 16:46 narcotics AdvReac Mild Hallucinati Uncoded 04/05/20 16:46 ng Home Medications Home Medications Medication Instructions Recorded Confirmed Type albuterol sulfate 90 mcg/actuation 2 puffs INH Q4H PRN gm 08/07/19 04/05/20 History aerosol inhaler pantoprazole 20 mg tablet,delayed 20 mg PO BID tab 09/09/19 04/05/20 History release naproxen sodium [Aleve] 220 mg PO BID 10/11/19 04/05/20 History budesonide-formoterol HFA 160 2 puffs INH BID #10.2 gm 11/16/19 04/05/20 Rx mcg-4.5 mcg/actuation aerosol inhaler rosuvastatin 5 mg tablet 5 mg PO QAM #90 tab 12/06/19 04/05/20 Rx nebulizer accessories #1 ea 12/07/19 04/04/20 Rx lidocaine [Lidoderm] 1 patch TOP UD PRN 12/26/19 04/05/20 History hydroxyzine pamoate [Vistaril] 25 mg PO TID PRN 01/18/20 04/05/20 History cyanocobalamin (vitamin B-12) 1,000 mcg IM MONTHLY #10 ml 02/28/20 04/05/20 Rx 1,000 mcg/mL injection solution syringe with needle 3 mL 25 gauge #3 ea 02/28/20 04/04/20 Rx x 1" fluconazole 150 mg tablet 150 mg PO .COMPLEX 28 Days #4 tab 03/14/20 04/05/20 Rx nystatin 100,000 unit/gram topical 1 appln TOP BID #60 gm 03/14/20 04/05/20 Rx powder miscellaneous medical supply #1 ea 03/23/20 04/04/20 Rx Wheelchair (Manual or Powered) #1 ea 03/26/20 04/04/20 Rx albuterol sulfate 2.5 mg INH BID 04/04/20 04/05/20 History cyclobenzaprine 10 mg PO TID PRN 04/04/20 04/05/20 History Patient History Medical History (Updated 04/10/20 @ 14:54 by YUDITH Nuñez) Anxiety (Chronic) Asthma (Chronic) Stable- has albuterol nebulizer and inhaler- uses 1-2 times daily Borderline high cholesterol BPPV (benign paroxysmal positional vertigo) CAD (coronary artery disease) (Chronic) Pt denies Colitis COPD (chronic obstructive pulmonary disease) (Chronic) Depression (Chronic 01/03/12) Dysmetabolic syndrome X (Chronic) Fatty (change of) liver, not elsewhere classified (Chronic) Gastroesophageal reflux disease with esophagitis (Chronic) Well controlled with Protonix 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 Hiatal hernia Hypertension (Chronic) Impaired memory (Chronic) Mild- feels back pain making memory worse Lumbar stenosis with neurogenic claudication (Chronic) Morbid obesity with BMI of 45.0-49.9, adult Obstructive sleep apnea syndrome (Chronic 01/03/12) Uses CPAP q HS Osteopenia (Chronic) Prediabetes (Chronic) Pt denies - pre op glucose 249- getting clarification from PCP Proctocolitis Restrictive lung disease (Chronic) Unspecified cirrhosis of liver (Chronic) Secondary to fatty liver - follows with GI - stable at this time (LFTs WNL 11/07/19) Venous insufficiency (Chronic) Varicose veins- no treatment needed - no current LE edema Surgical History History of abdominal surgery removed benign tumor from stomach History of bilateral cataract extraction History of cardiac cath 30+YR AGO, NO SIG ISSUES PER PT- DENIES STENTS OR BYPASS History of carpal tunnel surgery of right wrist History of cholecystectomy (Resolved) History of colonoscopy History of esophagogastroduodenoscopy (EGD) History of herniorrhaphy (Resolved) History of lumbar fusion (Resolved) L2 through S1 fusion August [address] Patel History of right shoulder replacement History of tonsillectomy and adenoidectomy History of tooth extraction all upper teeth History of total hysterectomy with bilateral salpingo-oophorectomy (BSO) History of total right hip arthroplasty (Resolved) Nausea and vomiting after administration of anesthetic agent Status post trigger finger release HX OF right hand Family History Unknown Heart disease Father Asthma Mother Alzheimer disease Aortic aneurysm Aunt Family history of diabetes mellitus Grandmother Family history of diabetes mellitus Other No family history of adverse response to anesthesia Social History Preferred Language: Barbadian Communication Ability: Effective Visual Impairment: Limited Hearing Ability: Hard of Hearing Poultry Scientist Required: No Beliefs That Will Affect Care: None marital status: Current Living Situation: Spouse and Family Current Living Situation Comment: AND SON current occupational status: retired Other Information That Helps Us Care for You: No Feels Safe at Home: Yes Safety Concerns: Feels Safe At This Time Smoking Status: Never smoker Second Hand Exposure: Yes ( smoked/parents smoked) ; Hx Alcohol Use: No Hx Substance Use: No caffeine: Yes Seatbelt Use: always Results & Data Vital Signs (Past 12 Hours) Vital Signs Temp Pulse Pulse Resp BP BP Pulse Ox 04/10/20 11:23 36.5 C 85 18 162/74 H 95 04/10/20 08:00 83 04/10/20 07:13 84 86 18 94 04/10/20 07:08 36.7 C 86 18 123/77 95 04/10/20 03:28 36.8 C 87 18 119/77 94 04/10/20 03:27 87 18 96 Coding Level of Care Code 47807 Inpt Consult Level 3 Diagnoses Goals of care, counseling/discussion Z71.89 AMS (altered mental status) R41.82 Proctocolitis K52.9 Septic shock A41.9; R65.21 Time Spent (min) 80 Time Spent Midlevel A total of 50 minutes spent in reviewing chart, speaking with physician about patient condition, pain management and plan of care. Attending Spent 30 minutes at bedside in addition to the 50 minutes spent by Gia Weber CNP for total of 80 minutes for this consult. We will continue to collaborate with attending physician.
--- NOTE | 2020-04-10 15:46 | Neurology Progress Note ---
Date of Service April 10, 2020 Assessment & Plan (1) Proctocolitis: (2) Hypophosphatemia: (3) Right sided weakness: (4) Closed T11 fracture: (5) Abdominal pain: (6) Neurogenic claudication due to lumbar spinal stenosis: (7) Vitamin B12 deficiency: (8) Sensorineural hearing loss (SNHL) of both ears: (9) AMS (altered mental status): Citlalli Roche is a 69 yo woman w/ PMH of anxiety/depression, CAD, hyperlipidemia, COPD, metabolic syndrome, GERD, hearing loss in the left ear, morbid obesity, TREVOR on CPAP, prediabetes, restrictive lung disease, history of impaired memory, hypertension, lumbar stenosis status post T11-L2 PLIF in December 2019 who presented to [facility] on 04/05/2020 with abdominal pain, diarrhea and hypotension, found to have proctocolitis, TOMMY, troponinemia and difficulties with speech presentation initially attributed to hypotension. # AMS: Suspect that this is multifactorial in the setting of recent septic shock, proctocolitis and multiple electrolyte abnormalities. She also has listed in her allergies hallucinations to narcotics which I am not sure how much this is actually contributing to her current picture. It sounds like her initial symptoms started within 1 month postop which could represent postop deli rium in the setting of underlying known cognitive impairment. It is not clear that she actually had a stroke back in January because right-sided weakness and aphasia would actually localize to either the left MCA territory or the left thalamus, neither of which was noted to be abnormal on most recent MRI brain back in January, nor on the more recent MRI on 04/10/20. She did see ENT in December 2019 for dysphonia attributed to a post-flu complication with a normal laryngoscopy at that time. Recommend changing pain management to scheduled Toradol or IV Tylenol and discontinue further opiates or benzos. Would consider starting low dose standing gabapentin (100mg bid, can go up to 300mg bid) or duloxetine 30mg daily for adjunct pain management Continue with delirium precautions, lights on during day, lights off during night, frequent reorientation - appears dry on labs, consider changing TF FWFs and increasing protein intake in TFs to optimize nutrition/wound healing (she was asking for water) - replete lytes prn (has low calcium, phos) -If above work-up is completely unremarkable, low threshold to obtain EEG and lumbar puncture. Would also make sure that she gets her dentures from home to help with the dysarthria. Thank you for this interesting consult. Plan of care discussed with primary team. Please call or text with questions. Admission and Anticipated Discharge Date Admission Date: April 05, 2020 Anticipated date of discharge: 04/08/20 Subjective NAEs overnight. More interactive today, able to state her name and ask when she is going home. Endorsed being thirsty and having buttocks pain. Interim testing includes B12>2000, TSH elevated at 7.39 with normal free T4. CTH on 04/09 PM showed no hemorrhage or hypodensities, mild-moderate generalized atrophy. MRI brain was attempted and only DWI/ADC sequences obtained; independently reviewed and shows no acute or chronic infarcts within the constraint of the limited sequences. Review of Systems Review of Systems: Unobtainable due to cognitive status Results & Data ([facility]) Vital Signs (Past 12 Hours) Vital Signs Temp Pulse Pulse Resp BP Pulse Ox 04/10/20 15:09 86 04/10/20 11:23 36.5 C 85 18 162/74 H 95 04/10/20 08:00 83 04/10/20 07:13 84 86 18 94 04/10/20 07:08 36.7 C 86 18 123/77 95 Exam (Neuro) Physical Exam: General Exam: GEN: NAD, lying in bed HEENT: No conjunctival injection, no rhinorrhea. CV: RRR, 1+ peripheral edema in bilateral hands PULM: Nonlabored respirations on 2L NC Neuro Exam: MS: Awake, alert. Oriented to self only and otherwise did not answer any other orientation questions. Speech was more fluent today, +dysarthria. She was not able to name or repeat, + following commands. Unable to fully assess cognition and memory at this time given language impairment. More attentive today. No clear neglect. CN: Positive blink to threat bilaterally. Unable to perform fundoscopic exam secondary to patient closing eyes and noncompliance. PERRLA OU. EOMI in horizontal plane. Facial muscles full and symmetric. Hearing intact to conversation. Unable to evaluate cranial nerves further given mental status. MOTOR: Normal bulk and tone. She will move both upper and lower extremities spontaneously antigravity, but did seem weaker on the RLE REFLEXES: 1+ at biceps, triceps, brachioradialis, trace patella and absent Achilles bilaterally. Flexor plantar responses bilaterally. SENSORY: Withdraws to noxious stimuli in all extremities COORDINATION: Unable to assess secondary to mental status GAIT: Deferred given physical status and known spine fracture PG Care Time/CCT Total # of Minutes Spent Total Time Spent with Patient: Total time spent is greater than 50% in coordination of care (as documented) at patient's floor/unit and/or counseling patient: Coding Level of Care Code 25136 Subseq Hosp Care Lvl 3 Diagnoses Proctocolitis K52.9 Hypophosphatemia E83.39 Right sided weakness R53.1 Closed T11 fracture S22.089A Abdominal pain R10.33 Abdominal location: periumbilical Neurogenic claudication due to lumbar spinal stenosis M48.062 Vitamin B12 deficiency E53.8 Sensorineural hearing loss (SNHL) of both ears H90.3 AMS (altered mental status) R41.82 (1) Abdominal pain Abdominal location: periumbilical Qualified Code(s): R10.33 - Periumbilical pain
[2020-04-10] MEDS: cefTRIAXone SODIUM 2,000 MG in DEXTROSE 5% 50 ML IV SCH (18:31)
--- NOTE | 2020-04-10 20:08 | Hospitalist Progress Note ---
Date of Service April 10, 2020 Assessment & Plan (1) Septic shock: Source proctocolitis. Patient with significant hypotension and profuse diarrhea requiring rectal tube in setting of likely stercoral colitis/suspected bacterial translocation. BP only minimally improved with crystalloid infusion - 4L given then on maintenance fluids. Then had rising lactate, worsening abdominal pain. Surgical consult obtained and recommended no surgery. Pt then with worsening status and had BPs 60s systolic on AM after admission--> bolused IVFs and transferred to ICU for vasopressors and continued volume resuscitation and treatment of septic shock. UA without evidence of infection CXR without PNA but CT T-spine with bibasilar consolidation-seems to be atelectasis Blood cultures negative, afebrile, lactate trended back downward to 2.6, leukocytosis resolved BPs stable -continue IVFs with D5W as Na and Cl rising -switch to ceftriaxone + metronidazole for total 7 days antibiotics -C. diff gene positive but toxin negative-no po Vanco indicated (initially presented with fecal impaction) (2) AMS (altered mental status): Much improved off morphine. Now mostly left with dysphonia/possible aphasia (see below). Limited MRI brain due to patient unable to complete exam but CT head negative for CVA. Patient unable to complete MR lumbar spine to assess for epidural abscess. (3) Dysphonia: Discussed with Dr Meyers. No evidence of CVA on serial CT head and MRI to explain her prior right sided weakness and current speech difficulty. Does not have dentures which may be contributing and asked to bring these in tomorrow. Hopefully can get speech re-evaluation after she has these. She was being seen outpatient for this even as far back as December by ENT although her feels this was slowly progressively getting worse after her back operation. Unclear how much is due to lack of dentures, current infection/sepsis or morphine currently. If still significant tomorrow with dentures then will d iscuss with ENT to assess vocal cords if not felt to be more central neurological. (4) Ileus: Bowel sounds now much improved off morphine. Unclear if still having abdominal pain as different answers to different providers. She nodded yes to my questioning. Refused Corsafe for nutrition. (5) Elevated lactic acid level: With lactic acidosis, accounts for tachypnea, is secondary to sepsis Trended back downward as above No ischemic bowel suspected but with colitis on CT -continue IVF as patient not yet taking PO (6) Diarrhea: Presented with copious amounts of watery diarrhea secondary to laxatives and enemas. Now resolved, rectal tube removed C.diff gene positive but toxin negative-likely carrier Fecal leuks rare Given that she had lactulose and other laxatives and enemas the day prior to admission, seems to not be C. diff Stool culture negative (7) Abdominal pain: Secondary to proctitis/colitis, less likely large bowel obstruction. CT with slight worsening of colitis and with ileus from to but unchanged from to 8th - does not appear to be in significant pain therefore defer further imaging as long as she has continued improvement. WBC WNL and afebrile for multiple days. (8) TOMMY (acute kidney injury): Now resolved. Patient with acutely elevated Cr = 2.01 from 0.7 on admission. Possibly secondary to hypotension, pre-renal azotemia + ATN. Also with elevated CK Cr peaked at 2.18 but now down to 1.39 UOP adequate CPK trended downward to 800 -continue IVF -follow BMP, UOP -Avoid nephrotoxic agents (9) Elevated troponin: Patient denies chest pain. Troponin = 0.046 and repeat down to within normal range x 2, EKG with lateral TWI. Suspect demand ischemic in setting of prolonged hypotension -ASA 81mg po daily (10) Hypokalemia: replaced follow bmp daily (11) Asthma: Chronic. No SOB or wheeze -Albuterol PRN -Continue Trelegy -Supplemental O2 as needed (12) CAD (coronary artery disease): Chronic -ASA 81mg po daily initiated -Continue Crestor 5mg po qAM (13) COPD (chronic obstructive pulmonary disease): Stable. No SOB/Cough/Wheeze or other respiratory complaints -Continue Albuterol, Fluticasone/Vilanterol (14) Hyperlipidemia: Chronic -Continue Crestor (15) Unspecified cirrhosis of liver: likely secondary to DOLAN no acute issues With mildly elevated LFTs likely from this and hypotension/shock liver (16) Obstructive sleep apnea syndrome: -continue CPAP qhs (17) Closed T11 fracture: Seen on KUB and then on CT Thoracic spine ordered by Spine Surgery Appreciate further Ortho spine recommendations--> unstable fracture Needs surgical repair urgently once medically stable However, alternative would be bed bound status and with her body habitus and comorbidities, this would likely amount to becoming [employer] Not yet medically stable for surgery. If had back surgery, would be later this week Pain control with tylenol only now to avoid opioids -Strict LOGROLL only, can sit up in bed to eat/drink (18) Right sided weakness: as above for dysphonia. Will continue to reassess as mentation improves and adamant she had right sided weakness with speech abnormality although I find this difficult to explain without a large stroke on MRI or CT/ (19) Hypophosphatemia: follow in AM (20) DVT prophylaxis: - Heparin SQ FEN-patient refusing corsafe. Given recent sepsis I do not feel she requires TPN/PPN at present especially in light of multiple improvement we can make to help with her passing swallow evaluations. Code - Full Dispo - continue on med/tele Admission and Anticipated Discharge Date Admission Date: April 05, 2020 Subjective Patient appears much more alert today off morphine. Groaning with any palpation of her abdomen. Crying frequently during exam and trying to understand her is difficult with her dysphonia. Tells me "go home, go home". Discussed potentially needing a feeding tube and she shakes her head. Appears to understand what I am saying but having a lot of difficulty communicating. Discussed with care with her over the phone and asked him to bring in her dentures as likely having an effect on her ability to eat. He re-iterated history of slowly progressively worsening. Review of Systems Review of Systems: All systems reviewed & are unremarkable except as noted in HPI & below (limited due to difficulty communicating) Physical Exam Constitutional: + ill appearing and + morbidly obese Eyes: + anicteric sclerae and PERRL; normal pupil size ENMT: Ears: + hearing impairment Mouth: + oral mucosal abnormality (dry mucus membranes, NG tube removed) Neck: trachea midline, no thyromegaly Respiratory: normal respiratory effort; no respiratory distress and no labored breathing Auscultation: + diminished lung sounds (throughout due to body habitus); no wheezes Cardiovascular: Rate/Rhythm: regular rate and regular rhythm Heart Sounds: no murmur Extremities: + edema (hands/legs with 3+ edema) Chest (Breasts): Chest: normal inspection of chest Gastrointestinal (Abdomen): Inspection/Auscultation: + hyperactive bowel sounds Percussion/Palpation: + abdomen tender (generalized groaning throughout) and abdomen soft; no guarding and abdomen not rigid Musculoskeletal: Extremities: extremities normal to inspection; no cyanosis a nd no clubbing Skin: no rashes, warm and dry Neurologic: moves all extremities (limited movement, able to move toes and hands to voice, not one sided) and awake Psychiatric: Orientation: alert and cooperative; + not oriented x 3 Affect: + tearful affect Genitourinary: + abnormal external appearance (Prasad catheter in place) Results & Data Results & Data ([facility]) Vital Signs (Past 12 Hours) Vital Signs Temp Pulse Pulse Resp BP Pulse Ox 04/10/20 19:09 85 20 94 04/10/20 18:45 36.8 C 85 18 158/79 H 95 04/10/20 15:45 36.6 C 88 20 151/87 H 95 04/10/20 15:09 86 04/10/20 11:23 36.5 C 85 18 162/74 H 95 PG Care Time/CCT Total # of Minutes Spent Total Time Spent with Patient: Total time spent is greater than 50% in coordination of care (as documented) at patient's floor/unit and/or counseling patient: Coding Level of Care Code 60919 Subseq Hosp Care Lvl 3 Diagnoses Septic shock A41.9; R65.21 AMS (altered mental status) R41.82 Dysphonia R49.0 Ileus K56.7 Elevated lactic acid level R79.89 Diarrhea R19.7 Diarrhea type: unspecified type Abdominal pain R10.33 Abdominal location: periumbilical TOMMY (acute kidney injury) N17.9 Elevated troponin R79.89 Hypokalemia E87.6 Asthma J45.40 Asthma complication type: unspecified Asthma persistence: persistent Asthma severity: moderate CAD (coronary artery disease) I25.10 Associated angina: without angina Coronary Disease-Associated Artery/Lesion type: unspecified vessel or lesion type [place] vs. transplanted heart: [place] heart COPD (chronic obstructive pulmonary disease) J44.9 COPD type: unspecified COPD Hyperlipidemia E78.5 Hyperlipidemia type: unspecified Unspecified cirrhosis of liver K74.60 Obstructive sleep apnea syndrome G47.33 Closed T11 fracture S22.089A Right sided weakness R53.1 Hypophosphatemia E83.39 DVT prophylaxis Z29.9 (1) CAD (coronary artery disease) Associated angina: without angina Coronary Disease-Associated Artery/Lesion type: unspecified vessel or lesion type [place] vs. transplanted heart: [place] heart Qualified Code(s): I25.10 - Atherosclerotic heart disease of [place] coronary artery without angina pectoris (2) Diarrhea Diarrhea type: unspecified type Qualified Code(s): R19.7 - Diarrhea, unspecified (3) Hyperlipidemia Hyperlipidemia type: unspecified Qualified Code(s): E78.5 - Hyperlipidemia, unspecified (4) COPD (chronic obstructive pulmonary disease) COPD type: unspecified COPD Qualified Code(s): J44.9 - Chronic obstructive pulmonary disease, unspecified (5) Abdominal pain Abdominal location: periumbilical Qualified Code(s): R10.33 - Periumbilical pain (6) Asthma Asthma complication type: unspecified Asthma persistence: persistent Asthma severity: moderate Qualified Code(s): J45.40 - Moderate persistent asthma, uncomplicated
[2020-04-10] MEDS: DEXTROSE 5% 1,000 ML IV SCH (20:20)
[2020-04-11] MEDS: ACETAMINOPHEN 1000 MG/100 ML IV IV SCH ×3 (02:18→18:10)
[2020-04-11] MEDS: DEXTROSE 5% 1,000 ML IV SCH ×2 (05:15→16:02)
[2020-04-11] MEDS: metroNIDAZOLE 500 MG/100 ML BAG IV SCH ×3 (05:15→21:16)
[2020-04-11 06:02] LABS: Albumin Level 1.8 gm/dl (3.4-5.0); BUN Creatinine Ratio 23.9 (10-20); Calcium 7.9 mg/dl (8.5-10.1); Creatinine Clr Calc Pharmacy 79.6 ml/min; Est GFR (African American) 91.3; Est GFR (Non-African American) 78.8; Potassium 3.4 mmol/L (3.5-5.1)
[2020-04-11 06:05] LABS: Albumin Globulin Ratio 0.6 (0.9-2); Bilirubin,Total 0.4 mg/dl (0.2-1); Phosphorus 1.8 mg/dl (2.5-4.9); Total Protein 4.8 gm/dl (6.4-8.2)
[2020-04-11] MEDS: PANTOprazole 40 MG TAB PO SCH ×2 (07:01→21:02)
[2020-04-11] MEDS: ROSUVASTATIN CALCIUM 5 MG TAB PO SCH (07:01)
[2020-04-11] MEDS: ALBUTEROL 0.083% NEBU SOLN 3 ML VIAL INH SCH (07:11)
[2020-04-11] MEDS: NYSTATIN POWDER 15GM BTL EXT SCH ×2 (08:12→21:19)
[2020-04-11] MEDS: HEPARIN SOD 5,000 UNIT/0.5 ML VIAL SQ SCH ×2 (08:12→21:19)
[2020-04-11] MEDS: FLUTICASONE/VILANTEROL 200/25MCG 14 PUFFS/INHALER INH SCH (08:12)
[2020-04-11] MEDS: PANTOprazole 40 MG in SYRINGE 0 ML IV SCH ×2 (09:00→21:16)
--- NOTE | 2020-04-11 10:54 | Orthopedic Progress Note ---
Date of Service April 11, 2020 Assessment & Plan (1) Closed T11 fracture: Patient is much more alert today. She is no longer on narcotic pain medications. She is overnight eating. There is concerns regarding her nutrition. We are considering possible surgical intervention later half this w [place] or early next week for stabilization across the fracture of T10-T11. Present on Admission?: Yes Admission and Anticipated Discharge Date Admission Date: April 05, 2020 Anticipated date of discharge: 04/08/20 Subjective The patient is alert today. She is cooperative with exam. She does note pain with movement in the bed across the thoracolumbar spine. She is very difficult to obtain a history from secondary to her dysarthria Physical Exam Physical Exam: On exam she seems to have plantar flexion dorsiflexion intact. Results & Data ([facility]) Vital Signs (Past 12 Hours) Vital Signs Temp Pulse Pulse Resp BP Pulse Ox 04/11/20 07:14 82 18 94 04/11/20 07:02 36.6 C 90 20 115/78 94 04/11/20 03:58 36.8 C 89 20 129/83 94 04/11/20 03:34 89 24 95 04/11/20 02:19 94 04/10/20 23:33 36.8 C 91 H 18 135/82 93 04/10/20 23:00 36.7 C 96 H 20 118/74 93
[2020-04-11] MEDS ORDERED: POTASSIUM PHOS 3 MMOL/1 ML INFUSION IV STA (11:00)
[2020-04-11] MEDS ORDERED: POTASSIUM PHOSPHATE 30 MMOL in SODIUM CHLORIDE 0.9% 500 ML IV ONE (11:15)
--- NOTE | 2020-04-11 11:25 | XRay Report ---
XR chest 1V portable CLINICAL HISTORY: 69 years-old Female presenting with hypoxia. TECHNIQUE: Portable upright AP view of the chest was obtained. COMPARISON: 04/06/2020. FINDINGS: Left internal jugular central venous catheter terminates at the upper SVC. Numerous external overlyin g leads. Atherosclerosis of the aortic arch. Cardiac silhouette moderately enlarged. Low lung volumes . Pulmonary vascular and interstitial prominence. Added density of the lungs. These findings are stab le to slightly worse from prior . Suspected left pleural effusion and left basilar opacity. No pneumo thorax. Degenerative changes of the thoracic spine. Partially visualized lumbar fusion hardware. Chol ecystectomy clips noted. IMPRESSION: 1. Stable to slightly worsened volume overload and congestive change. Suspected mild pulmonary edema . 2. Left pleural effusion and left basilar atelectasis suspected. 3. Low lung volumes. ACT 112: Negative or not required by law. Electronically signed by: Hermleindo Taveras M.D. 04/11/2020 11:23 AM
--- NOTE | 2020-04-11 12:17 | Hospitalist Progress Note ---
Date of Service April 11, 2020 Assessment & Plan (1) Closed T11 fracture: This is currently her most urgent issue and requires surgery given instability as discussed with Dr Patel Ideally would like to have started enteral nutrition and have a more definitive diagnosis for her dysarthria but despite this her surgery should go ahead if still planned for Thursday. She will likely be medically stable for surgery on Thursday Pain control with tylenol only now to avoid opioids -Strict LOGROLL only, can sit up in bed to eat/drink (2) Septic shock: Source proctocolitis. Patient with significant hypotension and profuse diarrhea requiring rectal tube in setting of likely stercoral colitis/suspected bacterial translocation. BP only minimally improved with crystalloid infusion - 4L given then on maintenance fluids. Then had rising lactate, worsening abdominal pain. Surgical consult obtained and recommended no surgery. Pt then with worsening status and had BPs 60s systolic on AM after admission--> bolused IVFs and transferred to ICU for vasopressors and continued volume resuscitation and treatment of septic shock. UA without evidence of infection CXR without PNA but CT T-spine with bibasilar consolidation-seems to be atelectasis Blood cultures negative, afebrile, lactate trended back downward to 2.6, leukocytosis resolved BPs stable -continue IVFs with D5W -switch to ceftriaxone + metronidazole for total 7 days antibiotics (finishes tongill) -C. diff gene positive but toxin negative-no po Vanco indicated (initially presented with fecal impaction) -repeat CT to assess for progression prior to stopping antibiotics since she still appears to be in pain (3) Dysarthria: Gradual onset as far as I can tell since her back operation. Having outpatient SLT. No stroke on limited MRI and CT. Ideally we would get ENT consult but it does not appear anyone is available therefore we would need to transfer to have this done and since this appears not to be new despite urgent need for nutrition I do not feel her back surgery is more urgent than an ENT consult. Will discuss with neuro regarding further imaging possibly needed. AMS has improved and dentures placed without significant changes to her dysarthria. Unable to swallow safely as per speech evaluation. Multiple attempts at Coresafe have failed. At this time appears option is likely TPN as long as her CT shows no progression she never had any bacteremia therefore benefit of this would outweigh risk despite concern for recent infection. (4) AMS (altered mental status): Much improved off morphine. Now mostly left with dysarthria. Limited MRI brain due to patient unable to complete exam but CT head negative for CVA. Patient unable to complete MR lumbar spine to assess for epidural abscess. (5) Ileus: Bowel sounds now much improved off morphine. Nutrition as above. (6) Elevated lactic acid level: With lactic acidosis, accounts for tachypnea, is secondary to sepsis Trended back downward as above (7) Diarrhea: Presented with copious amounts of watery diarrhea secondary to laxatives and enemas. Now resolved, rectal tube removed C.diff gene positive but toxin negative-likely carrier Fecal leuks rare Given that she had lactulose and other laxatives and enemas the day prior to admission, seems to not be C. diff Stool culture negative (8) Abdominal pain: Secondary to proctitis/colitis, less likely large bowel obstruction. CT with slight worsening of colitis and with ileus from to but unchanged from to 8th. Will repeat today since considering TPN and ongoing abdominal pain. (9) TOMMY (acute kidney injury): Now resolved. Patient with acutely elevated Cr = 2.01 from 0.7 on admission. Possibly secondary to hypotension, pre-renal azotemia + ATN. Also with elevated CK Cr peaked at 2.18 but now down to 1.39 UOP adequate CPK trended downward to 800 -continue IVF -follow BMP, UOP -Avoid nephrotoxic agents (10) Elevated troponin: Patient denies chest pain. Troponin = 0.046 and repeat down to within normal range x 2, EKG with lateral TWI. Suspect demand ischemic in setting of prolonged hypotension -ASA 81mg po daily (11) Hypokalemia: replace PRN follow bmp daily (12) Asthma: Chronic. No SOB or wheeze -Albuterol PRN -Continue Trelegy -Supplemental O2 as needed (13) CAD (coronary artery disease): Chronic - holding all oral medications at this time (14) COPD (chronic obstructive pulmonary disease): Stable. No SOB/Cough/Wheeze or other respiratory complaints -Continue Albuterol, Fluticasone/Vilanterol (15) Hyperlipidemia: Chronic -Holding all oral medications - Crestor (16) Unspecified cirrhosis of liver: likely secondary to DOLAN no acute issues With mildly elevated LFTs likely from this and hypotension/shock liver (17) Obstructive sleep apnea syndrome: -continue CPAP qhs (18) Right sided weakness: as above for dysarthria. No CVA suspected on imaging. She does appear to favor her left side but no weakness noticed by neuro yesterday (19) Hypophosphatemia: Replace PRN follow in AM (20) DVT prophylaxis: - Heparin SQ FEN-unable to pass Coresafe. Likely need for TPN as also cannot pass swallow evals. Reassess in AM. Code - Full Dispo - continue on med/tele Admission and Anticipated Discharge Date Admission Date: April 05, 2020 Subjective Patient continues to be much more alert but groaning. Able to make out some words but even with dentures in today I am unable to make out most of what she says as it comes out mainly as groans. Clearly getting distressed that we cannot understand her. She has more strength in her arms today therefore tried to communicate with board which was unsuccessful. Discussed Corsafe feeding tube which she now shrugs at with her arms saying "I don't know. Able to follow simple commands better than the previous day but still appears confused in addition to her speech abnormality. Some groans appear to be in pain. Some groans she is just trying to speak. Able to nod and shake her head to some questions but more often than not she tries to speak her answer which I have told her multiple times I cannot understand what she says. Review of Systems Review of Systems: Unobtainable due to cognitive status Physical Exam Constitutional: + ill appearing and + morbidly obese Eyes: + anicteric sclerae; normal pupil size ENMT: Mouth: + oral mucosal abnormality (dry mucus membranes) Respiratory: normal respiratory effort; no respiratory distress and no labored breathing Auscultation: + diminished lung sounds (throughout due to body habitus); no wheezes Cardiovascular: Rate/Rhythm: regular rate and regular rhythm Heart Sounds: no murmur Extremities: + edema (hands/legs with 2+ edema) Chest (Breasts): Chest: normal inspection of chest Gastrointestinal (Abdomen): Inspection/Auscultation: normal bowel sounds Percussion/Palpation: + abdomen tender (generalized, points centrally) and abdomen soft; no guarding and abdomen not rigid Musculoskeletal: Extremities: extremities normal to inspection; no cyanosis and no clubbing Skin: no rashes, warm and dry Neurologic: moves all extremities (improved strength from yesterday, appears to favor left side) and awake Psychiatric: Orientation: alert and cooperative; + not oriented x 3 Genitourinary: + abnormal external appearance (Prasad catheter in place) Results & Data Results & Data ([facility]) Vital Signs (Past 12 Hours) Vital Signs Temp Pulse Pulse Resp BP Pulse Ox 04/11/20 07:14 82 18 94 04/11/20 07:02 36.6 C 90 20 115/78 94 04/11/20 03:58 36.8 C 89 20 129/83 94 04/11/20 03:34 89 24 95 04/11/20 02:19 94 PG Care Time/CCT Total # of Minutes Spent Total Time Spent with Patient: Total time spent is greater than 50% in coordination of care (as documented) at patient's floor/unit and/or counseling patient: Coding Level of Care Code 97437 Subseq Hosp Care Lvl 3 Diagnoses Closed T11 fracture S22.089A Septic shock A41.9; R65.21 Dysarthria R47.1 AMS (altered mental status) R41.82 Ileus K56.7 Elevated lactic acid level R79.89 Diarrhea R19.7 Diarrhea type: unspecified type Abdominal pain R10.33 Abdominal location: periumbilical TOMMY (acute kidney injury) N17.9 Elevated troponin R79.89 Hypokalemia E87.6 Asthma J45.40 Asthma complication type: unspecified Asthma persistence: persistent Asthma severity: moderate CAD (coronary artery disease) I25.10 Associated angina: without angina Coronary Disease-Associated Artery/Lesion type: unspecified vessel or lesion type [place] vs. transplanted heart: [place] heart COPD (chronic obstructive pulmonary disease) J44.9 COPD type: unspecified COPD Hyperlipidemia E78.5 Hyperlipidemia type: unspecified Unspecified cirrhosis of liver K74.60 Obstructive sleep apnea syndrome G47.33 Right sided weakness R53.1 Hypophosphatemia E83.39 DVT prophylaxis Z29.9 (1) CAD (coronary artery disease) Associated angina: without angina Coronary Disease-Associated Artery/Lesion type: unspecified vessel or lesion type [place] vs. transplanted heart: [place] heart Qualified Code(s): I25.10 - Atherosclerotic heart disease of [place] coronary artery without angina pectoris (2) Diarrhea Diarrhea type: unspecified type Qualified Code(s): R19.7 - Diarrhea, unspecified (3) Hyperlipidemia Hyperlipidemia type: unspecified Qualified Code(s): E78.5 - Hyperlipidemia, unspecified (4) COPD (chronic obstructive pulmonary disease) COPD type: unspecified COPD Qualified Code(s): J44.9 - Chronic obstructive pulmonary disease, unspecified (5) Abdominal pain Abdominal location: periumbilical Qualified Code(s): R10.33 - Periumbilical pain (6) Asthma Asthma complication type: unspecified Asthma persistence: persistent Asthma severity: moderate Qualified Code(s): J45.40 - Moderate persistent asthma, uncomplicated
[2020-04-11] MEDS ORDERED: IOVERSOL 100ml IV PRN (14:48)
--- NOTE | 2020-04-11 15:27 | CT Scan Report ---
CT SCAN OF THE ABDOMEN AND PELVIS WITH IV CONTRAST CLINICAL HISTORY: Generalized abdominal pain. COMPARISON STUDY: Abdominal CT dated 04/06/2020. TECHNIQUE: Following the IV administration of 93 cc of Optiray 320, CT scan of the abdomen and pelvi s is performed from the lung bases to the proximal femora. Images are reviewed in the axial, sagittal , and coronal planes. IV contrast was administered without complication. A dose lowering technique wa s utilized adhering to the principles of ALARA. The Examination is degraded by large body habitus, st reak artifact from the body wall abutting the CT gantry, streak artifact from the arms which could no t be elevated above the abdomen or pelvis, and streak artifact from extensive metallic orthopedic spi nal hardware. CT DOSE: 2157.58 mGy.cm FINDINGS: Lung bases: The heart is top normal in size and without pericardial effusion. The coronary arteries a re densely calcified. There are small pleural effusions with bibasilar consolidation. This is similar to previous. There is a tiny hiatal hernia. Liver: Evaluation of the liver is degraded by streak artifact. The contrast-enhanced liver is cirrhot ic in morphology. The liver demonstrates heterogeneous and diminished attenuation indicating steatosi s. There is nodularity of the hepatic surface contour. There is no intrahepatic biliary ductal dilata tion. The hepatic veins and portal veins are patent. Gallbladder: Surgically absent noting clips in the gallbladder fossa. Spleen: Evaluation of the spleen is degraded by streak artifact. The spleen appears normal in size an d attenuation. Pancreas: Atrophic and grossly unremarkable. Adrenal glands: Unremarkable. Kidneys: The contrast enhanced kidneys demonstrate cortical atrophy and are without hydronephrosis. T he kidneys enhance symmetrically. Abdominal vasculature: The abdominal aorta is normal in course and caliber noting moderate atheroscle rotic calcification. Bowel: There is no bowel obstruction. Wall thickening and edema with mucosal hyperemia is again seen involving the rectosigmoid colon. There is liquid stool noted in the left colon. The appendix is not clearly identified. Peritoneum: There is trace pelvic ascites. No intraperitoneal free air is seen. There is evidence of previous ventral hernia repair. Lymphadenopathy: None. Pelvic viscera: Evaluation of the pelvis is degraded by streak artifact from a right hip arthroplasty . The bladder is decompressed around a Prasad catheter and not well evaluated. The uterus is surgicall y absent. No adnexal lesion is seen. Skeletal structures: The skeletal structures are osteopenic. There is lumbosacral spondylosis, with p ostoperative change from spinal fusion seen extending from T11 to S1. Again seen is a horizontally or iented fracture through the superior endplate of T11 with extension through the T10-T11 disc space. A lignment is unchanged from previous. No lytic or blastic lesions are seen. Soft tissues: Body wall edema is noted. IMPRESSION: 1. Findings of a nonspecific proctocolitis are similar to previous. 2. Again seen is a horizontally oriented fracture through the superior endplate of T11 with extension through the T10-T11 disc space. Alignment is unchanged from 04/06/2020. 3. The liver is cirrhotic in morphology and steatotic. 4. Small pleural effusions with bibasilar consolidation. This is similar to 04/06/2020. Correlate clini gay for evidence of pneumonia/aspiration pneumonitis. 5. There is trace pelvic ascites. 6. Additional findings as above. ACT 112: Negative or not required by law. Electronically signed by: Devang Camp M.D. 04/11/2020 3:26 PM
[2020-04-11] MEDS: KETOROLAC TROMETHAMINE 15 MG/ML VIAL IV PRN ×2 (16:02→22:24)
[2020-04-11] MEDS: cefTRIAXone SODIUM 2,000 MG in DEXTROSE 5% 50 ML IV SCH (18:10)
[2020-04-12] MEDS: DEXTROSE 5% 1,000 ML IV SCH ×2 (02:24→12:17)
[2020-04-12] MEDS: KETOROLAC TROMETHAMINE 15 MG/ML VIAL IV PRN ×3 (04:32→19:59)
[2020-04-12] MEDS ORDERED: TPN/PPN CONSULT PHARMACY STA (08:01)
[2020-04-12] MEDS: HEPARIN SOD 5,000 UNIT/0.5 ML VIAL SQ SCH ×2 (08:32→20:05)
[2020-04-12] MEDS: FLUTICASONE/VILANTEROL 200/25MCG 14 PUFFS/INHALER INH SCH (08:32)
[2020-04-12] MEDS: NYSTATIN POWDER 15GM BTL EXT SCH ×2 (08:33→20:07)
[2020-04-12] MEDS: MICONAZOLE NITRATE POWDER 43 GM EXT PRN (08:33)
[2020-04-12] MEDS ORDERED: FAMOTIDINE 20MG IV PUSH 20 MG/5 ML SYR IV SCH (09:00)
[2020-04-12] MEDS: ACETAMINOPHEN 1000 MG/100 ML IV IV PRN ×2 (09:24→16:09)
[2020-04-12] MEDS ORDERED: TPN/PPN CONSULT PHARMACY PRN (09:29)
[2020-04-12 10:16] LABS: Hematocrit (blood only) 38.2 % (37-47); Mean Corpuscular Hemoglobin 30.3 pg (25-34); Mean Platelet Volume 9.5 fL (7.4-10.4); Platelet Count 125 K/uL (130-400); RDW Coefficient of Variation 14.8 % (11.5-14.5); Red Blood Count 4.29 M/uL (4.2-5.4); White Blood Count 7.97 K/uL (4.8-10.8)
[2020-04-12 10:49] LABS: Albumin Level 1.8 gm/dl (3.4-5.0); BUN Creatinine Ratio 20.3 (10-20); Calcium 7.7 mg/dl (8.5-10.1); Creatinine Clr Calc Pharmacy 88.8 ml/min; Est GFR (African American) 102.9; Est GFR (Non-African American) 88.8; Magnesium 1.7 mg/dl (1.8-2.4); Potassium 3.8 mmol/L (3.5-5.1)
[2020-04-12 10:51] LABS: Albumin Globulin Ratio 0.6 (0.9-2); Bilirubin,Total 0.4 mg/dl (0.2-1); Globulin 3.1 gm/dl (2.5-4.0); Phosphorus 2.1 mg/dl (2.5-4.9); Total Protein 4.9 gm/dl (6.4-8.2)
--- NOTE | 2020-04-12 11:42 | Pharmacy Report ---
Pharmacy PN Initial Consult - Date of Service April 12, 2020 - Scope Pharmacy has been consulted to manage parenteral nutrition orders and order appropriate labs. As part of the Nutrition Support Team guidelines, pharmacy will work in conjunction with dietary when determining the patients caloric needs. - Subjective The patient is a 69 year old F admitted on 04/05/20 20:05 for HYPOTENSION. Patient is to receive parenteral nutrition for NPO x 9 days, unable to tolerate NG, unable to complete swallow eval due to unstable T-spine fracture. 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 - Objective Height: 5 ft 1 in Weight: 111.1 kg Diet: NPO Vascular Access:: IJ Intake & Output (Last 24Hrs): Intake & Output 04/10/20 04/11/20 04/12/20 04/13/20 06:59 06:59 06:59 06:59 Intake Total 2623 / 2623 2236.333 / 2236.333 2760.0 / 2760.0 Output Total 775 / 775 875 / 875 775 / 775 Balance 1848 / 1848 1361.333 / 3421.761 0097.0 / 1985.0 Weight 111.1 kg 111.1 kg 111.1 kg Laboratory Data (Last 24 Hrs):: 04/12/20 10:02 Sodium 140 Potassium 3.8 Chloride 108 H Carbon Dioxide 29 BUN 14 Creatinine 0.69 Glucose 119 H Calcium 7.7 L Phosphorus 2.1 L Magnesium 1.7 L Total Bilirubin 0.4 AST 57 H ALT 27 Alkaline Phosphatase 145 H Albumin 1.8 L Triglycerides 62 Recent Pertinent Medications:: Medications Dextrose (D10w) 1,000 mls @ 0 mls/hr IV .Q0M PRN PRN Reason: protocol (see label comments) Stop: 05/12/20 15:59 Famotidine (Pepcid 20mg Iv Push) 20 mg in 5 mls @ 2.5 mls/min IV QAM [facility] Stop: 05/12/20 08:59 Last Admin: 04/12/20 08:32 Dose: 2.5 mls/min Documented by: Discontinued Medications Potassium Phosphate 30 mmol/ (Sodium Chloride) 510 mls @ 102 mls/hr IV TODAY@1115 ONE Stop: 04/11/20 16:14 Last Admin: 05/13/20 16:37 Dose: Infused Documented by: Nutrition Assessment:: Please refer to the Notes section of the EMR for the most recent financial aid note. - Assessment Patient admitted on 04/05 for septic shock. She has had a complicated hospital course and has now been NPO x 9 days, with a T11 fracture, dysarthria, AMS and diarrhea that has since resolved. Coresafe attempts have been tried multiple times and unable to complete a video swallow due to closed T11 fracture. Trialing TPN to improve nutrition status prior to surgery. Patient is a high refeeding risk and with receiving dextrose IVFs for the past few days, she appears to have some refeeding as phosphorus level has been low. Will plan to initiate TPN at ~10 kcal/kg as per recommendations for refeeding risk. Dextrose will continue at 120 gm/day (what she has been receiving with the IVFs). Discussed with Dr. Gudino recommendations to provide thiamine outside of the bag PRIOR to TPN starting. Will also add to the bag daily. - Plan For day 1 of PN administration, the following will be ordered: Macronutrients Amino acids 95 grams/day (goal) Dextrose 120 grams/day Lipids 50 grams/day (goal) Micronutrients Combined electrolytes 20 mL - contains 35 mEq Na, 20 meq K, 4.5 mEq Ca, 5 mEq Mg, 35 mEq Cl, 29.5 mEq acetate per 20 mL Sodium phosphate 40 MMol Potassium acetate 20 mEq Magnesium sulfate 8.12 mEq Multivitamins 10 mL Trace Elements 1 mL Additional additives: Thiamine 100 mg Pepcid 20 mg (stop Pepcid being given outside of PN) Total volume 2000 mL to be infused over 24 hrs will provide 1288 kcal/day Labs and nursing orders to be ordered per PN order protocol Dextrose IVFs to d/c when PN starts Pharmacy will follow and adjust parenteral nutrition orders on a daily basis. Thank you.
[2020-04-12] MEDS ORDERED: THIAMINE HCL 100 MG in SYRINGE 9 ML IV ONE (13:00)
[2020-04-12] MEDS ORDERED: DEXTROSE 10% 1,000 ML IV PRN (16:00)
[2020-04-12] MEDS ORDERED: [UNRECOGNIZED DRUG - REMARK] ONE (16:00)
[2020-04-12] MEDS ORDERED: Custom Central Pn 2,000 ML in TPN BAG 0 ML IV SCH (16:00)
--- NOTE | 2020-04-12 16:49 | Palliative Care Progress Note ---
Date of Service April 12, 2020 Assessment & Plan (1) Goals of care, counseling/discussion: -69 year old female patient with PMH CAD, COPD, Depression, HTN, obstructive lung disease, morbid obesity, episode of aphasia and right sided weakness back in January/February, but MRI in ED at the time was negative, and others, presented to the hospital five days ago with c/o abdominal pain. Patient was seen in the ED one day prior to arrival for constipation and fecal impaction. She was manually disimpacted and given multiple agents to help move bowels. She went home and continued to have bowel movements. She returned to the ED the next day with increased abdominal pain and weakness. Patient reported that she had ongoing diarrhea at home. In ED, she was hypotensive, tachycardic, and oxygenating well on room air. She was given fluid boluses and admitted. Patient unfortunately had ongoing hypotension, lactic acidosis, and progressive renal failure. She was transferred to the ICU for septic shock likely due to bacterial translocation from recent disimpaction and colonic distention. CT scan on 04/05 concerning for progression of the distal proctocolitis, possibly representing an infectious or inflammatory process. She also has fluid-filled borderline distended loops of large and small bowel, this may represent an ileus or diarrheal illness or a low-grade partial large bowel obstruction due to the thickened distal sigmoid colon/rectum could also have a similar appearance. Surgical team consulted who recommended continuing abx, no immediate need for surgery. On imaging, patient was also noted to have an unstable thoracic spine fracture. Ortho consulted who stated to strictly log roll patient-- fracture is unstable and likely would require surgery but she is not currently medically stable. Patient is unable to tolerate even low-dose opioids. palliative care is consulted to assist with pain management and goals of care. -Patient seen this afternoon. She was attempting to speak, which came out as a moan. Patient can nod yes or no to simple questions-unable to confidently determine that she is answering questions appropriately -Patient off all narcotics -Patient is plan for surgery to stabilize her thoracic fracture -Patient unable to take p.o.-plan is for course safe NG tube placement and start NG tube feeds. TPN may not be a good option due to her cirrhosis. If patient would need to consider a G-tube-we will discuss with -Continue with current treatment in hopes that her condition will improve. Ortho following. -For now we will continue to follow along peripherally during hospitalization. Will be happy to have further discussions with . May need to arrange to have present at bedside if we need to discuss changing CODE STATUS or further aggressive interventions for feeding. (2) AMS (altered mental status): (3) Proctocolitis: (4) Septic shock: Subjective Patient awake and alert, appears comfortable at rest. Patient able to answer simple questions by nodding yes or no, patient unable to form words, only vocalizes Patient continues to be n.p.o.-plan is to place a course today for NG tube feeds. Patient would be a poor candidate for TPN given her cirrhosis. Patient with recent ER treatment for severe constipation-patient's last bowel movement was documented on 04/07. Patient's urine output fluctuates between 675 cc - 875 cc per 24-hour period. Did try to discuss CODE STATUS-patient did nod yes that she would want everything done in the event of her heart stopping or if she stopped breathing, did ask patient about a PEG tube-initially she shook her head no, when I asked her what would happen if she could not eat or drink she shrugged her shoulders. I explained to her that she would likely if she could not eat or drink, when I asked again about a possible PEG tube patient did not answer. Patient is awaiting surgery to stabilize her vertebral fracture. Review of Systems Review of Systems: ROS limited as patient with expressive aphasia. Patient able to nod yes or no. Patient denies fever or shortness of breath, difficult to assess if patient is having pain and that sometimes she nods yes and sometimes she nods no. Patient looks comfortable, does not appear to be in pain at rest. Physical Exam Physical Exam: PE: Patient appears comfortable at rest HEENT: EOMI, hearing within normal limits Respirations: Clear breath sounds, unlabored CV: Regular rate, decreased upper extremity edema, lower extremity edema appears unchanged. Abdomen. Morbidly obese, soft, no grimace with palpation. Neuro: Patient with expressive aphasia Results & Data Vital Signs (Past 12 Hours) Vital Signs Temp Pulse Pulse Resp BP BP Pulse Ox 04/12/20 16:00 98.6 F 90 22 143/88 H 98 04/12/20 15:48 98.4 F 91 H 20 126/75 97 04/12/20 15:44 90 04/12/20 09:13 90 04/12/20 07:00 98.2 F 87 22 144/81 H 98 PG Care Time/CCT Total # of Minutes Spent Total Time Spent with Patient: Total time spent 35 minutes with greater than 50% of the time spent at bedside trying to assess patient's ability to make her own decisions Coding Level of Care Code 80284 Subseq Hosp Care Lvl 3 Diagnoses Goals of care, counseling/discussion Z71.89 AMS (altered mental status) R41.82 Proctocolitis K52.9 Septic shock A41.9; R65.21 Time Spent (min) 35
--- NOTE | 2020-04-12 18:29 | Neurology Progress Note ---
Date of Service April 12, 2020 Assessment & Plan (1) Proctocolitis: (2) Hypophosphatemia: (3) Right sided weakness: (4) Closed T11 fracture: (5) Abdominal pain: (6) Neurogenic claudication due to lumbar spinal stenosis: (7) Vitamin B12 deficiency: (8) Sensorineural hearing loss (SNHL) of both ears: (9) AMS (altered mental status): Citlalli Roche is a 69 yo woman w/ PMH of anxiety/depression, CAD, hyperlipidemia, COPD, metabolic syndrome, GERD, hearing loss in the left ear, morbid obesity, TREVOR on CPAP, prediabetes, restrictive lung disease, history of impaired memory, hypertension, lumbar stenosis status post T11-L2 PLIF in December 2019 who presented to [facility] on 04/05/2020 with abdominal pain, diarrhea and hypotension, found to have proctocolitis, TOMMY, troponinemia and difficulties with speech presentation initially attributed to hypotension. # AMS: Suspect that this is multifactorial in the setting of recent septic shock, proctocolitis and multiple electrolyte abnormalities. She also has listed in her allergies hallucinations to narcotics which I am not sure how much this is actually contributing to her current picture. It sounds like her initial symptoms started within 1 month postop which could represent postop deli rium in the setting of underlying known cognitive impairment. It is not clear that she actually had a stroke back in January because right-sided weakness and aphasia would actually localize to either the left MCA territory or the left thalamus, neither of which was noted to be abnormal on most recent MRI brain back in January, nor on the more recent MRI on 04/10/20. She did see ENT in December 2019 for dysphonia attributed to a post-flu complication with a normal laryngoscopy at that time. Recommend changing pain management to scheduled Toradol or IV Tylenol and discontinue further opiates or benzos. Would consider starting low dose standing gabapentin (100mg bid, can go up to 300mg bid) or duloxetine 30mg daily for adjunct pain management Continue with delirium precautions, lights on during day, lights off during night, frequent reorientation - would recommend communication board to help with her frustration in communicating - replete lytes prn (has low calcium, phos) - Given her slowly progressive course over several months of worsening dysarthria in the setting of MCI, do strongly wonder if her presentation would be most c/w a neurodegenerative process that was uncovered with the stress of surgery followed by infections (https://www.ncbi.nlm.nih.gov/pmc/articles/KGY1692642/) Thank you for this interesting consult. Plan of care discussed with primary team. Please call or text with questions. Admission and Anticipated Discharge Date Admission Date: April 05, 2020 Anticipated date of discharge: 04/08/20 Subjective NAEs overnight. She reports that she is able to find the words to say, just is having difficulty getting them out (more dysarthria than true aphasia). Review of Systems Review of Systems: Unobtainable due to cognitive status Results & Data ([facility]) Vital Signs (Past 12 Hours) Vital Signs Temp Pulse Pulse Resp BP BP Pulse Ox 04/12/20 16:00 37.0 C 90 22 143/88 H 98 04/12/20 15:48 36.9 C 91 H 20 126/75 97 04/12/20 15:44 90 04/12/20 09:13 90 04/12/20 07:00 36.8 C 87 22 144/81 H 98 Exam (Neuro) Physical Exam: General Exam: GEN: NAD, lying in bed HEENT: No conjunctival injection, no rhinorrhea. CV: RRR, 1+ peripheral edema in bilateral hands PULM: Nonlabored respirations on 2L NC Neuro Exam: MS: Awake, alert. Oriented to self only and otherwise did not answer any other orientation questions. Speech was more fluent today, +dysarthria. She was not able to name or repeat, + following commands. Unable to fully assess cognition and memory at this time given language impairment. More attentive today. No clear neglect. CN: Positive blink to threat bilaterally. Unable to perform fundoscopic exam secondary to patient closing eyes and noncompliance. PERRLA OU. EOMI in horizontal plane. Facial muscles full and symmetric. Hearing intact to conversation. Unable to evaluate cranial nerves further given mental status. MOTOR: Normal bulk and tone. She will move both upper and lower extremities spontaneously antigravity, but did seem weaker on the RLE REFLEXES: 1+ at biceps, triceps, brachioradialis, trace patella and absent Achilles bilaterally. Flexor plantar responses bilaterally. SENSORY: Withdraws to noxious stimuli in all extremities COORDINATION: Unable to assess secondary to mental status GAIT: Deferred given physical status and known spine fracture PG Care Time/CCT Total # of Minutes Spent Total Time Spent with Patient: Total time spent is greater than 50% in deli cook rdination of care (as documented) at patient's floor/unit and/or counseling patient: Coding Level of Care Code 09947 Subseq Hosp Care Lvl 3 Diagnoses Proctocolitis K52.9 Hypophosphatemia E83.39 Right sided weakness R53.1 Closed T11 fracture S22.089A Abdominal pain R10.33 Abdominal location: periumbilical Neurogenic claudication due to lumbar spinal stenosis M48.062 Vitamin B12 deficiency E53.8 Sensorineural hearing loss (SNHL) of both ears H90.3 AMS (altered mental status) R41.82 (1) Abdominal pain Abdominal location: periumbilical Qualified Code(s): R10.33 - Periumbilical pain
--- NOTE | 2020-04-12 23:38 | Hospitalist Progress Note ---
Date of Service April 12, 2020 Assessment & Plan (1) Closed T11 fracture: Discussed with Dr Patel who will arrange surgery time for this as fracture unstable. We are unable to get any video swallow without her having this surgery therefore in light of not being able to secure a Corsafe feeding tube TPN started She is medically stable for surgery at this time. No further stroke workup recommended from neurology. -Strict LOGROLL only, can sit up in bed to eat/drink (2) Dysarthria: Gradual onset since her back operation but sudden much worse on day of admission as per her . Multiple attempts at Coresafe have failed. TPN started 04/12. Plan to attempt Coresafe during her operation as well as potentially assess vocal cords during this time but suspected (3) Septic shock: Source proctocolitis. Patient with significant hypotension and profuse diarrhea requiring rectal tube in setting of likely stercoral colitis/suspected bacterial translocation. BP only minimally improved with crystalloid infusion - 4L given then on maintenance fluids. Then had rising lactate, worsening abdominal pain. Surgical consult obtained and recommended no surgery. Pt then with worsening status and had BPs 60s systolic on AM after admission--> bolused IVFs and transferred to ICU for vasopressors and continued volume resuscitation and treatment of septic shock. UA without evidence of infection CXR without PNA but CT T-spine with bibasilar consolidation-seems to be atelectasis Blood cultures negative, afebrile, lactate trended back downward to 2.6, leukocytosis resolved BPs stable - Antibiotics finished 04/11 -C. diff gene positive but toxin negative-no po Vanco indicated (initially presented with fecal impaction) (4) AMS (altered mental status): Appears resolved now off morphine - but still left with significant dysarthria more than her baseline. Limited MRI brain due to patient unable to complete exam but CT head negative for CVA. Patient unable to complete MR lumbar spine to assess for epidural abscess - but this appears to be substantially unlikely given mental state improvement (5) Ileus: now resolved. As above. (6) Elevated lactic acid level: With lactic acidosis, accounts for tachypnea, is secondary to sepsis Trended back downward as above (7) Diarrhea: Presented with copious amounts of watery diarrhea secondary to laxatives and enemas. Now resolved, rectal tube removed C.diff gene positive but toxin negative-likely carrier Fecal leuks rare Given that she had lactulose and other laxatives and enemas the day prior to admission, seems to not be C. diff Stool culture negative (8) Abdominal pain: Secondary to proctitis/colitis, less likely large bowel obstruction. CT with slight worsening of colitis and with ileus from to but unchanged from to . CT A/P 04/11 unchanged appearance (9) TOMMY (acute kidney injury): Now resolved with IV fluids Patient with acutely elevated Cr = 2.01 from 0.7 on admission (10) Elevated troponin: Demand-ischemia Holding aspiring given proctocolitis would not give rectally and unable to administer oral medications at present (11) Asthma: Chronic. No SOB or wheeze -Albuterol PRN -Will hold Trelegy to see if this improves her dysarthria and monitor for asthma exacerbation, no thrush noted on exam -Supplemental O2 as needed (12) CAD (coronary artery disease): Chronic - holding all oral medications at this time (13) COPD (chronic obstructive pulmonary disease): Stable. No SOB/Cough/Wheeze or other respiratory complaints -Continue Albuterol, Fluticasone/Vilanterol (14) Hyperlipidemia: Chronic -Holding all oral medications - Crestor (15) Unspecified cirrhosis of liver: likely secondary to DOLAN no acute issues With mildly elevated LFTs likely from this and hypotension/shock liver (16) Obstructive sleep apnea syndrome: -continue CPAP qhs (17) Right sided weakness: as above for dysarthria. No CVA seen on imaging. Patient continues to favor left side. (18) DVT prophylaxis: - Heparin SQ FEN-TPN started 04/12, patient refuses more attempts to place Coresafe. Code - Full Dispo - continue on med/tele Admission and Anticipated Discharge Date Admission Date: April 05, 2020 Subjective Appreciate palliative care review. Difficult to discuss goals with patient as she tries to talk and we are unable to understand her instead of shaking her head for no or nodding for yes. Tried using pen and board to aid communication but she is still too weak in both arms. Fluctuates significant throughout the day. Shakes her head to attempting another Corsafe. After continued discussion she nods her head to receiving TPN and having back surgery No abdominal pain Yes to back pain Review of Systems Review of Systems: Other (unable to communicate effectively) Physical Exam Constitutional: + ill appearing and + morbidly obese Eyes: + anicteric sclerae; normal pupil size ENMT: Mouth: + oral mucosal abnormality (dry mucus membranes, denture in place) Neck: trachea midline, no thyromegaly Respiratory: normal respiratory effort; no respiratory distress and no labored breathing Auscultation: + diminished lung sounds (throughout due to body habitus); no wheezes Cardiovascular: Rate/Rhythm: regular rate and regular rhythm Heart Sounds: no murmur Extremities: + edema (hands/legs with 2+ edema) Chest (Breasts): Chest: normal inspection of chest Gastrointestinal (Abdomen): Inspection/Auscultation: normal bowel sounds Percussion/Palpation: abdomen soft; abdomen nontender, no guarding and abdomen not rigid Musculoskeletal: Extremities: extremities normal to inspection; no cyanosis a nd no clubbing Skin: no rashes, warm and dry Neurologic: moves all extremities (improved strength daily but still very weak, 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, favor left side) and awake Psychiatric: Orientation: alert and cooperative Genitourinary: + abnormal external appearance (Prasad catheter in place) Results & Data Results & Data ([facility]) Vital Signs (Past 12 Hours) Vital Signs Temp Pulse Pulse Resp BP Pulse Ox 04/12/20 22:31 36.8 C 92 H 19 124/76 96 04/12/20 19:11 36.5 C 90 18 131/82 95 04/12/20 16:00 37.0 C 90 22 143/88 H 98 04/12/20 15:48 36.9 C 91 H 20 126/75 97 04/12/20 15:44 90 PG Care Time/CCT Total # of Minutes Spent Total Time Spent with Patient: Total time spent is greater than 50% in coordination of care (as documented) at patient's floor/unit and/or counseling patient: Coding Level of Care Code 52706 Subseq Hosp Care Lvl 3 Diagnoses Closed T11 fracture S22.089A Dysarthria R47.1 Septic shock A41.9; R65.21 AMS (altered mental status) R41.82 Ileus K56.7 Elevated lactic acid level R79.89 Diarrhea R19.7 Diarrhea type: unspecified type Abdominal pain R10.33 Abdominal location: periumbilical TOMMY (acute kidney injury) N17.9 Elevated troponin R79.89 Asthma J45.40 Asthma complication type: unspecified Asthma persistence: persistent Asthma severity: moderate CAD (coronary artery disease) I25.10 Associated angina: without angina Coronary Disease-Associated Artery/Lesion type: unspecified vessel or lesion type [place] vs. transplanted heart: [place] heart COPD (chronic obstructive pulmonary disease) J44.9 COPD type: unspecified COPD Hyperlipidemia E78.5 Hyperlipidemia type: unspecified Unspecified cirrhosis of liver K74.60 Obstructive sleep apnea syndrome G47.33 Right sided weakness R53.1 DVT prophylaxis Z29.9 (1) CAD (coronary artery disease) Associated angina: without angina Coronary Disease-Associated Artery/Lesion type: unspecified vessel or lesion type [place] vs. transplanted heart: [place] heart Qualified Code(s): I25.10 - Atherosclerotic heart disease of [place] coronary artery without angina pectoris (2) Diarrhea Diarrhea type: unspecified type Qualified Code(s): R19.7 - Diarrhea, unspecified (3) Hyperlipidemia Hyperlipidemia type: unspecified Qualified Code(s): E78.5 - Hyperlipidemia, unspecified (4) COPD (chronic obstructive pulmonary disease) COPD type: unspecified COPD Qualified Code(s): J44.9 - Chronic obstructive pulmonary disease, unspecified (5) Abdominal pain Abdominal location: periumbilical Qualified Code(s): R10.33 - Periumbilical pain (6) Asthma Asthma complication type: unspecified Asthma persistence: persistent Asthma severity: moderate Qualified Code(s): J45.40 - Moderate persistent asthma, uncomplicated
[2020-04-13 06:14] LABS: BUN Creatinine Ratio 26.4 (10-20); Calcium 7.8 mg/dl (8.5-10.1); Creatinine Clr Calc Pharmacy 103.9 ml/min; Est GFR (African American) 108.4; Est GFR (Non-African American) 93.5; Magnesium 1.9 mg/dl (1.8-2.4)
[2020-04-13 06:15] LABS: Phosphorus 2.5 mg/dl (2.5-4.9)
[2020-04-13] MEDS: KETOROLAC TROMETHAMINE 15 MG/ML VIAL IV PRN ×2 (07:46→14:06)
[2020-04-13] MEDS: NYSTATIN POWDER 15GM BTL EXT SCH ×2 (08:33→21:43)
[2020-04-13] MEDS: HEPARIN SOD 5,000 UNIT/0.5 ML VIAL SQ SCH ×2 (08:33→21:42)
--- NOTE | 2020-04-13 11:16 | Pharmacy Report ---
PHA: Parenteral Nutrition Con - Date of Service April 13, 2020 - Scope Pharmacy was consulted on 04/12 to manage parenteral nutrition orders for this patient. - Subjective The patient is currently on day 1 of central parenteral nutrition for prolonged NPO, inability to use NG, unable to complete video swallow in the setting of t spine fracture. - Objective Height: 5 ft 1 in Weight: 118 kg Diet: NPO Vascular Access:: IJ Intake & Output (24hrs):: Intake & Output 04/11/20 04/12/20 04/13/20 04/14/20 06:59 06:59 06:59 06:59 Intake Total 2236.333 / 2236.333 2760.0 / 2760.0 1496.666 / 1496.666 Output Total 875 / 875 775 / 775 700 / 700 Balance 1361.333 / 5255.379 1374.0 / 1985.0 796.666 / 796.666 Weight 111.1 kg 111.1 kg 121 kg 118 kg Laboratory Data (Last 24 Hr):: 04/13/20 05:10 Sodium 138 Potassium 4.0 Chloride 106 Carbon Dioxide 27 BUN 16 Creatinine 0.59 L Glucose 111 H Calcium 7.8 L Phosphorus 2.5 Magnesium 1.9 Nutrition Assessment:: Please refer to the Notes section of the EMR for the most 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 - Assessment 04/13: Ms. Roche'chencho electrolytes are stable - okay to increase dextrose in PN today. Will increase by ~30 gm per day to advance to goal over 4 days due to refeeding risk. I/O balance is positive. ~700 cc of UO per day. Per nurse, slight increase in LE edema since yesterday. Will plan to provide PN in minimal volume. Palliative notes concerned about use of PN in cirrhosis. Baseline LFTs stable. If patient remains on PN when weekly labs obtained, can plan to decrease and/or hold lipids if LFTs have increased. It appears plan is to try to attempt Coresafe when patient in surgery (unknown date at this time). 04/12: Patient admitted on 04/05 for septic shock. She has had a complicated hospital course and has now been NPO x 9 days, with a T11 fracture, dysarthria, AMS and diarrhea that has since resolved. Coresafe attempts have been tried multiple times and unable to complete a video swallow due to closed T11 fracture. Trialing TPN to improve nutrition status prior to surgery. Patient is a high refeeding risk and with receiving dextrose IVFs for the past few days, she appears to have some refeeding as phosphorus level has been low. Will plan to initiate TPN at ~10 kcal/kg as per recommendations for refeeding risk. Dextrose will continue at 120 gm/day (what she has been receiving with the IVFs). Discussed with Dr. Gudino recommendations to provide thiamine outside of the bag PRIOR to TPN starting. Will also add to the bag daily. - Plan For day 2 of PN administration, the following will be ordered: Macronutrients Amino acids 95 grams/day Dextrose 150 grams/day Lipids 50 grams/day Micronutrients Combined electrolytes 20 mL - contains 35 mEq Na, 20 meq K, 4.5 mEq Ca, 5 mEq Mg, 35 mEq Cl, 29.5 mEq acetate per 20 mL Sodium phosphate 40 MMol Potassium acetate 20 mEq Magnesium sulfate 8.12 mEq Multivitamins 10 mL Trace Elements 1 mL Additional additives: Thiamine 100 mg Pepcid 20 mg Total volume 1474 mL to be infused over 24 hrs will provide 1390 kcal/day Labs, as indicated, will be ordered per protocol Pharmacy will continue to follow and adjust parenteral nutrition orders on a daily basis. Thank you for allowing us to participate in the care of this patient.
--- NOTE | 2020-04-13 13:29 | Palliative Care Progress Note ---
Date of Service April 13, 2020 Assessment & Plan (1) Goals of care, counseling/discussion: -69 year old female patient with PMH CAD, COPD, Depression, HTN, obstructive lung disease, morbid obesity, episode of aphasia and right sided weakness back in , but MRI in ED at the time was negative, and others, presented to the hospital five days ago with c/o abdominal pain. Patient was seen in the ED one day prior to arrival for constipation and fecal impaction. She was manually disimpacted and given multiple agents to help move bowels. She went home and continued to have bowel movements. She returned to the ED the next day with increased abdominal pain and weakness. Patient reported that she had ongoing diarrhea at home. In ED, she was hypotensive, tachycardic, and oxygenating well on room air. She was given fluid boluses and admitted. Patient unfortunately had ongoing hypotension, lactic acidosis, and progressive renal failure. She was transferred to the ICU for septic shock likely due to bacterial translocation from recent disimpaction and colonic distention. CT scan on 04/05 concerning for progression of the distal proctocolitis, possibly representing an infectious or inflammatory process. She also has fluid-filled borderline distended loops of large and small bowel, this may represent an ileus or diarrheal illness or a low-grade partial large bowel obstruction due to the thickened distal sigmoid colon/rectum could also have a similar appearance. Surgical team consulted who recommended continuing abx, no immediate need for surgery. On imaging, patient was also noted to have an unstable thoracic spine fracture. Ortho consulted who stated to strictly log roll patient-- fracture is unstable and likely would require surgery but she is not currently medically stable. Patient is unable to tolerate even low-dose opioids. palliative care is consulted to assist with pain management and goals of care. -Patient seen this afternoon. She was attempting to speak, which came out as a moan. Patient can nod yes or no to simple questions-unable to confidently determine that she is answering questions appropriately -Patient off all narcotics -Patient is plan for surgery to stabilize her thoracic fracture -Patient unable to take p.o.-multiple attempts at placing coresafe NG tube unsuccessful-patient started on TPN on 04/12. -Continue with current treatment in hopes that her condition will improve. Ortho following. -For now we will continue to follow along peripherally during hospitalization. Will be happy to have further discussions with . May need to arrange to have present at bedside if we need to discuss changing CODE STATUS or further aggressive interventions for feeding. (2) AMS (altered mental status): (3) Proctocolitis: (4) Septic shock: Subjective Patient awake and alert on exam, appears more alert compared to prior exams. Patient continues to vocalize but is able to answer simple questions by nodding yes or no. Patient has a communication board at bedside which attempted to use to do review of systems. Not sure if patient is nodding yes or no reliably, was able to follow simple commands such as wiggling her toes and lifting her arms. She was able to wiggle her toes slightly flex at the knee, lift her left arm above her head, right arm only partially off the bed. Patient is on PRN IV ketorolac-patient has been receiving it nearly every 6 hours [id number]. Patient was started on TPN yesterday for nutrition, await Ortho regarding surgery. Review of Systems Review of Systems: ROS limited-patient only able to nod yes or no, denied fevers, feeling cold, did indicate her pain is in her back using diagrams on communication board. Physical Exam Physical Exam: PE: Patient awake and alert, appears comfortable at rest. Patient frustrated when she attempts to speak HEENT: EOMI, hearing within normal limits Respirations: Unlabored, no rhonchi CV: Regular rate, lower and upper extremity edema decreasing Abdomen: Morbidly obese, soft, nontender : Prasad in place Neuro: More alert, able to follow simple commands. Results & Data Vital Signs (Past 12 Hours) Vital Signs Temp Pulse Pulse Resp BP BP Pulse Ox 04/13/20 11:20 102 H 04/13/20 11:10 98.8 F 98 H 22 149/80 H 94 04/13/20 07:23 97.7 F 94 H 20 148/83 H 95 04/13/20 03:31 98.2 F 91 H 18 143/83 H 94 PG Care Time/CCT Total # of Minutes Spent Total Time Spent with Patient: Total time spent 35 minutes with greater than 50% of the time spent at bedside attempting to communicate with patient, collaborated with attending physician. Coding Level of Care Code 29229 Subseq Hosp Care Lvl 3 Diagnoses Goals of care, counseling/discussion Z71.89 AMS (altered mental status) R41.82 Proctocolitis K52.9 Septic shock A41.9; R65.21 Time Spent (min) 35
--- NOTE | 2020-04-13 15:50 | Hospitalist Progress Note ---
Date of Service April 13, 2020 Assessment & Plan (1) Closed T11 fracture: We are unable to get any video swallow without her having this surgery therefore in light of not being able to secure a Corsafe feeding tube TPN started She is medically stable for surgery at this time. No further stroke workup recommended from neurology. - Strict LOGROLL only, can sit up in bed to eat/drink = No change today. Attempts to form words, but unable. (2) Dysarthria: Gradual onset since her back operation but sudden much worse on day of admission as per her . Multiple attempts at Coresafe have failed. TPN started 04/12. Plan to attempt Coresafe during her operation as well as potentially assess vocal cords during that time. - Neurology note indicates a possible neurodegenerative disorder. I will reach out to them. Once her fx is fixed, should there be discussion of possible transfer to tertiary care for further neurologic work-up? (3) Septic shock: Source proctocolitis. Patient with significant hypotension and profuse diarrhea requiring rectal tube in setting of likely stercoral colitis/suspected bacterial translocation. BP only minimally improved with crystalloid infusion - 4L given then on main tenance fluids. Then had rising lactate, worsening abdominal pain. Surgical consult obtained and recommended no surgery. Pt then with worsening status and had BPs 60s systolic on AM after admission--> bolused IVFs and transferred to ICU for vasopressors and continued volume resuscitation and treatment of septic shock. UA without evidence of infection CXR without PNA but CT T-spine with bibasilar consolidation-seems to be atelectasis Blood cultures negative, afebrile, lactate trended back downward to 2.6, leukocytosis resolved BPs stable - Antibiotics finished 04/11 -C. diff gene positive but toxin negative-no po Vanco indicated (initially presented with fecal impaction) (4) AMS (altered mental status): Appears resolved now off morphine - but still left with significant dysarthria more than her baseline. Limited MRI brain due to patient unable to complete exam but CT head negative for CVA. Patient unable to complete MR lumbar spine to assess for epidural abscess - but this appears to be substantially unlikely given mental state improvement (5) Ileus: now resolved. As above. (6) Elevated lactic acid level: With lactic acidosis, accounts for tachypnea, is secondary to sepsis Trended back downward as above (7) Diarrhea: Presented with copious amounts of watery diarrhea secondary to laxatives and enemas. Now resolved, rectal tube removed C.diff gene positive but toxin negative-likely carrier Fecal leuks rare Given that she had lactulose and other laxatives and enemas the day prior to admission, seems to not be C. diff Stool culture negative (8) Abdominal pain: Secondary to proctitis/colitis, less likely large bowel obstruction. CT with slight worsening of colitis and with ileus from to but unchanged from to . CT A/P 04/11 unchanged appearance (9) TOMMY (acute kidney injury): Now resolved with IV fluids Patient with acutely elevated Cr = 2.01 from 0.7 on admission (10) Elevated troponin: Demand-ischemia Holding aspiring given proctocolitis would not give rectally and unable to administer oral medications at present (11) Asthma: Chronic. No SOB or wheeze -Albuterol PRN -Will hold Trelegy to see if this improves her dysarthria and monitor for asthma exacerbation, no thrush noted on exam -Supplemental O2 as needed (12) CAD (coronary artery disease): Chronic - holding all oral medications at this time (13) COPD (chronic obstructive pulmonary disease): Stable. No SOB/Cough/Wheeze or other respiratory complaints -Continue Albuterol, Fluticasone/Vilanterol (14) Hyperlipidemia: Chronic -Holding all oral medications - Crestor (15) Unspecified cirrhosis of liver: likely secondary to DOLAN no acute issues With mildly elevated LFTs likely from this and hypotension/shock liver (16) Obstructive sleep apnea syndrome: -continue CPAP qhs (17) Right sided weakness: as above for dysarthria. No CVA seen on imaging. Patient continues to favor left side. (18) DVT prophylaxis: - Heparin SQ FEN-TPN started 04/12, patient refuses more attempts to place Coresafe. Code - Full Dispo - continue on med/tele Admission and Anticipated Discharge Date Admission Date: April 05, 2020 Subjective Unable to ascertain due to patient's communication limitations. Review of Systems Review of Systems: Unobtainable due to cognitive status Physical Exam Constitutional: WD/WN, vitals as above Eyes: EOM intact bilaterally; no conjunctival abnormality ENMT: external ear and nose normal, oropharynx normal Neck: trachea midline, no thyromegaly normal visual inspection Respiratory: normal respiratory effort, lungs clear to auscultation no respiratory distress Cardiovascular: RRR, no murmur, no edema Gastrointestinal (Abdomen): Inspection/Auscultation: abdomen normal to inspection; abdomen not distended Musculoskeletal: no cyanosis or clubbing, extremities motor strength 5/5 Skin: no rashes, warm and dry Neurologic: moves all extremities and awake Psychiatric: Orientation: alert and cooperative; + not oriented to person Speech: + mute (Only able to attempt to say words. No formed speech.) Results & Data Results & Data ([facility]) Vital Signs (Past 12 Hours) Vital Signs Temp Pulse Pulse Resp BP Pulse Ox 04/13/20 15:42 36.5 C 99 H 18 145/85 H 92 04/13/20 11:20 102 H 04/13/20 11:10 37.1 C 98 H 22 149/80 H 94 04/13/20 07:23 36.5 C 94 H 20 148/83 H 95 PG Care Time/CCT Total # of Minutes Spent Total Time Spent with Patient: Total time spent is greater than 50% in coordination of care (as documented) at patient's floor/unit and/or counseling patient: Coding Level of Care Code 01528 Subseq Hosp Care Lvl 2 Diagnoses Closed T11 fracture S22.089A Dysarthria R47.1 Septic shock A41.9; R65.21 AMS (altered mental status) R41.82 Ileus K56.7 Elevated lactic acid level R79.89 Diarrhea R19.7 Diarrhea type: unspecified type Abdominal pain R10.33 Abdominal location: periumbilical TOMMY (acute kidney injury) N17.9 Elevated troponin R79.89 Asthma J45.40 Asthma severity: moderate Asthma persistence: persistent Asthma complication type: unspecified CAD (coronary artery disease) I25.10 Coronary Disease-Associated Artery/Lesion type: unspecified vessel or lesion type [place] vs. transplanted heart: [place] heart Associated angina: without angina COPD (chronic obstructive pulmonary disease) J44.9 COPD type: unspecified COPD Hyperlipidemia E78.5 Hyperlipidemia type: unspecified Unspecified cirrhosis of liver K74.60 Obstructive sleep apnea syndrome G47.33 Right sided weakness R53.1 DVT prophylaxis Z29.9 (1) Diarrhea Diarrhea type: unspecified type Qualified Code(s): R19.7 - Diarrhea, unspecified (2) Abdominal pain Abdominal location: periumbilical Qualified Code(s): R10.33 - Periumbilical pain (3) Asthma Asthma severity: moderate Asthma persistence: persistent Asthma complication type: unspecified Qualified Code(s): J45.40 - Moderate persistent asthma, uncomplicated (4) CAD (coronary artery disease) Coronary Disease-Associated Artery/Lesion type: unspecified vessel or lesion type [place] vs. transplanted heart: [place] heart Associated angina: without angina Qualified Code(s): I25.10 - Atherosclerotic heart disease of [place] coronary artery without angina pectoris (5) COPD (chronic obstructive pulmonary disease) COPD type: unspecified COPD Qualified Code(s): J44.9 - Chronic obstructive pulmonary disease, unspecified (6) Hyperlipidemia Hyperlipidemia type: unspecified Qualified Code(s): E78.5 - Hyperlipidemia, unspecified
[2020-04-13] MEDS ORDERED: CENTRAL PN IV SCH (16:00)
[2020-04-13] MEDS ORDERED: TPN IV SCH (16:00)
--- NOTE | 2020-04-13 18:06 | Neurology Progress Note ---
Date of Service April 13, 2020 Assessment & Plan (1) Proctocolitis: (2) Hypophosphatemia: (3) Right sided weakness: (4) Closed T11 fracture: (5) Abdominal pain: (6) Neurogenic claudication due to lumbar spinal stenosis: (7) Vitamin B12 deficiency: (8) Sensorineural hearing loss (SNHL) of both ears: (9) AMS (altered mental status): Citlalli Roche is a 69 yo woman w/ PMH of anxiety/depression, CAD, hyperlipidemia, COPD, metabolic syndrome, GERD, hearing loss in the left ear, morbid obesity, TREVOR on CPAP, prediabetes, restrictive lung disease, history of impaired memory, hypertension, lumbar stenosis status post T11-L2 PLIF in December 2019 who presented to [facility] on 04/05/2020 with abdominal pain, diarrhea and hypotension, found to have proctocolitis, TOMMY, troponinemia and difficulties with speech presentation initially attributed to hypotension. # AMS: Suspect that this is multifactorial in the setting of recent septic shock, proctocolitis and multiple electrolyte abnormalities. She also has listed in her allergies hallucinations to narcotics which I am not sure how much this is actually contributing to her current picture. It sounds like her initial symptoms started within 1 month postop which could represent postop deli rium in the setting of underlying known cognitive impairment. It is not clear that she actually had a stroke back in January because right-sided weakness and aphasia would actually localize to either the left MCA territory or the left thalamus, neither of which was noted to be abnormal on most recent MRI brain back in January, nor on the more recent MRI on 04/10/20. She did see ENT in December 2019 for dysphonia attributed to a post-flu complication with a normal laryngoscopy at that time. Avoid further opiates or benzos. Would consider starting low dose standing gabapentin (100mg bid, can go up to 300mg bid) or duloxetine 30mg daily for adjunct pain management Continue with delirium precautions, lights on during day, lights off during night, frequent reorientation - would recommend communication board to help with her frustration in communicating - replete lytes prn (has low calcium, phos) - Given her slowly progressive course over several months of worsening dysarthria in the setting of MCI, do strongly wonder if her presentation would be most c/w a neurodegenerative process that was uncovered with the stress of surgery followed by infections (https://www.ncbi.nlm.nih.gov/pmc/artic les/MKW9201052/). Agree with having ENT do a repeat laryngoscopic to rule out any dysfunction of vocal cords is contributing to current presentation. Thank you for this interesting consult. Plan of care discussed with primary team. Please call or text with questions. Admission and Anticipated Discharge Date Admission Date: April 05, 2020 Anticipated date of discharge: 04/08/20 Subjective No acute events overnight. She unfortunately looks a little bit worse today in terms of her ability to speak. She appears very frustrated and begins crying when she is unable to communicate what she is trying to say. Review of Systems Review of Systems: Unobtainable due to cognitive status Results & Data ([facility]) Vital Signs (Past 12 Hours) Vital Signs Temp Pulse Pulse Resp BP Pulse Ox 04/13/20 15:42 36.5 C 99 H 18 145/85 H 92 04/13/20 11:20 102 H 04/13/20 11:10 37.1 C 98 H 22 149/80 H 94 04/13/20 07:23 36.5 C 94 H 20 148/83 H 95 Exam (Neuro) Physical Exam: General Exam: GEN: NAD, lying in bed HEENT: No conjunctival injection, no rhinorrhea. CV: RRR, 1+ peripheral edema in bilateral hands PULM: Nonlabored respirations on 2L NC Neuro Exam: MS: Awake, alert. Oriented to self only and otherwise did not answer any other orientation questions. Speech was less fluent today, +dysarthria. She was not able to name or repeat, + following commands. Unable to fully assess cognition and memory at this time given language impairment. More attentive today. No clear neglect. CN: Positive blink to threat bilaterally. Unable to perform fundoscopic exam secondary to patient closing eyes and noncompliance. PERRLA OU. EOMI in horizontal plane. Facial muscles full and symmetric. Hearing intact to conversation. Unable to evaluate cranial nerves further given mental status. MOTOR: Normal bulk and tone. All extremities antigravity without drift. She is able to do shoulder shrug on the right as well as elevate her right arm as long as it is bent, she was able to note that there is pain in her right hand that prevents her from moving it much. REFLEXES: 1+ at biceps, triceps, brachioradialis, trace patella and absent Achilles bilaterally. Flexor plantar responses bilaterally. SENSORY: Withdraws to noxious stimuli in all extremities COORDINATION: Unable to assess secondary to mental status GAIT: Deferred given physical status and known spine fracture PG Care Time/CCT Total # of Minutes Spent Total Time Spent with Patient: Total time spent is greater than 50% in coordination of care (as documented) at patient's floor/unit and/or counseling patient: Coding Level of Care Code 69687 Subseq Hosp Care Lvl 3 Diagnoses Proctocolitis K52.9 Hypophosphatemia E83.39 Right sided weakness R53.1 Closed T11 fracture S22.089A Abdominal pain R10.33 Abdominal location: periumbilical Neurogenic claudication due to lumbar spinal stenosis M48.062 Vitamin B12 deficiency E53.8 Sensorineural hearing loss (SNHL) of both ears H90.3 AMS (altered mental status) R41.82 (1) Abdominal pain Abdominal location: periumbilical Qualified Code(s): R10.33 - Periumbilical pain
[2020-04-13] MEDS: ACETAMINOPHEN 1,000 MG/100 ML VIAL IV PRN (18:19)
[2020-04-13] MEDS: MICONAZOLE NITRATE POWDER 43 GM EXT PRN (21:42)
--- NOTE | 2020-04-13 21:59 | XRay Report ---
XR chest 1V portable CLINICAL HISTORY: Wheezing, SOB COMPARISON STUDY: 04/11/2020 FINDINGS: The heart remains enlarged. There is a left-sided internal jugular central venous catheter unchanged in position. There is mild central vascular prominence similar to the preceding examination . Left hemidiaphragm remains obscured suggesting left lower lobe atelectasis/consolidation. A small a ssociated effusion cannot be excluded. There is no focal pulmonary consolidation on the right. Postsu rgical changes are present within the cervical spine[ IMPRESSION: 1. Continued radiographic evidence of congestive failure/fluid overload 2. Left hemidiaphragm remains obscured, suggesting a left lower lobe atelectasis/consolidation. ACT 112: Negative or not required by law. Electronically signed by: Jose Conley M.D. 04/13/2020 9:58 PM
[2020-04-13] MEDS ORDERED: FUROSEMIDE 40 MG in SYRINGE 0 ML IV ONE (22:17)
[2020-04-13] MEDS: ALBUT/IPRATROP 3MG/0.5MG NEB 3 ML VIAL NEB SCH (23:01)
[2020-04-14] MEDS: KETOROLAC TROMETHAMINE 15 MG/ML VIAL IV PRN ×3 (00:39→16:56)
[2020-04-14] MEDS: ALBUT/IPRATROP 3MG/0.5MG NEB 3 ML VIAL NEB SCH ×2 (03:40→07:34)
[2020-04-14] MEDS ORDERED: FUROSEMIDE 20 MG in SYRINGE 0 ML IV ONE (06:30)
[2020-04-14 06:58] LABS: BUN Creatinine Ratio 39.1 (10-20); Calcium 7.7 mg/dl (8.5-10.1); Creatinine Clr Calc Pharmacy 114.4 ml/min; Est GFR (African American) 110.3; Est GFR (Non-African American) 95.1; Potassium 4.2 mmol/L (3.5-5.1)
[2020-04-14 07:00] LABS: Phosphorus 3.3 mg/dl (2.5-4.9)
[2020-04-14] MEDS: HEPARIN SOD 5,000 UNIT/0.5 ML VIAL SQ SCH ×2 (07:42→21:02)
[2020-04-14] MEDS: NYSTATIN POWDER 15GM BTL EXT SCH ×2 (07:43→21:04)
[2020-04-14] MEDS ORDERED: ALBUT/IPRATROP 3MG/0.5MG NEB 3 ML VIAL NEB PRN (10:04)
--- NOTE | 2020-04-14 10:09 | Ultrasound Report ---
US venous doppler LE CLINICAL HISTORY: 69 years-old Female presenting with bilateral calf tenderness, clinical concern for deep venous thrombosis. TECHNIQUE: Real-time grayscale and color and spectral Doppler ultrasound imaging of the veins of the bilateral lower extremities was performed. Compression and augmentation were also utilized. COMPARISON: None. FINDINGS: RIGHT: Common femoral vein: Patent. Greater saphenous vein (superficial): Patent. Deep femoral vein: Patent. Femoral vein: Patent. Popliteal vein: Patent. Calf veins: Patent. LEFT: Common femoral vein: Patent. Greater saphenous vein (superficial): Patent. Deep femoral vein: Patent. Femoral vein: Patent. Popliteal vein: Patent. Calf veins: Patent. Other: Subcutaneous edema in the bilateral popliteal fossae an extending into the lower leg on the le ft. IMPRESSION: 1. No evidence of deep venous thrombosis. 2. Subcutaneous edema in the bilateral lower legs greater on the left. ACT 112: Negative or not required by law. Electronically signed by: Hermelindo Taveras M.D. 04/14/2020 10:08 AM
[2020-04-14] MEDS: ACETAMINOPHEN 1,000 MG/100 ML VIAL IV PRN ×2 (10:52→16:56)
[2020-04-14] MEDS: ONDANSETRON INJ 2 MG/ML 2 ML VIAL IV PRN (10:52)
[2020-04-14] MEDS: TPN IV SCH (16:40)
[2020-04-14] MEDS: CENTRAL PN IV SCH (16:40)
--- NOTE | 2020-04-14 16:57 | Hospitalist Progress Note ---
Date of Service April 14, 2020 Assessment & Plan (1) Closed T11 fracture: We are unable to get any video swallow without her having this surgery therefore in light of not being able to secure a Corsafe feeding tube TPN started She is medically stable for surgery at this time. - Strict LOGROLL only, can sit up in bed to eat/drink (2) Dysarthria: Gradual onset since her back operation but sudden much worse on day of admission as per her . Multiple attempts at Coresafe have failed. TPN started 04/12. Plan to attempt Coresafe during her operation as well as potentially assess vocal cords during that time. - Neurology note indicates a possible neurodegenerative disorder (3) Septic shock: Source proctocolitis. Patient with significant hypotension and profuse diarrhea requiring rectal tube in setting of likely stercoral colitis/suspected bacterial translocation. BP only minimally improved with crystalloid infusion - 4L given then on maintenance fluids. Then had rising lactate, worsening abdominal pain. Surgical consult obtained and recommended no surgery. Pt then with worsening status and had BPs 60s systolic on AM after admission--> bolused IVFs and transferred to ICU for vasopressors and continued volume resuscitation and treatment of septic shock. UA without evidence of infection CXR without PNA but CT T-spine with bibasilar consolidation-seems to be atelectasis Blood cultures negative, afebrile, lactate trended back downward to 2.6, leukocytosis resolved BPs stable - Antibiotics finished 04/11 -C. diff gene positive but toxin negative-no po Vanco indicated (initially presented with fecal impaction) (4) AMS (altered mental status): Appears resolved now off morphine - but still left with significant dysarthria more than her baseline. Limited MRI brain due to patient unable to complete exam but CT head negative for CVA. Patient unable to complete MR lumbar spine to assess for epidural abscess - but this appears to be substantially unlikely given mental state improvement (5) Ileus: now resolved. As above. (6) Elevated lactic acid level: With lactic acidosis, accounts for tachypnea, is secondary to sepsis Trended back downward as above (7) Diarrhea: Presented with copious amounts of watery diarrhea secondary to laxatives and enemas. Now resolved, rectal tube removed C.diff gene positive but toxin negative-likely carrier Fecal leuks rare Given that she had lactulose and other laxatives and enemas the day prior to admission, seems to not be C. diff Stool culture negative (8) Abdominal pain: Secondary to proctitis/colitis, less likely large bowel obstruction. CT with slight worsening of colitis and with ileus from to but unchanged from to . CT A/P 04/11 unchanged appearance Start famotidine 20mg IV daily as concern for gastritis with new more specific epigastric tenderness. She is usually on PPI at home and has also been receiving toradol (9) TOMMY (acute kidney injury): Now resolved with IV fluids Patient with acutely elevated Cr = 2.01 from 0.7 on admission (10) Elevated troponin: Demand-ischemia Holding aspiring given proctocolitis would not give rectally and unable to administer oral medications at present (11) Asthma: Chronic. No SOB or wheeze -Albuterol PRN -Will hold Trelegy to see if this improves her dysarthria and monitor for asthma exacerbation, no thrush noted on exam -Supplemental O2 as needed (12) CAD (coronary artery disease): Chronic - holding all oral medications at this time (13) COPD (chronic obstructive pulmonary disease): Stable. No SOB/Cough/Wheeze or other respiratory complaints -Continue Albuterol, Fluticasone/Vilanterol (14) Hyperlipidemia: Chronic -Holding all oral medications - Crestor (15) Unspecified cirrhosis of liver: likely secondary to DOLAN no acute issues With mildly elevated LFTs likely from this and hypotension/shock liver (16) Obstructive sleep apnea syndrome: -continue CPAP qhs (17) Right sided weakness: as above for dysarthria. No CVA seen on imaging. Patient continues to favor left side. (18) Hypervolemia: IV lasix started last night. Will continue at lasix IV 20mg IV daily and monitor renal function. Likely secondary to IV fluids and immobility rather than any true congestive heart failure, although concern for liver cirrhosis as above. (19) DVT prophylaxis: - Heparin SQ FEN-TPN started 04/12, patient refuses more attempts to place Coresafe. Code - Full Dispo - continue on med/tele Admission and Anticipated Discharge Date Admission Date: April 05, 2020 Subjective Continued dysarthria and difficulty communicating. Unable to move hands enough b/l to write or meaningfully point at pictures. Appears to understand need for operations. Groans throughout the day but when asked she shakes her head that she is in pain. Newly appears to be complaining more about epigastric pain though compared to more generalized or lower abdominal pain previously. Updated her over the phone. Review of Systems Review of Systems: All systems reviewed & are unremarkable except as noted in HPI & below (limited due to difficulty communicating) Physical Exam Constitutional: + ill appearing and + morbidly obese Eyes: + anicteric sclerae; normal pupil size ENMT: Mouth: + dry oral mucous membranes Neck: trachea midline, no thyromegaly Respiratory: normal respiratory effort; no respiratory distress and no labored breathing Auscultation: + diminished lung sounds (throughout due to body habitus); no crackles and no wheezes Cardiovascular: Rate/Rhythm: regular rate and regular rhythm Heart Sounds: no murmur Extremities: + edema (hands/legs with 2+ edema, RUE > LUE) Chest (Breasts): Chest: normal inspection of chest Gastrointestinal (Abdomen): Inspection/Auscultation: normal bowel sounds Percussion/Palpation: + abdomen tender (unclear but groans with palpation throughout especially over epigastrium) and abdomen soft; no guarding and abdomen not rigid Musculoskeletal: Extremities: extremities normal to inspection; no cyanosis and no clubbing Skin: no rashes, warm and dry Neurologic: moves all extremities (improved strength daily but still very weak, sciences dean pen b/l, favor left side) and awake Psychiatric: Orientation: alert and cooperative Affect: + tearful affect Genitourinary: + abnormal external appearance (Prasad catheter in place) Results & Data Results & Data ([facility]) Vital Signs (Past 12 Hours) Vital Signs Temp Pulse Pulse Resp BP Pulse Ox 04/14/20 15:39 36.6 C 91 H 20 143/80 H 96 04/14/20 12:55 36.8 C 91 H 16 123/71 96 04/14/20 12:06 36.5 C 95 H 17 150/81 H 95 04/14/20 09:02 36.9 C 92 H 18 146/78 H 94 04/14/20 07:41 84 22 99 04/14/20 07:19 95 H PG Care Time/CCT Total # of Minutes Spent Total Time Spent with Patient: Total time spent is greater than 50% in coordination of care (as documented) at patient's floor/unit and/or counseling patient: Coding Level of Care Code 48267 Subseq Hosp Care Lvl 2 Diagnoses Closed T11 fracture S22.089A Dysarthria R47.1 Septic shock A41.9; R65.21 AMS (altered mental status) R41.82 Ileus K56.7 Elevated lactic acid level R79.89 Diarrhea R19.7 Diarrhea type: unspecified type Abdominal pain R10.33 Abdominal location: periumbilical TOMMY (acute kidney injury) N17.9 Elevated troponin R79.89 Asthma J45.40 Asthma complication type: unspecified Asthma persistence: persistent Asthma severity: moderate CAD (coronary artery disease) I25.10 Associated angina: without angina Coronary Disease-Associated Artery/Lesion type: unspecified vessel or lesion type [place] vs. transplanted heart: [place] heart COPD (chronic obstructive pulmonary disease) J44.9 COPD type: unspecified COPD Hyperlipidemia E78.5 Hyperlipidemia type: unspecified Unspecified cirrhosis of liver K74.60 Obstructive sleep apnea syndrome G47.33 Right sided weakness R53.1 Hypervolemia E87.70 DVT prophylaxis Z29.9 (1) CAD (coronary artery disease) Associated angina: without angina Coronary Disease-Associated Artery/Lesion type: unspecified vessel or lesion type [place] vs. transplanted heart: [place] heart Qualified Code(s): I25.10 - Atherosclerotic heart disease of [place] coronary artery without angina pectoris (2) Diarrhea Diarrhea type: unspecified type Qualified Code(s): R19.7 - Diarrhea, unspecified (3) Hyperlipidemia Hyperlipidemia type: unspecified Qualified Code(s): E78.5 - Hyperlipidemia, unspecified (4) COPD (chronic obstructive pulmonary disease) COPD type: unspecified COPD Qualified Code(s): J44.9 - Chronic obstructive p ulmonary disease, unspecified (5) Abdominal pain Abdominal location: periumbilical Qualified Code(s): R10.33 - Periumbilical pain (6) Asthma Asthma complication type: unspecified Asthma persistence: persistent Asthma severity: moderate Qualified Code(s): J45.40 - Moderate persistent asthma, uncomplicated
[2020-04-14] MEDS: BENZOCAINE 20% AER SPR 82.5 GM CAN EXT PRN (22:25)
[2020-04-15] MEDS ORDERED: KETOROLAC TROMETHAMINE 15 MG/ML VIAL IV ONE (00:29)
[2020-04-15] MEDS: ACETAMINOPHEN 1,000 MG/100 ML VIAL IV PRN ×3 (01:59→20:04)
[2020-04-15 08:42] LABS: BUN Creatinine Ratio 59.9 (10-20); Calcium 7.9 mg/dl (8.5-10.1); Creatinine Clr Calc Pharmacy 115.9 ml/min; Est GFR (African American) 110.9; Est GFR (Non-African American) 95.7; Magnesium 2.2 mg/dl (1.8-2.4); Phosphorus 3.1 mg/dl (2.5-4.9); Potassium 4.3 mmol/L (3.5-5.1)
[2020-04-15] MEDS: FLUTICASONE/VILANTEROL 200/25MCG 14 PUFFS/INHALER INH SCH (08:46)
[2020-04-15] MEDS: NYSTATIN POWDER 15GM BTL EXT SCH ×2 (08:46→20:05)
[2020-04-15] MEDS: FUROSEMIDE 40 MG in SYRINGE 0 ML IV SCH (08:46)
[2020-04-15] MEDS: HEPARIN SOD 5,000 UNIT/0.5 ML VIAL SQ SCH ×2 (08:47→20:05)
[2020-04-15] MEDS ORDERED: FUROSEMIDE 20 MG in SYRINGE 0 ML IV SCH (09:00)
--- NOTE | 2020-04-15 10:56 | Neurology Progress Note ---
Date of Service April 15, 2020 Assessment & Plan (1) Proctocolitis: (2) Hypophosphatemia: (3) Right sided weakness: (4) Closed T11 fracture: (5) Abdominal pain: (6) Neurogenic claudication due to lumbar spinal stenosis: (7) Vitamin B12 deficiency: (8) Sensorineural hearing loss (SNHL) of both ears: (9) AMS (altered mental status): Citlalli Roche is a 69 yo woman w/ PMH of anxiety/depression, CAD, hyperlipidemia, COPD, metabolic syndrome, GERD, hearing loss in the left ear, morbid obesity, TREVOR on CPAP, prediabetes, restrictive lung disease, history of impaired memory, hypertension, lumbar stenosis status post T11-L2 PLIF in December 2019 who presented to [facility] on 04/05/2020 with abdominal pain, diarrhea and hypotension, found to have proctocolitis, TOMMY, troponinemia and difficulties with speech presentation initially attributed to hypotension. # AMS: Suspect that this is multifactorial in the setting of recent septic shock, proctocolitis and multiple electrolyte abnormalities. She also has listed in her allergies hallucinations to narcotics which I am not sure how much this is actually contributing to her current picture. It is not clear that she actually had a stroke back in January because right-sided weakness and aphasia would actually localize to either the left MCA territory or the left thalamus, neither of which was noted to be abnormal on most recent MRI brain back in January, nor on the more recent MRI on 04/10/20. She did see ENT in December 2019 for dysphonia attributed to a post-flu complication with a normal laryngoscopy at that time. Given the time course that she was able to describe today, and opsoclonus seen on eye movements today, cannot rule out opsoclonus-myoclonus syndrome or [place]-Amado syndrome (affecting the brachial plexus and either phrenic nerve or recurrent laryngeal nerve), less likely but still possible to include a neurodegenerative process Avoid further opiates or benzos. Would consider starting low dose standing gabapentin (100mg bid, can go up to 300mg bid) or duloxetine 30mg daily for adjunct pain management Continue with delirium precautions, lights on during day, lights off during night, frequent reorientation - Agree with having ENT do a repeat laryngoscopic to rule out any dysfunction of vocal cords is contributing to current presentation. - would obtain CT chest to r/o underlying tumor, perform sniff test to r/o diaphragmatic dysfunction - would recommend EMG of RUE once in rehab to r/o plexopathy or ALS-dementia variant - assuming full code going forward, she should follow up with neurology in 4-6 weeks Thank you for this interesting consult. Plan of care discussed with primary team. Please call or text with questions. Admission and Anticipated Discharge Date Admission Date: April 05, 2020 Anticipated date of discharge: 04/08/20 Subjective Moved to a new room. Citlalli was more interactive this morning. She was able to answer questions about her dysarthria and endorses that this started back in December 2019. She notes that she had weakness and pain in her RUE (none in RLE) that started in January, which is what actually prompted presentation to ED at that time. She denies that symptoms have changed much in terms of her speech since December. She is still having tearful episodes and occasional irritability. Review of Systems Review of Systems: Other Difficult to fully assess, denied any neck or abdominal pain currently. Is having some back pain and RUE pain. Otherwise unable to fully review given dysarthria/anarthria Results & Data ([facility]) Vital Signs (Past 12 Hours) Vital Signs Temp Pulse Resp BP BP Pulse Ox 04/15/20 07:44 36.5 C 92 H 18 132/79 93 04/14/20 23:06 36.7 C 91 H 22 128/82 95 Exam (Neuro) Physical Exam: General Exam: GEN: NAD, lying in bed HEENT: No conjunctival injection, no rhinorrhea. CV: RRR, 1+ peripheral edema in bilateral hands PULM: Nonlabored respirations on 1L NC Neuro Exam: MS: Awake, alert. Oriented to self only and had difficulty articulating answers to any other orientation questions. Speech was more fluent today, +dysarthria (borderline anarthria). She was able to name or repeat, + following commands. Unable to fully assess cognition and memory at this time given language impairment. More attentive today. No clear neglect. CN: Positive blink to threat bilaterally. Unable to perform fundoscopic exam secondary to patient closing eyes and noncompliance. +opsoclonus. PERRLA OU. EOMI in horizontal plane. Facial muscles full and symmetric. Hearing intact to conversation. Unable to evaluate cranial nerves further given mental status. MOTOR: Normal bulk and tone. All extremities antigravity without drift (right weaker than left side of body). She is able to do shoulder shrug on the right as well as elevate her right arm as long as it is bent, she was able to note that there is pain in her right hand that prevents her from moving it much. REFLEXES: 1+ at biceps, triceps, brachioradialis, trace patella and absent Achilles bilaterally. Flexor plantar responses bilaterally. SENSORY: Withdraws to noxious stimuli in all extremities COORDINATION: No clear ataxia or myoclonus noted on exam but she does not like to move her extremities much GAIT: Deferred given physical status and known spine fracture PG Care Time/CCT Total # of Minutes Spent Total Time Spent with Patient: Total time spent is greater than 50% in coordination of care (as documented) at patient's floor/unit and/or counseling patient: Coding Level of Care Code 88814 Subseq Hosp Care Lvl 3 Diagnoses Proctocolitis K52.9 Hypophosphatemia E83.39 Right sided weakness R53.1 Closed T11 fracture S22.089A Abdominal pain R10.33 Abdominal location: periumbilical Neurogenic claudication due to lumbar spinal stenosis M48.062 Vitamin B12 deficiency E53.8 Sensorineural hearing loss (SNHL) of both ears H90.3 AMS (altered mental status) R41.82 (1) Abdominal pain Abdominal location: periumbilical Qualified Code(s): R10.33 - Periumbilical pain
[2020-04-15] MEDS ORDERED: IOVERSOL 100ml IV PRN (15:54)
[2020-04-15] MEDS ORDERED: CENTRAL PN IV SCH (16:00)
[2020-04-15] MEDS ORDERED: TPN IV SCH (16:00)
--- NOTE | 2020-04-15 16:11 | CT Scan Report ---
CHEST CT WITH CONTRAST CT DOSE: 912.32 mGy.cm HISTORY: Recurrent laryngeal nerve palsy. ?recurrent laryngeal nerve palsy, ?lung mass TECHNIQUE: Multiaxial CT images of the chest were performed following the IV administration of 90 cc of Optiray 320. A dose lowering technique was utilized adhering to the principles of ALARA. COMPARISON: Chest radiograph 04/13/2020, CT thoracic spine 04/07/2020 FINDINGS: Motion degraded exam. Unremarkable thyroid. There are prominent epicardial/cardiophrenic lymph nodes measuring up to approximately 7 mm. A left IJ catheter is noted with distal tip terminating in the pr oximal aspect of the SVC. Moderate cardiomegaly. Extensive coronary artery calcifications. No pericar dial effusion. No thoracic aortic aneurysm. Patency of the imaged great vessels. The opacified pulmon channing artery is unremarkable. Unchanged small pleural effusions with bibasilar consolidation. Mild intralobular septal thickening. No pneumothorax. No pulmonary mass identified. Mild bilateral groundglass densities. Decreased AP dim ension of the mid trachea. Cirrhotic morphology of the liver with trace of abdominal ascites. Splenom egaly. Distal esophageal/proximal gastric varices. The previously described T11 fracture is not image d. Degenerative changes of the shoulders and spine. IMPRESSION: 1. Cardiomegaly with pulmonary vascular congestion and probable mild pulmonary edema. 2. Small pleural effusions with bibasilar consolidation is unchanged suggestive of compressive atelec tasis. 3. No pulmonary mass identified. 4. Cirrhotic liver disease with distal esophageal/proximal gastric varices and trace upper abdominal ascites. 5. Splenomegaly. ACT 112: Negative or not required by law. Electronically signed by: Jorge Mcginnis M.D. 04/15/2020 4:10 PM
[2020-04-15] MEDS: CENTRAL PN IV SCH (17:40)
[2020-04-15] MEDS: TPN IV SCH (17:40)
--- NOTE | 2020-04-15 18:27 | XCELERA ---
[id number]
[2020-04-15] MEDS: MICONAZOLE NITRATE POWDER 43 GM EXT PRN (20:05)
--- NOTE | 2020-04-15 23:56 | Hospitalist Progress Note ---
Date of Service April 15, 2020 Assessment & Plan (1) Closed T11 fracture: We are unable to get any video swallow without her having this surgery therefore in light of not being able to secure a Corsafe feeding tube TPN started 04/12 She is medically stable for surgery at this time, discussed previously with Dr Patel who will find a time to perform this. No further stroke workup recommended from neurology. - Strict LOGROLL only, can sit up in bed to eat/drink = No change today. Attempts to form words, but unable. (2) Dysarthria: Gradual onset since her back operation but sudden much worse on day of admission as per her . Multiple attempts at Coresafe have failed. TPN started 04/12. Plan to attempt Coresafe during her operation. I would appreciate with anesthesia can assess her vocal cords at this time in addition. - Appreciate ongoing neurology management with possible alternative disorders for this. (3) Septic shock: Source proctocolitis. Patient with significant hypotension and profuse diarrhea requiring rectal tube in setting of likely stercoral colitis/suspected bacterial translocation. BP only minimally improved with crystalloid infusion - 4L given then on maintenance fluids. Then had rising lactate, worsening abdominal pain. Surgical consult obtained and recommended no surgery. Pt then with worsening status and had BPs 60s systolic on AM after admission--> bolused IVFs and transferred to ICU for vasopressors and continued volume resuscitation and treatment of septic shock. UA without evidence of infection CXR without PNA but CT T-spine with bibasilar consolidation-seems to be atelectasis Blood cultures negative, afebrile, lactate trended back downward to 2.6, leukocytosis resolved BPs stable - Antibiotics finished 04/11 -C. diff gene positive but toxin negative-no po Vanco indicated (initially presented with fecal impaction) (4) AMS (altered mental status): Appears resolved now off morphine - but still left with significant dysarthria more than her baseline. Continue to avoid opiates. She groans a lot but mostly it is not because of pain. Limited MRI brain due to patient unable to complete exam but CT head negative for CVA. Patient unable to complete MR lumbar spine to assess for epidural abscess - but this appears to be substantially unlikely given mental state improvement (5) Ileus: now resolved. As above. (6) Elevated lactic acid level: With lactic acidosis, accounts for tachypnea, is secondary to sepsis Trended back downward as above (7) Diarrhea: Presented with copious amounts of watery diarrhea secondary to laxatives and enemas. Now resolved, rectal tube removed C.diff gene positive but toxin negative-likely carrier Fecal leuks rare Given that she had lactulose and other laxatives and enemas the day prior to admission, seems to not be C. diff Stool culture negative (8) Abdominal pain: Secondary to proctitis/colitis, less likely large bowel obstruction. CT with slight worsening of colitis and with ileus from to but unchanged from to . CT A/P 04/11 unchanged appearance Suspect some gastritis in addition given toradol previously given and pain here on exam. Started on famotidine IV 20mg. (9) TOMMY (acute kidney injury): Now resolved with IV fluids Patient with acutely elevated Cr = 2.01 from 0.7 on admission (10) Elevated troponin: Demand-ischemia Holding aspiring given proctocolitis would not give rectally and unable to administer oral medications at present (11) Asthma: Chronic. No SOB or wheeze -Albuterol PRN -Will hold Trelegy to see if this improves her dysarthria and monitor for asthma exacerbation, no thrush noted on exam -Supplemental O2 as needed (12) CAD (coronary artery disease): Chronic - holding all oral medications at this time (13) COPD (chronic obstructive pulmonary disease): Stable. No SOB/Cough/Wheeze or other respiratory complaints -Continue Albuterol, Fluticasone/Vilanterol (14) Hyperlipidemia: Chronic -Holding all oral medications - Crestor (15) Unspecified cirrhosis of liver: likely secondary to DOLAN no acute issues With mildly elevated LFTs likely from this and hypotension/shock liver Consider propranolol once Coresafe placed. (16) Obstructive sleep apnea syndrome: -continue CPAP qhs (17) Right sided weakness: as above for dysarthria. No CVA seen on imaging. Patient continues to favor left side. (18) DVT prophylaxis: - Heparin SQ FEN-TPN started 04/12, patient refuses more attempts to place Coresafe. Code - Full Dispo - continue on med/tele Admission and Anticipated Discharge Date Admission Date: April 05, 2020 Subjective Patient able to communicate now with picture board. Clearly preferring left side over right. Right hand appears more swollen. Limited lower extremity examination due to back fracture but no lateralizing weakness found. Still some difficulty communicating with dysarthria but she shakes her head to any pain but then will also appears to have the same ongoing abdominal pain on exam and she nods her head to pain here when I ask. She points to the picture that she is scared and I ask if she needs any medications for anxiety and she shakes her head. Appears to understand need for back surgery. Review of Systems Review of Systems: All systems reviewed & are unremarkable except as noted in HPI & below Physical Exam Constitutional: + ill appearing and + morbidly obese Eyes: + anicteric sclerae; normal pupil size ENMT: Ears: + hearing impairment Mouth: + dry oral mucous membranes Neck: trachea midline, no thyromegaly Respiratory: normal respiratory effort; no respiratory distress and no labored breathing Auscultation: + diminished lung sounds (throughout due to body habitus); no crackles and no wheezes Cardiovascular: Rate/Rhythm: regular rate and regular rhythm Heart Sounds: no murmur Extremities: + edema (hands/legs with 2+ edema, RUE > LUE) Chest (Breasts): Chest: normal inspection of chest Gastrointestinal (Abdomen): Inspection/Auscultation: normal bowel sounds Percussion/Palpation: + abdomen tender (unclear but groans with palpation throughout especially over epigastrium) and abdomen soft; no guarding and abdomen not rigid Musculoskeletal: Extremities: extremities normal to inspection; no cyanosis and no clubbing Skin: no rashes, warm and dry Neurologic: moves all extremities (improved strength daily but still very weak, science consultant pen b/l, favor left side) and awake Psychiatric: Orientation: alert and cooperative Affect: + tearful affect Genitourinary: + abnormal external appearance (Prasad catheter in place) Results & Data Results & Data ([facility]) Vital Signs (Past 12 Hours) Vital Signs Temp Pulse Resp BP BP Pulse Ox 04/15/20 22:56 36.6 C 100 H 18 125/77 94 04/15/20 15:06 37.0 C 96 H 20 144/78 H 92 PG Care Time/CCT Total # of Minutes Spent Total Time Spent with Patient: Total time spent is greater than 50% in coordination of care (as documented) at patient's floor/unit and/or counseling patient: Coding Level of Care Code 42852 Subseq Hosp Care Lvl 2 Diagnoses Closed T11 fracture S22.089A Dysarthria R47.1 Septic shock A41.9; R65.21 AMS (altered mental status) R41.82 Ileus K56.7 Elevated lactic acid level R79.89 Diarrhea R19.7 Diarrhea type: unspecified type Abdominal pain R10.33 Abdominal location: periumbilical TOMMY (acute kidney injury) N17.9 Elevated troponin R79.89 Asthma J45.40 Asthma severity: moderate Asthma persistence: persistent Asthma complication type: unspecified CAD (coronary artery disease) I25.10 Coronary Disease-Associated Artery/Lesion type: unspecified vessel or lesion type [place] vs. transplanted heart: nome heart Associated angina: without angina COPD (chronic obstructive pulmonary disease) J44.9 COPD type: unspecified COPD Hyperlipidemia E78.5 Hyperlipidemia type: unspecified Unspecified cirrhosis of liver K74.60 Obstructive sleep apnea syndrome G47.33 Right sided weakness R53.1 DVT prophylaxis Z29.9 (1) Diarrhea Diarrhea type: unspecified type Qualified Code(s): R19.7 - Diarrhea, unspecified (2) Abdominal pain Abdominal location: periumbilical Qualified Code(s): R10.33 - Periumbilical pain (3) Asthma Asthma severity: moderate Asthma persistence: persistent Asthma complication type: unspecified Qualified Code(s): J45.40 - Moderate persistent asthma, uncomplicated (4) CAD (coronary artery disease) Coronary Disease-Associated Artery/Lesion type: unspecified vessel or lesion type [place] vs. transplanted heart: nome heart Associated angina: without angina Qualified Code(s): I25.10 - Atherosclerotic heart disease of nome coronary artery without angina pectoris (5) COPD (chronic obstructive pulmonary disease) COPD type: unspecified COPD Qualified Code(s): J44.9 - Chronic obstructive pulmonary disease, unspecified (6) Hyperlipidemia Hyperlipidemia type: unspecified Qualified Code(s): E78.5 - Hyperlipidemia, unspecified
[2020-04-16 05:48] LABS: Basophils # (auto) 0.04 K/uL (0-0.2); Basophils % (auto) 0.5 %; Eosinophils # (auto) 0.17 K/uL (0-0.5); Hematocrit (blood only) 37.3 % (37-47); Immature Granulocytes # (auto) 0.08 K/uL (0.00-0.02); Lymphocytes % (auto) 16.6 %; Mean Corpuscular Hemoglobin 29.7 pg (25-34); Mean Corpuscular Hgb Conc 32.2 g/dL (32-36); Mean Corpuscular Volume 92.3 fL (80-100); Mean Platelet Volume 9.3 fL (7.4-10.4); Monocytes # (auto) 0.98 K/uL (0.11-0.59); Monocytes % (auto) 11.6 %; Neutrophils # (auto) 5.75 K/uL (1.4-6.5); Neutrophils % (auto) 68.3 %; Platelet Count 167 K/uL (130-400); RDW Coefficient of Variation 14.3 % (11.5-14.5); RDW Standard Deviation 47.5 fL (36.4-46.3); Red Blood Count 4.04 M/uL (4.2-5.4); White Blood Count 8.42 K/uL (4.8-10.8)
[2020-04-16 06:43] LABS: Albumin Level 1.7 gm/dl (3.4-5.0); BUN Creatinine Ratio 66.5 (10-20); Calcium 7.8 mg/dl (8.5-10.1); Creatinine Clr Calc Pharmacy 132.9 ml/min; Est GFR (Non-African American) 100.1; Potassium 4.2 mmol/L (3.5-5.1)
[2020-04-16 06:46] LABS: Albumin Globulin Ratio 0.5 (0.9-2); Bilirubin,Total 0.4 mg/dl (0.2-1); Globulin 3.6 gm/dl (2.5-4.0); Phosphorus 3.1 mg/dl (2.5-4.9); Total Protein 5.3 gm/dl (6.4-8.2)
[2020-04-16 07:47] LABS: Hepatitis B Surface Antigen Neg (Neg)
[2020-04-16 08:15] LABS: Hepatitis C IgG 13Yrs+Old_Rflx Neg (Neg)
[2020-04-16] MEDS: FUROSEMIDE 40 MG in SYRINGE 0 ML IV SCH (08:43)
[2020-04-16] MEDS: HEPARIN SOD 5,000 UNIT/0.5 ML VIAL SQ SCH (08:43)
[2020-04-16] MEDS: NYSTATIN POWDER 15GM BTL EXT SCH ×2 (08:44→22:41)
[2020-04-16] MEDS: FLUTICASONE/VILANTEROL 200/25MCG 14 PUFFS/INHALER INH SCH (08:44)
--- NOTE | 2020-04-16 11:43 | CT Scan Report ---
CT cervical spine wo con CLINICAL HISTORY: 69 years-old Female presenting with significant weakness, eval for cervical spine p ath. TECHNIQUE: Multidetector CT of the cervical spine was performed without the use of intravenous contra st. IV contrast: None. One or more dose lowering techniques were used consistent with the principles of ALARA (as low as reasonably achievable), including automatic exposure control, mA or kV adjustment to individual patient size, and/or use of iterative reconstruction. COMPARISON: MR from 05/19/2018. CT DOSE (mGy.cm): The estimated cumulative dose is 623.17 mGycm. FINDINGS: Personal Caregiver topogram: Left IJ central venous catheter terminates in the upper SVC. Evaluation degraded by body habitus and positioning of the shoulders. This results in moderately decr eased diagnostic sensitivity the exam. Slight straightening of normal cervical lordosis. Vertebral bodies grossly maintain normal height and alignment. Intervertebral disc height loss to a moderate degree at C5-6 and C6-7, where there is the greatest degree of degenerative change with disc osteophyte complexes. Mild posterior bony spurring at these levels with resultant osseous spinal canal narrowing. Mild facet arthropathy and uncovertebr al hypertrophy at several levels result in varying degrees of osseous neural foraminal narrowing. Inc idental note made of bilateral ponticulus posticus. Degenerative changes at the atlantodental articul ation. No acute fracture or subluxation. Visualized portion of the skull base intact. Paraspinal soft tissues within normal limits. The left internal jugular central venous catheter is pa rtially visualized. Congestive changes or atelectasis in the right apex. IMPRESSION: Evaluation degraded by body habitus and positioning of the shoulders. This results in moderately decr eased diagnostic sensitivity the exam. 1. No acute osseous injury. 2. Multilevel degenerative changes of the cervical spine. 3. Congestive change or atelectasis at the right lung apex. ACT 112: Negative or not required by law. Electronically signed by: Hermelindo Taveras M.D. 04/16/2020 11:42 AM
--- NOTE | 2020-04-16 12:03 | Hospitalist Progress Note ---
Date of Service April 16, 2020 Assessment & Plan (1) Lingual dysarthria: Etiology of her severe dysarthria, dysphagia, and progressive weakness is uncertain. I appreciate neurology consult and recommendations. There is some question of a bulbar ALS picture. MRI brain recently did not show any acute or chronic stroke. Her symptoms dating back to January, as per family, do suggest a progressive neurodegenerative condition such as ALS or other. I am uncertain as to prognosis but in light of her numerous medical issues she remains guarded. Speech will continue to see for swallowing issues. There has been considerable discussion about consulting ENT for direct laryngoscopy to ensure vocal cords are normal. (2) Dysphagia: severe per speech. modest improvement per speech, however, during swallow eval today. they will re-eval in a couple of days. keep NPO in meantime. again concern for neurodegenerative disorder as above. cont TPN - unable to place coresafe on previous attempts. (3) Proctocolitis: POA. Had septic shock 2nd to such. Clinically resolved (no lower abdominal pain, no diarrhea, no fever, etc). Received course of antibiotics earlier this stay. (4) Right sided weakness: 2nd to bulbar ALS? other? CPK checked today - normal. However, could this still be a critical illness myopathy? Most recent vitamin B12 level was wnl. TSH mildly elevated but not high enough to explain her symptoms. Appreciate neuro consult & recs. Cont PT/OT. (5) Closed T11 fracture: Pt's son/ report she had had falls prior to admission. This is likely 2nd to one of those falls. Dr Patel is following; surgery is needed. But I am concerned about her ability to get through surgery in light of current NPO status, TPN use, dysarthria, dysphagia, baseline weakness, etc. Dr Patel and I discussed her care today. For now we will focus on other neurological issues as above. (6) Unspecified cirrhosis of liver: Likely due to DOLAN. Current volume overload likely due to DOLAN and severe hypoalbuminemia. Cont IV lasix. Ammonia level normal today. (7) Obstructive sleep apnea syndrome: Cont HS BIPAP. VBG today acceptable. (8) Asthma: Family confirms history of such. Schedule her albuterol nebs q4h. Cont NC O2. Volume overload likely contributing to wheezing as well. Defer on steroids. (9) Hypervolemia: Likely 2nd to cirrhosis and low albumin rather than cardiac factors. Diurese as above. Creatinine remains stable. BMP am. (10) Chest pain: Pain started in the middle of her bedside swallow eval w/ speech today. Specifically she developed substernal pain after swallowing pudding. I believe the pain was likely esophageal/stomach rather than cardiac. With that said will place on telemetry (need to move her to tele), obtain serial troponins, place on nitropaste (this will also help esophageal spasm if present), and follow symptoms. Add IV PPI if esophagus related. (11) Morbid obesity with BMI of 45.0-49.9, adult: BMI 49.4 (12) DVT prophylaxis: high risk of DVT in light of bedbound status and morbid obesity increase heparin to 7500units TID spoke with son/ by phone - extensive update given broached code status subject as well discussed care with orthopedics, neurology and speech total time today on all patient care activities - 65 min Admission and Anticipated Discharge Date Admission Date: April 05, 2020 Subjective Multiple visits to patient's bedside today. First visit was on AM rounds. Patient was lying still in bed. She followed commands and tried to speak but had severe dysarthria. At one point she simply started to cry and had uncontrollable sobbing. She seemed to be in pain - during my exam she had epigastric tenderness. I brought a board that had printed symptoms on it and she pointed to "thirsty" and "hungry." I spoke with speech therapy and I asked them to re-eval her at the bedside. Apparently after swallowing thickened water x 2 and 3 presentations of pudding (w/o overt aspiration) she started screaming and shook her head "yes" to the speech therapist that her chest was hurting. This event occurred mid-afternoon. I came to bedside shortly after this spell - exam was unchanged (epigastric tenderness). O2 sats and vitals were unchanged. EKG showed ST flattening in anterior leads but this is actually improved from prior EKG (anterior leads had mild ST depression). I spoke with pt's and son by phone today. Gave a broad overview of current issues. They report dysarthria going back to January with progressive worsening w/ time. They also had noted choking spells (mild) at home in the weeks leading up to admission. They denied any history of CAD. No prior h/o VT. They are aware of fractured thoracic vertebrae. Review of Systems Review of Systems: Other (unable to do severe dysarthria ) Physical Exam Constitutional: + acute distress (epigastric pain ), + morbidly obese and + altered mental status (?) ENMT: Mouth: + dry oral mucous membranes; no oral mucosal abnormality (no obvious thrush plaques ) Respiratory: + respiratory distress (mild tachypnea, audible wheezes) Auscultation: + diminished lung sounds (bases), + crackles (fine - bases ) and + wheezes Cardiovascular: Rate/Rhythm: regular rate and regular rhythm Heart Sounds: normal S1 and normal S2; no murmur Vessels: posterior tibial pulses present and dorsalis pedis pulses present; no JVD Extremities: + edema (severe - 3+ b/l up to the thighs; RUE dependent edema as well ) Gastrointestinal (Abdomen): Inspection/Auscultation: normal bowel sounds; abdomen not distended Percussion/Palpation: + abdomen tender (epigastric region ); no guarding and no hepatosplenomegaly Musculoskeletal: right arm grossly edematous, slightly warm to touch (upper portion) Skin: no rashes, warm and dry left IJ central line clean Neurologic: weakness x 4 extremities, modestly more weak right arm vs left arm; unable to stick tongue out; no facial droop; severe dysarthria Psychiatric: Orientation: alert unable to assess orientation Results & Data Results & Data ([facility]) Vital Signs (Past 12 Hours) Vital Signs Temp Pulse Resp BP Pulse Ox 04/16/20 07:43 37.3 C 100 H 20 116/73 95 04/16/20 06:18 94 Laboratory Results Laboratory Results - last 24 hr 04/16/20 04/16/20 04/16/20 00:09 05:37 05:37 WBC RBC Hgb Hct MCV MCH MCHC RDW Std Deviation RDW Coeff of Ricardo Plt Count MPV Immature Gran % (Auto) Neut % (Auto) Lymph % (Auto) Gila % (Auto) Eos % (Auto) Baso % (Auto) Immature Gran # (Auto) Neut # (Auto) Lymph # (Auto) Gila # (Auto) Eos # (Auto) Baso # (Auto) VBG pH VBG pCO2 VBG pO2 VBG HCO3 VBG O2 Saturation VBG Base Excess Barometric Pressure Sodium 141 Potassium 4.2 Chloride 103 Carbon Dioxide 35 H Anion Gap 3.0 BUN 32 H Creatinine 0.48 L Est Cr Clr Drug Dosing 132.9 Est GFR ( Amer) 116.0 Est GFR (Non-Af Amer) 100.1 BUN/Creatinine Ratio 66.5 H Glucose 125 H POC Glucose 116 H Calcium 7.8 L Phosphorus 3.1 Magnesium 2.0 Total Bilirubin 0.4 AST 41 H ALT 17 Alkaline Phosphatase 137 H Ammonia 25.0 Total Creatine Kinase Troponin I Total Protein 5.3 L Albumin 1.7 L Globulin 3.6 Albumin/Globulin Ratio 0.5 L Lipase Hepatitis A IgM Ab Hep Bs Antigen Hep B Core IgM Ab Hepatitis C Antibody 04/16/20 04/16/20 04/16/20 05:37 05:37 05:37 WBC 8.42 RBC 4.04 L Hgb 12.0 Hct 37.3 MCV 92.3 MCH 29.7 MCHC 32.2 RDW Std Deviation 47.5 H RDW Coeff of Ricardo 14.3 Plt Count 167 MPV 9.3 Immature Gran % (Auto) 1.0 Neut % (Auto) 68.3 Lymph % (Auto) 16.6 Gila % (Auto) 11.6 Eos % (Auto) 2.0 Baso % (Auto) 0.5 Immature Gran # (Auto) 0.08 H Neut # (Auto) 5.75 Lymph # (Auto) 1.40 Gila # (Auto) 0.98 H Eos # (Auto) 0.17 Baso # (Auto) 0.04 VBG pH VBG pCO2 VBG pO2 VBG HCO3 VBG O2 Saturation VBG Base Excess Barometric Pressure Sodium Potassium Chloride Carbon Dioxide Anion Gap BUN Creatinine Est Cr Clr Drug Dosing Est GFR ( Amer) Est GFR (Non-Af Amer) BUN/Creatinine Ratio Glucose POC Glucose Calcium Phosphorus Magnesium Total Bilirubin AST ALT Alkaline Phosphatase Ammonia Total Creatine Kinase Troponin I Total Protein Albumin Globulin Albumin/Globulin Ratio Lipase Hepatitis A IgM Ab Pending Hep Bs Antigen Neg Hep B Core IgM Ab Pending Hepatitis C Antibody Neg 04/16/20 04/16/20 04/16/20 06:00 12:28 12:34 WBC RBC Hgb Hct MCV MCH MCHC RDW Std Deviation RDW Coeff of Ricardo Plt Count MPV Immature Gran % (Auto) Neut % (Auto) Lymph % (Auto) Gila % (Auto) Eos % (Auto) Baso % (Auto) Immature Gran # (Auto) Neut # (Auto) Lymph # (Auto) Gila # (Auto) Eos # (Auto) Baso # (Auto) VBG pH 7.44 H VBG pCO2 54 H VBG pO2 37 VBG HCO3 36 VBG O2 Saturation 68.0 VBG Base Excess 10.0 Barometric Pressure 733.6 Sodium Potassium Chloride Carbon Dioxide Anion Gap BUN Creatinine Est Cr Clr Drug Dosing Est GFR ( Amer) Est GFR (Non-Af Amer) BUN/Creatinine Ratio Glucose POC Glucose 126 H Calcium Phosphorus Magnesium Total Bilirubin AST ALT Alkaline Phosphatase Ammonia Total Creatine Kinase 69 Troponin I Total Protein Albumin Globulin Albumin/Globulin Ratio Lipase 229 Hepatitis A IgM Ab Hep Bs Antigen Hep B Core IgM Ab Hepatitis C Antibody 04/16/20 04/16/20 16:49 18:39 WBC RBC Hgb Hct MCV MCH MCHC RDW Std Deviation RDW Coeff of Ricardo Plt Count MPV Immature Gran % (Auto) Neut % (Auto) Lymph % (Auto) Gila % (Auto) Eos % (Auto) Baso % (Auto) Immature Gran # (Auto) Neut # (Auto) Lymph # (Auto) Gila # (Auto) Eos # (Auto) Baso # (Auto) VBG pH VBG pCO2 VBG pO2 VBG HCO3 VBG O2 Saturation VBG Base Excess Barometric Pressure Sodium Potassium Chloride Carbon Dioxide Anion Gap BUN Creatinine Est Cr Clr Drug Dosing Est GFR ( Amer) Est GFR (Non-Af Amer) BUN/Creatinine Ratio Glucose POC Glucose 117 H Calcium Phosphorus Magnesium Total Bilirubin AST ALT Alkaline Phosphatase Ammonia Total Creatine Kinase Troponin I < 0.015 Total Protein Albumin Globulin Albumin/Globulin Ratio Lipase Hepatitis A IgM Ab Hep Bs Antigen Hep B Core IgM Ab Hepatitis C Antibody PG Care Time/CCT Total # of Minutes Spent Total Time Spent with Patient: Total time spent is greater than 50% in coordination of care (as documented) at patient's floor/unit and/or counseling patient: Prolonged Care Time Prolonged Care Time: Yes 65 minutes Coding Level of Care Code 69485 Subseq Hosp Care Lvl 3 (25 - SIGNIFICANT, SEPARATELY IDENTIFIABLE ) Diagnoses Lingual dysarthria R47.1 Dysphagia R13.11 Dysphagia type: oral phase Proctocolitis K52.9 Right sided weakness R53.1 Closed T11 fracture S22.089D Encounter type: subsequent encounter Fracture morphology: unspecified fracture morphology Fracture healing: with routine healing Unspecified cirrhosis of liver K74.69 Hepatic cirrhosis type: other cirrhosis Obstructive sleep apnea syndrome G47.33 Asthma J45.40 Asthma severity: moderate Asthma persistence: persistent Asthma complication type: unspecified Hypervolemia E87.70 Hypervolemia type: unspecified Chest pain R07.9 Chest pain type: unspecified Morbid obesity with BMI of 45.0-49.9, adult E66.01; Z68.42 DVT prophylaxis Z29.9 Additional Codes Prolonged Care Time - Prolonged Care Time: Yes ([id number]) (1) Closed T11 fracture Encounter type: subsequent encounter Fracture morphology: unspecified fracture morphology Fracture healing: with routine healing Qualified Code(s): S22.089D - Unspecified fracture of T11-T12 vertebra, subsequent encounter for fracture with routine healing (2) Unspecified cirrhosis of liver Hepatic cirrhosis type: other cirrhosis Qualified Code(s): K74.69 - Other cirrhosis of liver (3) Asthma Asthma severity: moderate Asthma persistence: persistent Asthma complication type: unspecified Qualified Code(s): J45.40 - Moderate persistent asthma, uncomplicated (4) Hypervolemia Hypervolemia type: unspecified Qualified Code(s): E87.70 - Fluid overload, unspecified (5) Chest pain Chest pain type: unspecified Qualified Code(s): R07.9 - Chest pain, unspecified (6) Dysphagia Dysphagia type: oral phase Qualified Code(s): R13.11 - Dysphagia, oral phase
--- NOTE | 2020-04-16 12:03 | Neurology Progress Note ---
Date of Service April 16, 2020 Assessment & Plan (1) Lingual dysarthria: This patient has rather profound lingual dysarthria that began earlier this year and has apparently been a progressive problem. The etiology for her dysarthria is not entirely clear. There does not appear to be any evidence of an obvious stroke or other pathology within her brainstem or other area within the brain parenchyma that would explain this particular symptom. Her very mild right-sided weakness may not be a related issue. I believe the differential diagnosis would include bulbar ALS or possibly recurrent laryngeal nerve damage. At this point, I would recommend obtaining an up-to-date ENT evaluation. Would also consider obtaining soft tissue imaging of the neck. Please see Dr. Guerra's follow-up note from yesterday for further details. Admission and Anticipated Discharge Date Admission Date: April 05, 2020 Anticipated date of discharge: 04/08/20 Subjective Follow-up for dysarthria The patient continues to exhibit rather profound dysarthria this morning. She is unable to move her tongue much at all and is unable to make any lingual sounds. Patient is able to make some sounds with her lips. She also has difficulty pronouncing "eeee..." She exhibits generalized weakness, slightly greater for the right arm and leg as compared to the left. A limited brain MRI completed on April 10 was negative for acute or subacute stroke, hemorrhage, or mass-effect. I reviewed the images as well as the radiologist's interpretation of this test. A CT of the head completed April 09 was generally unremarkable. I did review this patient's previous brain MRI completed on February 20 as well. The study was done for dysarthria and right-sided weakness and was also generally unrevealing. I had discussed this patient's case with Dr. Saxena this morning and recommended completion of cervical spine imaging if possible. Although MRI would be preferred, the patient has not tolerated MRI recently and ultimately underwent completion of a CT of the cervical spine this morning. This study is also generally unrevealing but does reveal multilevel degenerative change with elements of associated spinal canal and neuroforaminal narrowing at C5-6 and C6- 7. Degenerative changes at the atlantoodontoid articulation noted. No fractures or subluxations. I reviewed the images as well as the radiologist interpretation of this test. Review of Systems Eyes: no diplopia Musculoskeletal: no neck pain Neurologic: no headache(s) Results & Data ([facility]) Vital Signs (Past 12 Hours) Vital Signs Temp Pulse Resp BP Pulse Ox 04/16/20 07:43 37.3 C 100 H 20 116/73 95 04/16/20 06:18 94 Laboratory Results WBC 8.42, hemoglobin 12.0, hematocrit 37.3, platelet count 167, sodium 141, potassium 4.2, BUN 32, creatinine 0.48, glucose 125, calcium 7.8, magnesium 2.0, AST 41, ALT 17, ammonia 25.0 Diagnostic Findings Recently completed CT of the cervical spine as well as brain imaging reviewed and as described above. Exam (Neuro) Physical Exam: The patient is lying comfortably in bed. Her speech is profoundly dysarthric which limits testing of higher cognitive/integrative functions. She does seem to comprehend language and will follow simple verbal commands. She attempts to state her name when asked to do so. Visual weiner full to confrontation. No diplopia reported with testing of ocular motility. Eye movements appear to be intact this morning. No nystagmus or opsoclonus observed. No ptosis. There is no facial droop. Patient does have significantly reduced volitional movement of the tongue. Unable to protrude her tongue or move the tongue significantly to the sides or up or down. Consequently, exhibits considerable lingual dysarthria. Patient's tongue does have a scalloped appearance although does not appear to have obvious fasciculations. Deep tendon reflexes are intact and symmetrical for all 4 limbs. Patient does exhibit mild relative weakness for the right arm and leg as compared to the left. Patient does have antigravity power for all 4 limbs. No fasciculations or abnormal movements observed. Coding Level of Care Code 38548 Subseq Hosp Care Lvl 3 Diagnoses Lingual dysarthria R47.1
[2020-04-16] MEDS: ACETAMINOPHEN 1,000 MG/100 ML VIAL IV PRN (12:48)
[2020-04-16] MEDS: PANTOprazole 40 MG in SYRINGE 0 ML IV SCH (12:48)
[2020-04-16 13:00] LABS: pH VBG 7.44 (7.36-7.41)
[2020-04-16 13:07] LABS: Creatine Kinase 69 U/L (26-192); Lipase 229 U/L (73-393)
--- NOTE | 2020-04-16 14:52 | Pharmacy Report ---
PHA: Parenteral Nutrition Con - Date of Service April 16, 2020 - Scope Pharmacy was consulted on 04/12/20 to manage parenteral nutrition orders for this patient. - Subjective The patient is currently on day 5 of central parenteral nutrition for prolonged NPO status in setting of T11 fracture - Objective Height: 5 ft 1 in Weight: 118.5 kg Diet: NPO Intake & Output (24hrs):: Intake & Output 04/14/20 04/15/20 04/16/20 04/17/20 06:59 06:59 06:59 06:59 Intake Total 2011 1774 / 1774 1732 / 1732 1561.717 / 1561.717 Output Total 1325 / 1325 1125 / 1125 1503 / 1503 Balance 687 / 687 649 / 649 229 / 229 1561.717 / 1561.717 Weight 119.4 kg 118.5 kg 118.5 kg 118.5 kg Laboratory Data (Last 24 Hr):: 04/16/20 05:37 Sodium 141 Potassium 4.2 Chloride 103 Carbon Dioxide 35 H BUN 32 H Creatinine 0.48 L Glucose 125 H Calcium 7.8 L Phosphorus 3.1 Magnesium 2.0 Total Bilirubin 0.4 AST 41 H ALT 17 Alkaline Phosphatase 137 H Albumin 1.7 L Nutrition Assessment:: Please refer to the Notes section of the EMR for the most recent advertising rep note. - Assessment * Positive approximately 230 mL of fluid yesterday * Will continue minimum volume TPN * Bicarb continues to trend up - will d/c combined lytes in order to limit acetate * Otherwise electrolytes relatively stable - will continue with similar electrolyte totals as days previous * Continues on Lasix 40 mg IV daily * Per notes, patient is medically stable for surgery - Plan For day 5 of PN administration, the following will be ordered: Macronutrients Amino acids 95 grams/day Dextrose 250 grams/day Lipids 50 grams/day Micronutrients Sodium phosphate 21 MMol Sodium chloride 50 mEq Potassium phosphate 21 mMol Potassium chloride 20 mEq Magnesium sulfate 12.18 mEq Calcium gluconate 4.65 mEq Multivitamins 10 mL Trace Elements 1 mL Additional additives: thiamine 100 mg, famotidine 20 mg Total volume 1628 mL to be infused over 24 hrs will provide 1730 kcal/day Final osmolarity 1483 mOsm/L - administered via central line Labs, as indicated, will be ordered per protocol Pharmacy will continue to follow and adjust parenteral nutrition orders on a daily basis. Thank you for allowing us to participate in the care of this patient.
[2020-04-16] MEDS ORDERED: MoRPHine SULFATE 2 MG/ML CARP IV STA (15:33)
[2020-04-16] MEDS ORDERED: TPN IV SCH (16:00)
[2020-04-16] MEDS ORDERED: CENTRAL PN IV SCH (16:00)
[2020-04-16] MEDS: NITROGLYCERIN 2% OINTMENT 30GM TUBE EXT SCH ×2 (16:09→22:42)
--- NOTE | 2020-04-16 17:04 | Electrocardiogram Report ---
Test Reason : Blood Pressure : / mmHG Vent. Rate : 101 BPM Atrial Rate : 101 BPM P-R Int : 160 ms QRS Dur : 090 ms QT Int : 308 ms P-R-T Axes : 025 -15 094 degrees QTc Int : 399 ms Sinus tachycardia Possible Anterolateral infarct (cited on or before 16-APR-2020) Nonspecific ST abnormality Abnormal ECG When compared with ECG of 05-APR-2020 16:37, Serial changes of Anterior infarct Present Confirmed by Rosendo Scott ([id number]) on 04/16/2020 5:04:33 PM Referred By: REFERRED SELF Confirmed By:Kelby Scott
[2020-04-16] MEDS: ALBUT/IPRATROP 3MG/0.5MG NEB 3 ML VIAL NEB SCH ×2 (19:43→23:18)
[2020-04-16 20:51] LABS: Hematocrit (blood only) 37.2 % (37-47); Hemoglobin 11.8 g/dL (12.0-16.0); Mean Corpuscular Hemoglobin 29.6 pg (25-34); Mean Corpuscular Hgb Conc 31.7 g/dL (32-36); Mean Corpuscular Volume 93.2 fL (80-100); Mean Platelet Volume 9.7 fL (7.4-10.4); Platelet Count 210 K/uL (130-400); RDW Coefficient of Variation 14.6 % (11.5-14.5); RDW Standard Deviation 48.5 fL (36.4-46.3); Red Blood Count 3.99 M/uL (4.2-5.4); White Blood Count 8.34 K/uL (4.8-10.8)
[2020-04-16] MEDS ORDERED: HEPARIN SOD 5,000 UNIT/0.5 ML VIAL SQ SCH (21:00)
[2020-04-16] MEDS ORDERED: HEPARIN SODIUM (PORCINE) 7,500 UNITS in SYRINGE 0 ML SC SCH (21:00)
[2020-04-17] MEDS: ALBUT/IPRATROP 3MG/0.5MG NEB 3 ML VIAL NEB SCH ×6 (03:45→23:28)
[2020-04-17] MEDS: NITROGLYCERIN 2% OINTMENT 30GM TUBE EXT SCH ×4 (04:41→23:17)
[2020-04-17 04:51] LABS: BUN Creatinine Ratio 55.5 (10-20); Blood Urea Nitrogen 30 mg/dl (7-18); Carbon Dioxide 37 mmol/L (21-32); Chloride 101 mmol/L (98-107); Creatinine Clr Calc Pharmacy 118.1 ml/min; Est GFR (African American) 111.6; Est GFR (Non-African American) 96.3; Glucose 131 mg/dl (70-99); Potassium 4.4 mmol/L (3.5-5.1); Sodium 140 mmol/L (136-145)
[2020-04-17 04:56] LABS: Phosphorus 3.1 mg/dl (2.5-4.9); Troponin I < 0.015 ng/ml (0-0.045)
[2020-04-17] MEDS: HEPARIN SODIUM (PORCINE) 7,500 UNITS in SYRINGE 0 ML SC SCH ×3 (08:35→23:19)
[2020-04-17] MEDS: FLUTICASONE/VILANTEROL 200/25MCG 14 PUFFS/INHALER INH SCH (08:38)
[2020-04-17] MEDS: NYSTATIN POWDER 15GM BTL EXT SCH ×2 (08:39→20:04)
[2020-04-17] MEDS: FUROSEMIDE 40 MG in SYRINGE 0 ML IV SCH (09:16)
[2020-04-17] MEDS: LIDOCAINE 5% 1 PATCH TD PRN (10:09)
[2020-04-17] MEDS: PANTOprazole 40 MG in SYRINGE 0 ML IV SCH (10:10)
[2020-04-17] MEDS ORDERED: MoRPHine SULFATE 2 MG/ML CARP IV PRN (10:57)
--- NOTE | 2020-04-17 11:14 | Neurology Progress Note ---
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 Her symptoms began several months ago and have been progressive. Her clinical picture is concerning for ALS. Please see Dr. Meyers's consultation and follow-up notes regarding this patient for additional details. She will need an outpatient EMG completed. Would consider obtaining an outpatient consultation with an ALS specialist, Dr. Hill Morin, at [facility] as well. Patient will follow-up locally with Dr. Osborne. Subjective Follow-up for severe dysarthria The patient continues to exhibit severe dysarthria with bedside assessment this morning. She has greatest difficulty with lingual sounds. She does not have any associated ophthalmoplegia or ptosis. She exhibits emotional lability, probable pseudobulbar affect. Patient continues to exhibit generalized weakness, right arm and leg more affected than the left. Her weakness does seem to be a bit greater this morning compared with yesterday. There may be subtle fasciculations within the musculature of the right upper extremity. However, this finding is difficult to appreciate in this patient due to obesity. Review of Systems Review of Systems: Review of systems unobtainable due to severe dysarthria and patient's emotional lability this morning Results & Data ([facility]) Vital Signs (Past 12 Hours) Vital Signs Temp Pulse Pulse Resp BP Pulse Ox 04/17/20 11:08 101 H 18 94 04/17/20 07:45 109 H 116 H 22 90 04/17/20 07:04 36.7 C 111 H 20 109/66 92 04/17/20 03:52 37.4 C 108 H 20 116/53 L 95 04/17/20 03:49 108 H 31 H 92 04/17/20 03:47 108 H 31 H 92 04/17/20 00:00 101 H 04/16/20 23:21 103 H 23 92 04/16/20 23:18 102 H 23 94 Exam (Neuro) Physical Exam: Patient is alert. She exhibits severe dysarthria. She exhibits emotional lability, probable pseudobulbar affect. Patient is unable to protrude her tongue. She exhibits limited movement of the tongue. I do not appreciate obvious lingual fasciculations. Patient exhibits generalized weakness, right arm and leg greater than the left. Unable to lift the right arm and leg out of the bed at this time. There are subtle fasciculations of the right upper limb although obscured in the context of obesity. 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
[2020-04-17] MEDS: ACETAMINOPHEN 1,000 MG/100 ML VIAL IV SCH ×2 (11:57→20:00)
--- NOTE | 2020-04-17 13:03 | Pharmacy Report ---
PHA: Parenteral Nutrition Con - Date of Service April 17, 2020 - Scope Pharmacy was consulted on 04/12/2020 to manage parenteral nutrition orders for this patient. - Subjective The patient is currently on day #6 of central parenteral nutrition for prolonged NPO status in setting of T11 fracture. - Objective Height: 5 ft 1 in Weight: 120 kg Diet: NPO Intake & Output (24hrs):: Intake & Output 04/15/20 04/16/20 04/17/20 04/18/20 06:59 06:59 06:59 06:59 Intake Total 1774 / 1774 1732 / 1732 1648.817 / 1648.817 100 / 100 Output Total 1125 / 1125 1503 / 1503 600 / 600 Balance 649 / 649 229 / 229 1048.817 / 1048.817 100 / 100 Weight 118.5 kg 118.5 kg 120 kg Laboratory Data (Last 24 Hr):: 04/17/20 04:19 Sodium 140 Potassium 4.4 Chloride 101 Carbon Dioxide 37 H BUN 30 H Creatinine 0.54 L Glucose 131 H Calcium 8.0 L Phosphorus 3.1 Magnesium 2.0 Nutrition Assessment:: Please refer to the Notes section of the EMR for the most recent scale tank operator note. - Assessment * Positive approximately 230 mL of fluid yesterday * Will continue minimum volume TPN * Bicarb continues to trend up - possible contraction alkalosis in setting of diuretic use * Patient is almost 20 L positive since admission with a 17 kg weight gain * Spoke with attending and will reduced calories by 25% in order to limit fluid intake further * Also recommended IV diamox for metabolic alkalosis, especially if increasing diuretic dose * Otherwise electrolytes relatively stable - will continue with similar electrolyte totals as days previous * Continues on Lasix 40 mg IV daily for now * Patient has been febrile at points today with Tmax of 38.2 C and O2 requirements seem to be increasing slightly - Plan For day #6 of PN administration, the following will be ordered: Macronutrients - reduced by 25% Amino acids 75 grams/day Dextrose 175 grams/day Lipids 40 grams/day Micronutrients - no changes Sodium phosphate 21 MMol Sodium chloride 50 mEq Potassium phosphate 21 mMol Potassium chloride 20 mEq Magnesium sulfate 12.18 mEq Calcium gluconate 4.65 mEq Multivitamins 10 mL Trace Elements 1 mL Thiamine 100 mg Famotidine 20 mg Total volume 1271 mL to be infused over 24 hrs will provide 1295 kcal/day Labs, as indicated, will be ordered per protocol Pharmacy will continue to follow and adjust parenteral nutrition orders on a daily basis. Thank you for allowing us to participate in the care of this patient.
[2020-04-17] MEDS: acetaZOLAMIDE 250 MG in SYRINGE 0 ML IV SCH (14:44)
[2020-04-17] MEDS: MoRPHine SULFATE 2 MG/ML CARP IV PRN ×3 (14:44→23:17)
[2020-04-17 15:54] LABS: Hepatitis A Antibody IgM NON-REACTIVE (NON-REACTIVE); Hepatitis B Core Antibody IgM NON-REACTIVE (NON-REACTIVE)
[2020-04-17] MEDS ORDERED: TPN IV SCH (16:00)
[2020-04-17] MEDS ORDERED: CENTRAL PN IV SCH (16:00)
--- NOTE | 2020-04-17 17:15 | XRay Report ---
XR chest 1V portable HISTORY: 69 years-old Female fever, hypoxia, eval pneumonia acute fever with hypoxia COMPARISON: Chest CT 04/15/2020, chest radiograph 04/13/2020 TECHNIQUE: Portable AP view of the chest FINDINGS: Cardiac silhouette is enlarged, unchanged. Hypoinflation of the lungs. Pulmonary vascular congestion with mildly progressed interstitial opacities. Bilateral pleural effusions with bibasilar consolidati on. No pneumothorax. Unchanged left IJ central venous catheter. Degenerative changes of the shoulders and spine. Thoracolumbar spinal fusion hardware. Surgical clips project over the abdominal right upp er quadrant. IMPRESSION: 1. Cardiomegaly with progressively worsened pulmonary edema. 2. Bilateral pleural effusions with bibasilar consolidation suggestive of atelectasis versus pneumoni a. ACT 112: Negative or not required by law. The above report was generated using voice recognition software. It may contain grammatical, syntax o r spelling errors. Electronically signed by: Jorge Mcginnis M.D. 04/17/2020 5:14 PM
[2020-04-17 17:58] LABS: Appearance Urine Cloudy (Clear); Bacteria Urine Automated 4+ (Negative); Bilirubin Urine Negative (Negative); Blood Urine Negative (Negative); Color Urine Dark Yellow; Epithelial Cell Urine Auto >30 /lpf (0-5); Glucose Urine UA Negative (Negative); Ketones Urine Negative (Negative); Leukocyte Esterase Urine Trace (Negative); Nitrite Urine Negative (Negative); Specific Gravity Urine 1.023 (1.000-1.030); Urobilinogen Urine Negative (Negative); pH Urine >= 9.0 (4.5-7.5)
[2020-04-17 18:13] LABS: Protein Urine Negative (Negative); Sulfosalicylic Acid Urine Negative (Negative)
[2020-04-17 18:23] LABS: RBC Urine Automated 0-4 /hpf (0-4)
--- NOTE | 2020-04-17 19:32 | Hospitalist Progress Note ---
Date of Service April 17, 2020 Assessment & Plan (1) Fever: new-onset. obtained blood cultures, urine cx, and u/a. cxr w/o obvious pneumonia but given her morbid obesity it would be difficult to ascertain if pneumonic infiltrates are present. given the recent proctocolitis and ongoing abdominal pain will repeat her CT. low threshold for restarting IV antibiotics. (2) Lingual dysarthria: Etiology of her severe dysarthria, dysphagia, and progressive weakness is uncertain. The leading dx per neurology, however, is a bulbar ALS. MRI brain recently did not show any acute or chronic stroke. Her symptoms dating back to January, as per family, do suggest a progressive neurodegenerative condition such as ALS or other. Speech will repeat an evaluation tomorrow at bedside. Depending on that eval tomorrow consider ENT consultation. (3) Dysphagia: severe per speech. modest improvement per speech, however, during swallow eval 04/16. they will re-eval tomorrow. keep NPO in meantime w/ TPN. again concern for neurodegenerative disorder such as ALS. (4) Proctocolitis: POA. Had septic shock 2nd to such. With recurrent fever and abd pain will obtain repeat CT abd/pelvis with low threshold for IV antibiotics. (5) Right sided weakness: 2nd to bulbar ALS? other? B12, CPK wnl. TSH mildly elevated but not high enough to explain her symptoms. Appreciate neuro consult & recs. Cont PT/OT but really cannot participate due to T11 fracture. (6) Closed T11 fracture: Pt's son/ report she had had falls prior to admission. This is likely 2nd to one of those falls. Dr Patel is following; surgery is needed. But I am concerned about her ability to get through surgery in light of current NPO status, TPN use, dysarthria, dysphagia, baseline weakness, etc. Surgery is deferred for now in light of fever, poor overall status, lack of enteral nutrition, etc. For pain control - IV tylenol, lidoderm patch, morphine prn. (7) Unspecified cirrhosis of liver: Likely due to DOLAN. Severely volume overloaded likely due to DOLAN and severe hypoalbuminemia. Cont IV lasix. Adding diamox due to contraction alkalosis. Recent ammonia level normal. (8) Obstructive sleep apnea syndrome: Cont HS BIPAP. VBGs w/ acceptable pCO2. (9) Asthma: Family confirms history of such. Cont Scheduled albuterol nebs q4h. Cont NC O2. (10) Hypervolemia: Likely 2nd to cirrhosis and low albumin rather than cardiac factors. Diurese as above. Creatinine remains stable. BMP am. Adding diamox x 3 days. (11) Chest pain: Troponins negative. The pain occurred in the middle of her swallow eval - was likely esophageal in origin then. Remains on IV PPI and IV H2 viji. (12) Morbid obesity with BMI of 45.0-49.9, adult: BMI 50 (13) DVT prophylaxis: high risk of DVT in light of bedbound status and morbid obesity cont heparin 7500units TID spoke with son/ by phone - extensive update given 04/16 broached code status subject as well called son AND today -- no answer, could not leave any message for either prognosis is extremely poor need to address code status santy will obtain palliative care consult in am Admission and Anticipated Discharge Date Admission Date: April 05, 2020 Subjective patient awake during the visit. crying, tearful, moaning in pain (from back?). I asked her if she was sick of being in the hospital - shook head yes. I asked her if she was ready to go home - shook head yes. Also shook head to abdomen causing pain. tele - sinus tach overnight. denied chest pain. denied shortness of breath. still w/ severe dysarthria - unable to understand any spoken words. Review of Systems Review of Systems: Other (unobtainable due to severe dysarthria ) Physical Exam Constitutional: + morbidly obese; no acute distress very emotional, tearful ENMT: Mouth: + dry oral mucous membranes; no oral mucosal abnormality (no obvious thrush plaques ) Respiratory: no respiratory distress Auscultation: + diminished lung sounds (bases) and + crackles (mild - bases); no wheezes Cardiovascular: Rate/Rhythm: regular rhythm and + tachycardic Heart Sounds: normal S1 and normal S2; no murmur Vessels: posterior tibial pulses present and dorsalis pedis pulses present; no JVD Extremities: + edema (severe - to the thighs - no change ) Gastrointestinal (Abdomen): Inspection/Auscultation: normal bowel sounds; abdomen not distended Percussion/Palpation: + abdomen tender (epigastric region - mild ); no guarding and no hepatosplenomegaly Skin: no rashes, warm and dry Neurologic: severe dysarthria Psychiatric: Orientation: alert Affect: + tearful affect Results & Data Results & Data ([facility]) Vital Signs (Past 12 Hours) Vital Signs Temp Pulse Pulse Resp BP Pulse Ox 04/17/20 15:43 37.9 C H 107 H 22 104/59 L 94 04/17/20 15:25 106 H 18 94 04/17/20 12:22 38.2 C H 106 H 20 102/60 93 04/17/20 11:08 101 H 18 94 04/17/20 09:14 109 H 04/17/20 07:45 109 H 116 H 22 90 Laboratory Results Laboratory Results - last 24 hr 04/16/20 04/16/20 04/16/20 05:37 20:03 23:56 WBC 8.34 RBC 3.99 L Hgb 11.8 L Hct 37.2 MCV 93.2 MCH 29.6 MCHC 31.7 L RDW Std Deviation 48.5 H RDW Coeff of Ricardo 14.6 H Plt Count 210 MPV 9.7 Sodium Potassium Chloride Carbon Dioxide Anion Gap BUN Creatinine Est Cr Clr Drug Dosing Est GFR ( Amer) Est GFR (Non-Af Amer) BUN/Creatinine Ratio Glucose POC Glucose 103 H Calcium Phosphorus Magnesium Troponin I Urine Color Urine Appearance Urine pH Ur Specific Seth Urine Protein Urine Glucose (UA) Urine Ketones Urine Blood Urine Nitrite Urine Bilirubin Urine Urobilinogen Ur Leukocyte Esterase Urine WBC (Auto) Urine RBC (Auto) U Hyaline Cast (Auto) U Epithel Cells (Auto) Urine Bacteria (Auto) Hepatitis A IgM Ab NON-REACTIVE Hep B Core IgM Ab NON-REACTIVE 04/17/20 04/17/20 04/17/20 04:19 06:12 13:01 WBC RBC Hgb Hct MCV MCH MCHC RDW Std Deviation RDW Coeff of Ricardo Plt Count MPV Sodium 140 Potassium 4.4 Chloride 101 Carbon Dioxide 37 H Anion Gap 2.0 L BUN 30 H Creatinine 0.54 L Est Cr Clr Drug Dosing 118.1 Est GFR ( Amer) 111.6 Est GFR (Non-Af Amer) 96.3 BUN/Creatinine Ratio 55.5 H Glucose 131 H POC Glucose 113 H 136 H Calcium 8.0 L Phosphorus 3.1 Magnesium 2.0 Troponin I < 0.015 Urine Color Urine Appearance Urine pH Ur Specific Seth Urine Protein Urine Glucose (UA) Urine Ketones Urine Blood Urine Nitrite Urine Bilirubin Urine Urobilinogen Ur Leukocyte Esterase Urine WBC (Auto) Urine RBC (Auto) U Hyaline Cast (Auto) U Epithel Cells (Auto) Urine Bacteria (Auto) Hepatitis A IgM Ab Hep B Core IgM Ab 04/17/20 04/17/20 17:40 18:08 WBC RBC Hgb Hct MCV MCH MCHC RDW Std Deviation RDW Coeff of Ricardo Plt Count MPV Sodium Potassium Chloride Carbon Dioxide Anion Gap BUN Creatinine Est Cr Clr Drug Dosing Est GFR ( Amer) Est GFR (Non-Af Amer) BUN/Creatinine Ratio Glucose POC Glucose 117 H Calcium Phosphorus Magnesium Troponin I Urine Color Dark Yellow Urine Appearance Cloudy A Urine pH >= 9.0 H Ur Specific Seth 1.023 Urine Protein Negative Urine Glucose (UA) Negative Urine Ketones Negative Urine Blood Negative Urine Nitrite Negative Urine Bilirubin Negative Urine Urobilinogen Negative Ur Leukocyte Esterase Trace H Urine WBC (Auto) 10-30 H Urine RBC (Auto) 0-4 U Hyaline Cast (Auto) 1-5 U Epithel Cells (Auto) >30 H Urine Bacteria (Auto) 4+ H Hepatitis A IgM Ab Hep B Core IgM Ab Diagnostic Findings cxr - pulmonary edema, very low lung volumes PG Care Time/CCT Total # of Minutes Spent Total Time Spent with Patient: Total time spent is greater than 50% in coordination of care (as documented) at patient's floor/unit and/or counseling patient: Coding Level of Care Code 63210 Subseq Hosp Care Lvl 3 Diagnoses Fever R50.9 Fever type: unspecified Lingual dysarthria R47.1 Dysphagia R13.11 Dysphagia type: oral phase Proctocolitis K52.9 Right sided weakness R53.1 Closed T11 fracture S22.089D Encounter type: subsequent encounter Fracture morphology: unspecified fracture morphology Fracture healing: with routine healing Unspecified cirrhosis of liver K74.69 Hepatic cirrhosis type: other cirrhosis Obstructive sleep apnea syndrome G47.33 Asthma J45.40 Asthma severity: moderate Asthma persistence: persistent Asthma complication type: unspecified Hypervolemia E87.70 Hypervolemia type: unspecified Chest pain R07.9 Chest pain type: unspecified Morbid obesity with BMI of 45.0-49.9, adult E66.01; Z68.42 DVT prophylaxis Z29.9 (1) Dysphagia Dysphagia type: oral phase Qualified Code(s): R13.11 - Dysphagia, oral phase (2) Closed T11 fracture Encounter type: subsequent encounter Fracture morphology: unspecified fracture morphology Fracture healing: with routine healing Qualified Code(s): S22.089D - Unspecified fracture of T11-T12 vertebra, subsequent encounter for fracture with routine healing (3) Unspecified cirrhosis of liver Hepatic cirrhosis type: other cirrhosis Qualified Code(s): K74.69 - Other cirrhosis of liver (4) Asthma Asthma severity: moderate Asthma persistence: persistent Asthma complication type: unspecified Qualified Code(s): J45.40 - Moderate persistent asthma, uncomplicated (5) Hypervolemia Hypervolemia type: unspecified Qualified Code(s): E87.70 - Fluid overload, unspecified (6) Chest pain Chest pain type: unspecified Qualified Code(s): R07.9 - Chest pain, unspecified (7) Fever Fever type: unspecified Qualified Code(s): R50.9 - Fever, unspecified
--- NOTE | 2020-04-17 19:52 | CT Scan Report ---
ABDOMEN AND PELVIS CT WITH IV CONTRAST CT DOSE: 2394.10 mGy.cm HISTORY: Acute fever with generalized abdominal pain. History of recent colitis. fever, abd pain, re cent colitis TECHNIQUE: Multiaxial CT images of the abdomen and pelvis were performed following the IV administrat ion of 94 cc of Optiray 320, A dose lowering technique was utilized adhering to the principles of AL DOREEN. COMPARISON STUDY: CT abdomen and pelvis 04/11/2020 and 04/06/2020. FINDINGS: Small pleural effusions, left greater than right with bibasilar consolidation and air bronchograms ap pear unchanged. Study is motion degraded. Study is also limited secondary to patient body habitus. Th ere is no pneumatosis or pneumoperitoneum. Cardiomegaly. Coronary artery calcifications. Spleen is mi ldly enlarged, 13.3 cm. Mild to moderate generalized pancreatic atrophy. Adrenal glands are unremarka ble. Cholecystectomy. Cirrhosis with hepatic steatosis. Patency of the hepatic and portal veins. Mild nonspecific bilateral perinephric stranding. No obstructive uropathy. Decompressed urinary bladd er with Prasad catheter. Evaluation of the pelvis is limited secondary to streak artifact from right h ip arthroplasty. Hysterectomy. No adnexal mass lesions. Extensive calcified plaque of the abdominal a ricki without aneurysm. No bowel obstruction. Wall thickening is noted throughout the colon and rectum with colonic distention and air-fluid levels. Colon is distended measuring up to 6.8 cm transversely . Pericolonic stranding is most pronounced within the sigmoid and rectum. No drainable fluid collecti on. Moderate diffuse body wall edema. Prior ventral abdominal wall herniorrhaphy. Posterior interbody russel and screw fusion extends from T11-S1. Fracture of the superior endplate T11 extending into the T 10-T11 disc space appears unchanged. IMPRESSION: 1. Nonspecific proctocolitis with colonic distention and air-fluid levels suggestive of associated di arrheal illness appears unchanged from comparison. No bowel obstruction, pneumatosis or pneumoperiton eum identified. 2. Hepatic steatosis with cirrhosis and trace abdominal pelvic ascites redemonstrated. 3. Unchanged small pleural effusions with bibasilar consolidation. 4. Additional findings as above. ACT 112: Negative or not required by law. The above report was generated using voice recognition software. It may contain grammatical, syntax o r spelling errors. Electronically signed by: Jorge Mcginnis M.D. 04/17/2020 7:50 PM
[2020-04-18] MEDS: ACETAMINOPHEN 1,000 MG/100 ML VIAL IV SCH ×3 (03:20→21:33)
[2020-04-18] MEDS: NITROGLYCERIN 2% OINTMENT 30GM TUBE EXT SCH ×3 (03:21→17:21)
[2020-04-18] MEDS: ALBUT/IPRATROP 3MG/0.5MG NEB 3 ML VIAL NEB SCH ×6 (03:47→22:47)
[2020-04-18 05:07] LABS: BUN Creatinine Ratio 63.9 (10-20); Calcium 7.7 mg/dl (8.5-10.1); Creatinine Clr Calc Pharmacy 121.3 ml/min; Est GFR (African American) 112.3; Est GFR (Non-African American) 96.9; Magnesium 2.1 mg/dl (1.8-2.4); Potassium 4.1 mmol/L (3.5-5.1)
[2020-04-18 05:12] LABS: Phosphorus 4.2 mg/dl (2.5-4.9)
[2020-04-18] MEDS: MoRPHine SULFATE 2 MG/ML CARP IV PRN ×5 (05:41→21:26)
[2020-04-18] MEDS: CIPROFLOXACIN / D5W 400 MG/200 ML BAG IV SCH ×2 (09:26→21:29)
[2020-04-18] MEDS: metroNIDAZOLE 500 MG/100 ML BAG IV SCH ×3 (09:26→23:42)
[2020-04-18] MEDS: FLUTICASONE/VILANTEROL 200/25MCG 14 PUFFS/INHALER INH SCH (09:26)
[2020-04-18] MEDS: HEPARIN SODIUM (PORCINE) 7,500 UNITS in SYRINGE 0 ML SC SCH ×3 (09:27→23:42)
[2020-04-18] MEDS: NYSTATIN POWDER 15GM BTL EXT SCH ×2 (09:28→21:25)
[2020-04-18] MEDS: FUROSEMIDE 40 MG in SYRINGE 0 ML IV SCH (09:29)
[2020-04-18] MEDS: PANTOprazole 40 MG in SYRINGE 0 ML IV SCH (10:07)
[2020-04-18] MEDS: acetaZOLAMIDE 250 MG in SYRINGE 0 ML IV SCH (13:39)
--- NOTE | 2020-04-18 20:07 | Hospitalist Progress Note ---
Date of Service April 18, 2020 Assessment & Plan (1) Proctocolitis: POA. Had septic shock 2nd to such. Seemingly had improved earlier this admission but CT abd/pelvis on 04/11 and then again yesterday continue to show ongoing colitis and colonic distension. I believe her fevers is due to such. Etiology uncertain. Infectious? (c diff? - but toxin neg earlier this admission). Repeat the c.diff; send stool cx. Empirically treat with IV cipro/flagyl. Allow sips of clears. If c. diff is negative will involve GI for their opinion. Would be odd presentation for IBD/UC. (2) Fever: blood cultures and urine cx thus far negative. cxr w/o obvious pneumonia but given her morbid obesity it would be difficult to ascertain if pneumonic infiltrates are present. suspect fever is due to colitis. see above. (3) Lingual dysarthria: Etiology of her severe dysarthria, dysphagia, and progressive weakness is uncertain. The leading dx per neurology, however, is a bulbar ALS. MRI brain recently did not show any acute or chronic stroke. Her symptoms dating back to January, as per family, do suggest a progressive neurodegenerative condition such as ALS or other. Speech repeated a swallow eval today - did a little better; nectar thick liquids ordered by speech. There is concern she will have hard time consuming enough to maintain hydration, however. (4) Dysphagia: severe per speech. see above. nectar thick liquids. dysphagia likely 2nd to ?ALS? (5) Right sided weakness: 2nd to bulbar ALS? other? B12, CPK wnl. TSH mildly elevated but not high enough to explain her symptoms. Appreciate neuro consult & recs. Cont PT/OT but really cannot participate due to T11 fracture. (6) Closed T11 fracture: Pt's son/ report she had had falls prior to admission. This is likely 2nd to one of those falls. Dr Patel is following; surgery is needed. But I am concerned about her ability to get through surgery in light of current limited PO intake/TPN use, dysarthria, dysphagia, baseline weakness, ongoing colitis, etc. Surgery is deferred for now in light of fever, colitis, etc. For pain control - IV tylenol, lidoderm patch, morphine prn. (7) Unspecified cirrhosis of liver: Likely due to DOLAN. Severely volume overloaded likely due to DOLAN and severe hypoalbuminemia. Cont IV lasix. Cont IV diamox, day #2/3. Recent ammonia level normal. (8) Obstructive sleep apnea syndrome: Cont HS BIPAP. VBGs w/ acceptable pCO2. (9) Asthma: Family confirms history of such. Cont Scheduled albuterol nebs q4h. Cont NC O2. (10) Hypervolemia: Massive. Likely 2nd to cirrhosis and low albumin rather than cardiac factors. She also has received copious fluids while hospitalized. Diurese as above. Creatinine remains stable. BMP am. Is at least 15kg+ since admission. Given ineffective efforts to diurese will place TPN on hold for 24 hours to allow net negative fluid balance. (11) Chest pain: Recent. Has not recurred. Troponins were negative. The pain occurred in the middle of her swallow eval - was likely esophageal in origin. Remains on IV PPI and IV H2 viji. (12) Morbid obesity with BMI of 45.0-49.9, adult: BMI 49 (13) DVT prophylaxis: high risk of DVT in light of bedbound status and morbid obesity cont heparin 7500units TID spoke with son/ by phone - extensive update given 04/16 and then again today on 2 occasions discussed ongoing problems, fever, colitis, need for surgery but inability to safely have such, ?ALS, pain, code status, etc. questions answered I told them that palliative care was consulted Dr Castano to see discussed my concerns about attempting CPR if she ever had an arrest son/ mainly listed with just a couple of questions prognosis remains very poor total time today 65 minutes - multiple phone calls, speaking with palliative care, reviewing CT, etc Admission and Anticipated Discharge Date Admission Date: April 05, 2020 Subjective patient was moaning before I even entered the room. she nodded her head "yes" that her back was hurting. she was trying to tell me other things but due to her dysarthria I could not decipher what she was trying to communicate. staff report frequent moaning episodes and back pain. no vomiting. had diarrhea stool last night but none this am. tele stable. remains febrile even despite scheduled tylenol. Review of Systems Review of Systems: Other (cannot elicit ROS due to severe dysarthria ) Physical Exam Constitutional: + acute distress (moaning - due to back pain ) and + morbidly obese ENMT: Mouth: + dry oral mucous membranes Respiratory: no respiratory distress Auscultation: + diminished lung sounds (bases); no crackles and no wheezes Cardiovascular: Rate/Rhythm: regular rhythm and + tachycardic Heart Sounds: normal S1 and normal S2; no murmur Vessels: posterior tibial pulses present and dorsalis pedis pulses present; no JVD Extremities: + edema (severe - to the thighs - 3-4+ b/l ) Gastrointestinal (Abdomen): Inspection/Auscultation: normal bowel sounds; abdomen not distended Percussion/Palpation: + abdomen tender (epigastric region -no change); no guarding and no hepatosplenomegaly Skin: no rashes, warm and dry Neurologic: mild weakness RUE and to lesser degree RLE; strength LUE/LLE near 4-5/5 Psychiatric: Orientation: alert Affect: + tearful affect Results & Data Results & Data ([facility]) Vital Signs (Past 12 Hours) Vital Signs Temp Pulse Pulse Resp BP Pulse Ox 04/18/20 19:29 101 H 22 91 04/18/20 19:00 36.4 C L 103 H 21 103/66 95 04/18/20 15:05 98 H 18 93 04/18/20 12:10 38.0 C H 101 H 18 115/53 L 93 04/18/20 11:21 101 H 18 94 Laboratory Results Laboratory Results - last 24 hr 04/17/20 04/18/20 04/18/20 23:39 04:34 06:12 Sodium 140 Potassium 4.1 Chloride 102 Carbon Dioxide 33 H Anion Gap 5.0 BUN 34 H Creatinine 0.53 L Est Cr Clr Drug Dosing 121.3 Est GFR ( Amer) 112.3 Est GFR (Non-Af Amer) 96.9 BUN/Creatinine Ratio 63.9 H Glucose 119 H POC Glucose 97 118 H Calcium 7.7 L Phosphorus 4.2 D Magnesium 2.1 04/18/20 04/18/20 12:08 18:28 Sodium Potassium Chloride Carbon Dioxide Anion Gap BUN Creatinine Est Cr Clr Drug Dosing Est GFR ( Amer) Est GFR (Non-Af Amer) BUN/Creatinine Ratio Glucose POC Glucose 117 H 79 Calcium Phosphorus Magnesium PG Care Time/CCT Total # of Minutes Spent Total Time Spent with Patient: Total time spent is greater than 50% in coordination of care (as documented) at patient's floor/unit and/or counseling patient: Prolonged Care Time Prolonged Care Time: Yes 65 Coding Level of Care Code 29985 Subseq Hosp Care Lvl 3 (25 - SIGNIFICANT, SEPARATELY IDENTIFIABLE ) Diagnoses Proctocolitis K52.9 Fever R50.9 Fever type: unspecified Lingual dysarthria R47.1 Dysphagia R13.11 Dysphagia type: oral phase Right sided weakness R53.1 Closed T11 fracture S22.089D Encounter type: subsequent encounter Fracture morphology: unspecified fracture morphology Fracture healing: with routine healing Unspecified cirrhosis of liver K74.69 Hepatic cirrhosis type: other cirrhosis Obstructive sleep apnea syndrome G47.33 Asthma J45.40 Asthma severity: moderate Asthma persistence: persistent Asthma complication type: unspecified Hypervolemia E87.70 Hypervolemia type: unspecified Chest pain R07.9 Chest pain type: unspecified Morbid obesity with BMI of 45.0-49.9, adult E66.01; Z68.42 DVT prophylaxis Z29.9 Additional Codes Prolonged Care Time - Prolonged Care Time: Yes ([id number]) (1) Fever Fever type: unspecified Qualified Code(s): R50.9 - Fever, unspecified (2) Dysphagia Dysphagia type: oral phase Qualified Code(s): R13.11 - Dysphagia, oral phase (3) Closed T11 fracture Encounter type: subsequent encounter Fracture morphology: unspecified fracture morphology Fracture healing: with routine healing Qualified Code(s): S22.089D - Unspecified fracture of T11-T12 vertebra, subsequent encounter for fracture with routine healing (4) Unspecified cirrhosis of liver Hepatic cirrhosis type: other cirrhosis Qualified Code(s): K74.69 - Other cirrhosis of liver (5) Asthma Asthma severity: moderate Asthma persistence: persistent Asthma complication type: unspecified Qualified Code(s): J45.40 - Moderate persistent asthma, uncomplicated (6) Hypervolemia Hypervolemia type: unspecified Qualified Code(s): E87.70 - Fluid overload, unspecified (7) Chest pain Chest pain type: unspecified Qualified Code(s): R07.9 - Chest pain, unspecified
[2020-04-19] MEDS: ALBUT/IPRATROP 3MG/0.5MG NEB 3 ML VIAL NEB SCH ×3 (03:03→19:52)
[2020-04-19] MEDS: ACETAMINOPHEN 1,000 MG/100 ML VIAL IV SCH ×3 (03:51→20:48)
[2020-04-19 06:33] LABS: Basophils # (auto) 0.07 K/uL (0-0.2); Basophils % (auto) 1.1 %; Eosinophils # (auto) 0.14 K/uL (0-0.5); Eosinophils % (auto) 2.1 %; Hematocrit (blood only) 31.6 % (37-47); Hemoglobin 10.2 g/dL (12.0-16.0); Immature Granulocytes # (auto) 0.02 K/uL (0.00-0.02); Immature Granulocytes % (auto) 0.3 %; Lymphocytes # (auto) 1.08 K/uL (1.2-3.4); Lymphocytes % (auto) 16.3 %; Mean Corpuscular Hemoglobin 29.8 pg (25-34); Mean Corpuscular Hgb Conc 32.3 g/dL (32-36); Mean Corpuscular Volume 92.4 fL (80-100); Mean Platelet Volume 9.8 fL (7.4-10.4); Monocytes # (auto) 0.97 K/uL (0.11-0.59); Monocytes % (auto) 14.7 %; Neutrophils # (auto) 4.34 K/uL (1.4-6.5); Neutrophils % (auto) 65.5 %; Platelet Count 231 K/uL (130-400); RDW Coefficient of Variation 14.9 % (11.5-14.5); RDW Standard Deviation 48.9 fL (36.4-46.3); Red Blood Count 3.42 M/uL (4.2-5.4); White Blood Count 6.62 K/uL (4.8-10.8)
[2020-04-19 07:08] LABS: BUN Creatinine Ratio 58.5 (10-20); Calcium 8.1 mg/dl (8.5-10.1); Creatinine Clr Calc Pharmacy 107.5 ml/min; Est GFR (African American) 108.4; Est GFR (Non-African American) 93.5; Potassium 3.8 mmol/L (3.5-5.1)
[2020-04-19] MEDS ORDERED: ALBUT/IPRATROP 3MG/0.5MG NEB 3 ML VIAL NEB PRN (07:40)
[2020-04-19] MEDS: CIPROFLOXACIN / D5W 400 MG/200 ML BAG IV SCH ×2 (07:45→21:20)
[2020-04-19] MEDS: metroNIDAZOLE 500 MG/100 ML BAG IV SCH ×2 (07:45→16:18)
[2020-04-19] MEDS: MoRPHine SULFATE 2 MG/ML CARP IV PRN ×3 (07:45→20:49)
[2020-04-19] MEDS: HEPARIN SODIUM (PORCINE) 7,500 UNITS in SYRINGE 0 ML SC SCH ×3 (07:46→23:35)
[2020-04-19] MEDS: NYSTATIN POWDER 15GM BTL EXT SCH ×2 (07:56→21:24)
[2020-04-19] MEDS: FAMOTIDINE 20MG IV PUSH 20 MG/5 ML SYR IV SCH (07:56)
[2020-04-19] MEDS: FUROSEMIDE 40 MG in SYRINGE 0 ML IV SCH (07:56)
[2020-04-19] MEDS: FLUTICASONE/VILANTEROL 200/25MCG 14 PUFFS/INHALER INH SCH (07:56)
--- NOTE | 2020-04-19 10:28 | Gastrointestinal Consultation ---
Date of Consultation April 19, 2020 Assessment & Plan (1) Goals of care, counseling/discussion: 69 year old female w/ history of newly diagnosed ALS, CAD, COPD, Depression, HTN, obstructive lung disease, morbid obesity, DOLAN, aphasia admitted with FTT, fall at home w/ t11 fracture followed by ortho, colitis on CT. Initial CT beginning on March w/ fecal impaction, perirectal infiltrative change suggesting mild superimposed proctitis this has been persistent and progressive on repeat CTs. Discussed with , who is agreeable to ABX therapy and obtaining stool studies. I did discuss repeat diagnostic endoscopy. She is high risk for elective procedure and will not be able to tolerate a bowel prep. We did discuss goals of care at length and he will talk with the rest of the family. DDX discussed to include stercoral colitis, infectious, other inflammatory Stool culture Repeat stool for c.diff Can continue ABX for now Continue symptomatic management Can consider additional of questran 1/2-1 packey daily No current plan for repeat endoscopy Thank you for allowing us to participate in the care of this patient. Please call with any acute changes, questions or concerns. Please see addendum below with additional recommendation from my supervising physician. (2) Proctocolitis: Supervising Physician Co-Signing Physician Notes I have seen and examined the patient and discussed the management with YUDITH Parra. 69 yo fm nonverbal with chronic colitis on imaging. Per requesting physician she has been having diarrhea. PE noteable for her being nonverbal, no respiratory distress on supplemental oxygen, abd soft nt nd +bs, no pratima Labs reviewed Imaging reviewed Agree with further plan of care as per Kaur's assessment and plan. Per family discussion on the phone, no scope is wanted at this time. Stool studies, continue with abx. History of Present Illness Reason for Consultation: colitis on CT Requesting Physician: Prem Attending Physician: Erik Amaro History of Present Illness 69 year old female w/ history of newly diagnosed ALS, CAD, COPD, Depression, HTN, obstructive lung disease, morbid obesity, DOLAN, aphasia admitted with FTT, fall at home w/ t11 fracture followed by ortho, colitis on CT - GI asked to evaluate for colitis. Pt was seen and evaluated. Unable to obtain history of ROS from pt. I did call . He endorses a long history of chronic constipation, abd pain. Was evaluated by Dr. Riggins and had a colonoscopy in September for these symptoms which was negative. He notes that since colonoscopy she has had alternating bowels, diarrhea/constipation with generalized abd pain. No blacks or bloody stools. He does not report any UGI symptoms or vomiting. Colonoscopy 2019: normal CTAP 04/17/20: Nonspecific proctocolitis with colonic distention and air-fluid levels suggestive of associated diarrheal illness appears unchanged from comparison. No bowel obstruction, pneumatosis or pneumoperitoneum identified. CTAP 04/11/20: Findings of a nonspecific proctocolitis are similar to previous. CTAP 04/06/20: Persistent moderate to severe wall thickening of the rectum and sigmoid colon. Compatible with proctocolitis. The distribution suggests an infectious or inflammatory etiology. This is unchanged from prior. Mild small bowel distention in the proximal to mid portion likely represents an ileus. No convincing evidence of bowel obstruction. CTAP 04/05/20: Slight progression of the distal proctocolitis. This may represent an infectious or inflammatory process. Fluid-filled borderline distended loops of large and small bowel. No clear transition point. This may represent an ileus or diarrheal illness. A low-grade partial large bowel obstruction due to the thickened distal sigmoid colon/rectum could also have a similar appearance. CTAP 04/04/20: Considerable rectal fecal impaction. Mild perirectal infiltrative change suggesting mild superimposed proctitis. Allergies Allergy/AdvReac Type Severity Reaction Status Date / Time metformin AdvReac Intermediate DIARRHEA Verified 04/05/20 16:46 oxycodone AdvReac Intermediate GI Verified 04/05/20 16:46 SYMPTOMS, DISORIENTATION ampicillin AdvReac Mild Nausea/vomi Verified 04/05/20 16:46 ting codeine AdvReac Mild NAUSEA Verified 04/05/20 16:46 gabapentin AdvReac Mild DIZZINESS, Verified 04/05/20 16:46 FIDGETY hydrocodone AdvReac Mild "MADE ME Verified 04/05/20 16:46 FEEL WEIRD" lorazepam AdvReac Mild DIZZY Verified 04/05/20 16:46 lovastatin AdvReac Mild WASN'T Verified 04/05/20 16:46 EFFECTIVE meloxicam AdvReac Mild DIZZINESS Verified 04/05/20 16:46 propoxyphene AdvReac Mild NAUSEA Verified 04/05/20 16:46 tramadol AdvReac Mild GI SYMPTOMS Verified 04/05/20 16:46 narcotics AdvReac Mild Hallucinati Uncoded 04/05/20 16:46 ng Home Medications Home Medications Medication Instructions Recorded Confirmed Type albuterol sulfate 90 mcg/actuation 2 puffs INH Q4H PRN gm 08/07/19 04/05/20 History aerosol inhaler pantoprazole 20 mg tablet,delayed 20 mg PO BID tab 09/09/19 04/05/20 History release naproxen sodium [Aleve] 220 mg PO BID 10/11/19 04/05/20 History budesonide-formoterol HFA 160 2 puffs INH BID #10.2 gm 11/16/19 04/05/20 Rx mcg-4.5 mcg/actuation aerosol inhaler rosuvastatin 5 mg tablet 5 mg PO QAM #90 tab 12/06/19 04/05/20 Rx nebulizer accessories #1 ea 12/07/19 04/04/20 Rx lidocaine [Lidoderm] 1 patch TOP UD PRN 12/26/19 04/05/20 History hydroxyzine pamoate [Vistaril] 25 mg PO TID PRN 01/18/20 04/05/20 History cyanocobalamin (vitamin B-12) 1,000 mcg IM MONTHLY #10 ml 02/28/20 04/05/20 Rx 1,000 mcg/mL injection solution syringe with needle 3 mL 25 gauge #3 ea 02/28/20 04/04/20 Rx x 1" fluconazole 150 mg tablet 150 mg PO .COMPLEX 28 Days #4 tab 03/14/20 04/05/20 Rx nystatin 100,000 unit/gram topical 1 appln TOP BID #60 gm 03/14/20 04/05/20 Rx powder miscellaneous medical supply #1 ea 03/23/20 04/04/20 Rx Wheelchair (Manual or Powered) #1 ea 03/26/20 04/04/20 Rx albuterol sulfate 2.5 mg INH BID 04/04/20 04/05/20 History cyclobenzaprine 10 mg PO TID PRN 04/04/20 04/05/20 History Patient History Medical History (Updated 04/19/20 @ 00:03 by Background Shahram) Anxiety (Chronic) Asthma (Chronic) Stable- has albuterol nebulizer and inhaler- uses 1-2 times daily Borderline high cholesterol BPPV (benign paroxysmal positional vertigo) CAD (coronary artery disease) (Chronic) Pt denies Colitis COPD (chronic obstructive pulmonary disease) (Chronic) Depression (Chronic 01/03/12) Dysmetabolic syndrome X (Chronic) Fatty (change of) liver, not elsewhere classified (Chronic) Gastroesophageal reflux disease with esophagitis (Chronic) Well controlled with Protonix 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 Hiatal hernia Hypertension (Chronic) Impaired memory (Chronic) Mild- feels back pain making memory worse Lumbar stenosis with neurogenic claudication (Chronic) Morbid obesity with BMI of 45.0-49.9, adult Obstructive sleep apnea syndrome (Chronic 01/03/12) Uses CPAP q HS Osteopenia (Chronic) Prediabetes (Chronic) Pt denies - pre op glucose 249- getting clarification from PCP Proctocolitis Restrictive lung disease (Chronic) Unspecified cirrhosis of liver (Chronic) Secondary to fatty liver - follows with GI - stable at this time (LFTs WNL 11/07/19) Venous insufficiency (Chronic) Varicose veins- no treatment needed - no current LE edema Surgical History History of abdominal surgery removed benign tumor from stomach History of bilateral cataract extraction History of cardiac cath 30+YR AGO, NO SIG ISSUES PER PT- DENIES STENTS OR BYPASS History of carpal tunnel surgery of right wrist History of cholecystectomy (Resolved) History of colonoscopy History of esophagogastroduodenoscopy (EGD) History of herniorrhaphy (Resolved) History of lumbar fusion (Resolved) L2 through S1 fusion August [address] Patel History of right shoulder replacement History of tonsillectomy and adenoidectomy History of tooth extraction all upper teeth History of total hysterectomy with bilateral salpingo-oophorectomy (BSO) History of total right hip arthroplasty (Resolved) Nausea and vomiting after administration of anesthetic agent Status post trigger finger release HX OF right hand Family History Unknown Heart disease Father Asthma Mother Alzheimer disease Aortic aneurysm Aunt Family history of diabetes mellitus Grandmother Family history of diabetes mellitus Other No family history of adverse response to anesthesia Social History Preferred Language: Italian Communication Ability: Effective Visual Impairment: Limited Hearing Ability: Hard of Hearing [place] Required: No Beliefs That Will Affect Care: None marital status: Current Living Situation: Spouse and Family Current Living Situation Comment: AND SON current occupational status: retired Feels Safe at Home: Yes Smoking Status: Never smoker Second Hand Exposure: Yes ( smoked/parents smoked) ; Hx Alcohol Use: No Hx Substance Use: No caffeine: Yes Seatbelt Use: always Review of Systems Review of Systems: Unobtainable due to cognitive status Physical Exam Constitutional: well nourished, + acute distress, + ill appearing and + obese Neck: trachea midline Respiratory: normal respiratory effort Cardiovascular: Rate/Rhythm: regular rate and regular rhythm Gastrointestinal (Abdomen): Inspection/Auscultation: normal bowel sounds; abdomen not distended Percussion/Palpation: + abdomen tender (she moans with palpation) and abdomen soft; no guarding and abdomen not rigid Skin: no rashes, warm and dry Results & Data ([facility]) Vital Signs (Past 12 Hours) Vital Signs Temp Pulse Pulse Pulse Resp BP Pulse Ox 04/19/20 07:23 95 H 20 94 04/19/20 07:05 93 H 04/19/20 07:04 36.6 C 95 H 18 104/69 93 04/19/20 04:00 96 H 18 131/78 96 04/19/20 03:05 96 H 96 H 16 91 04/18/20 23:14 37.3 C 102 H 20 101/58 L 91 04/18/20 23:00 102 H 04/18/20 22:49 102 H 20 88 L 04/18/20 22:48 102 H 20 88 L 04/18/20 22:35 37.0 C 103 H 21 93/55 L 91 Laboratory Results 04/19/20 04/19/20 04/19/20 Range/Units 07:31 06:09 06:09 WBC 6.62 (4.8-10.8) K/uL RBC 3.42 L (4.2-5.4) M/uL Hgb 10.2 L (12.0-16.0) g/dL Hct 31.6 L (37-47) % MCV 92.4 (80-100) fL MCH 29.8 (25-34) pg MCHC 32.3 (32-36) g/dL RDW Std Deviation 48.9 H (36.4-46.3) fL RDW Coeff of Ricardo 14.9 H (11.5-14.5) % Plt Count 231 (130-400) K/uL MPV 9.8 (7.4-10.4) fL Immature Gran % (Auto) 0.3 % Neut % (Auto) 65.5 % Lymph % (Auto) 16.3 % Knox % (Auto) 14.7 % Eos % (Auto) 2.1 % Baso % (Auto) 1.1 % Immature Gran # (Auto) 0.02 (0.00-0.02) K/uL Neut # (Auto) 4.34 (1.4-6.5) K/uL Lymph # (Auto) 1.08 L (1.2-3.4) K/uL Knox # (Auto) 0.97 H (0.11-0.59) K/uL Eos # (Auto) 0.14 (0-0.5) K/uL Baso # (Auto) 0.07 (0-0.2) K/uL Sodium (136-145) mmol/L Potassium (3.5-5.1) mmol/L Chloride (98-107) mmol/L Carbon Dioxide (21-32) mmol/L Anion Gap (3-11) BUN (7-18) mg/dl Creatinine (0.6-1.2) mg/dl Est Cr Clr Drug Dosing ml/min Est GFR ( Amer) Est GFR (Non-Af Amer) BUN/Creatinine Ratio (10-20) Glucose (70-99) mg/dl POC Glucose 81 (70-99) mg/dl Calcium (8.5-10.1) mg/dl Procalcitonin 1.50 H (0-0.5) ng/ml 04/19/20 04/18/20 04/18/20 Range/Units 06:09 23:11 18:28 WBC (4.8-10.8) K/uL RBC (4.2-5.4) M/uL Hgb (12.0-16.0) g/dL Hct (37-47) % MCV (80-100) fL MCH (25-34) pg MCHC (32-36) g/dL RDW Std Deviation (36.4-46.3) fL RDW Coeff of Ricardo (11.5-14.5) % Plt Count (130-400) K/uL MPV (7.4-10.4) fL Immature Gran % (Auto) % Neut % (Auto) % Lymph % (Auto) % Knox % (Auto) % Eos % (Auto) % Baso % (Auto) % Immature Gran # (Auto) (0.00-0.02) K/uL Neut # (Auto) (1.4-6.5) K/uL Lymph # (Auto) (1.2-3.4) K/uL Knox # (Auto) (0.11-0.59) K/uL Eos # (Auto) (0-0.5) K/uL Baso # (Auto) (0-0.2) K/uL Sodium 140 (136-145) mmol/L Potassium 3.8 (3.5-5.1) mmol/L Chloride 103 (98-107) mmol/L Carbon Dioxide 31 (21-32) mmol/L Anion Gap 6.0 (3-11) BUN 35 H (7-18) mg/dl Creatinine 0.59 L (0.6-1.2) mg/dl Est Cr Clr Drug Dosing 107.5 ml/min Est GFR ( Amer) 108.4 Est GFR (Non-Af Amer) 93.5 BUN/Creatinine Ratio 58.5 H (10-20) Glucose 82 (70-99) mg/dl POC Glucose 102 H 79 (70-99) mg/dl Calcium 8.1 L (8.5-10.1) mg/dl Procalcitonin (0-0.5) ng/ml 04/18/20 Range/Units 12:08 WBC (4.8-10.8) K/uL RBC (4.2-5.4) M/uL Hgb (12.0-16.0) g/dL Hct (37-47) % MCV (80-100) fL MCH (25-34) pg MCHC (32-36) g/dL RDW Std Deviation (36.4-46.3) fL RDW Coeff of Ricardo (11.5-14.5) % Plt Count (130-400) K/uL MPV (7.4-10.4) fL Immature Gran % (Auto) % Neut % (Auto) % Lymph % (Auto) % Knox % (Auto) % Eos % (Auto) % Baso % (Auto) % Immature Gran # (Auto) (0.00-0.02) K/uL Neut # (Auto) (1.4-6.5) K/uL Lymph # (Auto) (1.2-3.4) K/uL Knox # (Auto) (0.11-0.59) K/uL Eos # (Auto) (0-0.5) K/uL Baso # (Auto) (0-0.2) K/uL Sodium (136-145) mmol/L Potassium (3.5-5.1) mmol/L Chloride (98-107) mmol/L Carbon Dioxide (21-32) mmol/L Anion Gap (3-11) BUN (7-18) mg/dl Creatinine (0.6-1.2) mg/dl Est Cr Clr Drug Dosing ml/min Est GFR ( Amer) Est GFR (Non-Af Amer) BUN/Creatinine Ratio (10-20) Glucose (70-99) mg/dl POC Glucose 117 H (70-99) mg/dl Calcium (8.5-10.1) mg/dl Procalcitonin (0-0.5) ng/ml
[2020-04-19] MEDS: PANTOprazole 40 MG in SYRINGE 0 ML IV SCH (11:42)
[2020-04-19] MEDS: acetaZOLAMIDE 250 MG in SYRINGE 0 ML IV SCH (14:21)
[2020-04-19] MEDS ORDERED: TPN IV SCH (16:00)
[2020-04-19] MEDS ORDERED: CENTRAL PN IV SCH (16:00)
--- NOTE | 2020-04-19 16:04 | Palliative Care Progress Note ---
Date of Service April 19, 2020 Assessment & Plan (1) Goals of care, counseling/discussion: Goals of care, counseling/discussion: -69 year old female patient with PMH CAD, COPD, Depression, HTN, obstructive lung disease, morbid obesity, episode of aphasia and right sided weakness back in January/February, but MRI in ED at the time was negative, and others, presented to the hospital on 04/05 with increased abdominal pain and weakness. Patient reported that she had ongoing diarrhea at home. In ED, she was hypotensive, tachycardic, and oxygenating well on room air. She was given fluid boluses and admitted. Patient unfortunately had ongoing hypotension, lactic acidosis, and progressive renal failure. She was transferred to the ICU for septic shock likely due to bacterial translocation from recent disimpaction and colonic distention. CT scan on 04/05 concerning for progression of the distal proctocolitis, possibly representing an infectious or inflammatory process. She also has fluid-filled borderline distended loops of large and small bowel, this may represent an ileus or diarrheal illness or a low-grade partial large bowel obstruction due to the thickened distal sigmoid colon/rectum could also have a similar appearance. Surgical team consulted who recommended continuing abx, no i mmediate need for surgery. On imaging, patient was also noted to have an unstable thoracic spine fracture. Ortho consulted who stated to strictly log roll patient-- fracture is unstable and likely would require surgery but she is not a surgical candidate. Patient is unable to tolerate even low-dose opioids. palliative care is consulted to assist with pain management and goals of care. -Patient seen this afternoon. She was attempting to speak, which came out as a moan. 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 -Spoke with patient's regarding goals of care-patient would like to return home, discussed with returning home with hospice care, he would need help at home including paid caregivers if his sons were unable to help. does not feel he can care for her at home. Asked that he speak to his sons to see if they are able to help physically or help with finances for paid caregivers -We will continue to follow and have further discussions with the patient's , collaborated with case management regarding options. We will need to continue to address CODE STATUS. (2) Pseudobulbar palsy: (3) Dysphagia: (4) Expressive aphasia: Subjective Patient awake and alert, no acute distress at rest. Patient continues to try to vocalize, able to answer yes and no questions. Patient aware of her current condition, understands she is not doing well, would like to return home if possible. Spoke with patient's Pablo-he does not feel he is able to care for her at home, they did have home health but if she did return home with hospice he is unable to care for her. I asked him to speak to the 2 sons to see if they are willing or able to help as well as perhaps provide some financial assistance with paid caregivers. does understand that moving her could possibly cause paralysis, patient's nonambulatory and unable to move her extremities at this time. Patient unable to take adequate p.o. to sustain life-did discuss with that her prognosis would be in weeks to a month or so. Patient did require 5 doses of IV morphine in the past 24 hours for comfort, she continues on IV Cipro and Flagyl as well as TPN. Lidoderm patch is somewhat helpful with her back pain. Review of Systems Review of Systems: Unable to obtain due to expressive aphasia Physical Exam Physical Exam: PE: Comfortable at rest HEENT: EOMI, hearing within normal limits Respirations: Unlabored CV: Regular rate Abdomen: Morbidly obese, mildly tender with palpation Extremities: Profound weakness Neuro: Expressive aphasia, no evidence for receptive aphasia. Results & Data Vital Signs (Past 12 Hours) Vital Signs Temp Pulse Pulse Pulse Resp BP Pulse Ox 04/19/20 15:00 92 H 04/19/20 11:17 97.9 F 92 H 20 115/59 L 95 04/19/20 07:23 95 H 20 94 04/19/20 07:05 93 H 04/19/20 07:04 97.9 F 95 H 18 104/69 93 PG Care Time/CCT Total # of Minutes Spent Total Time Spent with Patient: Total time spent 40 minutes with greater than 50% of the time spent at bedside discussing patient's current condition as well as her wishes, speaking to by phone regarding options of returning home, and collaborating with case management as well as attending physician Coding Level of Care Code 78506 Subseq Hosp Care Lvl 3 Diagnoses Goals of care, counseling/discussion Z71.89 Pseudobulbar palsy G12.29 Dysphagia R13.11 Dysphagia type: oral phase Expressive aphasia R47.01 Time Spent (min) 40 (1) Dysphagia Dysphagia type: oral phase Qualified Code(s): R13.11 - Dysphagia, oral phase
--- NOTE | 2020-04-19 21:37 | Hospitalist Progress Note ---
Date of Service April 19, 2020 Assessment & Plan (1) Proctocolitis: POA. Had septic shock 2nd to such. Seemingly had improved earlier this admission but CT abd/pelvis on 04/11 and then again 2 days ago continue to show ongoing colitis and colonic distension. I believe her fevers are due to such. Infectious? (c diff? - but toxin neg earlier this admission). Repeat the c.diff; send stool cx. Empirically treating with IV cipro/flagyl. Allow liquids. I consulted [facility] for their opinion. Cont supportive care. (2) Fever: improved. blood cultures and urine cx thus far negative. cxr w/o obvious pneumonia but given her morbid obesity it would be difficult to ascertain if pneumonic infiltrates are present. suspect fever is due to colitis. remains on cipro/flagyl to cover colitis. (3) Lingual dysarthria: Etiology of her severe dysarthria, dysphagia, and progressive weakness is uncertain. The leading dx per neurology, however, is a bulbar ALS. MRI brain recently did not show any acute or chronic stroke. Her symptoms dating back to January, as per family, do suggest a progressive neurodegenerative condition such as ALS or other. Speech repeated a swallow eval yesterday; did a little better; nectar thick liquids ordered by speech. however, patient is taking very little PO intake despite being allowed to do so. TPN resumed. I believe long-term she will not be able to maintain hydration. Further, she is an extremely poor PEG candidate for numerous reasons. (4) Dysphagia: severe per speech. see above. nectar thick liquids. dysphagia likely 2nd to ?ALS? (5) Right sided weakness: 2nd to bulbar ALS? other? B12, CPK wnl. TSH mildly elevated but not high enough to explain her symptoms. Appreciate neuro consult & recs. Cont PT/OT but really cannot participate due to T11 fracture. (6) Closed T11 fracture: Pt's son/ report she had had falls prior to admission. This is likely 2nd to one of those falls. Dr Patel is following; surgery is needed. But I am concerned about her ability to get through surgery in light of current limited PO intake/TPN use, dysarthria, dysphagia, baseline weakness, ongoing colitis, etc. Surgery is deferred. I seriously doubt she will ever get to a safe point to undergo repair. For pain control - IV tylenol, lidoderm patch, morphine prn. (7) Unspecified cirrhosis of liver: Likely due to DOLAN. Severely volume overloaded likely due to DOLAN and severe hypoalbuminemia. Cont IV lasix. Cont IV diamox, day #3 of 3. Recent ammonia level normal. (8) Obstructive sleep apnea syndrome: Cont HS BIPAP. VBGs w/ acceptable pCO2. (9) Asthma: Family confirms history of such. Cont nebs BID. Cont NC O2. (10) Hypervolemia: Massive. Likely 2nd to cirrhosis and low albumin rather than cardiac factors. She also has received copious fluids while hospitalized. Diurese as above. Creatinine remains stable. BMP am. Is at least 15kg+ since admit. (11) Chest pain: Recent. Has not recurred. Troponins were negative. The pain occurred in the middle of her swallow eval - was likely esophageal in origin. Remains on IV PPI and IV H2 viji. (12) Morbid obesity with BMI of 45.0-49.9, adult: BMI 49 (13) DVT prophylaxis: high risk of DVT in light of bedbound status and morbid obesity cont heparin 7500units TID spoke with son/ by phone - extensive update given 04/16 and then again on 04/18. discussed ongoing problems, fever, colitis, need for surgery but inability to safely have such, ?ALS, pain, code status, etc. questions answered I told them that palliative care was consulted Dr Castano did speak with today and voiced that patient is telling us she wants to go home they discussed care plan home with hospice?? safe to do that because of T11 fracture? other dispo? prognosis remains very poor Admission and Anticipated Discharge Date Admission Date: April 05, 2020 Subjective patient awake during the visit she understands our conversation and follows commands severe dysarthria makes her needs difficult to understand however, she said at least twice (by shaking head "yes") that she wants to go home and misses her there was a board in the room that lists various symptoms and needs by pointing to certain words she can shake her head yes/no to those words she shook her head "no" to PAIN she shook her head "yes" to thirst she shook her head "yes" to being lonely she shook her head "no" to being afraid intermittently cried several times during the visit by report had loose stool overnight but unable to be send for culture/c diff Review of Systems Review of Systems: Other (Limited ROS due to severe dysarthria; see HPI ) Physical Exam Constitutional: + morbidly obese; no acute distress ENMT: Mouth: + dry oral mucous membranes Respiratory: no respiratory distress Auscultation: + diminished lung sounds (bases); no crackles and no wheezes Cardiovascular: Rate/Rhythm: regular rate and regular rhythm Heart Sounds: normal S1 and normal S2; no murmur Vessels: posterior tibial pulses present and dorsalis pedis pulses present; no JVD Extremities: + edema (severe - to the thighs - 3-4+ b/l ) Gastrointestinal (Abdomen): Inspection/Auscultation: + abdomen distended (Mild) and normal bowel sounds Percussion/Palpation: + abdomen tender; no guarding and no hepatosplenomegaly Skin: no rashes, warm and dry left IJ central line clean Neurologic: severe dysarthria - no change;motor exam unchanged from all prior visits Psychiatric: Orientation: alert Affect: + tearful affect Results & Data Results & Data ([facility]) Vital Signs (Past 12 Hours) Vital Signs Temp Pulse Pulse Pulse Resp BP Pulse Ox 04/19/20 19:54 97 H 18 92 04/19/20 19:38 37.3 C 98 H 18 139/78 90 04/19/20 16:53 36.9 C 94 H 23 135/77 92 04/19/20 15:00 92 H 04/19/20 11:17 36.6 C 92 H 20 115/59 L 95 Laboratory Results Laboratory Results - last 24 hr 04/18/20 04/19/20 04/19/20 23:11 06:09 06:09 WBC 6.62 RBC 3.42 L Hgb 10.2 L Hct 31.6 L MCV 92.4 MCH 29.8 MCHC 32.3 RDW Std Deviation 48.9 H RDW Coeff of Ricardo 14.9 H Plt Count 231 MPV 9.8 Immature Gran % (Auto) 0.3 Neut % (Auto) 65.5 Lymph % (Auto) 16.3 [place] % (Auto) 14.7 Eos % (Auto) 2.1 Baso % (Auto) 1.1 Immature Gran # (Auto) 0.02 Neut # (Auto) 4.34 Lymph # (Auto) 1.08 L [place] # (Auto) 0.97 H Eos # (Auto) 0.14 Baso # (Auto) 0.07 Sodium 140 Potassium 3.8 Chloride 103 Carbon Dioxide 31 Anion Gap 6.0 BUN 35 H Creatinine 0.59 L Est Cr Clr Drug Dosing 107.5 Est GFR ( Amer) 108.4 Est GFR (Non-Af Amer) 93.5 BUN/Creatinine Ratio 58.5 H Glucose 82 POC Glucose 102 H Calcium 8.1 L Procalcitonin 04/19/20 04/19/20 04/19/20 06:09 07:31 11:30 WBC RBC Hgb Hct MCV MCH MCHC RDW Std Deviation RDW Coeff of Ricardo Plt Count MPV Immature Gran % (Auto) Neut % (Auto) Lymph % (Auto) [place] % (Auto) Eos % (Auto) Baso % (Auto) Immature Gran # (Auto) Neut # (Auto) Lymph # (Auto) [place] # (Auto) Eos # (Auto) Baso # (Auto) Sodium Potassium Chloride Carbon Dioxide Anion Gap BUN Creatinine Est Cr Clr Drug Dosing Est GFR ( Amer) Est GFR (Non-Af Amer) BUN/Creatinine Ratio Glucose POC Glucose 81 60 L* Calcium Procalcitonin 1.50 H 04/19/20 04/19/20 04/19/20 11:32 12:18 12:47 WBC RBC Hgb Hct MCV MCH MCHC RDW Std Deviation RDW Coeff of Ricardo Plt Count MPV Immature Gran % (Auto) Neut % (Auto) Lymph % (Auto) [place] % (Auto) Eos % (Auto) Baso % (Auto) Immature Gran # (Auto) Neut # (Auto) Lymph # (Auto) [place] # (Auto) Eos # (Auto) Baso # (Auto) Sodium Potassium Chloride Carbon Dioxide Anion Gap BUN Creatinine Est Cr Clr Drug Dosing Est GFR ( Amer) Est GFR (Non-Af Amer) BUN/Creatinine Ratio Glucose POC Glucose 66 L* 67 L* 81 Calcium Procalcitonin 04/19/20 04/19/20 16:53 20:16 WBC RBC Hgb Hct MCV MCH MCHC RDW Std Deviation RDW Coeff of Ricardo Plt Count MPV Immature Gran % (Auto) Neut % (Auto) Lymph % (Auto) [place] % (Auto) Eos % (Auto) Baso % (Auto) Immature Gran # (Auto) Neut # (Auto) Lymph # (Auto) [place] # (Auto) Eos # (Auto) Baso # (Auto) Sodium Potassium Chloride Carbon Dioxide Anion Gap BUN Creatinine Est Cr Clr Drug Dosing Est GFR ( Amer) Est GFR (Non-Af Amer) BUN/Creatinine Ratio Glucose POC Glucose 87 73 Calcium Procalcitonin PG Care Time/CCT Total # of Minutes Spent Total Time Spent with Patient: Total time spent is greater than 50% in coordination of care (as documented) at patient's floor/unit and/or counseling patient: Coding Level of Care Code 62424 Subseq Hosp Care Lvl 2 Diagnoses Proctocolitis K52.9 Fever R50.9 Fever type: unspecified Lingual dysarthria R47.1 Dysphagia R13.11 Dysphagia type: oral phase Right sided weakness R53.1 Closed T11 fracture S22.089D Encounter type: subsequent encounter Fracture healing: with routine healing Fracture morphology: unspecified fracture morphology Unspecified cirrhosis of liver K74.69 Hepatic cirrhosis type: other cirrhosis Obstructive sleep apnea syndrome G47.33 Asthma J45.40 Asthma complication type: unspecified Asthma persistence: persistent Asthma severity: moderate Hypervolemia E87.70 Hypervolemia type: unspecified Chest pain R07.9 Chest pain type: unspecified Morbid obesity with BMI of 45.0-49.9, adult E66.01; Z68.42 DVT prophylaxis Z29.9 (1) Closed T11 fracture Encounter type: subsequent encounter Fracture healing: with routine healing Fracture morphology: unspecified fracture morphology Qualified Code(s): S22.089D - Unspecified fracture of T11-T12 vertebra, subsequent encounter for fracture with routine healing (2) Fever Fever type: unspecified Qualified Code(s): R50.9 - Fever, unspecified (3) Dysphagia Dysphagia type: oral phase Qualified Code(s): R13.11 - Dysphagia, oral phase (4) Unspecified cirrhosis of liver Hepatic cirrhosis type: other cirrhosis Qualified Code(s): K74.69 - Other cirrhosis of liver (5) Chest pain Chest pain type: unspecified Qualified Code(s): R07.9 - Chest pain, unspecified (6) Asthma Asthma complication type: unspecified Asthma persistence: persistent Asthma severity: moderate Qualified Code(s): J45.40 - Moderate persistent asthma, uncomplicated (7) Hypervolemia Hypervolemia type: unspecified Qualified Code(s): E87.70 - Fluid overload, unspecified
[2020-04-20] MEDS: metroNIDAZOLE 500 MG/100 ML BAG IV SCH ×4 (00:27→23:29)
[2020-04-20] MEDS: ACETAMINOPHEN 1,000 MG/100 ML VIAL IV SCH (04:14)
[2020-04-20] MEDS: MoRPHine SULFATE 2 MG/ML CARP IV PRN ×5 (05:40→20:02)
[2020-04-20 06:52] LABS: BUN Creatinine Ratio 60.5 (10-20); Creatinine Clr Calc Pharmacy 120.8 ml/min; Est GFR (African American) 112.3; Est GFR (Non-African American) 96.9; Phosphorus 2.9 mg/dl (2.5-4.9); Potassium 3.2 mmol/L (3.5-5.1)
[2020-04-20] MEDS: ALBUT/IPRATROP 3MG/0.5MG NEB 3 ML VIAL NEB SCH ×2 (07:15→19:38)
[2020-04-20] MEDS: HEPARIN SODIUM (PORCINE) 7,500 UNITS in SYRINGE 0 ML SC SCH ×3 (08:41→23:28)
[2020-04-20] MEDS: CIPROFLOXACIN / D5W 400 MG/200 ML BAG IV SCH (08:41)
[2020-04-20] MEDS: FLUTICASONE/VILANTEROL 200/25MCG 14 PUFFS/INHALER INH SCH (08:52)
[2020-04-20] MEDS: NYSTATIN POWDER 15GM BTL EXT SCH ×2 (08:55→20:03)
--- NOTE | 2020-04-20 09:09 | Gastroenterology Progress Note ---
Date of Service April 20, 2020 Assessment & Plan (1) Goals of care, counseling/discussion: 69 year old female w/ history of newly diagnosed ALS, CAD, COPD, Depression, HTN, obstructive lung disease, morbid obesity, DOLAN, aphasia admitted with FTT, fall at home w/ t11 fracture followed by ortho, colitis on CT. Initial CT beginning on March w/ fecal impaction, perirectal infiltrative change suggesting mild superimposed proctitis this has been persistent and progressive on repeat CTs. Discussed with , who is agreeable to ABX therapy and obtaining stool studies. I did discuss repeat diagnostic endoscopy. She is high risk for elective procedure and will not be able to tolerate a bowel prep. We did discuss goals of care at length and he will talk with the rest of the family. Today she is more awake, following commands and shaking yes/no to questions. She is agreeable to stool studies but does not wish to undergo any diagnostic endoscopies. DDX discussed to include stercoral colitis, infectious, other inflammatory Stool culture Repeat stool for c.diff Can continue ABX for now Continue symptomatic management Can consider additional of questran 1/2-1 packet daily No current plan for repeat endoscopy Thank you for allowing us to participate in the care of this patient. Please call with any acute changes, questions or concerns. Please see addendum below with additional recommendation from my supervising physician. (2) Proctocolitis: Admission and Anticipated Discharge Date Admission Date: April 05, 2020 Anticipated date of discharge: 04/08/20 Supervising Physician Co-Signing Physician Notes I saw and evaluated the patient. She is a very unfortunate female with a recent neurologic diagnosis that peers to be the major concern at the present time. For the colonic wall thickening this does not likely represent a specific process as she did have a colonoscopy without any specific findings recently. We would recommend screening for C. difficile infection and stool cultures. Call with any additional questions or concerns during the remainder of the hospital admission Subjective Pt was seen and evaluated, chart reviewed. She was much more awake during visit - she is answering questions appropriately with yes/no head shake. She understands our conversation. I asked her if she was having any pain. She shakes her head no. I asked her if she was having loose stool, she shakes her head yes. I told her we were sending her stool studies to ensure no infection. She shook her head yes. I asked her if she would like a repeat colonoscopy, she shook her head no. Review of Systems Gastrointestinal: + diarrhea/loose stools; no abdominal pain Physical Exam Constitutional: + ill appearing and + morbidly obese; no acute distress Respiratory: normal respiratory effort Cardiovascular: Rate/Rhythm: regular rate Gastrointestinal (Abdomen): Percussion/Palpation: abdomen soft; abdomen nontender, no guarding and abdomen not rigid Skin: no rashes, warm and dry Results & Data ([place]) Vital Signs (Past 12 Hours) Vital Signs Temp Pulse Pulse Pulse Resp BP Pulse Ox 04/20/20 07:15 92 H 16 96 04/20/20 07:13 36.9 C 96 H 18 115/69 92 04/20/20 04:28 36.7 C 94 H 20 133/73 94 04/20/20 03:46 93 H 04/20/20 03:08 97 H 18 91 04/19/20 23:50 37.0 C 95 H 20 93/59 L 93
[2020-04-20] MEDS: FUROSEMIDE 40 MG in SYRINGE 0 ML IV SCH (09:14)
[2020-04-20] MEDS: FAMOTIDINE 20MG IV PUSH 20 MG/5 ML SYR IV SCH (10:22)
[2020-04-20] MEDS: PANTOprazole 40 MG in SYRINGE 0 ML IV SCH (10:22)
[2020-04-20] MEDS: POTASSIUM CHLORIDE / WTR 10 MEQ/100 ML PLCT IV SCH ×2 (10:23→11:27)
[2020-04-20] MEDS ORDERED: ACETAMINOPHEN 1,000 MG/100 ML VIAL IV PRN (12:46)
--- NOTE | 2020-04-20 23:14 | Communication Note ---
Date of Service: April 20, 2020 Received notification overnight that pt's TPN was discontinued and that she was having very poor PO intake. D10 @60 was started.
[2020-04-20] MEDS: DEXTROSE 10% 1,000 ML IV SCH (23:29)
--- NOTE | 2020-04-20 23:36 | Hospitalist Progress Note ---
Date of Service April 20, 2020 Assessment & Plan (1) Proctocolitis: POA. Had septic shock 2nd to such. Seemingly had improved earlier this admission but CT abd/pelvis on 04/11 and then again 04/17 continue to show ongoing colitis and colonic distension. I believe her fevers were due to such. Infectious? (c diff? - but toxin neg earlier this admission). Other? have attempted for several days to collect stool for repeat c diff and stool cx without success plus only having 1 liquid stool daily will treat empiricallly for c diff with IV flagyl; stop cipro she cannot swallow adequately so will defer on vanco by mouth [facility] was consulted and felt it was likely infectious; cannot rule out stercolitis as cause but less likely; not ischemic or IBD (2) Fever: resolved. blood cultures cx's negative. fevers resolved with cipro/flagyl alone. suspect fever was 2nd to colitis as about the time of fever she was having significant abdominal pain. urine has grown MDR enterococcus but fevers resolved without any effective Rx for that pathogen. thus, I do not believe it requires treatment. the other pathogen in the urine - will simply await its ID. for colitis will treat empirically for c diff - stop cipro, use IV flagyl only moving forward. (3) Lingual dysarthria: Etiology of her severe dysarthria, dysphagia, and progressive weakness is not fully certain. The leading dx per neurology, however, is a bulbar ALS. MRI brain recently did not show any acute or chronic stroke. Her symptoms dating back to January, as per family, do suggest a progressive neurodegenerative condition such as ALS or other. Speech repeated a swallow eval on Thursday; did a little better; nectar thick liquids ordered by speech. however, patient is taking very little PO intake despite being allowed to do so. She has had TPN much of her stay. She is massively anasarca, has cirrhosis, and we are rapidly approaching moving to palliative care. Will stop TPN as of tonight. I believe long-term she will not be able to maintain hydration or nutrition. She is an extremely poor candidate for PEG given her unstable T11 fracture, poor prognosis, etc. Will allow her to take nutrition as desired or as tolerated. Until son/ make decision about transitioning to palliative care may need some level of basic IV fluids but defer for now given her 15-20kg volume overload. (4) Dysphagia: severe per speech. see above. nectar thick liquids. dysphagia likely 2nd to ?ALS? (5) Right sided weakness: 2nd to bulbar ALS? other? B12, CPK wnl. TSH mildly elevated but not high enough to explain her symptoms. Appreciate neuro consult & recs. Cont PT/OT but really cannot participate due to T11 fracture. (6) Closed T11 fracture: Pt's son/ report she had had falls prior to admission. This is likely 2nd to one of those falls. Dr Patel is following; surgery is needed. But I am concerned about her ability to get through surgery in light of current limited PO intake/TPN use, dysarthria, dysphagia, baseline weakness, ongoing colitis, etc. Surgery is deferred. I seriously doubt she will ever get to a safe point to undergo repair. For pain control - IV tylenol, lidoderm patch, morphine prn. (7) Unspecified cirrhosis of liver: Likely due to DOLAN. Severely volume overloaded likely due to DOLAN and severe hypoalbuminemia. Cont IV lasix but there has been little success with removing fluid this week. Completed 3 days of diamox. Recent ammonia level normal. (8) Obstructive sleep apnea syndrome: Cont HS BIPAP. VBGs w/ acceptable pCO2. (9) Asthma: Family confirms history of such. Cont nebs BID. Cont NC O2. (10) Hypervolemia: Massive. Likely 2nd to cirrhosis and low albumin rather than cardiac factors. She also has received copious fluids while hospitalized. Diurese as above. Creatinine remains stable. BMP am. Is at least 15kg+ since admit. Stopping TPN. (11) Chest pain: Recent. Has not recurred. Troponins were negative. The pain occurred in the middle of her swallow eval - was likely esophageal in origin. Remains on IV PPI and IV H2 viji. (12) Morbid obesity with BMI of 45.0-49.9, adult: BMI 49 (13) DVT prophylaxis: high risk of DVT in light of bedbound status and morbid obesity cont heparin 7500units TID spoke with son/ by phone - extensive update given 04/16 and then again on 04/18. discussed ongoing problems, fever, colitis, need for surgery but inability to safely have such, ?ALS, pain, code status, etc. questions answered I told them that palliative care was consulted Dr Castano did speak with yesterday and voiced that patient is telling us she wants to go home they discussed care plan and ?moving to palliative care and hospice expressed concern that he didn't think he could care for her but he woul d speak with his 2 sons about this home with hospice?? safe to do that because of T11 fracture? other dispo? (SNF w/ hospice) prognosis very poor 04/20 - left message for son stating that another physician would be caring for his mom this weekend and that we may need to move to palliative care pathway very soon attempted to call - no answer, could not leave message Admission and Anticipated Discharge Date Admission Date: April 05, 2020 Subjective during bedside rounds my interaction w/ Ms Melchor was very similar to past days - she was lying in bed with eyes open she would try to vocalize her needs but it was very difficult to understand her speech again we used a board with words like yesterday - again she said she was lonely, thirsty, and that she wanted to go home she became tearful several times during the visit denied any pain today in any location staff report very poor PO intake they continue to medicate her for intermittent back pain Review of Systems Review of Systems: limited review of systems using a board with words - no pain any location no abd pain today does have some back pain at times no chest pain no dyspnea Physical Exam Constitutional: + morbidly obese; no acute distress ENMT: Mouth: + dry oral mucous membranes Respiratory: no respiratory distress Auscultation: + diminished lung sounds (bases); no crackles and no wheezes Cardiovascular: Rate/Rhythm: regular rate and regular rhythm Heart Sounds: normal S1 and normal S2; no murmur Vessels: posterior tibial pulses present and dorsalis pedis pulses present; no JVD Extremities: + edema (severe - to the thighs - unchanged ) Gastrointestinal (Abdomen): Inspection/Auscultation: + abdomen distended and normal bowel sounds Percussion/Palpation: abdomen nontender, no guarding and no hepatosplenomegaly significant body wall edema and /or ascites Skin: no rashes, warm and dry left IJ CVC clean Neurologic: severe dysarthria; weakness all 4 limbs - worst is RUE followed by RLE Psychiatric: Orientation: alert Affect: + tearful affect Results & Data Results & Data ([facility]) Vital Signs (Past 12 Hours) Vital Signs Temp Pulse Pulse Pulse Resp BP Pulse Ox 04/20/20 22:53 37.1 C 60 18 133/66 93 04/20/20 21:53 100 H 20 94 04/20/20 19:39 98 H 18 96 04/20/20 15:34 37.3 C 98 H 18 147/64 H 96 Laboratory Results Laboratory Results - last 24 hr 04/19/20 04/20/20 04/20/20 23:55 05:57 07:30 Sodium 140 Potassium 3.2 L D Chloride 103 Carbon Dioxide 29 Anion Gap 8.0 BUN 32 H Creatinine 0.53 L Est Cr Clr Drug Dosing 120.8 Est GFR ( Amer) 112.3 Est GFR (Non-Af Amer) 96.9 BUN/Creatinine Ratio 60.5 H Glucose 102 H POC Glucose 101 H 106 H Calcium 8.0 L Phosphorus 2.9 Magnesium 2.0 04/20/20 04/20/20 04/20/20 11:23 16:41 20:00 Sodium Potassium Chloride Carbon Dioxide Anion Gap BUN Creatinine Est Cr Clr Drug Dosing Est GFR ( Amer) Est GFR (Non-Af Amer) BUN/Creatinine Ratio Glucose POC Glucose 114 H 96 86 Calcium Phosphorus Magnesium PG Care Time/CCT Total # of Minutes Spent Total Time Spent with Patient: Total time spent is greater than 50% in coordination of care (as documented) at patient's floor/unit and/or counseling patient: Coding Level of Care Code 16141 Subseq Hosp Care Lvl 2 Diagnoses Proctocolitis K52.9 Fever R50.9 Fever type: unspecified Lingual dysarthria R47.1 Dysphagia R13.11 Dysphagia type: oral phase Right sided weakness R53.1 Closed T11 fracture S22.086D Encounter type: subsequent encounter Fracture healing: with routine healing Fracture morphology: unspecified fracture morphology Unspecified cirrhosis of liver K74.69 Hepatic cirrhosis type: other cirrhosis Obstructive sleep apnea syndrome G47.33 Asthma J45.40 Asthma complication type: unspecified Asthma persistence: persistent Asthma severity: moderate Hypervolemia E87.70 Hypervolemia type: unspecified Chest pain R07.9 Chest pain type: unspecified Morbid obesity with BMI of 45.0-49.9, adult E66.01; Z68.42 DVT prophylaxis Z29.9 (1) Closed T11 fracture Encounter type: subsequent encounter Fracture healing: with routine healing Fracture morphology: unspecified fracture morphology Qualified Code(s): S22.089D - Unspecified fracture of T11-T12 vertebra, subsequent encounter for fracture with routine healing (2) Fever Fever type: unspecified Qualified Code(s): R50.9 - Fever, unspecified (3) Dysphagia Dysphagia type: oral phase Qualified Code(s): R13.11 - Dysphagia, oral phase (4) Unspecified cirrhosis of liver Hepatic cirrhosis type: other cirrhosis Qualified Code(s): K74.69 - Other cirrhosis of liver (5) Chest pain Chest pain type: unspecified Qualified Code(s): R07.9 - Chest pain, unspecified (6) Asthma Asthma complication type: unspecified Asthma persistence: persistent Asthma severity: moderate Qualified Code(s): J45.40 - Moderate persistent asthma, uncomplicated (7) Hypervolemia Hypervolemia type: unspecified Qualified Code(s): E87.70 - Fluid overload, unspecified
[2020-04-21] MEDS: MoRPHine SULFATE 2 MG/ML CARP IV PRN ×4 (03:33→21:22)
[2020-04-21] MEDS: ALBUT/IPRATROP 3MG/0.5MG NEB 3 ML VIAL NEB SCH ×2 (07:08→19:23)
[2020-04-21] MEDS: HEPARIN SODIUM (PORCINE) 7,500 UNITS in SYRINGE 0 ML SC SCH ×2 (07:46→15:54)
[2020-04-21] MEDS: metroNIDAZOLE 500 MG/100 ML BAG IV SCH ×3 (07:46→23:42)
[2020-04-21] MEDS: FLUTICASONE/VILANTEROL 200/25MCG 14 PUFFS/INHALER INH SCH (07:47)
[2020-04-21] MEDS: NYSTATIN POWDER 15GM BTL EXT SCH ×2 (07:47→21:23)
[2020-04-21] MEDS: FUROSEMIDE 40 MG in SYRINGE 0 ML IV SCH (07:55)
[2020-04-21] MEDS: FAMOTIDINE 20MG IV PUSH 20 MG/5 ML SYR IV SCH (09:09)
[2020-04-21] MEDS: DEXTROSE 10% 1,000 ML IV SCH (15:34)
--- NOTE | 2020-04-21 18:39 | Family Medicine Progress Note ---
Date of Service April 21, 2020 Assessment & Plan (1) Proctocolitis: Continue IV Flagyl for C. difficile (she cannot adequately swallow to take orally) Gastroenterology consult reviewed and appreciated. Present on Admission?: Yes (2) Dysarthria: Suspicion is that the patient's dysarthria, dysphagia, and progressive weakness are secondary to a progressive neurodegenerative disease such as bulbar ALS. Neurology consultation reviewed The patient has also been seen by palliative care; given however progression, she could definitely be hospice appropriate. She has an unstable closed T11 fracture which ideally would require surgery, but given her comorbidities and current situation the revealing thought is that she would not survive the surgery or recovery. Goals of care discussion has been initiated with family, this is somewhat difficult given the pandemic and that family cannot be at bedside Fortunately from a pain standpoint I think she is fairly comfortable, although medication is somewhat hampered by her underlying neurodegenerative disease. Present on Admission?: Yes (3) Dysphagia: Speech consult appreciated Again suspect this is secondary to her underlying neurodegenerative process Present on Admission?: Yes (4) Closed T11 fracture: Orthopedic consult appreciated She is not a surgical candidate unfortunately as discussed above Instability of the fracture does make home care/hospice little bit more difficult; I think ultimately depend on how quickly she continues to progress in terms of her neurological and cognitive status and how much help the family can get to care for her at home. Present on Admission?: Yes Admission and Anticipated Discharge Date Admission Date: April 05, 2020 Discharge date is uncertain Anticipated date of discharge: 04/08/20 Subjective The patient is seen midmorning. She is sleeping but awakens to my voice. Someone should documented interactions previously, she does moan at times in response to questions. She does fall back asleep during my examination. Notes are reviewed from overnight; she was started back on some fluid, although TPN had been stopped secondary to anasarca/third spacing. Review of Systems Constitutional: no fever Respiratory: no cough and no dyspnea Cardiovascular: no chest pain Musculoskeletal: + back pain Neurologic: + unsteadiness, + falls, + generalized weakness, + lack of coordination and + abnormal speech Physical Exam ENMT: Mucous membranes are dry. Neck: trachea midline, no thyromegaly Respiratory: Diminished lung sounds in the bases bilaterally Cardiovascular: Rate/Rhythm: regular rate Gastrointestinal (Abdomen): Distended but nontender Skin: no rashes, warm and dry Psychiatric: Seems oriented but difficult to fully assess. Results & Data ([facility]) Vital Signs (Past 12 Hours) Vital Signs Temp Pulse Pulse Pulse Resp BP Pulse Ox 04/21/20 16:05 37.3 C 95 H 28 H 120/71 93 04/21/20 08:00 36.9 C 98 H 20 100/68 98 04/21/20 07:08 93 H 93 H 18 91 (1) Dysphagia Dysphagia type: oral phase Qualified Code(s): R13.11 - Dysphagia, oral phase (2) Closed T11 fracture Encounter type: subsequent encounter Fracture morphology: unspecified fracture morphology Fracture healing: with routine healing Qualified Code(s): S22.089D - Unspecified fracture of T11-T12 vertebra, subsequent encounter for fracture with routine healing
[2020-04-22] MEDS: HEPARIN SODIUM (PORCINE) 7,500 UNITS in SYRINGE 0 ML SC SCH ×4 (01:09→23:09)
[2020-04-22] MEDS: MoRPHine SULFATE 2 MG/ML CARP IV PRN ×5 (01:10→20:02)
[2020-04-22] MEDS: ALBUT/IPRATROP 3MG/0.5MG NEB 3 ML VIAL NEB SCH ×2 (07:30→19:26)
[2020-04-22] MEDS: metroNIDAZOLE 500 MG/100 ML BAG IV SCH ×3 (08:03→23:09)
[2020-04-22] MEDS: FUROSEMIDE 40 MG in SYRINGE 0 ML IV SCH (08:04)
[2020-04-22] MEDS: FLUTICASONE/VILANTEROL 200/25MCG 14 PUFFS/INHALER INH SCH (08:04)
[2020-04-22] MEDS: DEXTROSE 10% 1,000 ML IV SCH ×2 (08:04→23:09)
[2020-04-22] MEDS: MICONAZOLE NITRATE POWDER 43 GM EXT PRN (08:05)
[2020-04-22] MEDS: NYSTATIN POWDER 15GM BTL EXT SCH ×2 (08:05→20:03)
[2020-04-22] MEDS: FAMOTIDINE 20MG IV PUSH 20 MG/5 ML SYR IV SCH (08:48)
--- NOTE | 2020-04-22 16:03 | Family Medicine Progress Note ---
Date of Service April 22, 2020 Assessment & Plan (1) Proctocolitis: Continue IV Flagyl for C. difficile (she cannot adequately swallow to take orally) Gastroenterology consult reviewed and appreciated. (2) Dysarthria: I think we are at a point of palliative care/hospice, other where that happens is the biggest question right now. I tried to reach out to the patient's today but was unable to get a hold of him. Obviously with the ongoing pandemic family has not been able to visit and this has also made arranging a family meeting difficult. Suspicion is that the patient's dysarthria, dysphagia, and progressive weakness are secondary to a progressive neurodegenerative disease such as bulbar ALS. Neurology consultation reviewed The patient has also been seen by palliative care; given however progression, she could definitely be hospice appropriate. She has an unstable closed T11 fracture which ideally would require surgery, but given her comorbidities and current situation the revealing thought is that she would not survive the surgery or recovery. Goals of care discussion has been initiated with family, this is somewhat difficult given the pandemic and that family cannot be at bedside Fortunately from a pain standpoint I think she is fairly comfortable, although medication is somewhat hampered by her underlying neurodegenerative disease. (3) Dysphagia: Speech consult appreciated Again suspect this is secondary to her underlying neurodegenerative process (4) Closed T11 fracture: Orthopedic consult appreciated She is not a surgical candidate unfortunately as discussed above Instability of the fracture does make home care/hospice little bit more difficult; I think ultimately depend on how quickly she continues to progress in terms of her neurological and cognitive status and how much help the family can get to care for her at home. Admission and Anticipated Discharge Date Admission Date: Uncertain Anticipated date of discharge: 04/08/20 Christoph Lennon is seen midafternoon today. She is awake, supine in bed; has been repositioned, and nursing staff is at bedside. Similar to previous, she is awake and alert to her surroundings -she is very difficult to understand in terms of her speech; most of her efforts at speech come out as a groan. She is just been medicated with IV morphine for discomfort. She is taking very little p.o. today. TPN was discontinued on Thursday. She is getting D10 at 60 cc/h currently. Review of Systems Constitutional: no fever Eyes: no problem reported Respiratory: no cough Cardiovascular: Additional Comments: Difficult to ascertain but seems negative Gastrointestinal: + bloating; no abdominal pain Genitourinary: Prasad Musculoskeletal: + back pain Neurologic: + unsteadiness, + falls, + generalized weakness, + lack of coordination and + abnormal speech Physical Exam Constitutional: WD/WN, vitals as above Eyes: PERRL, conjunctivae normal, anicteric sclerae ENMT: external ear and nose normal, oropharynx normal Neck: trachea midline, no thyromegaly trachea midline Respiratory: normal respiratory effort, lungs clear to auscultation Cardiovascular: Rate/Rhythm: regular rate Her lower extremities/ankles actually have a little bit less swelling today than he did yesterday. Gastrointestinal (Abdomen): Inspection/Auscultation: abdomen normal to inspection Skin: no rashes, warm and dry Results & Data ([facility]) Vital Signs (Past 12 Hours) Vital Signs Temp Pulse Pulse Pulse Resp BP Pulse Ox 04/22/20 15:23 36.6 C 99 H 20 119/68 92 04/22/20 07:30 95 H 95 H 18 92 04/22/20 07:06 36.9 C 94 H 18 134/73 92 (1) Dysphagia Dysphagia type: oral phase Qualified Code(s): R13.11 - Dysphagia, oral phase (2) Closed T11 fracture Encounter type: subsequent encounter Fracture morphology: unspecified fracture morphology Fracture healing: with routine healing Qualified Code(s): S22.089D - Unspecified fracture of T11-T12 vertebra, subsequent encounter for fracture with routine healing
[2020-04-23] MEDS: MoRPHine SULFATE 2 MG/ML CARP IV PRN ×4 (03:43→17:30)
[2020-04-23] MEDS: ALBUT/IPRATROP 3MG/0.5MG NEB 3 ML VIAL NEB SCH ×2 (07:00→19:39)
[2020-04-23] MEDS: metroNIDAZOLE 500 MG/100 ML BAG IV SCH ×3 (08:03→23:09)
[2020-04-23] MEDS: HEPARIN SODIUM (PORCINE) 7,500 UNITS in SYRINGE 0 ML SC SCH ×3 (08:04→23:09)
[2020-04-23] MEDS: FUROSEMIDE 40 MG in SYRINGE 0 ML IV SCH (08:04)
[2020-04-23] MEDS: FAMOTIDINE 20MG IV PUSH 20 MG/5 ML SYR IV SCH (08:04)
[2020-04-23] MEDS: FLUTICASONE/VILANTEROL 200/25MCG 14 PUFFS/INHALER INH SCH (08:04)
[2020-04-23] MEDS: NYSTATIN POWDER 15GM BTL EXT SCH ×2 (08:05→20:59)
[2020-04-23] MEDS: DEXTROSE 10% 1,000 ML IV SCH (15:51)
--- NOTE | 2020-04-23 17:57 | Hospitalist Progress Note ---
Date of Service April 23, 2020 Assessment & Plan (1) Proctocolitis: Continue IV Flagyl for C. difficile (she cannot adequately swallow to take orally) Gastroenterology consult reviewed and appreciated. Repeat C diff unable to be collected thus far - last bowel movement 04/19 - may need to give something for bowels if no bm by tomorrow Per GI, patient would not be a good candidate for colonoscopy and this was discussed by GI with patient and family (2) Dysarthria: Palliative consulted - has discussed hospice with patient's . He does not feel he can care for patient at home. Referrals to SNFs sent per note. Suspicion is that the patient's dysarthria, dysphagia, and progressive weakness are secondary to a progressive neurodegenerative disease such as bulbar ALS. Neurology consultation reviewed - recommending follow up outpatient Patient to have nectar thick liquids per speech but taking in very poor po. TPN stopped 04/20. Had a long conversation with patient's son and . They are not ready to place patient on comfort care or transition to hospice without a more definite diagnosis. This a bit of a difficult situation, with patient's unstable fracture and poor po intake, she will not be stable enough for discharge and having her follow up in an office seems unmanageable as she cannot get out of bed. I will call Dr. Morin, the ALS specialist at [place] tomorrow to discuss any further inpatient workup that might be offered to her. I also think palliative will need to talk with the family to re-evaluate goals - will continue D10 @ 60 mls/hr and obtain prp (3) Dysphagia: Speech consult appreciated Again suspect this is secondary to her underlying neurodegenerative process (4) Closed T11 fracture: Orthopedic consult appreciated She is not a surgical candidate unfortunately as discussed above Instability of the fracture does make home care/hospice little bit more difficult and referrals to SNFs have been sent by Patient's prognosis is very poor. However, her family would like a more definitive diagnosis before deciding if and when to transition to hospice/comfort. Will need to discuss options with specialists tomorrow and discuss again with the family. Admission and Anticipated Discharge Date Admission Date: April 05, 2020 Subjective Ms. Roche continues to be unable to speak coherently. She moans but cannot communicate her needs. She is unable to point to the communication board to indicate what she wants Physical Exam Physical Exam: General: distressed, moaning Eyes: normal inspection, PERLL Respiratory: chest non tender, clear to auscultation, normal breath sounds, no respiratory distress, no accessory muscle use Cardiac: regular rate and rhythm, no rub or gallop, no murmur, no edema, no jvd GI/: active bowel sounds, no abd pain or tenderness, soft, non distended Extremities: normal range of motion, normal strength, non tender Neuro/Psych: unable to speak coherently, awake Skin: normal color, dry, excoriated folds Results & Data Results & Data ([facility]) Vital Signs (Past 12 Hours) Vital Signs Temp Pulse Pulse Resp BP Pulse Ox 04/23/20 15:20 36.6 C 86 17 107/66 96 04/23/20 07:39 37.0 C 101 H 22 135/74 92 04/23/20 07:01 89 18 95 PG Care Time/CCT Total # of Minutes Spent Total Time Spent with Patient: Total time spent is greater than 50% in cook apprentice rdination of care (as documented) at patient's floor/unit and/or counseling patient: Coding Level of Care Code 50925 Subseq Hosp Care Lvl 3 Diagnoses Proctocolitis K52.9 Dysarthria R47.1 Dysphagia R13.11 Dysphagia type: oral phase Closed T11 fracture S22.089D Encounter type: subsequent encounter Fracture healing: with routine healing Fracture morphology: unspecified fracture morphology (1) Closed T11 fracture Encounter type: subsequent encounter Fracture healing: with routine healing Fracture morphology: unspecified fracture morphology Qualified Code(s): S22.089D - Unspecified fracture of T11-T12 vertebra, subsequent encounter for fracture with routine healing (2) Dysphagia Dysphagia type: oral phase Qualified Code(s): R13.11 - Dysphagia, oral phase
[2020-04-23] MEDS ORDERED: SODIUM CHLORIDE 0.9% 1000ML 1,000 ML IV SCH (19:00)
[2020-04-23 19:25] LABS: BUN Creatinine Ratio 31.6 (10-20); Calcium 7.5 mg/dl (8.5-10.1); Creatinine Clr Calc Pharmacy 148.5 ml/min; Est GFR (African American) 120.3; Est GFR (Non-African American) 103.8; Potassium 2.8 mmol/L (3.5-5.1)
[2020-04-23] MEDS ORDERED: POTASSIUM CHLORIDE 40 MEQ in SODIUM CHLORIDE 0.9% 1000ML 1,000 ML IV SCH (20:00)
[2020-04-23] MEDS: POTASSIUM CHLORIDE / WTR 10 MEQ/100 ML PLCT IV SCH ×3 (20:57→23:09)
[2020-04-24 06:08] LABS: Basophils # (auto) 0.02 K/uL (0-0.2); Basophils % (auto) 0.3 %; Eosinophils # (auto) 0.22 K/uL (0-0.5); Eosinophils % (auto) 3.4 %; Hematocrit (blood only) 31.2 % (37-47); Hemoglobin 10.4 g/dL (12.0-16.0); Immature Granulocytes # (auto) 0.05 K/uL (0.00-0.02); Immature Granulocytes % (auto) 0.8 %; Lymphocytes # (auto) 1.19 K/uL (1.2-3.4); Lymphocytes % (auto) 18.6 %; Mean Corpuscular Hemoglobin 30.1 pg (25-34); Mean Corpuscular Hgb Conc 33.3 g/dL (32-36); Mean Corpuscular Volume 90.2 fL (80-100); Mean Platelet Volume 9.3 fL (7.4-10.4); Monocytes # (auto) 1.03 K/uL (0.11-0.59); Monocytes % (auto) 16.1 %; Neutrophils # (auto) 3.89 K/uL (1.4-6.5); Neutrophils % (auto) 60.8 %; Platelet Count 297 K/uL (130-400); RDW Coefficient of Variation 15.4 % (11.5-14.5); RDW Standard Deviation 49.4 fL (36.4-46.3); Red Blood Count 3.46 M/uL (4.2-5.4)
[2020-04-24] MEDS: MoRPHine SULFATE 2 MG/ML CARP IV PRN ×2 (06:39→09:13)
[2020-04-24 06:43] LABS: Albumin Level 1.3 gm/dl (3.4-5.0); BUN Creatinine Ratio 28.4 (10-20); Creatinine Clr Calc Pharmacy 155.8 ml/min; Est GFR (African American) 122.2; Est GFR (Non-African American) 105.4; Potassium 3.3 mmol/L (3.5-5.1)
[2020-04-24 06:49] LABS: Albumin Globulin Ratio 0.3 (0.9-2); Bilirubin,Total 0.4 mg/dl (0.2-1); Globulin 4.2 gm/dl (2.5-4.0); Total Protein 5.5 gm/dl (6.4-8.2)
[2020-04-24] MEDS: ALBUT/IPRATROP 3MG/0.5MG NEB 3 ML VIAL NEB SCH ×2 (07:04→19:50)
[2020-04-24] MEDS: FUROSEMIDE 40 MG in SYRINGE 0 ML IV SCH (07:42)
[2020-04-24] MEDS: metroNIDAZOLE 500 MG/100 ML BAG IV SCH ×2 (07:42→15:59)
[2020-04-24] MEDS: FLUTICASONE/VILANTEROL 200/25MCG 14 PUFFS/INHALER INH SCH (07:42)
[2020-04-24] MEDS: HEPARIN SODIUM (PORCINE) 7,500 UNITS in SYRINGE 0 ML SC SCH ×2 (07:42→17:54)
[2020-04-24] MEDS: FAMOTIDINE 20MG IV PUSH 20 MG/5 ML SYR IV SCH (07:45)
[2020-04-24] MEDS: NYSTATIN POWDER 15GM BTL EXT SCH ×2 (07:56→22:01)
[2020-04-24] MEDS: ONDANSETRON INJ 2 MG/ML 2 ML VIAL IV PRN (08:01)
[2020-04-24] MEDS: DEXTROSE 10% 1,000 ML IV SCH (08:01)
[2020-04-24] MEDS: POTASSIUM CHLORIDE / WTR 10 MEQ/100 ML PLCT IV SCH ×3 (09:14→11:22)
--- NOTE | 2020-04-24 12:01 | Neurology Progress Note ---
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 The etiology for her dysarthria is not entirely clear. MRI brain did not show any stroke or brainstem pathology to explain this. Today she has severe weakness in all 4 limbs both proximally and distally. Reflexes or mixed but mostly brisk. I do not note fasciculations. Given her progressive dysarthria, pseudobulbar affect, swallowing disorder, and weakness (which was originally asymmetric), a neuro degenerative disease such as ALS needs to be considered. Recommendations: 1. An EMG nerve conduction study can be done as an outpatient but she is profoundly weak. I cannot do EMGs here in the hospital (do not have the equipment for this). 2. Alternatively, since she is so weak with multiple other medical problems, a transfer to a medical center such as [facility] may be able to get more definitive answers quicker. Overall, I spent a total of 25 minutes on this case including review of records, direct evaluation patient at bedside, and discussion of the case with Dr. Bryan and Beatrice ZURITA Admission and Anticipated Discharge Date Admission Date: April 05, 2020 Anticipated date of discharge: 04/08/20 Subjective Does not admit to any pain or headache. She is difficult to understand with her severe dysarthria. She seems to be crying over everything. Nursing reports inability to swallow. Blood pressure is 130/64 and she is afebrile at 37.3. O2 saturations 96 percent on 2 liters nasal cannula. Results & Data ([facility]) Vital Signs (Past 12 Hours) Vital Signs Temp Pulse Pulse Resp BP Pulse Ox 04/24/20 07:12 37.3 C 91 H 18 130/64 96 04/24/20 07:04 20 95 04/24/20 03:27 99 H 20 92 Exam (Neuro) Physical Exam: She is awake and alert. She follows one-step commands. Extraocular eye muscles are intact without nystagmus. There is no facial droop but she is extremely dysarthric. Tongue is midline. She is very weak in all 4 limbs (2-3/5) diffusely. Reflexes are variable but are brisk in the biceps and brachioradialis tendons bilaterally. Quadriceps reflexes are brisk as well. She has no abnormal involuntary movements PG Care Time/CCT Total # of Minutes Spent Total Time Spent with Patient: Total time spent is greater than 50% in coordination of care (as documented) at patient's floor/unit and/or counseling patient: Coding Level of Care Code 81279 Subseq Hosp Care Lvl 2 Diagnoses Lingual dysarthria R47.1 Pseudobulbar palsy G12.29 Time Spent (min) 25
--- NOTE | 2020-04-24 14:51 | CT Scan Report ---
CT thoracic spine wo con CT DOSE: 2447.62 mGy.cm CLINICAL HISTORY: T11 fracture. Reevaluate. TECHNIQUE: Helical images were acquired in the transverse plane. Sagittal and coronal reformatted cydney ges were reviewed. A dose lowering technique was utilized adhering to the principles of ALARA. COMPARISON STUDY: 04/24/2020 FINDINGS: The patient is status post a thoracolumbar spinal fusion with T11-L2 pedicle screws. There is ankylosis of the cervical spine. There is a horizontal cleavage fracture through the anterior superior aspect of the L1 vertebra. Ther e is no subluxation. There is mild disc space widening. The posterior elements appear intact. There are posterior laminectomies within the upper lumbar spine. There are bilateral pleural effusions and dependent lower lobe airspace opacity statistically atelect atic, although pneumonia could appear similar. There is lucency surrounding the T11 pedicle screws suggesting loosening. IMPRESSION: 1. No significant change in the appearance of the predominantly horizontal T11 cleavage fracture whic h extends into the disc space with associated mild disc space widening. No subluxation is visualized. 2. Ankylosis of the spine 3. Postsurgical changes as described above 4. Bilateral pleural effusions and bilateral dependent pulmonary airspace opacities ACT 112: Negative or not required by law. Electronically signed by: Jose Conley M.D. 04/24/2020 2:50 PM
--- NOTE | 2020-04-24 14:52 | CT Scan Report ---
Study: CT soft tissue neck. HISTORY: Infection. Pain. COMPARISON: None. FINDINGS: The major salivary glands are unremarkable. The glottic and subglottic regions are unremark able. No evidence for airway compromise. No evidence for mass or collection. Considerable degenerative change of the cervical spine which has been described previously. IMPRESSION:: No significant abnormality of the soft tissue neck. Degenerative change of the cervical spine. Electronically signed by: Melecio Johnson M.D. 04/24/2020 2:51 PM
--- NOTE | 2020-04-24 15:18 | Palliative Care Progress Note ---
Date of Service April 24, 2020 Assessment & Plan (1) Goals of care, counseling/discussion: Goals of care, counseling/discussion: -69 year old female patient with PMH CAD, COPD, Depression, HTN, obstructive lung disease, morbid obesity, episode of aphasia and right sided weakness back in , but MRI in ED at the time was negative, and others, presented to the hospital on 04/05 with increased abdominal pain and weakness. Patient reported that she had ongoing diarrhea at home. In ED, she was hypotensive, tachycardic, and oxygenating well on room air. She was given fluid boluses and admitted. Patient unfortunately had ongoing hypotension, lactic acidosis, and progressive renal failure. She was transferred to the ICU for septic shock likely due to bacterial translocation from recent disimpaction and colonic distention. CT scan on 04/05 concerning for progression of the distal proctocolitis, possibly representing an infectious or inflammatory process. She also has fluid-filled borderline distended loops of large and small bowel, this may represent an ileus or diarrheal illness or a low-grade partial large bowel obstruction due to the thickened distal sigmoid colon/rectum could also have a similar appearance. Surgical team consulted who recommended continuing abx, no i mmediate need for surgery. On imaging, patient was also noted to have an unstable thoracic spine fracture. Ortho consulted who stated to strictly log roll patient-- fracture is unstable and likely would require surgery but she is not a surgical candidate. Patient is unable to tolerate even low-dose opioids. -Patient seen this afternoon. She was attempting to speak, which came out as a moan. Patient can nod yes or no to simple questions , appears to understand -Patient off all narcotics -Patient is a poor candidate for stabilization of her T11 fracture as well as for colonoscopy to further assess her proctocolitis -Dysphagia-able to take some nectar thick liquids, unable to take enough nutrition to sustain her-was on TPN-discontinued on 04/20 -Suspected pseudobulbar palsy given history of progressive dysphasia and continued decline- aware -Expressive aphasia-makes communication difficult, can only answer simple questions by nodding yes or no. -Spoke with patient's regarding goals of care- asked if patient would be able to be on comfort measures and be allowed to pass in the hospital. also reported that he as well as his 2 sons have permission to visit- they plan to come in on 04/25 between 10 AM and noon. Discussed with transferring patient to nursing facility on hospice care where they may be allowed more liberal visiting. -We will continue to follow and have further discussions with the patient's . We will need to continue to address CODE STATUS. (2) Pseudobulbar palsy: (3) Dysphagia: (4) Expressive aphasia: Subjective Patient awake alert, no acute distress. Patient frustrated with inability to speak. Was able to nod yes and no to questions. Patient may understand her difficult predicament given poor surgical candidate for stabilization of T11, severe dysphasia-likely due to a progressive neurological condition. Review of Systems Review of Systems: Unable to accurately obtain due to expressive aphasia/dysarthria Physical Exam Physical Exam: PE: Alert, comfortable at rest HEENT: EOMI, hearing within normal limits Respirations: Unlabored, on O2 via nasal cannula, diminished breath sounds CV: Regular rate, no increased edema Abdomen: Soft, nontender, morbidly obese Extremities: Severe weakness Neuro: Expressive aphasia, dysphasia Results & Data Vital Signs (Past 12 Hours) Vital Signs Temp Pulse Pulse Pulse Resp BP Pulse Ox 04/24/20 15:06 97.7 F 102 H 18 136/77 94 04/24/20 12:28 97.3 F L 105 H 20 136/77 95 04/24/20 07:12 99.1 F 91 H 18 130/64 96 04/24/20 07:04 20 95 04/24/20 03:27 99 H 20 92 PG Care Time/CCT Total # of Minutes Spent Total Time Spent with Patient: Total time spent 35 minutes with greater than 50% of the time spent at bedside speaking with patient regarding her current condition and status. As well as discussing goals of care with patient's . Coding Level of Care Code 58075 Subseq Hosp Care Lvl 3 Diagnoses Goals of care, counseling/discussion Z71.89 Pseudobulbar palsy G12.29 Dysphagia R13.11 Dysphagia type: oral phase Expressive aphasia R47.01 Time Spent (min) 35 (1) Dysphagia Dysphagia type: oral phase Qualified Code(s): R13.11 - Dysphagia, oral phase
[2020-04-24] MEDS ORDERED: bisacodyL 10 MG SUPP PR PRN (15:40)
[2020-04-24] MEDS ORDERED: bisacodyL 10 MG SUPP PR STA (15:40)
--- NOTE | 2020-04-24 17:32 | Hospitalist Progress Note ---
Date of Service April 24, 2020 Assessment & Plan (1) Proctocolitis: Continue IV Flagyl for C. difficile (she cannot adequately swallow to take orally) Gastroenterology consult reviewed and appreciated. Repeat C diff unable to be collected thus far - last bowel movement 04/19 -will give suppository Per GI, patient would not be a good candidate for colonoscopy and this was discussed by GI with patient and family (2) Dysarthria: Palliative consulted - has discussed hospice with patient's . He does not feel he can care for patient at home. Referrals to SNFs sent per CM note. Suspicion is that the patient's dysarthria, dysphagia, and progressive weakness are secondary to a progressive neurodegenerative disease such as bulbar ALS. Neurology consulted Patient to have nectar thick liquids per speech but taking in very poor po. TPN stopped 04/[address] to [address] of patient's back fracture today showed continued fluid overload no doubt exacerbated by patient's poor nutritional status I did discuss patient's case with Dr Sadler from neurology at [facility] to discuss possibility of transfer. She did not feel there was workup that could be done at [facility] that could not be done here other than inpatient EMG. She did recommend myopathy workup and LP. Myopathy labs ordered for am. LP does not appear to be possible. Patient would not be able to lay prone given her obesity and back fracture for fluoroscopy and she would not be able to be positioned bedside for LP. Suggested NIF, but I doubt this would be very helpful as patient is so deconditioned. - will continue D10 @ 60 mls/hr and obtain prp am (3) Dysphagia: Speech consult appreciated Again suspect this is secondary to her underlying neurodegenerative process (4) Closed T11 fracture: Orthopedic consult appreciated - discussed with Dr. Patel and agree patient would be very high risk for a surgery. He did send her for a repeat CT of her thoracic spine which was similar to previous Unstable fracture does make home care/hospice little bit more difficult and referrals to SNFs have been sent by . Moving her presents the risk of paralysis given the instability of her fracture which palliative did discuss with family today. (5) Hypokalemia: Replaced, recheck am (6) Malnourished: Patient has not had nutrition since TPN stopped as above. She will need a PICC line if it is to be restarted as central line will need discontinued. She is unlikely to be a PEG candidate right now given her anasarca and thoracic fracture. Patient's prognosis is very poor and she is in a very difficult situation with her fracture and nutritional status. Her family will be coming into the hospital between 10 am and 12pm tomorrow to meet and discuss options. Admission and Anticipated Discharge Date Admission Date: April 05, 2020 Subjective Ms. Roche is able to answer yes and no questions with shaking her head though her answers are not always sensible. After describing our treatment options I asked if she would want to be transferred to [facility] and she nodded yes but also nodded yes to wanting to go to a facility on hospice. She nods yes to being in pain. She is unable to verbalize words taht I can understand Physical Exam Physical Exam: General: anxious appearing Eyes: normal inspection, PERLL Respiratory: chest non tender, clear to auscultation, normal breath sounds, no respiratory distress, no accessory muscle use Cardiac: regular rate and rhythm, no rub or gallop, no murmur, anasarca, GI/: active bowel sounds, no abd pain or tenderness, soft, non distended Extremities: normal range of motion, normal strength, non tender Neuro/Psych: alert, unable to verbalize intelligible words, anxious unhappy mood and affect Skin: normal color, dry Results & Data Results & Data ([facility]) Vital Signs (Past 12 Hours) Vital Signs Temp Pulse Pulse Resp BP Pulse Ox 04/24/20 15:06 36.5 C 102 H 18 136/77 94 04/24/20 12:28 36.3 C L 105 H 20 136/77 95 04/24/20 07:12 37.3 C 91 H 18 130/64 96 04/24/20 07:04 20 95 PG Care Time/CCT Total # of Minutes Spent Total Time Spent with Patient: Total time spent is greater than 50% in coordination of care (as documented) at patient's floor/unit and/or counseling patient: Coding Level of Care Code 14398 Subseq Hosp Care Lvl 3 Diagnoses Proctocolitis K52.9 Dysarthria R47.1 Dysphagia R13.11 Dysphagia type: oral phase Closed T11 fracture S22.089D Encounter type: subsequent encounter Fracture morphology: unspecified fracture morphology Fracture healing: with routine healing Hypokalemia E87.6 Malnourished E46 (1) Dysphagia Dysphagia type: oral phase Qualified Code(s): R13.11 - Dysphagia, oral phase (2) Closed T11 fracture Encounter type: subsequent encounter Fracture morphology: unspecified fracture morphology Fracture healing: with routine healing Qualified Code(s): S22.089D - Unspecified fracture of T11-T12 vertebra, subsequent encounter for fracture with routine healing
[2020-04-24 18:37] LABS: Cdiff Antigen Positive; Cdiff Toxin A+B Negative Cdiff Toxin (Negative)
[2020-04-24] MEDS: MICONAZOLE NITRATE POWDER 43 GM EXT PRN (22:02)
[2020-04-25] MEDS: HEPARIN SODIUM (PORCINE) 7,500 UNITS in SYRINGE 0 ML SC SCH ×3 (01:09→16:02)
[2020-04-25] MEDS: metroNIDAZOLE 500 MG/100 ML BAG IV SCH ×3 (01:10→16:02)
[2020-04-25] MEDS: DEXTROSE 10% 1,000 ML IV SCH (01:10)
[2020-04-25] MEDS: MoRPHine SULFATE 2 MG/ML CARP IV PRN ×4 (02:50→16:02)
[2020-04-25] MEDS ORDERED: LORazepam 0.25 MG/0.5 ML VIAL IV STA (04:46)
[2020-04-25 06:08] LABS: Basophils # (auto) 0.02 K/uL (0-0.2); Basophils % (auto) 0.2 %; Eosinophils # (auto) 0.12 K/uL (0-0.5); Eosinophils % (auto) 1.1 %; Hematocrit (blood only) 33.2 % (37-47); Hemoglobin 11.1 g/dL (12.0-16.0); Immature Granulocytes # (auto) 0.09 K/uL (0.00-0.02); Immature Granulocytes % (auto) 0.8 %; Lymphocytes % (auto) 14.1 %; Mean Corpuscular Hemoglobin 30.2 pg (25-34); Mean Corpuscular Hgb Conc 33.4 g/dL (32-36); Mean Corpuscular Volume 90.2 fL (80-100); Mean Platelet Volume 9.5 fL (7.4-10.4); Monocytes # (auto) 2.16 K/uL (0.11-0.59); Monocytes % (auto) 20.3 %; Neutrophils # (auto) 6.76 K/uL (1.4-6.5); Neutrophils % (auto) 63.5 %; Platelet Count 433 K/uL (130-400); RDW Coefficient of Variation 15.7 % (11.5-14.5); RDW Standard Deviation 50.7 fL (36.4-46.3); Red Blood Count 3.68 M/uL (4.2-5.4); White Blood Count 10.65 K/uL (4.8-10.8)
[2020-04-25 06:44] LABS: Albumin Level 1.5 gm/dl (3.4-5.0); BUN Creatinine Ratio 15.7 (10-20); Creatinine Clr Calc Pharmacy 92.6 ml/min; Est GFR (African American) 102.9; Est GFR (Non-African American) 88.8; Potassium 3.3 mmol/L (3.5-5.1)
[2020-04-25 06:47] LABS: Albumin Globulin Ratio 0.4 (0.9-2); Bilirubin,Total 0.5 mg/dl (0.2-1); Globulin 4.2 gm/dl (2.5-4.0); Total Protein 5.7 gm/dl (6.4-8.2)
[2020-04-25] MEDS: ALBUT/IPRATROP 3MG/0.5MG NEB 3 ML VIAL NEB SCH ×2 (07:03→19:50)
[2020-04-25] MEDS ORDERED: MAGNESIUM SULFATE / D5W 1 GM/100 ML BAG IV ONE (09:00)
[2020-04-25] MEDS ORDERED: NSS + 20MEQ KCL 20 MEQ/1,000 ML BAG IV SCH (09:00)
[2020-04-25] MEDS: POTASSIUM CHLORIDE / WTR 10 MEQ/100 ML PLCT IV SCH ×2 (09:38→11:46)
[2020-04-25] MEDS: FLUTICASONE/VILANTEROL 200/25MCG 14 PUFFS/INHALER INH SCH (09:38)
[2020-04-25] MEDS: NYSTATIN POWDER 15GM BTL EXT SCH ×2 (09:38→21:15)
[2020-04-25] MEDS: FAMOTIDINE 20MG IV PUSH 20 MG/5 ML SYR IV SCH (09:48)
[2020-04-25] MEDS: FUROSEMIDE 40 MG in SYRINGE 0 ML IV SCH (10:41)
[2020-04-25 11:57] LABS: Folate (Folic Acid) 5.65 ng/ml (>5.38)
[2020-04-25] MEDS ORDERED: DEXTROSE 10% 1,000 ML IV PRN (15:14)
[2020-04-25] MEDS ORDERED: TPN/PPN CONSULT PHARMACY PRN (15:37)
[2020-04-25 16:37] LABS: Phosphorus 2.7 mg/dl (2.5-4.9)
--- NOTE | 2020-04-25 18:03 | Anesthesiology Progress Note ---
Date of Service Pt seen and evaluated for possible diagnostic LP. Pt has had progressive neurologic deterioration. CSF analysis is indicated as per neurologist consultation. I am aware that because of pt's condition it has been considered to attempt LP in Radiology Dept with fluoroscopic guidance. However, this would likely require general anesthesia which we are not able to provide in Radiology. Therefore, I believe it is worthwhile for anesthesiologist to attempt LP under sedation. Discussed procedure with pt's spouse who expressed understanding and signed informed consent. Procedure is scheduled for April 26, 2020, time TBD. April 25, 2020 Physical Exam Vital Signs: Last Vital Signs Temp 37.6 C H 04/25/20 15:50 Pulse 109 H 04/25/20 15:50 Resp 22 04/25/20 15:50 BP 93/58 L 04/25/20 15:50 Pulse Ox 95 04/25/20 15:50 Results & Data Medications Administered Albuterol (Duoneb) 3 ml NEB BIDR HERMELINDA Stop: 05/19/20 18:59 Last Admin: 04/25/20 07:03 Dose: 3 ml Documented by: [id number] Admin: 04/24/20 19:50 Dose: 3 ml Documented by: [id number] Admin: 04/24/20 07:04 Dose: 3 ml Documented by: [id number] Admin: 04/23/20 19:39 Dose: 3 ml Documented by: [id number] Admin: 04/23/20 07:00 Dose: 3 ml Documented by: [id number] Admin: 04/22/20 19:26 Dose: 3 ml Documented by: [id number] Admin: 04/22/20 07:30 Dose: 3 ml Documented by: [id number] Admin: 04/21/20 19:23 Dose: 3 ml Documented by: [id number] Admin: 04/21/20 07:08 Dose: 3 ml Documented by: [id number] Admin: 04/20/20 19:38 Dose: 3 ml Documented by: [id number] Admin: 04/20/20 07:15 Dose: 3 ml Documented by: [id number] Admin: 04/19/20 19:52 Dose: 3 ml Documented by: [id number] Benzocaine (Dermoplast Pain Relieving [place]) 1 appln EXT UD PRN PRN Reason: Pain Stop: 05/06/20 00:01 Last Admin: 04/14/20 22:25 Dose: 1 appln Documented by: [id number] Admin: 04/06/20 06:08 Dose: 1 appln Documented by: [id number] Fluticasone/Vilanterol (Breo Ellipta 200/25 Mcg Inh) 1 puffs INH DAILY HERMELINDA Stop: 05/06/20 08:59 Last Admin: 04/25/20 09:38 Dose: 1 puffs Documented by: [id number] Admin: 04/24/20 07:42 Dose: 1 puffs Documented by: [id number] Admin: 04/23/20 08:04 Dose: 1 puffs Documented by: [id number] Admin: 04/22/20 08:04 Dose: 1 puffs Documented by: [id number] Admin: 04/21/20 07:47 Dose: 1 puffs Documented by: [id number] Admin: 04/20/20 08:52 Dose: 1 puffs Documented by: [id number] Admin: 04/19/20 07:56 Dose: 1 puffs Documented by: [id number] Admin: 04/18/20 09:26 Dose: 1 puffs Documented by: [id number] Admin: 04/17/20 08:38 Dose: 1 puffs Documented by: [id number] Admin: 04/16/20 08:44 Dose: 1 puffs Documented by: [id number] Admin: 04/15/20 08:46 Dose: 1 puffs Documented by: [id number] Admin: 04/12/20 08:32 Dose: 1 puffs Documented by: [id number] Admin: 04/11/20 08:12 Dose: 1 puffs Documented by: [id number] Admin: 04/10/20 07:40 Dose: 1 puffs Documented by: [id number] Admin: 04/09/20 10:09 Dose: 1 puffs Documented by: [id number] Admin: 04/08/20 07:44 Dose: Not Given Documented by: [id number] Admin: 04/07/20 08:01 Dose: Not Given Documented by: [id number] Admin: 04/06/20 08:33 Dose: Not Given Documented by: [id number] Heparin Sodium (Beef Lung) (Heparin Sod 10 Unit/Ml Flush) 5 ml FLUSH PRN PRN PRN Reason: Flush Stop: 05/09/20 05:43 Last Admin: 04/25/20 12:55 Dose: 5 ml Documented by: [id number] Admin: 04/25/20 02:51 Dose: 5 ml Documented by: [id number] Admin: 04/24/20 17:07 Dose: 5 ml Documented by: [id number] Admin: 04/24/20 12:52 Dose: 5 ml Documented by: [id number] Admin: 04/24/20 00:15 Dose: 5 ml Documented by: [id number] Admin: 04/23/20 18:58 Dose: 5 ml Documented by: [id number] Admin: 04/23/20 14:01 Dose: 5 ml Documented by: [id number] Admin: 04/23/20 13:59 Dose: 5 ml Documented by: [id number] Admin: 04/23/20 09:23 Dose: 5 ml Documented by: [id number] Admin: 04/23/20 00:04 Dose: 5 ml Documented by: [id number] Admin: 04/22/20 15:08 Dose: 5 ml Documented by: [id number] Admin: 04/22/20 09:09 Dose: 5 ml Documented by: [id number] Admin: 04/21/20 21:22 Dose: 5 ml Documented by: [id number] Admin: 04/21/20 17:03 Dose: 5 ml Documented by: [id number] Admin: 04/21/20 00:40 Dose: 5 ml Documented by: [id number] Admin: 04/20/20 20:03 Dose: 5 ml Documented by: [id number] Admin: 04/20/20 05:53 Dose: 5 ml Documented by: [id number] Admin: 04/20/20 05:41 Dose: 5 ml Documented by: [id number] Admin: 04/20/20 04:46 Dose: 5 ml Documented by: [id number] Admin: 04/19/20 06:10 Dose: 5 ml Documented by: [id number] Admin: 04/19/20 04:12 Dose: 5 ml Documented by: [id number] Admin: 04/19/20 01:04 Dose: 5 ml Documented by: [id number] Admin: 04/16/20 13:17 Dose: 5 ml Documented by: [id number] Admin: 04/16/20 05:33 Dose: 5 ml Documented by: [id number] Admin: 04/15/20 20:06 Dose: 5 ml Documented by: [id number] Admin: 04/15/20 15:28 Dose: 5 ml Documented by: [id number] Admin: 04/15/20 07:45 Dose: 5 ml Documented by: [id number] Admin: 04/15/20 02:43 Dose: 5 ml Documented by: [id number] Admin: 04/15/20 00:45 Dose: 5 ml Documented by: [id number] Admin: 04/14/20 16:57 Dose: 5 ml Documented by: [id number] Admin: 04/14/20 07:43 Dose: 5 ml Documented by: [id number] Admin: 04/14/20 05:40 Dose: 5 ml Documented by: [id number] Admin: 04/13/20 18:44 Dose: 5 ml Documented by: [id number] Admin: 04/12/20 09:50 Dose: 5 ml Documented by: [id number] Admin: 04/11/20 22:25 Dose: 5 ml Documented by: [id number] Admin: 04/11/20 18:13 Dose: 5 ml Documented by: [id number] Admin: 04/11/20 06:15 Dose: 5 ml Documented by: [id number] Admin: 04/11/20 02:23 Dose: 5 ml Documented by: [id number] Admin: 04/10/20 07:07 Dose: 5 ml Documented by: [id number] Admin: 04/09/20 22:59 Dose: 5 ml Documented by: [id number] Admin: 04/09/20 09:26 Dose: 10 ml Documented by: [id number] Famotidine (Pepcid 20mg Iv Push) 20 mg in 5 mls @ 2.5 mls/min IV QAM HERMELINDA Stop: 05/14/20 15:59 Last Admin: 04/25/20 09:48 Dose: 2.5 mls/min Documented by: [id number] Admin: 04/24/20 07:45 Dose: 2.5 mls/min Documented by: [id number] Admin: 04/23/20 08:04 Dose: 2.5 mls/min Documented by: [id number] Admin: 04/22/20 08:48 Dose: 2.5 mls/min Documented by: [id number] Admin: 04/21/20 09:09 Dose: 2.5 mls/min Documented by: [id number] Admin: 04/20/20 10:22 Dose: 2.5 mls/min Documented by: [id number] Admin: 04/19/20 07:56 Dose: 2.5 mls/min Documented by: [id number] Furosemide 40 mg/ Syringe 4 mls @ 4 mls/min IV QAM HERMELINDA Stop: 05/15/20 08:59 Last Admin: 04/25/20 10:41 Dose: 4 mls/min Documented by: [id number] Admin: 04/24/20 07:42 Dose: 4 mls/min Documented by: [id number] Admin: 04/23/20 08:04 Dose: 4 mls/min Documented by: [id number] Admin: 04/22/20 08:04 Dose: 4 mls/min Documented by: [id number] Admin: 04/21/20 07:55 Dose: 4 mls/min Documented by: [id number] Admin: 04/20/20 09:14 Dose: 4 mls/min Documented by: [id number] Admin: 04/19/20 07:56 Dose: 4 mls/min Documented by: [id number] Admin: 04/18/20 09:29 Dose: 4 mls/min Documented by: [id number] Admin: 04/17/20 09:16 Dose: 4 mls/min Documented by: [id number] Admin: 04/16/20 08:43 Dose: 4 mls/min Documented by: [id number] Admin: 04/15/20 08:46 Dose: 4 mls/min Documented by: [id number] Heparin Sodium (Porcine) 7,500 (units/ Syringe) 0.75 mls @ 1 mls/sec SC Q8H HERMLEINDA Stop: 05/17/20 07:59 Last Admin: 04/25/20 16:02 Dose: 1 mls/sec Documented by: [id number] Cosigned by: [id number] Admin: 04/25/20 09:48 Dose: 1 mls/sec Documented by: [id number] Cosigned by: [id number] Admin: 04/25/20 01:09 Dose: 1 mls/sec Documented by: [id number] Cosigned by: [id number] Admin: 04/24/20 17:54 Dose: 1 mls/sec Documented by: [id number] Cosigned by: [id number] Admin: 04/24/20 07:42 Dose: 1 mls/sec Documented by: [id number] Cosigned by: [id number] Admin: 04/23/20 23:09 Dose: 1 mls/sec Documented by: [id number] Cosigned by: [id number] Admin: 04/23/20 15:51 Dose: 1 mls/sec Documented by: [id number] Cosigned by: [id number] Admin: 04/23/20 08:04 Dose: 1 mls/sec Documented by: [id number] Cosigned by: [id number] Admin: 04/22/20 23:09 Dose: 1 mls/sec Documented by: [id number] Cosigned by: [id number] Admin: 04/22/20 15:39 Dose: 1 mls/sec Documented by: [id number] Cosigned by: [id number] Admin: 04/22/20 08:04 Dose: 1 mls/sec Documented by: [id number] Cosigned by: [id number] Admin: 04/22/20 01:09 Dose: 1 mls/sec Documented by: [id number] Cosigned by: [id number] Admin: 04/21/20 15:54 Dose: 1 mls/sec Documented by: [id number] Cosigned by: [id number] Admin: 04/21/20 07:46 Dose: 1 mls/sec Documented by: [id number] Cosigned by: [id number] Admin: 04/20/20 23:28 Dose: 1 mls/sec Documented by: [id number] Cosigned by: [id number] Admin: 04/20/20 16:50 Dose: 1 mls/sec Documented by: [id number] Cosigned by: [id number] Admin: 04/20/20 08:41 Dose: 1 mls/sec Documented by: [id number] Cosigned by: [id number] Admin: 04/19/20 23:35 Dose: 1 mls/sec Documented by: [id number] Cosigned by: [id number] Admin: 04/19/20 16:28 Dose: 1 mls/sec Documented by: [id number] Cosigned by: [id number] Admin: 04/19/20 07:46 Dose: 1 mls/sec Documented by: [id number] Cosigned by: [id number] Admin: 04/18/20 23:42 Dose: 1 mls/sec Documented by: [id number] Cosigned by: [id number] Admin: 04/18/20 17:18 Dose: 1 mls/sec Documented by: [id number] Cosigned by: [id number] Admin: 04/18/20 09:27 Dose: 1 mls/sec Documented by: [id number] Cosigned by: [id number] Admin: 04/17/20 23:19 Dose: 1 mls/sec Documented by: [id number] Cosigned by: [id number] Admin: 04/17/20 15:32 Dose: 1 mls/sec Documented by: [id number] Cosigned by: [id number] Admin: 04/17/20 08:35 Dose: 1 mls/sec Documented by: [id number] Cosigned by: [id number] Metronidazole (Flagyl) 500 mg in 100 mls @ 100 mls/hr IV Q8H HERMELINDA Stop: 04/28/20 07:59 Last Infusion: 04/25/20 17:22 Dose: 0 mls/hr Documented by: [id number] Admin: 04/25/20 16:02 Dose: 100 mls/hr Documented by: [id number] Infusion: 04/25/20 13:45 Dose: 100 mls/hr Documented by: [id number] Infusion: 04/25/20 10:41 Dose: 0 mls/hr Documented by: [id number] Admin: 04/25/20 09:37 Dose: 100 mls/hr Documented by: [id number] Infusion: 04/25/20 02:50 Dose: 0 mls/hr Documented by: [id number] Admin: 04/25/20 01:10 Dose: 100 mls/hr Documented by: [id number] Infusion: 04/24/20 17:42 Dose: 100 mls/hr Documented by: [id number] Admin: 04/24/20 15:59 Dose: 100 mls/hr Documented by: [id number] Infusion: 04/24/20 09:14 Dose: 0 mls/hr Documented by: [id number] Admin: 04/24/20 07:42 Dose: 100 mls/hr Documented by: [id number] Infusion: 04/24/20 00:15 Dose: 0 mls/hr Documented by: [id number] Admin: 04/23/20 23:09 Dose: 100 mls/hr Documented by: [id number] Infusion: 04/23/20 17:13 Dose: 0 mls/hr Documented by: [id number] Admin: 04/23/20 15:51 Dose: 100 mls/hr Documented by: [id number] Infusion: 04/23/20 09:22 Dose: 0 mls/hr Documented by: [id number] Admin: 04/23/20 08:03 Dose: 100 mls/hr Documented by: [id number] Infusion: 04/23/20 00:10 Dose: 0 mls/hr Documented by: [id number] Admin: 04/22/20 23:09 Dose: 100 mls/hr Documented by: [id number] Infusion: 04/22/20 16:48 Dose: 0 mls/hr Documented by: [id number] Admin: 04/22/20 15:39 Dose: 100 mls/hr Documented by: [id number] Infusion: 04/22/20 09:03 Dose: 0 mls/hr Documented by: [id number] Admin: 04/22/20 08:03 Dose: 100 mls/hr Documented by: [id number] Infusion: 04/22/20 01:09 Dose: 0 mls/hr Documented by: [id number] Admin: 04/21/20 23:42 Dose: 100 mls/hr Documented by: [id number] Infusion: 04/21/20 17:03 Dose: 0 mls/hr Documented by: [id number] Admin: 04/21/20 15:56 Dose: 100 mls/hr Documented by: [id number] Infusion: 04/21/20 08:51 Dose: 0 mls/hr Documented by: [id number] Admin: 04/21/20 07:46 Dose: 100 mls/hr Documented by: [id number] Infusion: 04/21/20 00:40 Dose: 0 mls/hr Documented by: [id number] Admin: 04/20/20 23:29 Dose: 100 mls/hr Documented by: [id number] Infusion: 04/20/20 18:09 Dose: 0 mls/hr Documented by: [id number] Admin: 04/20/20 16:48 Dose: 100 mls/hr Documented by: [id number] Infusion: 04/20/20 10:22 Dose: 0 mls/hr Documented by: [id number] Admin: 04/20/20 08:42 Dose: 100 mls/hr Documented by: [id number] Infusion: 04/20/20 01:46 Dose: 0 mls/hr Documented by: [id number] Admin: 04/20/20 00:27 Dose: 100 mls/hr Documented by: [id number] Infusion: 04/19/20 17:26 Dose: 0 mls/hr Documented by: [id number] Admin: 04/19/20 16:18 Dose: 100 mls/hr Documented by: [id number] Infusion: 04/19/20 08:58 Dose: 0 mls/hr Documented by: [id number] Admin: 04/19/20 07:45 Dose: 100 mls/hr Documented by: [id number] Infusion: 04/19/20 01:03 Dose: 0 mls/hr Documented by: [id number] Admin: 04/18/20 23:42 Dose: 100 mls/hr Documented by: [id number] Infusion: 04/18/20 19:01 Dose: 0 mls/hr Documented by: [id number] Admin: 04/18/20 17:18 Dose: 100 mls/hr Documented by: [id number] Infusion: 04/18/20 10:46 Dose: 0 mls/hr Documented by: [id number] Admin: 04/18/20 09:26 Dose: 100 mls/hr Documented by: [id number] Dextrose ([id number]) 1,000 mls @ 60 mls/hr IV .[id number] HERMELINDA Stop: 05/20/20 23:14 Last Infusion: 04/25/20 13:48 Dose: 60 mls/hr Documented by: [id number] Admin: 04/25/20 01:10 Dose: 60 mls/hr Documented by: [id number] Infusion: 04/25/20 00:42 Dose: 60 mls/hr Documented by: [id number] Admin: 04/24/20 08:01 Dose: 60 mls/hr Documented by: [id number] Infusion: 04/24/20 08:01 Dose: 60 mls/hr Documented by: [id number] Admin: 04/23/20 15:51 Dose: 60 mls/hr Documented by: [id number] Infusion: 04/23/20 15:50 Dose: 60 mls/hr Documented by: [id number] Admin: 04/22/20 23:09 Dose: 60 mls/hr Documented by: [id number] Infusion: 04/22/20 23:09 Dose: 60 mls/hr Documented by: [id number] Admin: 04/22/20 08:04 Dose: 60 mls/hr Documented by: [id number] Infusion: 04/22/20 08:04 Dose: 60 mls/hr Documented by: [id number] Admin: 04/21/20 15:34 Dose: 60 mls/hr Documented by: [id number] Infusion: 04/21/20 15:34 Dose: 60 mls/hr Documented by: [id number] Admin: 04/20/20 23:29 Dose: 60 mls/hr Documented by: [id number] Lidocaine (Lidoderm 5%) 1 patch TD DAILY PRN PRN Reason: Pain Stop: 05/05/20 21:14 Last Admin: 04/17/20 10:09 Dose: 1 patch Documented by: [id number] Miconazole Nitrate (Desenex) 1 appln EXT PRN PRN PRN Reason: Affected Skin Folds Stop: 05/05/20 21:18 Last Admin: 04/24/20 22:02 Dose: 1 appln Documented by: [id number] Admin: 04/22/20 08:05 Dose: 1 appln Documented by: [id number] Admin: 04/15/20 20:05 Dose: 1 appln Documented by: [id number] Admin: 04/13/20 21:42 Dose: 1 appln Documented by: [id number] Admin: 04/12/20 08:33 Dose: 1 appln Documented by: [id number] Miscellaneous (Remove Lidoderm Patch) 1 ea N/A DAILY@2100 HERMELINDA Stop: 05/05/20 21:14 Last Admin: 04/24/20 22:00 Dose: Not Given Documented by: [id number] Admin: 04/23/20 20:59 Dose: Not Given Documented by: [id number] Admin: 04/22/20 20:03 Dose: Not Given Documented by: [id number] Admin: 04/21/20 21:23 Dose: 1 ea Documented by: [id number] Admin: 04/20/20 20:03 Dose: Not Given Documented by: [id number] Admin: 04/19/20 23:16 Dose: Not Given Documented by: [id number] Admin: 04/18/20 21:26 Dose: Not Given Documented by: [id number] Admin: 04/17/20 20:04 Dose: 1 ea Documented by: [id number] Admin: 04/16/20 22:41 Dose: 1 ea Documented by: [id number] Admin: 04/15/20 20:12 Dose: Not Given Documented by: [id number] Admin: 04/14/20 21:05 Dose: 1 ea Documented by: [id number] Admin: 04/13/20 21:43 Dose: Not Given Documented by: [id number] Admin: 04/12/20 20:06 Dose: Not Given Documented by: [id number] Admin: 04/11/20 21:19 Dose: 1 ea Documented by: [id number] Admin: 04/10/20 20:17 Dose: Not Given Documented by: [id number] Admin: 04/09/20 21:32 Dose: Not Given Documented by: [id number] Admin: 04/08/20 21:00 Dose: 1 ea Documented by: [id number] Admin: 04/07/20 21:03 Dose: 1 ea Documented by: [id number] Admin: 04/06/20 22:30 Dose: 1 ea Documented by: [id number] Admin: 04/05/20 22:48 Dose: Not Given Documented by: [id number] Morphine Sulfate (Morphine Sulfate) 2 mg IV Q3H PRN PRN Reason: Pain Stop: 05/01/20 10:56 Last Admin: 04/25/20 16:02 Dose: 2 mg Documented by: [id number] Admin: 04/25/20 11:58 Dose: 2 mg Documented by: [id number] Admin: 04/25/20 06:01 Dose: 2 mg Documented by: [id number] Admin: 04/25/20 02:50 Dose: 2 mg Documented by: [id number] Admin: 04/24/20 09:13 Dose: 2 mg Documented by: [id number] Admin: 04/24/20 06:39 Dose: 2 mg Documented by: [id number] Admin: 04/23/20 17:30 Dose: 2 mg Documented by: [id number] Admin: 04/23/20 12:44 Dose: 2 mg Documented by: [id number] Admin: 04/23/20 09:22 Dose: 2 mg Documented by: [id number] Admin: 04/23/20 03:43 Dose: 2 mg Documented by: [id number] Admin: 04/22/20 20:02 Dose: 2 mg Documented by: [id number] Admin: 04/22/20 15:39 Dose: 2 mg Documented by: [id number] Admin: 04/22/20 12:05 Dose: 2 mg Documented by: [id number] Admin: 04/22/20 08:06 Dose: 2 mg Documented by: [id number] Admin: 04/22/20 01:10 Dose: 2 mg Documented by: [id number] Admin: 04/21/20 21:22 Dose: 2 mg Documented by: [id number] Admin: 04/21/20 15:56 Dose: 2 mg Documented by: [id number] Admin: 04/21/20 07:47 Dose: 2 mg Documented by: [id number] Admin: 04/21/20 03:33 Dose: 2 mg Documented by: [id number] Admin: 04/20/20 20:02 Dose: 2 mg Documented by: [id number] Admin: 04/20/20 16:40 Dose: 2 mg Documented by: [id number] Admin: 04/20/20 13:40 Dose: 2 mg Documented by: [id number] Admin: 04/20/20 08:44 Dose: 2 mg Documented by: [id number] Admin: 04/20/20 05:40 Dose: 2 mg Documented by: [id number] Admin: 04/19/20 20:49 Dose: 2 mg Documented by: [id number] Admin: 04/19/20 16:19 Dose: 2 mg Documented by: [id number] Admin: 04/19/20 07:45 Dose: 2 mg Documented by: [id number] Admin: 04/18/20 21:26 Dose: 2 mg Documented by: [id number] Admin: 04/18/20 17:21 Dose: 2 mg Documented by: [id number] Admin: 04/18/20 14:40 Dose: 2 mg Documented by: [id number] Admin: 04/18/20 10:06 Dose: 2 mg Documented by: [id number] Admin: 04/18/20 05:41 Dose: 2 mg Documented by: [id number] Admin: 04/17/20 23:17 Dose: 2 mg Documented by: [id number] Admin: 04/17/20 18:58 Dose: 2 mg Documented by: [id number] Admin: 04/17/20 14:44 Dose: 2 mg Documented by: [id number] Nystatin (Mycostatin) 1 appln EXT BID HERMELINDA Stop: 05/05/20 21:14 Last Admin: 04/25/20 09:38 Dose: 1 appln Documented by: [id number] Admin: 04/24/20 22:01 Dose: Not Given Documented by: [id number] Admin: 04/24/20 07:56 Dose: 1 appln Documented by: [id number] Admin: 04/23/20 20:59 Dose: 1 appln Documented by: [id number] Admin: 04/23/20 08:05 Dose: 1 appln Documented by: [id number] Admin: 04/22/20 20:03 Dose: 1 appln Documented by: [id number] Admin: 04/22/20 08:05 Dose: 1 appln Documented by: [id number] Admin: 04/21/20 21:23 Dose: 1 appln Documented by: [id number] Admin: 04/21/20 07:47 Dose: 1 appln Documented by: [id number] Admin: 04/20/20 20:03 Dose: 1 appln Documented by: [id number] Admin: 04/20/20 08:55 Dose: 1 appln Documented by: [id number] Admin: 04/19/20 21:24 Dose: 1 appln Documented by: [id number] Admin: 04/19/20 07:56 Dose: 1 appln Documented by: [id number] Admin: 04/18/20 21:25 Dose: 1 appln Documented by: [id number] Admin: 04/18/20 09:28 Dose: 1 appln Documented by: [id number] Admin: 04/17/20 20:04 Dose: 1 appln Documented by: [id number] Admin: 04/17/20 08:39 Dose: 1 appln Documented by: [id number] Admin: 04/16/20 22:41 Dose: 1 appln Documented by: [id number] Admin: 04/16/20 08:44 Dose: 1 appln Documented by: [id number] Admin: 04/15/20 20:05 Dose: 1 appln Documented by: [id number] Admin: 04/15/20 08:46 Dose: 1 appln Documented by: [id number] Admin: 04/14/20 21:04 Dose: 1 appln Documented by: [id number] Admin: 04/14/20 07:43 Dose: 1 appln Documented by: [id number] Admin: 04/13/20 21:43 Dose: 1 appln Documented by: [id number] Admin: 04/13/20 08:33 Dose: 1 appln Documented by: [id number] Admin: 04/12/20 20:07 Dose: 1 appln Documented by: [id number] Admin: 04/12/20 08:33 Dose: 1 appln Documented by: [id number] Admin: 04/11/20 21:19 Dose: 1 appln Documented by: [id number] Admin: 04/11/20 08:12 Dose: 1 appln Documented by: [id number] Admin: 04/10/20 20:17 Dose: 1 appln Documented by: [id number] Admin: 04/10/20 07:39 Dose: 1 appln Documented by: [id number] Admin: 04/09/20 21:29 Dose: 1 appln Documented by: [id number] Admin: 04/09/20 08:52 Dose: 1 appln Documented by: [id number] Admin: 04/08/20 21:01 Dose: 1 appln Documented by: [id number] Admin: 04/08/20 08:13 Dose: 1 appln Documented by: [id number] Admin: 04/07/20 21:01 Dose: 1 appln Documented by: [id number] Admin: 04/07/20 08:21 Dose: 1 appln Documented by: [id number] Admin: 04/06/20 20:50 Dose: 1 appln Documented by: [id number] Admin: 04/06/20 08:46 Dose: 1 appln Documented by: [id number] Admin: 04/05/20 22:47 Dose: 1 appln Documented by: [id number] Ondansetron HCl (Zofran) 4 mg IV Q6H PRN PRN Reason: Nausea Stop: 05/05/20 21:14 Last Admin: 04/24/20 08:01 Dose: 4 mg Documented by: [id number] Admin: 04/14/20 10:52 Dose: 4 mg Documented by: [id number] Admin: 04/09/20 15:53 Dose: 4 mg Documented by: [id number]
--- NOTE | 2020-04-25 18:34 | Hospitalist Progress Note ---
Date of Service April 25, 2020 Assessment & Plan (1) Proctocolitis: Continue IV Flagyl for C. difficile (she cannot adequately swallow to take orally) Gastroenterology consult reviewed and appreciated. Repeat C diff continues to be positive for gene but not toxin - last bowel movement 04/19 -gave suppository 04/23 and now with copious diarrhea Per GI, patient would not be a good candidate for colonoscopy and this was discussed by GI with patient and family Digni sheild to be placed for increased diarrhea (2) Dysarthria: Palliative consulted - has discussed hospice with patient's . He does not feel he can care for patient at home. Referrals to SNFs sent per CM note. Suspicion is that the patient's dysarthria, dysphagia, and progressive weakness are secondary to a progressive neurodegenerative disease such as bulbar ALS. Neurology consulted Patient to have nectar thick liquids per speech but taking in very poor po. TPN stopped 04/[address] to [address] of patient's back fracture today showed continued fluid overload no doubt exacerbated by patient's poor nutritional status I did discuss patient's case with Dr Sadler from neurology at [place] to discuss possibility of transfer 04/24. She did not feel there was workup that could be done at [place] that could not be done here other than inpatient EMG. She did recommend myopathy workup and LP. Myopathy and neuropathy labwork wnl thus far, ADONAY panel pending Consulted anesthesia for lumbar puncture - per Dr. Grider, patient is ok to be turned prone for lumbar puncture. Anesthesia plans to take her tomorrow. NPO after MN. Will resume TPN. Patient will have PICC placed and remove central line (3) Dysphagia: Speech consult appreciated Again suspect this is secondary to her underlying neurodegenerative process (4) Closed T11 fracture: Orthopedic consult appreciated - discussed with Dr. Patel and agree patient would be very high risk for a surgery. He did send her for a repeat CT of her thoracic spine which was similar to previous (5) Hypokalemia: Replaced, recheck am (6) Malnourished: Resume TPN Patient's prognosis is very poor and she is in a very difficult situation with her fracture and nutritional status. Family given permission to see patient bedside. Had a long discussion with her and sons concerning plans going forward. They are very concerned about her obvious distress but are hesitant to make the decision to place her on hospice without a definite diagnosis. We discussed risks and benefits of transferring to a tertiary care facility and they feel that this would be too taxing on the patient and so declined seeking transfer at this time. They wished to proceed with obtaining an LP. Admission and Anticipated Discharge Date Admission Date: April 05, 2020 Subjective Continues to moan and appear distressed, unable to verbalize needs. Physical Exam Physical Exam: General: distressed Eyes: normal inspection, PERLL Respiratory: chest non tender, clear to auscultation, normal breath sounds, no respiratory distress, no accessory muscle use Cardiac: regular rate and rhythm, no rub or gallop, no murmur, no edema, no jvd GI/: active bowel sounds, no abd pain or tenderness, soft, non distended Extremities: normal range of motion, normal strength, non tender Neuro/Psych: alert, unable to verbalize orientation, anxious affect Skin: normal color, dry Results & Data Results & Data ([facility]) Vital Signs (Past 12 Hours) Vital Signs Temp Pulse Resp BP Pulse Ox 04/25/20 15:50 37.6 C H 109 H 22 93/58 L 95 04/25/20 07:34 37.5 C 137 H 22 115/64 90 04/25/20 07:11 120 H 26 H 91 PG Care Time/CCT Total # of Minutes Spent Total Time Spent with Patient: Total time spent is greater than 50% in coordination of care (as documented) at patient's floor/unit and/or counseling patient: Coding Level of Care Code 75385 Subseq Hosp Care Lvl 3 Diagnoses Proctocolitis K52.9 Dysarthria R47.1 Dysphagia R13.11 Dysphagia type: oral phase Closed T11 fracture S22.089D Encounter type: subsequent encounter Fracture morphology: unspecified fracture morphology Fracture healing: with routine healing Hypokalemia E87.6 Malnourished E46 (1) Dysphagia Dysphagia type: oral phase Qualified Code(s): R13.11 - Dysphagia, oral phase (2) Closed T11 fracture Encounter type: subsequent encounter Fracture morphology: unspecified fracture morphology Fracture healing: with routine healing Qualified Code(s): S22.089D - Unspecified fracture of T11-T12 vertebra, subsequent encounter for fracture with routine healing
[2020-04-25] MEDS ORDERED: ALBUMIN 25% 50 ML IV ONE (22:14)
[2020-04-26] MEDS: HEPARIN SODIUM (PORCINE) 7,500 UNITS in SYRINGE 0 ML SC SCH ×3 (00:11→17:09)
[2020-04-26] MEDS: metroNIDAZOLE 500 MG/100 ML BAG IV SCH ×3 (00:15→17:18)
[2020-04-26] MEDS ORDERED: Nursing to Pharmacy Communication ONE (01:31)
[2020-04-26 06:30] LABS: Basophils # (auto) 0.02 K/uL (0-0.2); Basophils % (auto) 0.3 %; Eosinophils # (auto) 0.39 K/uL (0-0.5); Eosinophils % (auto) 5.5 %; Hematocrit (blood only) 29.3 % (37-47); Hemoglobin 9.5 g/dL (12.0-16.0); Immature Granulocytes # (auto) 0.12 K/uL (0.00-0.02); Immature Granulocytes % (auto) 1.7 %; Lymphocytes # (auto) 1.19 K/uL (1.2-3.4); Lymphocytes % (auto) 16.7 %; Mean Corpuscular Hemoglobin 29.5 pg (25-34); Mean Corpuscular Hgb Conc 32.4 g/dL (32-36); Mean Platelet Volume 9.1 fL (7.4-10.4); Monocytes # (auto) 1.39 K/uL (0.11-0.59); Monocytes % (auto) 19.5 %; Neutrophils % (auto) 56.3 %; Platelet Count 330 K/uL (130-400); RDW Coefficient of Variation 16.2 % (11.5-14.5); RDW Standard Deviation 53.1 fL (36.4-46.3); Red Blood Count 3.22 M/uL (4.2-5.4); White Blood Count 7.11 K/uL (4.8-10.8)
[2020-04-26] MEDS: ALBUT/IPRATROP 3MG/0.5MG NEB 3 ML VIAL NEB SCH ×2 (07:24→19:18)
[2020-04-26] MEDS: FUROSEMIDE 40 MG in SYRINGE 0 ML IV SCH (08:17)
[2020-04-26] MEDS: FLUTICASONE/VILANTEROL 200/25MCG 14 PUFFS/INHALER INH SCH (08:23)
[2020-04-26] MEDS: NYSTATIN POWDER 15GM BTL EXT SCH ×2 (08:29→21:49)
[2020-04-26] MEDS: FAMOTIDINE 20MG IV PUSH 20 MG/5 ML SYR IV SCH (08:29)
--- NOTE | 2020-04-26 11:36 | Pharmacy Report ---
PHA: Parenteral Nutrition Con - Date of Service April 26, 2020 - Scope Pharmacy was re-consulted on 04/26/20 to manage parenteral nutrition orders for this patient. Pt was receiving TPN 04/12-04/19 but then on hold since 04/20 d/t volume overload. - Objective Height: 5 ft 1 in Weight: 119.748 kg Diet: NPO Intake & Output (24hrs):: Intake & Output 04/24/20 04/25/20 04/26/20 04/27/20 06:59 06:59 06:59 06:59 Intake Total 1595 / 1595 3585 / 3585 2650 / 2650 100 / 100 Output Total 1300 / 1300 1200 / 1200 227 / 227 Balance 295 / 295 2385 / 2385 2423 / 2423 100 / 100 Weight 119.748 kg 119.748 kg Laboratory Data (Last 24 Hr):: 04/25/20 04/26/20 15:57 05:56 Glucose 91 Phosphorus 2.7 Magnesium 1.8 Nutrition Assessment:: Please refer to the Notes section of the EMR for the most recent application security engineer note. - Assessment Restarting TPN today for malnutrition. Patient will have PICC placed and remove central line (left IJ) Discussed patient case with Ewa Edmond RN and Dietary. Agree to start with low macros to keep volume at minimum- appears that patient is only able to diurese ~ 4934-2892 ml/day. Will keep TPN around this same volume to prevent further volume accumulation. Provider will increase Lasix to BID. - Plan For day #1 {resumed} of PN administration, the following will be ordered: Macronutrients Amino acids 95 grams/day Dextrose 120 grams/day Lipids 30 grams/day Micronutrients Combined electrolytes 20 mL - contains 35 mEq Na, 20 meq K, 4.5 mEq Ca, 5 mEq Mg, 35 mEq Cl, 29.5 mEq acetate per 20 mL Sodium chloride 50 mEq Potassium phosphate 15 mMol Potassium chloride 20 mEq Magnesium sulfate 8.12 mEq Multivitamins 10 mL Trace Elements 1 mL Additional additives: Pepcid 20mg IV added to bag (IVP order dc) Total volume 1342.43 mL to be infused over 24 hrs will provide 1088 kcal/day Labs, as indicated, will be ordered per protocol Pharmacy will continue to follow and adjust parenteral nutrition orders on a daily basis. Thank you for allowing us to participate in the care of this patient.
--- NOTE | 2020-04-26 13:47 | Anesthesiology Consultation ---
Date of Service April 26, 2020 Assessment & Plan (1) Encounter for pre-operative examination: Chart Review Chart Review: Acceptable Risk for Surgery (diagnostic lumbar puncture) and Patient NOT seen in Pre Admission Testing Consults Requested none History Surgery Operation Date: 04/26/20 08:30 Proposed Procedures p Lumbar Puncture - Eliseo Wills MD Height/Weight Height: 5 ft 1 in Weight: 119.748 kg Allergies Allergy/AdvReac Type Severity Reaction Status Date / Time metformin AdvReac Intermediate DIARRHEA Verified 04/05/20 16:46 oxycodone AdvReac Intermediate GI Verified 04/05/20 16:46 SYMPTOMS, DISORIENTATION ampicillin AdvReac Mild Nausea/vomi Verified 04/05/20 16:46 ting codeine AdvReac Mild NAUSEA Verified 04/05/20 16:46 gabapentin AdvReac Mild DIZZINESS, Verified 04/05/20 16:46 FIDGETY hydrocodone AdvReac Mild "MADE ME Verified 04/05/20 16:46 FEEL WEIRD" lorazepam AdvReac Mild DIZZY Verified 04/05/20 16:46 lovastatin AdvReac Mild WASN'T Verified 04/05/20 16:46 EFFECTIVE meloxicam AdvReac Mild DIZZINESS Verified 04/05/20 16:46 propoxyphene AdvReac Mild NAUSEA Verified 04/05/20 16:46 tramadol AdvReac Mild GI SYMPTOMS Verified 04/05/20 16:46 narcotics AdvReac Mild Hallucinati Uncoded 04/05/20 16:46 ng Medications Home Medications Medication Instructions Recorded Confirmed Last Taken albuterol sulfate 90 mcg/actuation 2 puffs INH Q4H PRN gm 08/07/19 04/05/20 02/20/20 21:00 aerosol inhaler pantoprazole 20 mg tablet,delayed 20 mg PO BID tab 09/09/19 04/05/20 04/04/20 08:00 release naproxen sodium [Aleve] 220 mg PO BID 10/11/19 04/05/20 04/04/20 08:00 budesonide-formoterol HFA 160 2 puffs INH BID #10.2 gm 11/16/19 04/05/2004/04 08:00 mcg-4.5 mcg/actuation aerosol inhaler rosuvastatin 5 mg tablet 5 mg PO QAM #90 tab 01/06/1804/05/20 04/04/20 08:00 nebulizer accessories #1 ea 12/07/19 04/04/20 Unknown lidocaine [Lidoderm] 1 patch TOP UD PRN 12/26/19 04/05/20 Unknown hydroxyzine pamoate [Vistaril] 25 mg PO TID PRN 01/18/20 04/05/20 02/20/20 09:00 cyanocobalamin (vitamin B-12) 1,000 mcg IM MONTHLY #10 ml 02/28/20 04/05/20 Unknown 1,000 mcg/mL injection solution syringe with needle 3 mL 25 gauge #3 ea 02/28/20 04/04/20 Unknown x 1" fluconazole 150 mg tablet 150 mg PO .COMPLEX 28 Days #4 tab 03/14/20 04/05/20 04/04/20 08:00 final dose today nystatin 100,000 unit/gram topical 1 appln TOP BID #60 gm 03/14/20 04/05/20 04/04/20 08:00 powder miscellaneous medical supply #1 ea 03/23/20 04/04/20 Unknown Wheelchair (Manual or Powered) #1 ea 03/26/20 04/04/20 Unknown albuterol sulfate 2.5 mg INH BID 04/04/20 04/05/20 04/04/20 08:00 cyclobenzaprine 10 mg PO TID PRN 04/04/20 04/05/20 Unknown Active Medications Generic Name Dose Route Start Last Admin Trade Name Freq PRN Reason Stop Dose Admin Albuterol 3 ml 04/19/20 19:00 04/26/20 07:24 Duoneb NEB 05/19/20 18:59 3 ml BIDR HERMELINDA Administration Benzocaine 1 appln 04/06/20 00:02 04/14/20 22:25 Dermoplast Pain Relieving [place] EXT 05/06/20 00:01 1 appln UD PRN Administration Pain Fluticasone/Vilanterol 1 puffs 04/06/20 09:00 04/26/20 08:23 Breo Ellipta 200/25 Mcg Inh INH 05/06/20 08:59 1 puffs DAILY HERMELINDA Administration Heparin Sodium (Beef Lung) 5 ml 04/09/20 05:44 04/26/20 10:17 Heparin Sod 10 Unit/Ml Flush FLUSH 05/09/20 05:43 5 ml PRN PRN Administration Flush Heparin Sodium (Porcine) 7,500 0.75 mls @ 1 mls/sec 04/17/20 08:00 04/26/20 08:24 units/ Syringe SC 05/17/20 07:59 1 mls/sec Q8H HERMELINDA Administration Metronidazole 500 mg in 100 mls @ 100 mls/hr 04/18/20 08:00 04/26/20 09:30 Flagyl IV 04/28/20 07:59 Infused Q8H HERMELINDA Infusion Lidocaine 1 patch 04/05/20 21:15 04/17/20 10:09 Lidoderm 5% TD 05/05/20 21:14 1 patch DAILY PRN Administration Pain Miconazole Nitrate 1 appln 04/05/20 21:19 04/24/20 22:02 Desenex EXT 05/05/20 21:18 1 appln PRN PRN Administration Affected Skin Folds Miscellaneous 1 ea 04/05/20 21:15 04/25/20 20:06 Remove Lidoderm Patch N/A 05/05/20 21:14 Not Given DAILY@2100 HERMELINDA Morphine Sulfate 2 mg 04/17/20 14:29 04/25/20 16:02 Morphine Sulfate IV 05/01/20 10:56 2 mg Q3H PRN Administration Pain Nystatin 1 appln 04/05/20 21:15 04/26/20 08:29 Mycostatin EXT 05/05/20 21:14 1 appln BID HERMELINDA Administration Ondansetron HCl 4 mg 04/05/20 21:15 04/24/20 08:01 Zofran IV 05/05/20 21:14 4 mg Q6H PRN Administration Nausea Past Medical History Medical History Anxiety (Chronic) Asthma (Chronic) Stable- has albuterol nebulizer and inhaler- uses 1-2 times daily Borderline high cholesterol BPPV (benign paroxysmal positional vertigo) CAD (coronary artery disease) (Chronic) Pt denies Colitis COPD (chronic obstructive pulmonary disease) (Chronic) Depression (Chronic 01/03/12) Dysmetabolic syndrome X (Chronic) Fatty (change of) liver, not elsewhere classified (Chronic) Gastroesophageal reflux disease with esophagitis (Chronic) Well controlled with Protonix 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 Hiatal hernia Hypertension (Chronic) Impaired memory (Chronic) Mild- feels back pain making memory worse Lumbar stenosis with neurogenic claudication (Chronic) Morbid obesity with BMI of 45.0-49.9, adult Obstructive sleep apnea syndrome (Chronic 01/03/12) Uses CPAP q HS Osteopenia (Chronic) Prediabetes (Chronic) Pt denies - pre op glucose 249- getting clarification from PCP Proctocolitis Restrictive lung disease (Chronic) Unspecified cirrhosis of liver (Chronic) Secondary to fatty liver - follows with GI - stable at this time (LFTs WNL 11/07/19) Venous insufficiency (Chronic) Varicose veins- no treatment needed - no current LE edema Past Family History Family History Unknown Heart disease Father Asthma Mother Alzheimer disease Aortic aneurysm Aunt Family history of diabetes mellitus Grandmother Family history of diabetes mellitus Other No family history of adverse response to anesthesia Past Surgical History Surgical History History of abdominal surgery removed benign tumor from stomach History of bilateral cataract extraction History of cardiac cath 30+YR AGO, NO SIG ISSUES PER PT- DENIES STENTS OR BYPASS History of carpal tunnel surgery of right wrist History of cholecystectomy (Resolved) History of colonoscopy History of esophagogastroduodenoscopy (EGD) History of herniorrhaphy (Resolved) History of lumbar fusion (Resolved) L2 through S1 fusion August [address] Patel History of right shoulder replacement History of tonsillectomy and adenoidectomy History of tooth extraction all upper teeth History of total hysterectomy with bilateral salpingo-oophorectomy (BSO) History of total right hip arthroplasty (Resolved) Nausea and vomiting after administration of anesthetic agent Status post trigger finger release HX OF right hand Social History Smoking Status: Never smoker Hx Alcohol Use: No Hx Substance Use: No substance use type: does not use Physical Exam Vital Signs Last Vital Signs Temp 37.1 C 04/26/20 07:30 Pulse 99 H 04/26/20 07:30 Resp 20 04/26/20 07:30 BP 117/73 04/26/20 07:30 Pulse Ox 96 04/26/20 07:30 Testing Laboratory Results 04/26/20 05:55 05/27/20 15:57 Urine Color Dark Yellow 04/17/20 17:40 Urine Appearance Cloudy (Clear) A 04/17/20 17:40 Urine pH >= 9.0 (4.5-7.5) H 04/17/20 17:40 Ur Specific [place] 1.023 (1.000-1.030) 04/17/20 17:40 Urine Protein Negative (Negative) 04/17/20 17:40 Urine Glucose (UA) Negative (Negative) 04/17/20 17:40 Urine Ketones Negative (Negative) 04/17/20 17:40 Urine Nitrite Negative (Negative) 04/17/20 17:40 Ur Leukocyte Esterase Trace (Negative) H 04/17/20 17:40 Urine WBC (Auto) 10-30 /hpf (0-5) H 04/17/20 17:40 Urine RBC (Auto) 0-4 /hpf (0-4) 04/17/20 17:40 U Hyaline Cast (Auto) 1-5 /lpf (0-5) 04/17/20 17:40 U Epithel Cells (Auto) >30 /lpf (0-5) H 04/17/20 17:40 Urine Bacteria (Auto) 4+ (Negative) H 04/17/20 17:40 Urine RBC 0-4 /hpf (0-4) 04/05/20 18:50 Urine WBC 5-10 /hpf (0-5) H 04/05/20 18:50 Ur Epithelial Cells >30 /lpf (0-5) H 04/05/20 18:50 04/24/20 16:34 Escherichia coli Shiga Toxins Test - Preliminary Stool Stool Culture - Preliminary No Salmonella isolated to date, No Shigella isolated to date, No Campylobacter jejuni isolated to date. 04/17/20 16:41 Aerobic Blood Culture - Final Blood No growth in Aerobic bottle after 5 days. Anaerobic Blood Culture - Final No growth in Anaerobic bottle after 5 days. 04/17/20 16:53 Aerobic Blood Culture - Final Blood No growth in Aerobic bottle after 5 days. Anaerobic Blood Culture - Final No growth in Anaerobic bottle after 5 days. 04/17/20 17:40 Urine Culture - Final Urine,Indwelling Cath Enterococcus faecium Enterococcus faecium VRE 04/06/20 05:46 Aerobic Blood Culture - Final Blood No growth in Aerobic bottle after 5 days. Anaerobic Blood Culture - Final No growth in Anaerobic bottle after 5 days. 04/06/20 05:35 Aerobic Blood Culture - Final Blood No growth in Aerobic bottle after 5 days. Anaerobic Blood Culture - Final No growth in Anaerobic bottle after 5 days. 04/05/20 22:30 WBC Smear - Final Stool Escherichia coli Shiga Toxins Test - Final Stool Culture - Final No Salmonella isolated, No Shigella isolated, No Campylobacter jejuni isolated. 04/26/20 04/26/20 12:09 05:55 POC Glucose 83 80 :
[2020-04-26 14:38] LABS: Appearance CSF Clear; CSF Count Tube # 3; CSF Xanthrochromic No xanthochromia; Color CSF Colorless; Red Blood Cell CSF (A) 2 /uL (0-); Red Blood Cell CSF (B) 1 /uL (0-); White Blood Cell CSF (A) 0 /uL (0-5); White Blood Cell CSF (B) 0 /uL (0-5)
--- NOTE | 2020-04-26 14:41 | Procedure Note ---
Procedure Note Date of Service April 26, 2020 Diagnostic lumbar puncture note Consent: Informed consent obtained from the patient's . The inherent risks, expected benefits, treatment alternatives, as well as the technical aspects of the procedure were discussed with the patient's and a full explanation was given. The procedure was also discussed with Dr. Vega, Dr. Cowan, Dr. Patel, Dr. England, Dr. Arvizu, and YUDITH Cormier. The patient was placed on monitors in the PACU. Her HR was 90s, BP 110s/50s, SpO2 97 on room air, and RR 16. Time Out: A time-out was performed verifying correct patient with two identifiers, procedure, site, and positioning. Position: Left Lateral Sterile Technique: Hair cover and mask worn during procedure. Sterile technique utilizing sterile gloves and sterile drape during the procedure. Prep: Chloraprep Site: L4/5, midline through surgical scar Local Skin Infiltration: 1% lidocaine Needle: 22 Gauge 5 inch Quincke Attempts: 1 Parasthesias: No Blood: No After dural puncture, CSF slowly dripped out of needle hub. Opening pressure was not obtained but appeared to be low given how slowly the CSF dripped out. The CSF was collected in four sequentially labeled tubes with about 3 ml of CSF per tube. The tubes were sealed and labeled. The tubes were then taken to the lab. Post Procedure: Patient tolerated the procedure well without apparent complications. Patient's vital signs monitored throughout and remained stable. The patient appeared to understand simple commands and was noted to move her left side greater than her right by the PACU nurses monitoring her. The patient will be transported back to her room. Ewa Edmond was notified that the procedure was completed. Coding
[2020-04-26 14:53] LABS: CSF Glucose 66 mg/dl (40-70)
[2020-04-26 14:59] LABS: Lactate CSF 1.7 mmol/L (0.6-2.2)
[2020-04-26] MEDS ORDERED: TPN IV SCH (16:00)
[2020-04-26] MEDS ORDERED: CENTRAL PN IV SCH (16:00)
[2020-04-26] MEDS ORDERED: FUROSEMIDE 40 MG in SYRINGE 0 ML IV SCH (17:00)
[2020-04-26 17:33] LABS: CSF Chemistry Tube # 1
[2020-04-26] MEDS: MoRPHine SULFATE 2 MG/ML CARP IV PRN (17:54)
[2020-04-26] MEDS ORDERED: VANCOMYCIN CONSULT ACTIVE PRN (18:05)
--- NOTE | 2020-04-26 18:14 | Hospitalist Progress Note ---
Date of Service April 26, 2020 Assessment & Plan (1) Proctocolitis: Continue IV Flagyl for C. difficile (she cannot adequately swallow to take orally) Gastroenterology consult reviewed and appreciated. Repeat C diff continues to be positive for gene but not toxin - last bowel movement 04/19 -gave suppository 04/23 and now with copious diarrhea Per GI, patient would not be a good candidate for colonoscopy and this was discussed by GI with patient and family (2) Dysarthria: Palliative consulted - has discussed hospice with patient's . He does not feel he can care for patient at home. Referrals to SNFs sent per CM note. Suspicion is that the patient's dysarthria, dysphagia, and progressive weakness are secondary to a progressive neurodegenerative disease such as bulbar ALS. Neurology consulted Patient to have nectar thick liquids per speech but taking in very poor po. TPN stopped 04/[address] due [address] of patient's back fracture today showed continued fluid overload no doubt exacerbated by patient's poor nutritional stat us I did discuss patient's case with Dr Sadler from neurology at [facility] to discuss possibility of transfer 04/24. She did not feel there was workup that could be done at [facility] that could not be done here other than inpatient EMG. She did recommend myopathy workup and LP. Myopathy and neuropathy lab work wnl thus far, ADONAY panel pending Consulted anesthesia for lumbar puncture which was performed 04/26, results pending - per Dr. Barton, patient is ok to be turned for lumbar puncture Continue TPA - will increase lasix to help draw out fluid patient is overloaded with. Unable to place PICC as left arm did not have good access and right arm appears to have developed cellulitis. If cellulitis improving in a few days may be able to place (3) Dysphagia: Speech consult appreciated Again suspect this is secondary to her underlying neurodegenerative process (4) Closed T11 fracture: Orthopedic consult appreciated - discussed with Dr. Patel and agree patient would be very high risk for a surgery. He sent her for a repeat CT of her thoracic spine which was similar to previous (5) Hypokalemia: Replaced, recheck am (6) Malnourished: Resumed TPN as above (7) Cellulitis: right arm Will start IV daptomycin. Patient had positive MRSA nasal swab (8) DVT prophylaxis: Heparin Patient's prognosis is very poor and she is in a very difficult situation with her fracture and nutritional status. Disposition unknown, family would like results of LP before making decision to move toward hospice. updated by phone Admission and Anticipated Discharge Date Admission Date: April 05, 2020 Subjective Ms. Roche continues to moan and appear distressed. She nods her head yes that she is in distress. Physical Exam Physical Exam: General: distressed Eyes: normal inspection, PERLL Respiratory: chest non tender, expiratory wheezes, labored breathing Cardiac: regular rate and rhythm, no rub or gallop, no murmur, +2 pitting edema throughout GI/: active bowel sounds, no abd pain or tenderness, soft, non distended Extremities: generalized weakness, generalized pain Neuro/Psych: alert unable to verbalize needs Skin: normal color, dry, right arm erythema and edema Results & Data Results & Data ([facility]) Vital Signs (Past 12 Hours) Vital Signs Temp Pulse Pulse Resp BP Pulse Ox 04/26/20 15:41 37 C 16 114/68 94 04/26/20 07:30 37.1 C 99 H 20 117/73 96 04/26/20 07:24 95 H 18 93 PG Care Time/CCT Total # of Minutes Spent Total Time Spent with Patient: Total time spent is greater than 50% in coordination of care (as documented) at patient's floor/unit and/or counseling patient: Coding Level of Care Code 14065 Subseq Hosp Care Lvl 3 Diagnoses Proctocolitis K52.9 Dysarthria R47.1 Dysphagia R13.11 Dysphagia type: oral phase Closed T11 fracture S22.089D Encounter type: subsequent encounter Fracture healing: with routine healing Fracture morphology: unspecified fracture morphology Hypokalemia E87.6 Malnourished E46 Cellulitis L03.90 DVT prophylaxis Z29.9 (1) Closed T11 fracture Encounter type: subsequent encounter Fracture healing: with routine healing Fracture morphology: unspecified fracture morphology Qualified Code(s): S22.089D - Unspecified fracture of T11-T12 vertebra, subsequent encounter for fracture with routine healing (2) Dysphagia Dysphagia type: oral phase Qualified Code(s): R13.11 - Dysphagia, oral phase
[2020-04-26] MEDS ORDERED: VANCOMYCIN HCL 2,750 MG in SODIUM CHLORIDE 0.9% 500 ML IV ONE (18:15)
[2020-04-26] MEDS ORDERED: FUROSEMIDE 80 MG in SYRINGE 0 ML IV ONE (18:15)
[2020-04-26] MEDS ORDERED: FUROSEMIDE 40 MG in SYRINGE 0 ML IV ONE (18:30)
[2020-04-26] MEDS: DAPTOmycin 300 MG in SYRINGE 0 ML IV SCH (18:42)
[2020-04-26 19:58] LABS: Calcium 8.2 mg/dl (8.5-10.1); Creatinine Clr Calc Pharmacy 74.6 ml/min; Est GFR (African American) 79.9; Est GFR (Non-African American) 68.9; Potassium 3.6 mmol/L (3.5-5.1)
[2020-04-27] MEDS: HEPARIN SODIUM (PORCINE) 7,500 UNITS in SYRINGE 0 ML SC SCH ×3 (00:08→15:33)
[2020-04-27] MEDS: metroNIDAZOLE 500 MG/100 ML BAG IV SCH ×3 (00:08→15:31)
[2020-04-27 06:41] LABS: BUN Creatinine Ratio 21.8 (10-20); Calcium 7.5 mg/dl (8.5-10.1); Creatinine Clr Calc Pharmacy 72.1 ml/min; Est GFR (African American) 76.6; Est GFR (Non-African American) 66.1; Magnesium 1.7 mg/dl (1.8-2.4); Potassium 3.5 mmol/L (3.5-5.1)
[2020-04-27] MEDS: ALBUT/IPRATROP 3MG/0.5MG NEB 3 ML VIAL NEB SCH ×2 (07:18→19:13)
[2020-04-27] MEDS: MoRPHine SULFATE 2 MG/ML CARP IV PRN ×2 (08:04→19:05)
[2020-04-27] MEDS ORDERED: MAGNESIUM SULFATE / D5W 1 GM/100 ML BAG IV ONE (08:14)
[2020-04-27] MEDS: FLUTICASONE/VILANTEROL 200/25MCG 14 PUFFS/INHALER INH SCH (08:44)
[2020-04-27] MEDS: NYSTATIN POWDER 15GM BTL EXT SCH ×2 (08:45→20:58)
[2020-04-27] MEDS ORDERED: FUROSEMIDE 60 MG in SYRINGE 0 ML IV SCH (09:00)
--- NOTE | 2020-04-27 10:36 | Pharmacy Report ---
PHA: Parenteral Nutrition Con - Date of Service April 27, 2020 - Scope Pharmacy was consulted on 04/26/20 to manage parenteral nutrition orders for this patient. - Subjective The patient is currently on day # 2 of [facility] parenteral nutrition for MALNUTRITION, PROLONGED NPO, C. DIFF PROCTOCOLITIS. - Objective Height: 5 ft 1 in Weight: 119.9 kg Diet: NPO Intake & Output (24hrs):: Intake & Output 04/25/20 04/26/20 04/27/20 04/28/20 06:59 06:59 06:59 06:59 Intake Total 3585 / 3585 2650 / 2650 626.233 / 626.233 100 / 100 Output Total 1200 / 1200 227 / 227 625 / 625 Balance 2385 / 2385 2423 / 2423 1.233 / 1.233 100 / 100 Weight 119.748 kg 119.748 kg 119.748 kg 119.9 kg Laboratory Data (Last 24 Hr):: 04/26/20 04/27/20 16:30 05:26 Sodium 136 138 Potassium 3.6 3.5 Chloride 103 104 Carbon Dioxide 29 28 BUN 16 19 H Creatinine 0.86 0.89 Glucose 88 132 H Calcium 8.2 L 7.5 L Phosphorus 2.0 L Magnesium 1.7 L Nutrition Assessment:: Please refer to the Notes section of the EMR for 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 - Assessment * Patient remains + 20 kg weight since admission - minimizing volume in TPN (titrating macros slowly towards goal to limit volume) * Lasix dosing increased from 40mg IV daily to 40mg in AM + 80mg in PM last night. Now ordered 60mg IV daily. Weight essentially unchanged from yesterday but I&Os are difficult to interpret from the last 24hrs. Based on weight - will slightly increase macros which will increase TPN volume slightly. Will empirically increase K+ and Mg+ for increased lasix dosing. * Unable to place PICC 04/26/20- possible cellulitis. Pt initiated on daptomycin (no vanco d/t BMI > 40) * Diet advanced to full liquids but unsure how much patient will actually tolerate. - Plan For day #2 {re-started} of PN administration, the following will be ordered: Macronutrients Amino acids 105 grams/day Dextrose 140 grams/day Lipids 35 grams/day Micronutrients Combined electrolytes 20 mL - contains 35 mEq Na, 20 meq K, 4.5 mEq Ca, 5 mEq Mg, 35 mEq Cl, 29.5 mEq acetate per 20 mL Sodium phosphate 15 MMol Sodium chloride 50 mEq (+ 35 mEq contained in combined electrolytes) Acetate (29.5 mEq contained in combined electrolytes) Potassium phosphate 15 mMol Potassium chloride 40 mEq (+20mEq contained in combined electrolytes) Magnesium sulfate 12.18 mEq (+5mEq contained in combined electrolytes) Calcium gluconate (4.5 mEq contained in combined electrolytes) Multivitamins 10 mL Trace Elements 1 mL Additional additives: Pepcid 20mg Total volume 1512 mL to be infused over 24 hrs will provide 1246 kcal/day Labs, as indicated, will be ordered per protocol Pharmacy will continue to follow and adjust parenteral nutrition orders on a daily basis. Thank you for allowing us to participate in the care of this patient.
--- NOTE | 2020-04-27 14:07 | Ultrasound Report ---
US venous doppler UE RT CLINICAL HISTORY: erythema, edema COMPARISON STUDY: No previous studies for comparison. FINDINGS: No intraluminal thrombus was visualized. The internal jugular, subclavian, axillary, cephal ic, brachial, basilic, radial, and ulnar veins were patent. There is subcutaneous edema within the ar m. IMPRESSION: No evidence of right upper extremity DVT. ACT 112: Negative or not required by law. Electronically signed by: Jose Conley M.D. 04/27/2020 2:06 PM
--- NOTE | 2020-04-27 14:08 | Ultrasound Report ---
US venous doppler LE RT CLINICAL HISTORY: tenderness, erythema, edema COMPARISON STUDY: 04/14/2020 FINDINGS: Real-time and color flow Doppler imaging were performed. Flow was seen within the femoral, popliteal and calf veins with no intraluminal thrombus demonstrated. The saphenous vein is patent. Th ere is subcutaneous edema within the calf. IMPRESSION: No evidence of right lower extremity DVT. ACT 112: Negative or not required by law. Electronically signed by: Jose Conley M.D. 04/27/2020 2:06 PM
--- NOTE | 2020-04-27 15:37 | Hospitalist Progress Note ---
Date of Service April 27, 2020 Assessment & Plan (1) Proctocolitis: Continue IV Flagyl for C. difficile (she cannot adequately swallow to take orally) Gastroenterology consult reviewed and appreciated. Repeat C diff continues to be positive for gene but not toxin - last bowel movement 04/19 -gave suppository 04/23 which resulted in copious diarrhea, appears to be somewhat better per nursing documentation Per GI, patient would not be a good candidate for colonoscopy and this was discussed by GI with patient and family (2) Dysarthria: Palliative consulted - has discussed hospice with patient's . He does not feel he can care for patient at home. Referrals to SNFs sent per CM note. Suspicion is that the patient's dysarthria, dysphagia, and progressive weakness are secondary to a progressive neurodegenerative disease such as bulbar ALS. Neurology consulted Patient to have nectar thick liquids per speech but taking in very poor po. TPN stopped 04/20 due to volume overload. I did discuss patient's case with Dr Sadler from neurology at [place] to discuss possibility of transfer 04/24. She did not feel there was workup that could be done at [place] that could not be done here other than inpatient EMG. She recommended myopathy workup and LP. Myopathy and neuropathy lab work wnl thus far, ADONAY panel pending Patient's family does not wish to look for another tertiary care center for transfer, they feel transfer would be too hard on the patient at this point Consulted anesthesia for lumbar puncture which was performed 04/26, initial results do not show signs of infection or elevated protein, further results pending Continue TPN - will increase lasix to help draw out fluid patient is overloaded with. Unable to place PICC as left arm did not have good access and right arm appears to have developed cellulitis. If cellulitis improving in a few days may be able to place (3) Dysphagia: Speech consult appreciated Again suspect this is secondary to her underlying neurodegenerative process (4) Closed T11 fracture: Orthopedic consult appreciated - discussed with Dr. Patel and agree patient would be very high risk for a surgery. He sent her for a repeat CT of her thoracic spine which was similar to previous (5) Hypokalemia: Replaced, recheck am (6) Malnourished: Resumed TPN as above (7) Cellulitis: right arm Will start IV daptomycin. Patient had positive MRSA nasal swab (8) DVT prophylaxis: Heparin Patient's prognosis is very poor and she is in a very difficult situation with her fracture and nutritional status. Disposition unknown, family would like results of LP before making decision to move toward hospice. Admission and Anticipated Discharge Date Admission Date: April 05, 2020 Subjective Ms. Roche continues to appear distressed but unable to communicate her needs. She does indicate she is in pain. updated over the phone Physical Exam Physical Exam: General: no distress Eyes: normal inspection, PERLL Respiratory: chest non tender, clear to auscultation, normal breath sounds, no respiratory distress, no accessory muscle use Cardiac: regular rate and rhythm, no rub or gallop, no murmur, no edema, no jvd GI/: active bowel sounds, no abd pain or tenderness, soft, non distended Extremities: normal range of motion, normal strength, non tender Neuro/Psych: alert and oriented x 3, normal mood and affect Skin: normal color, dry Results & Data Results & Data ([facility]) Vital Signs (Past 12 Hours) Vital Signs Temp Pulse Resp BP Pulse Ox 04/27/20 15:21 37.2 C 104 H 17 115/70 95 04/27/20 07:20 37.6 C H 105 H 18 113/61 90 PG Care Time/CCT Total # of Minutes Spent Total Time Spent with Patient: Total time spent is greater than 50% in coordination of care (as documented) at patient's floor/unit and/or counseling patient: Coding Level of Care Code 85494 Subseq Hosp Care Lvl 2 Diagnoses Proctocolitis K52.9 Dysarthria R47.1 Dysphagia R13.11 Dysphagia type: oral phase Closed T11 fracture S22.089D Encounter type: subsequent encounter Fracture morphology: unspecified fracture morphology Fracture healing: with routine healing Hypokalemia E87.6 Malnourished E46 Cellulitis L03.90 DVT prophylaxis Z29.9 (1) Dysphagia Dysphagia type: oral phase Qualified Code(s): R13.11 - Dysphagia, oral phase (2) Closed T11 fracture Encounter type: subsequent encounter Fracture morphology: unspecified f racture morphology Fracture healing: with routine healing Qualified Code(s): S22.089D - Unspecified fracture of T11-T12 vertebra, subsequent encounter for fracture with routine healing
[2020-04-27] MEDS ORDERED: CENTRAL PN IV SCH (16:00)
[2020-04-27] MEDS ORDERED: TPN IV SCH (16:00)
[2020-04-27] MEDS: FUROSEMIDE 60 MG in SYRINGE 0 ML IV SCH (16:33)
[2020-04-27] MEDS: DAPTOmycin 300 MG in SYRINGE 0 ML IV SCH (19:08)
[2020-04-28] MEDS: HEPARIN SODIUM (PORCINE) 7,500 UNITS in SYRINGE 0 ML SC SCH ×3 (00:10→16:23)
[2020-04-28] MEDS: metroNIDAZOLE 500 MG/100 ML BAG IV SCH (00:15)
[2020-04-28] MEDS: MoRPHine SULFATE 2 MG/ML CARP IV PRN ×5 (00:19→19:31)
[2020-04-28] MEDS: ALBUT/IPRATROP 3MG/0.5MG NEB 3 ML VIAL NEB SCH ×2 (07:21→19:19)
[2020-04-28] MEDS: FLUTICASONE/VILANTEROL 200/25MCG 14 PUFFS/INHALER INH SCH (09:35)
[2020-04-28] MEDS: NYSTATIN POWDER 15GM BTL EXT SCH ×2 (09:36→20:50)
[2020-04-28] MEDS: FUROSEMIDE 60 MG in SYRINGE 0 ML IV SCH ×2 (09:41→16:07)
[2020-04-28 09:43] LABS: BUN Creatinine Ratio 46.4 (10-20); Calcium 7.7 mg/dl (8.5-10.1); Creatinine Clr Calc Pharmacy 110.8 ml/min; Magnesium 1.9 mg/dl (1.8-2.4); Phosphorus 2.6 mg/dl (2.5-4.9); Potassium 3.5 mmol/L (3.5-5.1)
--- NOTE | 2020-04-28 11:01 | Hospitalist Progress Note ---
Date of Service April 28, 2020 Assessment & Plan (1) Proctocolitis: IV Flagyl for C. difficile (she cannot adequately swallow to take orally) completed Gastroenterology consult reviewed and appreciated. Repeat C diff continues to be positive for gene but not toxin - bowels have normalized, had one bm a day for the last two days Per GI, patient would not be a good candidate for colonoscopy and this was discussed by GI with patient and family (2) Dysarthria: Palliative consulted - has discussed hospice with patient's . He does not feel he can care for patient at home. Referrals to SNFs sent per CM note. Suspicion is that the patient's dysarthria, dysphagia, and progressive weakness are secondary to a progressive neurodegenerative disease such as bulbar ALS. Neurology consulted Patient to have nectar thick liquids per speech but taking in very poor po. I did discuss patient's case with Dr Sadler from neurology at [place] to discuss possibility of transfer 04/24. She did not feel there was workup that could be done at [place] that could not be done here other than inpatient EMG. She recommended myopathy workup and LP. Myopathy and neuropathy lab work wnl thus far, ADONAY panel pending Patient's family does not wish to look for another tertiary care center for transfer, they feel transfer would be too hard on the patient at this point Consulted anesthesia for lumbar puncture which was performed 04/26, initial results do not show signs of infection or elevated protein, further results pending Continue TPN - Continue IV lasix for fluid overload. Unable to place PICC as left arm did not have good access and right arm appears to have developed cellulitis. If cellulitis improving in a few days may be able to place. Patient's IJ needs to come out as soon as possible (3) Dysphagia: Speech consult appreciated Again suspect this is secondary to her underlying neurodegenerative process (4) Closed T11 fracture: Orthopedic consult appreciated - discussed with Dr. Patel and agree patient would be very high risk for a surgery. He sent her for a repeat CT 04/24 of her thoracic spine which was similar to previous (5) Hypokalemia: Resolved (6) Malnourished: Continue TPN as above NG placement was attempted earlier in her stay without success. (7) Cellulitis: right arm and right leg - improving US without dvt in either Continue IV daptomycin. Patient had positive MRSA nasal swab (8) DVT prophylaxis: Heparin Patient's prognosis is very poor and she is in a very difficult situation with her fracture and nutritional status. Disposition unknown, family would like results of LP before making decision to move toward hospice. Admission and Anticipated Discharge Date Admission Date: April 05, 2020 Subjective Ms. Roche continues to moan frequently and appear uncomfortable though she shakes her head no when I ask her if she is in pain. Pablo updated over the phone Physical Exam Physical Exam: General: no distress Eyes: normal inspection, PERLL Respiratory: chest non tender, clear to auscultation, normal breath sounds, no respiratory distress, no accessory muscle use Cardiac: regular rate and rhythm, no rub or gallop, no murmur, generalized edema trace to +1 pitting GI/: active bowel sounds, no abd pain or tenderness, soft, non distended Extremities: normal range of motion, normal strength, non tender Neuro/Psych: alert, non verbal, shakes head yes and no Skin: normal color, dry, right arm and leg erythema improving Results & Data Results & [facility] ([facility]) Vital Signs (Past 12 Hours) Vital Signs Temp Pulse Resp BP Pulse Ox 04/28/20 07:53 37.6 C H 95 H 23 145/70 H 94 04/28/20 07:32 101 H 20 95 PG Care Time/CCT Total # of Minutes Spent Total Time Spent with Patient: Total time spent is greater than 50% in coordination of care (as documented) at patient's floor/unit and/or counseling patient: Coding Level of Care Code 28454 Subseq Hosp Care Lvl 3 Diagnoses Proctocolitis K52.9 Dysarthria R47.1 Dysphagia R13.11 Dysphagia type: oral phase Closed T11 fracture S22.089D Encounter type: subsequent encounter Fracture morphology: unspecified fracture morphology Fracture healing: with routine healing Hypokalemia E87.6 Malnourished E46 Cellulitis L03.90 DVT prophylaxis Z29.9 (1) Dysphagia Dysphagia type: oral phase Qualified Code(s): R13.11 - Dysphagia, oral phase (2) Closed T11 fracture Encounter type: subsequent encounter Fracture morphology: unspecified fracture morphology Fracture healing: with routine healing Qualified Code(s): S22.089D - Unspecified fracture of T11-T12 vertebra, subsequent encounter for fracture with routine healing
[2020-04-28] MEDS ORDERED: CENTRAL PN IV SCH (16:00)
[2020-04-28] MEDS ORDERED: TPN IV SCH (16:00)
[2020-04-28] MEDS: DAPTOmycin 300 MG in SYRINGE 0 ML IV SCH (18:14)
[2020-04-28] MEDS: LIDOCAINE 5% 1 PATCH TD PRN (20:42)
[2020-04-28] MEDS: BENZOCAINE 20% AER SPR 82.5 GM CAN EXT PRN (22:17)
[2020-04-29] MEDS: HEPARIN SODIUM (PORCINE) 7,500 UNITS in SYRINGE 0 ML SC SCH ×4 (00:27→23:25)
[2020-04-29] MEDS: MICONAZOLE NITRATE POWDER 43 GM EXT PRN (00:31)
[2020-04-29] MEDS: MoRPHine SULFATE 2 MG/ML CARP IV PRN ×4 (00:34→22:40)
[2020-04-29] MEDS ORDERED: MoRPHine SULFATE 2 MG/ML CARP IV STA (06:06)
[2020-04-29 06:36] LABS: BUN Creatinine Ratio 54.5 (10-20); Calcium 7.5 mg/dl (8.5-10.1); Creatinine Clr Calc Pharmacy 133.8 ml/min; Est GFR (Non-African American) 100.1; Magnesium 1.6 mg/dl (1.8-2.4); Potassium 3.8 mmol/L (3.5-5.1)
[2020-04-29 06:37] LABS: Phosphorus 2.7 mg/dl (2.5-4.9)
[2020-04-29] MEDS: ALBUT/IPRATROP 3MG/0.5MG NEB 3 ML VIAL NEB SCH (07:28)
[2020-04-29] MEDS: FLUTICASONE/VILANTEROL 200/25MCG 14 PUFFS/INHALER INH SCH (08:09)
[2020-04-29] MEDS: FUROSEMIDE 60 MG in SYRINGE 0 ML IV SCH ×2 (08:09→16:15)
[2020-04-29] MEDS: NYSTATIN POWDER 15GM BTL EXT SCH ×2 (08:10→20:52)
[2020-04-29 08:31] LABS: Basophils # (auto) 0.02 K/uL (0-0.2); Basophils % (auto) 0.3 %; Eosinophils % (auto) 6.7 %; Hematocrit (blood only) 31.3 % (37-47); Hemoglobin 9.8 g/dL (12.0-16.0); Immature Granulocytes # (auto) 0.15 K/uL (0.00-0.02); Lymphocytes # (auto) 1.44 K/uL (1.2-3.4); Lymphocytes % (auto) 19.4 %; Mean Corpuscular Hemoglobin 29.8 pg (25-34); Mean Corpuscular Hgb Conc 31.3 g/dL (32-36); Mean Corpuscular Volume 95.1 fL (80-100); Mean Platelet Volume 8.9 fL (7.4-10.4); Monocytes # (auto) 1.47 K/uL (0.11-0.59); Monocytes % (auto) 19.8 %; Neutrophils # (auto) 3.86 K/uL (1.4-6.5); Neutrophils % (auto) 51.8 %; Platelet Count 325 K/uL (130-400); Red Blood Count 3.29 M/uL (4.2-5.4); White Blood Count 7.44 K/uL (4.8-10.8)
[2020-04-29] MEDS ORDERED: acetaZOLAMIDE 500 MG in SYRINGE 0 ML IV ONE (08:45)
[2020-04-29 09:02] LABS: Calcium 7.8 mg/dl (8.5-10.1); Creatinine Clr Calc Pharmacy 139.6 ml/min; Est GFR (African American) 117.6; Est GFR (Non-African American) 101.5; Potassium 3.9 mmol/L (3.5-5.1)
[2020-04-29] MEDS: MAGNESIUM SULFATE / D5W 1 GM/100 ML BAG IV SCH ×2 (09:22→10:47)
--- NOTE | 2020-04-29 15:37 | Hospitalist Progress Note ---
Date of Service April 29, 2020 Assessment & Plan (1) Proctocolitis: IV Flagyl for C. difficile (she cannot adequately swallow to take orally) completed Gastroenterology consult reviewed and appreciated. Repeat C diff continues to be positive for gene but not toxin - bowels have normalized, had one bm a day for the last few days Per GI, patient would not be a good candidate for colonoscopy and this was discussed by GI with patient and family (2) Dysarthria: Palliative consulted - has discussed hospice with patient's . He does not feel he can care for patient at home. Suspicion is that the patient's dysarthria, dysphagia, and progressive weakness are secondary to a progressive neurodegenerative disease such as bulbar ALS. Neurology consulted Patient to have nectar thick liquids per speech but taking in very poor po. I did discuss patient's case with Dr Sadler from neurology at [place] to discuss possibility of transfer 04/24. She did not feel there was workup that could be done at [place] that could not be done here other than inpatient EMG. She recommended myopathy workup and LP. Myopathy and neuropathy lab work wnl thus far, ADONAY panel pending Patient's family does not wish to look for another tertiary care center for transfer, they feel transfer would be too hard on the patient at this point Consulted anesthesia for lumbar puncture which was performed 04/26, initial results do not show signs of infection or elevated protein, further results pending (3) Dysphagia: Speech consult appreciated Again suspect this is secondary to her underlying neurodegenerative process (4) Closed T11 fracture: Orthopedic consult appreciated - discussed with Dr. Patel and agree patient would be very high risk for a surgery. He sent her for a repeat CT 04/24 of her thoracic spine which was similar to previous (5) Hypokalemia: Resolved (6) Malnourished: Continue TPN - unable to take in much po due to dysphagia Unable to place PICC as left arm did not have good access and right arm is being treated for cellulitis. If cellulitis improving in a few days may be able to place. Patient's IJ needs to come out as soon as possible as it was placed April 06 NG placement was attempted earlier in her stay without success. (7) Cellulitis: right arm and right leg - improving, less erythema and swelling today US without dvt in either Continue IV daptomycin. Patient had positive MRSA nasal swab (8) Generalized edema: Continue IV 60 mg IV lasix bid for fluid overload. Given one dose of Diamox 500 mg IV before Lasix this morning to help with increasing bicarb. Diuresing well but still positive 22,481 mls this hospital admission (9) DVT prophylaxis: Heparin Patient's prognosis is very poor and she is in a very difficult situation with her fracture and nutritional status. Disposition unknown, family would like results of LP before making decision to move toward hospice. It is very unlikely that we will find a result in her workup that will be reversible or treatable Updated Mr. Roche by phone Admission and Anticipated Discharge Date Admission Date: April 05, 2020 Subjective Ms. Roche continues to cry out and appear uncomfortable. She shook her head "no" when I asked if she was in pain. I did make out that she wants her which she nodded "yes" to when I asked if that was what she had said. I again tried to ask if she wants to continue being in the hospital receiving treatment and she shook her head no but when I asked if she wanted to go to a facility and change to focusing on comfort with hospice she looks distressed and shrugs. Physical Exam Physical Exam: General: no distress Eyes: normal inspection, PERLL Respiratory: chest non tender, clear to auscultation, normal breath sounds, no respiratory distress, no accessory muscle use Cardiac: regular rate and rhythm, no rub or gallop, no murmur, generalized pitting edema GI/: active bowel sounds, no abd pain or tenderness, soft, non distended Extremities: normal range of motion, normal strength, non tender Neuro/Psych: alert unable to verbalize orientation, anxious mood and affect Skin: normal color, dry Results & Data Results & Data ([facility]) Vital Signs (Past 12 Hours) Vital Signs Temp Pulse Resp BP Pulse Ox 04/29/20 07:28 98 H 18 96 04/29/20 07:07 37.2 C 99 H 20 126/77 95 PG Care Time/CCT Total # of Minutes Spent Total Time Spent with Patient: Total time spent is greater than 50% in coordination of care (as documented) at patient's floor/unit and/or counseling patient: Coding Level of Care Code 03761 Subseq Hosp Care Lvl 3 Diagnoses Proctocolitis K52.9 Dysarthria R47.1 Dysphagia R13.11 Dysphagia type: oral phase Closed T11 fracture S22.089D Encounter type: subsequent encounter Fracture morphology: unspecified fracture morphology Fracture healing: with routine healing Hypokalemia E87.6 Malnourished E46 Cellulitis L03.90 Generalized edema R60.1 DVT prophylaxis Z29.9 (1) Dysphagia Dysphagia type: oral phase Qualified Code(s): R13.11 - Dysphagia, oral phase (2) Closed T11 fracture Encounter type: subsequent encounter Fracture morphology: unspecified fracture morphology Fracture healing: with routine healing Qualified Code(s): S22.089D - Unspecified fracture of T11-T12 vertebra, subsequent encounter for fracture with routine healing
[2020-04-29] MEDS ORDERED: CENTRAL PN IV SCH (16:00)
[2020-04-29] MEDS ORDERED: TPN IV SCH (16:00)
[2020-04-29] MEDS: LORazepam 0.25 MG/0.5 ML VIAL IV PRN ×2 (16:15→23:20)
[2020-04-29 17:39] LABS: Anti Cardiolipin Ab IgG 22 GPL; Anti Cardiolipin Ab IgM 31 MPL; Anti Nuclear Antibody Screen NEGATIVE (NEGATIVE); Anti-Cardiolipin Ab IgA 32 APL; Anti-Centromere Ab <1.0 NEG AI (<1.0 NEG); Anti-SS-A <1.0 NEG AI (<1.0 NEG); Anti-SS-B <1.0 NEG AI (<1.0 NEG); Chromatin Antibody <1.0 NEG AI (<1.0 NEG); Complement C3 90 mg/dL (83-193); DNA ds Crithidia NEGATIVE (NEGATIVE); Microsomal Ab <1 IU/mL (<9); RNP Antibody <1.0 NEG AI (<1.0 NEG); Scleroderma Anti Scl-70 Ab <1.0 NEG AI (<1.0 NEG); Sm Antibody <1.0 NEG AI (<1.0 NEG)
[2020-04-29] MEDS: DAPTOmycin 300 MG in SYRINGE 0 ML IV SCH (18:42)
[2020-04-29] MEDS: BENZOCAINE 20% AER SPR 82.5 GM CAN EXT PRN ×2 (20:51→23:27)
[2020-04-30] MEDS: MICONAZOLE NITRATE POWDER 43 GM EXT PRN (05:26)
--- NOTE | 2020-04-30 06:46 | Communication Note ---
Date of Service: April 30, 2020 Labs unable to be drawn from triple lumen IJ. All three lumens able to be flushed without resistance, but 2x lumens without blood return. CXR ordered to verify placement.
[2020-04-30 08:16] LABS: BUN Creatinine Ratio 60.8 (10-20); Calcium 8.2 mg/dl (8.5-10.1); Creatinine Clr Calc Pharmacy 138.4 ml/min; Est GFR (African American) 118.5; Est GFR (Non-African American) 102.2; Potassium 3.6 mmol/L (3.5-5.1)
[2020-04-30 08:17] LABS: Phosphorus 2.7 mg/dl (2.5-4.9)
--- NOTE | 2020-04-30 08:27 | XRay Report ---
XR chest 1V portable HISTORY: confirm correct central line placement COMPARISON: Chest 04/17/2020. FINDINGS: Cardiomegaly, mild pulmonary edema, small bilateral pleural effusions, and bibasilar densit ies persist. Spinal fusion hardware again noted at the thoracolumbar region. Prior cholecystectomy. T here are low lung volumes. There is a left jugular central venous catheter with the tip terminating a t the brachiocephalic/SVC junction. The catheter appears looped at the entry point of the left neck b ase. No pneumothorax. IMPRESSION: 1. There is a left jugular central venous catheter with the tip terminating at the brachiocephalic/SV C junction. The catheter appears looped at the entry point of the left neck base. 2. No pneumothorax. 3. Mild pulmonary edema and small bilateral pleural effusions persist. ACT 112: Negative or not required by law. Electronically signed by: Eliseo Marroquin M.D. 04/30/2020 8:26 AM
[2020-04-30] MEDS: HEPARIN SODIUM (PORCINE) 7,500 UNITS in SYRINGE 0 ML SC SCH ×2 (09:42→17:53)
[2020-04-30] MEDS: FUROSEMIDE 60 MG in SYRINGE 0 ML IV SCH ×2 (09:42→17:37)
[2020-04-30] MEDS: NYSTATIN POWDER 15GM BTL EXT SCH ×2 (09:42→20:13)
[2020-04-30] MEDS: FLUTICASONE/VILANTEROL 200/25MCG 14 PUFFS/INHALER INH SCH (09:42)
[2020-04-30] MEDS: LORazepam 0.25 MG/0.5 ML VIAL IV PRN ×2 (11:09→17:36)
--- NOTE | 2020-04-30 13:17 | Hospitalist Progress Note ---
Date of Service April 30, 2020 Assessment & Plan (1) Proctocolitis: POA. Had septic shock 2nd to such. resolved. completed empiric Rx with IV flagyl for c. diff. (2) Fever: 2nd to RUE (and RLE) cellulitis. slowly resolving. cannot rule out that enterococcus in urine was contributing but less likely. remains on daptomcyin; day #1 was 04/26/20. I am concerned given how long the left IJ CVC has been in place that she could have DVT (and CVC is no longer drawing and looks looped on cxr). will obtain Left arm doppler to r/o VTE. (3) Lingual dysarthria: Etiology of her severe dysarthria, dysphagia, and progressive weakness is not fully certain. The leading dx per neurology, however, is a bulbar ALS. MRI brain recently did not show any acute or chronic stroke. Her symptoms dating back to January, as per family, do suggest a progressive neurodegenerative condition such as ALS or other. s/p LP last week to r/o subacute infectious process or MS as cause of symptoms. cell counts and total protein were normal. oligo-proteins are pending. Lyme is pending from CSF. She has had TPN much of her stay. She is massively anasarca, has cirrhosis, and despite being allowed a modified diet by speech is taking little to no PO nutrition. To survive / pursue aggressive care she would need PEG but she is extremely poor candidate for such. Spoke with Dr Meyers today who recommends transfer to tertiary care if family desires aggressive/ongoing routine care. (4) Dysphagia: severe per speech. nectar thick liquids. dysphagia likely 2nd to ?ALS? or other neurodegenerative d/o. for long-term survival would need PEG but very, very poor candidate for such. (5) Right sided weakness: 2nd to bulbar ALS? other? B12, CPK wnl. TSH mildly elevated but not high enough to explain her symptoms. Limited ability to make progress with PT/OT given T11 fracture. (6) Closed T11 fracture: Pt's son/ report she had had falls prior to admission. Likely 2nd to one of those falls. Very poor operative candidate. Recent dedicated T-spine imaging w/o change to the fracture. For pain control - lidoderm patch, morphine prn. (7) Unspecified cirrhosis of liver: Likely due to DOLAN. Ongoing significant volume overload. Cont IV lasix BID. Still +20 liters of fluid or more since admission w/ anasarca. (8) Obstructive sleep apnea syndrome: Cont HS BIPAP. (9) Asthma: Family confirms history of such. Nebs/MDI prn. Cont NC O2. (10) Hypervolemia: ongoing despite attempts at diuresis with lasix BID and prn diamox. (11) Morbid obesity with BMI of 45.0-49.9, adult: BMI 47.5 (12) Cellulitis: RUE/RLE - improving, s/p daptomycin. cont given the low-grade fevers. recent dopplers of right arm/leg w/o DVT. (13) Malnourished: cont TPN spoke with today - explained this is not a good long-term option would need enteral feedings via PEG but poor candidate for such will address with and son at same time (14) DVT prophylaxis: high risk of DVT in light of bedbound status and morbid obesity cont heparin 7500units TID updated 04/30/20 recommended family conference on 05/01 will attempt to telephone w/ them at 10am will ask Dr Castano, if available, to join if family wants aggressive care - would need PEG, back surgery, and tertiary care evaluation for ALS/other neurodegenerative disease best option is likely palliative care / hospice Admission and Anticipated Discharge Date Admission Date: April 05, 2020 Subjective even before entering room patient was moaning. upon entering patient again moaned. had eyes open and followed commands. severe dysarthria limits verbal communication but able to tell me back was hurting. she did not shake her head yes/no like on previous visits. staff report minimal po intake. Review of Systems Review of Systems: Other (severe dysarthria ) Physical Exam Constitutional: + acute distress (moaning - pain??) and + morbidly obese ENMT: Mouth: + dry oral mucous membranes Respiratory: no respiratory distress Auscultation: + diminished lung sounds (bases); no crackles and no wheezes Cardiovascular: Rate/Rhythm: regular rate and regular rhythm Heart Sounds: normal S1 and normal S2; no murmur Vessels: posterior tibial pulses present and dorsalis pedis pulses present; no JVD Extremities: + edema (severe; b/l legs; right arm, mild left arm) and + vascular access device (left IJ - insertion site clean) Gastrointestinal (Abdomen): Inspection/Auscultation: + abdomen distended and normal bowel sounds Percussion/Palpation: abdomen nontender, no guarding and no hepatosplenomegaly Skin: minimal dependent erythema of right forearm; minimal erythema of right maza; no erythema LUE or LLE Neurologic: severe dysarthria; right arm very weak; left arm 4/5 strength; right leg very weak; left leg 4/5; no facial droop Psychiatric: Orientation: alert Affect: + tearful affect Results & Data Results & Data ([facility]) Vital Signs (Past 12 Hours) Vital Signs Temp Pulse Pulse Resp BP Pulse Ox 04/30/20 07:44 37.5 C 99 H 16 131/72 91 04/30/20 03:20 99 H 28 H 90 Laboratory Results Laboratory Results - last 24 hr 04/25/20 04/30/20 12:40 07:13 Sodium 142 Potassium 3.6 Chloride 106 Carbon Dioxide 33 H Anion Gap 3.0 BUN 28 H Creatinine 0.45 L Est Cr Clr Drug Dosing 138.4 Est GFR ( Amer) 118.5 Est GFR (Non-Af Amer) 102.2 BUN/Creatinine Ratio 60.8 H Glucose 124 H Calcium 8.2 L Phosphorus 2.7 Magnesium 2.0 ADONAY Screen NEGATIVE SS-A/Ro Antibody <1.0 NEG SS-B/La Antibody <1.0 NEG Sm ([place]) Antibody <1.0 NEG BARREL REPAIRER Antibody <1.0 NEG Scl-70 Scleroderma Ab <1.0 NEG Anti-ds DNA (Crithidia) NEGATIVE Chromatin Antibody <1.0 NEG Anti-Centromere Ab <1.0 NEG Thyroid Antimicrosomal <1 Anti-Cardiolipin IgG Ab 22 H Anti-Cardiolipin IgA Ab 32 H Anti-Cardiolipin IgM Ab 31 H Complement C3 90 Complement C4 19 PG Care Time/CCT Total # of Minutes Spent Total Time Spent with Patient: Total time spent is greater than 50% in coordination of care (as documented) at patient's floor/unit and/or counseling patient: Coding Level of Care Code 21030 Subseq Hosp Care Lvl 3 Diagnoses Proctocolitis K52.9 Fever R50.9 Fever type: unspecified Lingual dysarthria R47.1 Dysphagia R13.11 Dysphagia type: oral phase Right sided weakness R53.1 Closed T11 fracture S22.089D Encounter type: subsequent encounter Fracture healing: with routine healing Fracture morphology: unspecified fracture morphology Unspecified cirrhosis of liver K74.69 Hepatic cirrhosis type: other cirrhosis Obstructive sleep apnea syndrome G47.33 Asthma J45.40 Asthma complication type: unspecified Asthma persistence: persistent Asthma severity: moderate Hypervolemia E87.70 Hypervolemia type: unspecified Morbid obesity with BMI of 45.0-49.9, adult E66.01; Z68.42 Cellulitis L03.113 Site of cellulitis: extremity Site of cellulitis of extremity: upper extremity Laterality: right Malnourished E43 Malnutrition type: protein-calorie malnutrition Protein-calorie malnutrition severity: severe DVT prophylaxis Z29.9 (1) Closed T11 fracture Encounter type: subsequent encounter Fracture healing: with routine healing Fracture morphology: unspecified fracture morphology Qualified Code(s): S22.089D - Unspecified fracture of T11-T12 vertebra, subsequent encounter for fracture with routine healing (2) Fever Fever type: unspecified Qualified Code(s): R50.9 - Fever, unspecified (3) Dysphagia Dysphagia type: oral phase Qualified Code(s): R13.11 - Dysphagia, oral phase (4) Unspecified cirrhosis of liver Hepatic cirrhosis type: other cirrhosis Qualified Code(s): K74.69 - Other cirrhosis of liver (5) Asthma Asthma complication type: unspecified Asthma persistence: persistent Asthma severity: moderate Qualified Code(s): J45.40 - Moderate persistent asthma, uncomplicated (6) Hypervolemia Hypervolemia type: unspecified Qualified Code(s): E87.70 - Fluid overload, unspecified (7) Cellulitis Site of cellulitis: extremity Site of cellulitis of extremity: upper extremity Laterality: right Qualified Code(s): L03.113 - Cellulitis of right upper limb (8) Malnourished Malnutrition type: protein-calorie malnutrition Protein-calorie malnutrition severity: severe Qualified Code(s): E43 - Unspecified severe protein-calorie malnutrition
[2020-04-30] MEDS: MoRPHine SULFATE 2 MG/ML CARP IV PRN ×3 (13:48→20:36)
[2020-04-30] MEDS ORDERED: TPN IV SCH (16:00)
[2020-04-30] MEDS ORDERED: CENTRAL PN IV SCH (16:00)
--- NOTE | 2020-04-30 17:19 | Neurology Progress Note ---
Date of Service April 30, 2020 Assessment & Plan (1) Pseudobulbar palsy: (2) Dysphagia: (3) Lingual dysarthria: Citlalli Roche is a 69 yo woman w/ PMH of anxiety/depression, CAD, hyperlipidemia, COPD, metabolic syndrome, GERD, hearing loss in the left ear, morbid obesity, TREVOR on CPAP, prediabetes, restrictive lung disease, history of impaired memory, hypertension, lumbar stenosis status post T11-L2 PLIF in December 2019 who presented to [facility] on 04/05/2020 with abdominal pain, diarrhea and hypotension, found to have proctocolitis, TOMMY, troponinemia and difficulties with speech presentation initially attributed to hypotension. Neurology initially consulted for AMS which has improved, with residual dysarthria, dysphagia and generalized weakness. # AMS: Suspect that this is multifactorial in the setting of recent septic shock, proctocolitis and multiple electrolyte abnormalities. She also has listed in her allergies hallucinations to narcotics which I am not sure how much this is actually contributing to her current picture. It is not clear that she actually had a stroke back in January because right-sided weakness and aphasia would actually localize to either the left MCA territory or the left thalamus, neither of which was noted to be abnormal on most recent MRI brain back in January, nor on the more recent MRI on 04/10/20. Avoid further opiates or benzos. Would consider starting low dose standing gabapentin (100mg bid, can go up to 300mg bid) or duloxetine 30mg daily for adjunct pain management Continue with delirium precautions, lights on during day, lights off during night, frequent reorientation # Dysarthria/dysphagia/weakness: She did see ENT in December 2019 for dysphonia attributed to a post-flu complication with a normal laryngoscopy at that time. Given the time course, cannot rule out ALS or other motor neuron disease, less likely [place] or autoimmune process. CSF showed 0 WBC, 2 RBCs, 66 glucose, 36 protein, MS panel pending. Autoimmune screen negative for ADONAY, SSA/SSB, anti-TPO antibodies, C3 90, C4 19, anticardiolipin antibodies mildly positive (IgG 22, IgA 32, IgM 31). - would recommend transfer to higher level of care for inpatient EMG and possible PEG tube/breathing evaluation if family would like to continue with full code/care going forward to determine underlying cause of symptoms and offer her the best treatment possible/family better information on prognosis Thank you for this interesting consult. Plan of care discussed with primary team. Please call or text with questions. (4) Closed T11 fracture: Admission and Anticipated Discharge Date Admission Date: April 05, 2020 Anticipated date of discharge: 04/08/20 Subjective NAEs overnight. Continues to have significant dysarthria and pseudobulbar affect. She intermittently endorses having pain in her back but it is not consistent. Denied any other complaints. Overall, since last time I saw her several weeks ago, she has lost significant body mass, however still do not note any fasciculations in her upper or lower extremities at this time. Review of Systems Review of Systems: Difficult to assess 2/2 dysarthria. No clear complaints at this time. Results & Data ([facility]) Vital Signs (Past 12 Hours) Vital Signs Temp Pulse Resp BP BP Pulse Ox 04/30/20 15:23 37.2 C 99 H 19 126/74 95 04/30/20 07:44 37.5 C 99 H 16 131/72 91 Exam (Neuro) Physical Exam: General Exam: GEN: NAD, lying in bed HEENT: No conjunctival injection, no rhinorrhea. CV: RRR, 1-2+ peripheral edema in bilateral hands/shins PULM: Nonlabored respirations on 1L NC Neuro Exam: MS: Awake, alert. Oriented to self only and had difficulty articulating answers to any other orientation questions. Speech was minimally fluent today, +dysarthria (borderline anarthria). She was able to name or repeat, + following commands. Unable to fully assess cognition and memory at this time given language impairment. Attention intact. No clear neglect. CN: Positive blink to threat bilaterally. Unable to perform fundoscopic exam secondary to patient closing eyes and noncompliance. No clear opsoclonus on examination today. PERRLA OU. EOMI in horizontal plane. Facial muscles full and symmetric. Hearing intact to conversation. No tongue fasciculations noted. MOTOR: Decreased muscle bulk and tone. All extremities antigravity with slow drift to bed (right weaker than left side of body). REFLEXES: 2+ at biceps, triceps, brachioradialis, trace patella and absent Achilles bilaterally. Flexor plantar responses bilaterally. SENSORY: Withdraws to noxious stimuli in all extremities COORDINATION: No clear ataxia or myoclonus noted on exam but she does not like to move her extremities much GAIT: Deferred given physical status and known spine fracture PG Care Time/CCT Total # of Minutes Spent Total Time Spent with Patient: Total time spent is greater than 50% in coordination of care (as documented) at patient's floor/unit and/or counseling patient: Coding Level of Care Code 54227 Subseq Hosp Care Lvl 3 Diagnoses Pseudobulbar palsy G12.29 Dysphagia R13.11 Dysphagia type: oral phase Lingual dysarthria R47.1 Closed T11 fracture S22.089D Encounter type: subsequent encounter Fracture morphology: unspecified fracture morphology Fracture healing: with routine healing (1) Dysphagia Dysphagia type: oral phase Qualified Code(s): R13.11 - Dysphagia, oral phase (2) Closed T11 fracture Encounter type: subsequent encounter Fracture morphology: unspecified fracture morphology Fracture healing: with routine healing Qualified Code(s): S22.089D - Unspecified fracture of T11-T12 vertebra, subsequent encounter for fracture with routine healing
[2020-04-30] MEDS: DAPTOmycin 300 MG in SYRINGE 0 ML IV SCH (20:13)
[2020-04-30] MEDS: BENZOCAINE 20% AER SPR 82.5 GM CAN EXT PRN (20:14)
[2020-05-01] MEDS: HEPARIN SODIUM (PORCINE) 7,500 UNITS in SYRINGE 0 ML SC SCH ×2 (01:25→08:42)
[2020-05-01] MEDS: MoRPHine SULFATE 2 MG/ML CARP IV PRN ×4 (03:48→20:35)
[2020-05-01 06:32] LABS: BUN Creatinine Ratio 70.3 (10-20); Calcium 7.8 mg/dl (8.5-10.1); Creatinine Clr Calc Pharmacy 151.9 ml/min; Est GFR (African American) 122.2; Est GFR (Non-African American) 105.4; Potassium 3.7 mmol/L (3.5-5.1)
--- NOTE | 2020-05-01 06:40 | Ultrasound Report ---
US venous doppler UE LT HISTORY: Pain. Edema. left IJ CVC; swelling arm; eval DVT left arm/neck COMPARISON STUDY: None. FINDINGS: The internal jugular vein is patent. There is normal flow within the subclavian vein. There is normal flow and compressibility within the left axillary, basilic, brachial, radial, ulnar, and v isualized cephalic veins. IMPRESSION: No DVT within the upper extremity. ACT 112: Negative or not required by law. The above report was generated using voice recognition software. It may contain grammatical, syntax or spelling errors. Electronically signed by: Melecio Johnson M.D. 05/01/2020 6:39 AM
[2020-05-01] MEDS: FLUTICASONE/VILANTEROL 200/25MCG 14 PUFFS/INHALER INH SCH (08:42)
[2020-05-01] MEDS: FUROSEMIDE 60 MG in SYRINGE 0 ML IV SCH ×2 (08:43→18:04)
--- NOTE | 2020-05-01 10:19 | Hospitalist Progress Note ---
Date of Service May 01, 2020 Assessment & Plan (1) Lingual dysarthria: Etiology of her severe dysarthria, dysphagia, and progressive weakness is not fully certain but thought to be due to bulbar ALS. MRI brain recently did not show any acute or chronic stroke. Her symptoms dating back to January, as per family, do suggest a progressive neurodegenerative condition such as ALS or other. s/p LP last week to r/o subacute infectious process or MS as cause of symptoms. cell counts and total protein were normal. oligo-proteins are pending. Lyme is negative from CSF. She has had TPN much of her stay. She is massively anasarca, has cirrhosis, and despite being allowed a modified diet by speech is taking little to no PO nutrition. To survive / pursue aggressive care she would need PEG but she is extremely poor candidate for such. see discussion below. (2) Fever: suspected 2nd to RUE (and RLE) cellulitis. cannot rule out that enterococcus in urine was contributing but less likely. remains on daptomcyin; day #1 was 04/26/20. Left arm doppler to r/o VTE was negative. since transitioning to [facility] care pathway will stop IV abx today. (3) Dysphagia: severe per speech. nectar thick liquids. dysphagia likely 2nd to ?ALS? or other neurodegenerative d/o. for long-term survival would need PEG but very, very poor candidate for such. (4) Right sided weakness: 2nd to bulbar ALS? other? B12, CPK wnl. TSH mildly elevated but not high enough to explain her symptoms. Limited ability to make progress with PT/OT given T11 fracture. (5) Closed T11 fracture: Pt's son/ report she had had falls prior to admission. Likely 2nd to one of those falls. Very poor operative candidate. Cont lidoderm patch, morphine prn. (6) Unspecified cirrhosis of liver: Likely due to DOLAN. Ongoing significant volume overload despite 2+ weeks of IV lasix and IV diamox. Still +20 liters of fluid or more since admission w/ anasarca. (7) Obstructive sleep apnea syndrome: Cont HS BIPAP. (8) Asthma: no exacerbation (9) Hypervolemia: ongoing despite attempts at diuresis with lasix BID and prn diamox. (10) Morbid obesity with BMI of 45.0-49.9, adult: BMI 47.7 (11) Cellulitis: RUE/RLE - resolved (12) Malnourished: ongoing and has worsened despite weeks of TPN usage stop TPN today allow comfort diet (13) Proctocolitis: POA. Had septic shock 2nd to such. resolved. completed empiric Rx with IV flagyl for c. diff. (14) DVT prophylaxis: stopping chemical DVT proph today due to transition to comfort care family conference today by phone with son Pablo Corado and Pablo Osei - this lasted [address] Castano from palliative care joined the conference as well discussed the following - worsening deconditioning; high concern for ALS; need for PEG; need for removal of left IJ if aggressive care is wanted; need for thoracic back surgery; poor oral intake; pain; volume overload; cirrhosis; patient's repeated desire to return home discussed options for care - aggressive care (PEG placement, back surgery, referral to tertiary care for additional testing to rule out ALS and other conditions) vs transition to palliative care discussed code status - changed her status from full code to DNR/DNI discussed options for patient if comfort is chosen - home w/ hospice vs SNF vs remaining hospitalized near end of phone call Pablo Corado - son - stated "we made up our minds- just stop everything and make her comfortable" Dr Castano told son/ she likely has 2-3 weeks to live /son requested [employer]ae[employer] drywall finisher to pray with patient stated he would come in tomorrow to visit patient code status changed spoke with pharmacy - d/c TPN comfort care orders placed stop IV abx total time today - 65 min including conference call, bedside visit, calls to pharmacy and palliative care, orders, etc Admission and Anticipated Discharge Date Admission Date: April 05, 2020 Subjective patient awake during bedside rounds. moaning frequently and crying during the visit. when asked to shake head yes/no to questions she will do so. denied pain in back today. when asked if she missed she shook her head yes. when asked if she wanted to go home she shook her head yes. denied abd pain or chest pain. staff report scant PO intake - typically refuses meals - only taking 2-3 spoonfuls of sherbet per meal at most. lengthy phone call had with pt's son and along with Dr Castano - see a/p for details. Review of Systems Review of Systems: Unobtainable due to endotracheal tube very challenging to obtain rOS 2ND TO SEVERE dysarthria Physical Exam Constitutional: + acute distress (moaning - pain??) and + morbidly obese ENMT: Mouth: + dry oral mucous membranes Respiratory: no respiratory distress Auscultation: + diminished lung sounds (bases); no crackles and no wheezes Cardiovascular: Rate/Rhythm: regular rate and regular rhythm Heart Sounds: normal S1 and normal S2; no murmur Vessels: posterior tibial pulses present and dorsalis pedis pulses present; no JVD Extremities: + edema (severe; all 4 limbs) and + vascular access device (left IJ - insertion site clean) Gastrointestinal (Abdomen): Inspection/Auscultation: + abdomen distended and normal bowel sounds Percussion/Palpation: abdomen nontender, no guarding and no hepatosplenomegaly Skin: no rashes, warm and dry Neurologic: Speech / Cognition: + abnormal speech (Severe dysarthria ) Psychiatric: Orientation: alert Affect: + tearful affect Results & Data Results & Data ([facility]) Vital Signs (Past 12 Hours) Vital Signs Temp Pulse Pulse Pulse Resp BP Pulse Ox 05/01/20 06:59 37.1 C 97 H 20 114/69 93 05/01/20 03:28 97 H 18 93 05/01/20 01:23 37.7 C H 99 H 18 108/62 91 04/30/20 23:17 101 H 18 93 Laboratory Results Laboratory Results - last 24 hr 05/01/20 05:27 Sodium 146 H Potassium 3.7 Chloride 108 H Carbon Dioxide 36 H Anion Gap 2.0 L BUN 29 H Creatinine 0.41 L Est Cr Clr Drug Dosing 151.9 Est GFR ( Amer) 122.2 Est GFR (Non-Af Amer) 105.4 BUN/Creatinine Ratio 70.3 H Glucose 120 H Calcium 7.8 L PG Care Time/CCT Total # of Minutes Spent Total Time Spent with Patient: Total time spent is greater than 50% in coordination of care (as documented) at patient's floor/unit and/or counseling patient: Prolonged Care Time Prolonged Care Time: Yes 65 min Coding Level of Care Code 87518 Subseq Hosp Care Lvl 3 (25 - SIGNIFICANT, SEPARATELY IDENTIFIABLE ) Diagnoses Lingual dysarthria R47.1 Fever R50.9 Fever type: unspecified Dysphagia R13.11 Dysphagia type: oral phase Right sided weakness R53.1 Closed T11 fracture S22.089D Encounter type: subsequent encounter Fracture healing: with routine healing Fracture morphology: unspecified fracture morphology Unspecified cirrhosis of liver K74.69 Hepatic cirrhosis type: other cirrhosis Obstructive sleep apnea syndrome G47.33 Asthma J45.40 Asthma complication type: unspecified Asthma persistence: persistent Asthma severity: moderate Hypervolemia E87.70 Hypervolemia type: unspecified Morbid obesity with BMI of 45.0-49.9, adult E66.01; Z68.42 Cellulitis L03.113 Laterality: right Site of cellulitis: extremity Site of cellulitis of extremity: upper extremity Malnourished E43 Malnutrition type: protein-calorie malnutrition Protein-calorie malnutrition severity: severe Proctocolitis K52.9 DVT prophylaxis Z29.9 Additional Codes Prolonged Care Time - Prolonged Care Time: Yes ([id number]) (1) Closed T11 fracture Encounter type: subsequent encounter Fracture healing: with routine healing Fracture morphology: unspecified fracture morphology Qualified Code(s): S22.089D - Unspecified fracture of T11-T12 vertebra, subsequent encounter for fracture with routine healing (2) Fever Fever type: unspecified Qualified Code(s): R50.9 - Fever, unspecified (3) Cellulitis Laterality: right Site of cellulitis: extremity Site of cellulitis of extremity: upper extremity Qualified Code(s): L03.113 - Cellulitis of right upper limb (4) Dysphagia Dysphagia type: oral phase Qualified Code(s): R13.11 - Dysphagia, oral phase (5) Unspecified cirrhosis of liver Hepatic cirrhosis type: other cirrhosis Qualified Code(s): K74.69 - Other cirrhosis of liver (6) Malnourished Malnutrition type: protein-calorie malnutrition Protein-calorie malnutrition severity: severe Qualified Code(s): E43 - Unspecified severe protein-calorie malnutrition (7) Asthma Asthma complication type: unspecified Asthma persistence: persistent Asthma severity: moderate Qualified Code(s): J45.40 - Moderate persistent asthma, uncomplicated (8) Hypervolemia Hypervolemia type: unspecified Qualified Code(s): E87.70 - Fluid overload, unspecified
[2020-05-01] MEDS: NYSTATIN POWDER 15GM BTL EXT SCH ×2 (13:31→21:52)
--- NOTE | 2020-05-01 16:09 | Palliative Care Progress Note ---
Date of Service May 01, 2020 Assessment & Plan (1) Goals of care, counseling/discussion: Goals of care, counseling/discussion: -69 year old female patient with PMH CAD, COPD, Depression, HTN, obstructive lung disease, morbid obesity, episode of aphasia and right sided weakness back in January/February, but MRI in ED at the time was negative, and others, presented to the hospital on 04/05 with increased abdominal pain and weakness. Patient reported that she had ongoing diarrhea at home. In ED, she was hypotensive, tachycardic, and oxygenating well on room air. She was given fluid boluses and admitted. Patient unfortunately had ongoing hypotension, lactic acidosis, and progressive renal failure. She was transferred to the ICU for septic shock likely due to bacterial translocation from recent disimpaction and colonic distention. CT scan on 04/05 concerning for progression of the distal proctocolitis, possibly representing an infectious or inflammatory process. She also has fluid-filled borderline distended loops of large and small bowel, this may represent an ileus or diarrheal illness or a low-grade partial large bowel obstruction due to the thickened distal sigmoid colon/rectum could also have a similar appearance. Patient was also noted to have an unstable thoracic spine fr acture. Ortho consulted who stated to strictly log roll patient-- fracture is unstable and likely would require surgery but she is not a surgical candidate. -Conference call this a.m. with patient's and son along with - agreed to changing CODE STATUS to DNR, change goals of care to comfort measures only. -Patient seen this afternoon. Continues to moan when trying to speak. 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 -Spoke with patient's regarding goals of care- and son agreed to comfort measures and be allowed to pass in the hospital. Patient is unstable for transfer due to her unstable T-spine fracture, family unable to care for pat ient at home with hospice. -We will continue to follow and provide support to patient's family. (2) Pseudobulbar palsy: (3) Dysphagia: (4) Expressive aphasia: Subjective Participated in conference call with patient's Pablo and son Pablo Lehman as well as attending physician Dr. Amaro. Discussed patient's current condition, multiple medical problems in detail as well as prognosis. At the end of the conversation, family agreed to make patient comfort measures only, stopping antibiotics. Total time on the phone was 32 minutes Patient seen and examined, no family at bedside. Patient did indicate she was having some pain by nodding yes. Did inform patient that family plans to visit- unable to come until , 05/03. Review of Systems Review of Systems: Unobtainable due to cognitive status Physical Exam Physical Exam: PE: Patient awake, alert, moaning on exam-patient unable to speak, no longer attempting to speak. HEENT: EOMI, hearing within normal limits Respirations: Unlabored, no rhonchi CV: Regular rate, increasing edema lower extremities as well as upper extremities Abdomen: Soft, nontender to palpation Neuro: Awake, appears to comprehend at times Results & Data Vital Signs (Past 12 Hours) Vital Signs Temp Pulse Resp BP Pulse Ox 05/01/20 06:59 98.8 F 97 H 20 114/69 93 PG Care Time/CCT Total # of Minutes Spent Total Time Spent with Patient: Total time spent 55 minutes with greater than 50% of the time spent at patient's bedside assessing her comfort level as well as on conference call with family and attending physician discussing prognosis, CODE STATUS and goals of care. Coding Level of Care Code 72470 Subseq Hosp Care Lvl 3 Diagnoses Goals of care, counseling/discussion Z71.89 Pseudobulbar palsy G12.29 Dysphagia R13.11 Dysphagia type: oral phase Expressive aphasia R47.01 Time Spent (min) 55 (1) Dysphagia Dysphagia type: oral phase Qualified Code(s): R13.11 - Dysphagia, oral phase
[2020-05-01] MEDS: MICONAZOLE NITRATE POWDER 43 GM EXT PRN (20:36)
[2020-05-01] MEDS: LORazepam 0.25 MG/0.5 ML VIAL IV PRN (20:36)
[2020-05-01 23:10] LABS: Lyme IgG Band Pattern CSF DNR; Lyme IgG CSF NO BANDS DETECTED; Lyme IgM Band Pattern CSF DNR; Lyme IgM CSF NO BANDS DETECTED
[2020-05-02] MEDS: MoRPHine SULFATE 2 MG/ML CARP IV PRN ×4 (03:24→17:11)
[2020-05-02] MEDS: LORazepam 0.25 MG/0.5 ML VIAL IV PRN ×4 (03:24→17:24)
[2020-05-02] MEDS: FLUTICASONE/VILANTEROL 200/25MCG 14 PUFFS/INHALER INH SCH (10:36)
[2020-05-02] MEDS: FUROSEMIDE 60 MG in SYRINGE 0 ML IV SCH (11:06)
[2020-05-02] MEDS: MICONAZOLE NITRATE POWDER 43 GM EXT PRN (11:08)
[2020-05-02] MEDS: NYSTATIN POWDER 15GM BTL EXT SCH (11:09)
--- NOTE | 2020-05-02 11:35 | Hospitalist Progress Note ---
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 MRI brain recently did not show any acute or chronic stroke. Her symptoms dating back to January, as per family, do suggest a progressive neurodegenerative condition such as ALS or other. s/p LP last week to r/o subacute infectious process or MS as cause of symptoms. cell counts and total protein were normal. oligo-proteins are pending. Lyme is negative from CSF. She has had TPN much of her stay. She is massively anasarca, has cirrhosis, and despite being allowed a modified diet by speech is taking little to no PO nutrition. To survive / pursue aggressive care she would need PEG but she is extremely poor candidate for such. see discussion below. (2) Fever: suspected 2nd to RUE (and RLE) cellulitis. cannot rule out that enterococcus in urine was contributing but less likely. remains on daptomcyin; day #1 was 04/26/20. Left arm doppler to r/o VTE was negative. since transitioning to [facility] care pathway will stop IV abx today. (3) Dysphagia: severe per speech. nectar thick liquids. dysphagia likely 2nd to ?ALS? or other neurodegenerative d/o. for long-term survival would need PEG but very, very poor candidate for such. (4) Right sided weakness: 2nd to bulbar ALS? other? B12, CPK wnl. TSH mildly elevated but not high enough to explain her symptoms. Limited ability to make progress with PT/OT given T11 fracture. (5) Closed T11 fracture: Pt's son/ report she had had falls prior to admission. Likely 2nd to one of those falls. Very poor operative candidate. Cont lidoderm patch, morphine prn. (6) Unspecified cirrhosis of liver: Likely due to DOLAN. Ongoing significant volume overload despite 2+ weeks of IV lasix and IV diamox. Still +20 liters of fluid or more since admission w/ anasarca. (7) Obstructive sleep apnea syndrome: Cont HS BIPAP. (8) Asthma: no exacerbation (9) Hypervolemia: ongoing despite attempts at diuresis with lasix BID and prn diamox. (10) Morbid obesity with BMI of 45.0-49.9, adult: BMI 47.7 (11) Cellulitis: RUE/RLE - resolved (12) Malnourished: ongoing and has worsened despite weeks of TPN usage stop TPN today allow comfort diet (13) Proctocolitis: POA. Had septic shock 2nd to such. resolved. completed empiric Rx with IV flagyl for c. diff. (14) DVT prophylaxis: stopping chemical DVT proph today due to transition to comfort care family conference today by phone with son Pabol Corado and Pablo Osei - this lasted [address] Castano from palliative care joined the conference as well discussed the following - worsening deconditioning; high concern for ALS; need for PEG; need for removal of left IJ if aggressive care is wanted; need for thoracic back surgery; poor oral intake; pain; volume overload; cirrhosis; patient's repeated desire to return home discussed options for care - aggressive care (PEG placement, back surgery, referral to tertiary care for additional testing to rule out ALS and other conditions) vs transition to palliative care discussed code status - changed her status from full code to DNR/DNI discussed options for patient if comfort is chosen - home w/ hospice vs SNF vs remaining hospitalized near end of phone call Pablo Corado - son - stated "we made up our minds- just stop everything and make her comfortable" Dr Castano told son/ she likely has 2-3 weeks to live /son requested [facility] lead consultant to pray with patient stated he would come in tomorrow to visit patient code status changed spoke with pharmacy - d/c TPN comfort care orders placed stop IV abx total time today - 65 min including conference call, bedside visit, calls to pharmacy and palliative care, orders, etc Admission and Anticipated Discharge Date Admission Date: April 05, 2020 PG Care Time/CCT Total # of Minutes Spent Total Time Spent with Patient: Total time spent is greater than 50% in coordination of care (as documented) at patient's floor/unit and/or counseling patient: Coding Diagnoses Lingual dysarthria R47.1 Fever R50.9 Fever type: unspecified Dysphagia R13.11 Dysphagia type: oral phase Right sided weakness R53.1 Closed T11 fracture S22.089D Encounter type: subsequent encounter Fracture morphology: unspecified fracture morphology Fracture healing: with routine healing Unspecified cirrhosis of liver K74.69 Hepatic cirrhosis type: other cirrhosis Obstructive sleep apnea syndrome G47.33 Asthma J45.40 Asthma severity: moderate Asthma persistence: persistent Asthma complication type: unspecified Hypervolemia E87.70 Hypervolemia type: unspecified Morbid obesity with BMI of 45.0-49.9, adult E66.01; Z68.42 Cellulitis L03.113 Site of cellulitis: extremity Site of cellulitis of extremity: upper extremity Laterality: right Malnourished E43 Malnutrition type: protein-calorie malnutrition Protein-calorie malnutrition severity: severe Proctocolitis K52.9 DVT prophylaxis Z29.9 (1) Fever Fever type: unspecified Qualified Code(s): R50.9 - Fever, unspecified (2) Dysphagia Dysphagia type: oral phase Qualified Code(s): R13.11 - Dysphagia, oral phase (3) Closed T11 fracture Encounter type: subsequent encounter Fracture morphology: unspecified fracture morphology Fracture healing: with routine healing Qualified Code(s): S22.089D - Unspecified fracture of T11-T12 vertebra, subsequent encounter for fracture with routine healing (4) Unspecified cirrhosis of liver Hepatic cirrhosis type: other cirrhosis Qualified Code(s): K74.69 - Other cirrhosis of liver (5) Asthma Asthma severity: moderate Asthma persistence: persistent Asthma complication type: unspecified Qualified Code(s): J45.40 - Moderate persistent asthma, uncomplicated (6) Hypervolemia Hypervolemia type: unspecified Qualified Code(s): E87.70 - Fluid overload, unspecified (7) Cellulitis Site of cellulitis: extremity Site of cellulitis of extremity: upper extremity Laterality: right Qualified Code(s): L03.113 - Cellulitis of right upper limb (8) Malnourished Malnutrition type: protein-calorie malnutrition Protein-calorie malnutrition severity: severe Qualified Code(s): E43 - Unspecified severe protein-calorie malnutrition
--- NOTE | 2020-05-02 18:30 | Discharge Summary ---
Date of Service date of admission - April 05, 2020 date of discharge - May 02, 2020 Admission HPI Per Admitting Provider Citlalli Roche is a 69yo C female with history of CAD, COPD, Depression, HTN. She was seen in the ER yesterday with complaint of constipation x 7-8 days with abdominal pain. CT of the abdomen was performed which revealed rectal fecal impaction with mild perirectal infiltrative change suggesting proctitis. Patient had rectal disimpaction performed. Noted to have nonbleeding hemorrhoids, no melena or hematochezia. She was treated with and enema, Lactulose, Senna/Docusate with successful BM and discharged home in stable condition. She returns to the ER today with complaint of abdominal pain and weakness since yesterday. She has had continuous diarrhea at home. In the ER the patient was afebrile, tachycardic (94-110), significantly hypotensive with BP ranging 63-103/42-59, adequate oxygenation on room air She was administered NSS x 4L bolus with improvement in blood pressure ER Course: Tylenol, NSS x 4L bolus, Zosyn 4.5gm Principal Diagnosis 1. septic shock 2nd to proctocolitis 2. suspected ALS Discharge Exam Constitutional + acute distress (moaning, crying) and + morbidly obese ENMT Mouth: + dry oral mucous membranes Respiratory no respiratory distress Cardiovascular Extremities: + edema (severe b/l legs - 3+ pitting edema to the thighs; mild dependent edema arms) and + vascular access device (left IJ - insertion site clean) Gastrointestinal (Abdomen) Inspection/Auscultation: + abdomen distended Skin no rashes, warm and dry Neurologic + focal motor deficit (RUE/RLE) Speech / Cognition: + abnormal speech (Severe dysarthria ) Psychiatric Orientation: alert Affect: + tearful affect Discharge Data Allergies Allergy/AdvReac Type Severity Reaction Status Date / Time metformin AdvReac Intermediate DIARRHEA Verified 04/05/20 16:46 oxycodone AdvReac Intermediate GI Verified 04/05/20 16:46 SYMPTOMS, DISORIENTATION ampicillin AdvReac Mild Nausea/vomi Verified 04/05/20 16:46 ting codeine AdvReac Mild NAUSEA Verified 04/05/20 16:46 gabapentin AdvReac Mild DIZZINESS, Verified 04/05/20 16:46 FIDGETY hydrocodone AdvReac Mild "MADE ME Verified 04/05/20 16:46 FEEL WEIRD" lorazepam AdvReac Mild DIZZY Verified 04/05/20 16:46 lovastatin AdvReac Mild WASN'T Verified 04/05/20 16:46 EFFECTIVE meloxicam AdvReac Mild DIZZINESS Verified 04/05/20 16:46 propoxyphene AdvReac Mild NAUSEA Verified 04/05/20 16:46 tramadol AdvReac Mild GI SYMPTOMS Verified 04/05/20 16:46 narcotics AdvReac Mild Hallucinati Uncoded 04/05/20 16:46 ng Consultations 04/05/20 17:45 ED Decision to Admit Stat 04/06/20 06:05 Consult General Surgery Stat 04/06/20 08:09 Consult Sulfonator Operator Stat 04/07/20 06:04 Consult Orthopedic Surgery Routine 04/08/20 19:45 Consult Neurology Routine 04/10/20 11:52 Consult Palliative Care Routine 04/19/20 08:56 Consult Gastroenterology Routine 04/25/20 13:11 Consult Anesthesiology Routine PT, OT, speech therapy Hospice Agency Procedures Performed Operation Date: 04/26/20 08:30 Actual Procedures p Lumbar Puncture - Eliseo Wills MD Left IJ CVC Ordered Studies 04/05/20 17:06 CT abd pelvis wo con Stat 04/06/20 19:04 CT abd pelvis oral and IV con Urgent 04/07/20 09:35 CT thoracic spine wo con Routine 04/09/20 17:36 CT head/brain wo con Stat 04/10/20 08:12 MR brain wo con Routine 04/11/20 12:25 CT abd pelvis IV con only Routine 04/14/20 06:22 US venous doppler LE BI Urgent 04/15/20 13:56 CT chest w con Routine 04/16/20 10:34 CT cervical spine wo con Routine 04/17/20 18:16 CT abd pelvis IV con only Urgent 04/24/20 13:03 CT soft tissue neck wo con Routine 04/24/20 13:45 CT thoracic spine wo con Routine 04/27/20 12:01 US venous doppler LE RT Routine US venous doppler UE RT Routine 04/30/20 17:34 US venous doppler UE LT Urgent Hospital Course (1) Septic shock: 2nd to proctocolitis at time of admission. Resulted in need for central line placement, aggressive fluid resuscitation, pressor agents, and ICU stay. Resolved with the above measures. Exact etiology of the proctocolitis was undetermined. She received broad-spectrum IV antibiotics while in ICU. These were ultimately deescalated. A course of IV flagyl was ultimately employed to treat empirically for c.difff infection as repeat CTs later in her stay continued to show colitis. (2) Proctocolitis: POA. Had septic shock 2nd to such. resolved. completed empiric Rx with IV flagyl for possible c. diff although she never had a positive c.diff toxin. 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 MRI brain recently did not show any acute or chronic stroke. Her symptoms dated back to January, perhaps earlier as per family, suggesting a progressive neurodegenerative condition such as ALS or other. s/p LP this admission to rule out subacute infectious process or MS as cause of symptoms. cell counts and total protein were normal. oligo-proteins are pending to rule out MS. Lyme was negative from CSF. She had TPN much of her stay. She had massive anasarca in the setting of cirrhosis and, despite being allowed a modified diet by speech, took little to no PO nutrition. To survive / pursue aggressive care she would have needed PEG tube placement but she was an extremely poor candidate for such. PEG tube placement was not pursued. See discussion below regarding transitioning to comfort care measures. (4) Fever: [place] through her stay and also in the days leading up to her transition to comfort care she had low-grade fevers. Initially it was thought 2nd to ongoing proctocolitis. Later it was possibly due to VRE UTI and/or cellulitis of the right arm and right leg. Despite adequate treatment of UTI and cellulitis she still had fevers. Dopplers of all limbs failed to show DVT. Antibiotics were stopped after she transitioned to comfort care pathway. (5) Dysphagia: severe per speech. nectar thick liquids advised. dysphagia likely 2nd to ?ALS? or other neurodegenerative d/o. despite being allowed thickened liquids and a diet she took little to no nutrition day to day. received TPN much of her stay. for long-term survival would have needed PEG tube placement but very, very poor candidate for such and thus it was not pursued. (6) Right sided weakness: thought 2nd to suspected bulbar ALS. Weakness was most pronounced in the right arm followed by the right leg. Present for months. MRI without stroke. LP unremarkable. B12, CPK wnl. TSH mildly elevated but not high enough to explain her symptoms. Limited ability to make progress with PT/OT given T11 fracture. (7) Closed T11 fracture: Pt's son/ reported she had had falls prior to admission. Likely 2nd to one of those falls. Seen by orthopedics. Surgery advised. However, she was an extremely poor operative candidate. As her hospitalization ensued and as her problems mounted it became clear that pursuing operative treatment of the fracture would be quite risky. Cont lidoderm patch, morphine prn pain. (8) Unspecified cirrhosis of liver: Likely due to DOLAN. Ongoing significant volume overload despite 2+ weeks of IV lasix and IV diamox. Still +20 liters of fluid or more since admission w/ anasarca. (9) Obstructive sleep apnea syndrome: Used HS BIPAP while here (10) Asthma: no exacerbation during the hospitalization (11) Hypervolemia: ongoing throughout much of the stay despite attempts at diuresis with lasix BID and prn diamox. (12) Morbid obesity with BMI of 45.0-49.9, adult: BMI 47.7 (13) Cellulitis: RUE/RLE - resolved (14) Malnourished: worsened over her stay despite weeks of TPN usage allowed to take PO nutrition but amount consumed was minimal and not enough to maintain proper caloric needs (15) Palliative care patient: multiple discussions were held with the patient's and son by the hospitalist team and the palliative care team regarding her poor prognosis. it was felt that in order for her to survive she would need PEG tube placement along with the T11 fracture surgery. However, she was a poor candidate for either procedure given massive volume overload/anasarca, ongoing fevers, and extreme deconditioning all in the context of suspected ALS or some other neurodegenerative condition. On 05/01/20 the patient was made a DNR, and comfort care measures/palliative care were instituted at that time. On 05/02/20 a [id number] meeting was held with the patient, her 2 sons, her , case management, and the hospitalist attending to discuss her care & disposition. On 05/02/20 a hospice agency was asked to evaluate her candidacy for inpatient hospice status. This was granted late in the day on 05/02/20. thus, on 05/02/20, the patient was admitted to inpatient hospice status at [facility] for treatment of her symptoms and palliation. Total Time Total Time Spent Total Time Spent (In Minutes): 60 Total Time Includes: Examination of the Patient, Discharge Planning, Medication Reconciliation and Communication With Other Providers Discharge Plan Discharge Items Patient Disposition: Hospice - Medical Facility Reason For Visit: HYPOTENSION Discharge Diagnosis: 1. high suspicion of ALS 2. volume overload 3. cirrhosis 4. septic shock due to proctocolitis - resolved 5. severe dysphagia and dysarthria due to #1 6. transition to comfort care and hospice Activity: As commented below Activity Comment: bed rest Non-emergency contact: Primary Care Provider Call non-emergency contact if: your pain is not controlled and your pain is worsening Follow-up/Referrals: Za Gee MD [Primary Care Provider] - Diet: Regular Diet Texture: Easy to Chew Liquid Consistency: Thruston thick Addtl Attending Provider Instructions: transitioning to inpatient hospice status ("GIP") Pending Studies at Discharge: Yes Studies:: CSF studies Stand-Alone Forms: My [facility] Skilled Items Patient informed of condition?: Yes DNR: Yes Discharge Level of Care: Other Communicable Disease: Yes Discharge Prognosis: Deteriorating Lines: Saline Lock Urinary Catheter: Yes Medications and DC Order Prescriptions: Continued (DME) nebulizer accessories Kit See Rx Instructions .ROUTE .MEDSUPPLY Qty: 1 RF: 0 nystatin 100,000 unit/gram powder 1 appln TOP BID Qty: 60 RF: 0 (DME) Hospital Bed Misc See Rx Instructions .ROUTE .MEDSUPPLY Qty: 1 RF: 0 lidocaine [Lidoderm] 5 % adhesive patch,medicated 1 patch TOP UD PRN (Reason: Pain) RF: 0 Discontinued albuterol sulfate [ProAir HFA] 90 mcg/actuation HFA aerosol inhaler 2 puffs INH Q4H PRN (Reason: shortness of breath or wheezing) RF: 0 Symbicort 160-4.5 mcg/actuation HFA aerosol inhaler 2 puffs INH BID Qty: 10.2 RF: 2 rosuvastatin [Crestor] 5 mg tablet 5 mg PO QAM Qty: 90 RF: 1 (DME) BD Luer-Rafat Syringe 3 mL 25 gauge x 1" syringe See Rx Instructions .ROUTE .MEDSUPPLY Qty: 3 RF: 3 cyanocobalamin (vitamin B-12) 1,000 mcg/mL solution 1,000 mcg IM MONTHLY Qty: 10 RF: 3 fluconazole [Diflucan] 150 mg tablet 150 mg PO .COMPLEX 28 Days Qty: 4 RF: 0 (DME) Wheelchair (Manual) Device See Rx Instructions .ROUTE .MEDSUPPLY Qty: 1 RF: 0 hydroxyzine pamoate [Vistaril] 25 mg capsule 25 mg PO TID PRN (Reason: Itching) RF: 0 cyclobenzaprine 10 mg tablet 10 mg PO TID PRN (Reason: Muscle Spasm) RF: 0 albuterol sulfate 2.5 mg /3 mL (0.083 %) solution for nebulization 2.5 mg INH BID RF: 0 pantoprazole 20 mg tablet,delayed release (DR/EC) 20 mg PO BID RF: 0 naproxen sodium [Aleve] 220 mg Tablet 220 mg PO BID RF: 0 Discharge Orders: Discharge Order (Routine); Ordered 05/02/20 Ordered By: Erik Amaro Admission Data Admit Date/Time: 04/05/20 20:05 Attending Provider: Erik Amaro Admit Provider: Dory Youngblood Primary Care Provider: Za Gee Other Providers: Enmanuel Bryan ; Zachary Gerard ; Adrian Draper ; Adrian Patel ; Bernard England ; Reece Escobar ; Daphne Michelle ; Bryn Parekh ; Corrine Ku ; Dave Mccabe ; Kate Espana ; Kathleen Stevens ; Cherelle Paniagua ; Tian Seo ; Soham Mccann ; Kaur Rinaldi ; Jailene Riggins ; aVl Collado ; Shazia Flores ; Sukhdeep Rizzo ; [facility] ; [facility], ; Benigno Arvizu ; [facility] Other Interventions: Discharge Summary Assessment (RN) Last Done: 05/02/20 18:38 DC Date/Time DO NOT enter until pt leaves facility: 05/02/20 18:39 Coding Level of Care Code D/C Day Management >30 mins Diagnoses Septic shock A41.9; R65.21 Proctocolitis K52.9 Lingual dysarthria R47.1 Fever R50.9 Fever type: unspecified Dysphagia R13.11 Dysphagia type: oral phase Right sided weakness R53.1 Closed T11 fracture S22.089D Encounter type: subsequent encounter Fracture healing: with routine healing Fracture morphology: unspecified fracture morphology Unspecified cirrhosis of liver K74.69 Hepatic cirrhosis type: other cirrhosis Obstructive sleep apnea syndrome G47.33 Asthma J45.40 Asthma complication type: unspecified Asthma persistence: persistent Asthma severity: moderate Hypervolemia E87.70 Hypervolemia type: unspecified Morbid obesity with BMI of 45.0-49.9, adult E66.01; Z68.42 Cellulitis L03.113 Laterality: right Site of cellulitis: extremity Site of cellulitis of extremity: upper extremity Malnourished E43 Malnutrition type: protein-calorie malnutrition Protein-calorie malnutrition severity: severe Palliative care patient Z51.5
[2020-05-05 03:45] LABS: Albumin 1.7 g/dL (3.2-4.6); Albumin, CSF 9.2 mg/dL (8.0-42.0); IgG CSF 2.7 mg/dL (0.8-7.7); IgG Index, CSF 0.48 (<0.66); IgG Serum 1040 mg/dL (600-1540); Lyme DNA PCR CSF or Synovial Not detected (Not Detected); Lyme DNA Source CSF; Myelin Basic Protein <2.0 mcg/L (2.0-4.0); VDRL Qualitative CSF Nonreactive (Nonreactive)
== END 2020-05-02 18:39 | disposition hospice, inpatient (51) | DRG 871 ==
LOC: ED 15:37 → SUATTDRO 20:05 → 2N 20:05 → 1E 04-06 07:53 → 2W 04-08 19:52 → 3E 04-14 13:02 → 1E 04-16 17:17 → 2W 04-18 19:01 → 3N 04-24 12:34 → 3E 04-30 14:35

== ENCOUNTER 2020-05-02 18:42 | Inpatient (IN) ==
[2020-05-02] MEDS ORDERED: MoRPHine SULFATE 5 MG/0.25 ML UDP PO PRN (19:53)
[2020-05-02] MEDS ORDERED: LORazepam 0.5 MG TAB PO PRN (19:53)
[2020-05-02] MEDS ORDERED: ONDANSETRON 4 MG OD TAB SL PRN (19:53)
[2020-05-02] MEDS ORDERED: ATROPINE SULFATE 1% OP SOLN 2 ML BTL SL PRN (19:53)
[2020-05-02] MEDS ORDERED: ONDANSETRON INJ 2 MG/ML 2 ML VIAL IV PRN (19:53)
[2020-05-02] MEDS ORDERED: ACETAMINOPHEN 325 MG TAB PO PRN (19:53)
[2020-05-02] MEDS: MoRPHine SULFATE 2 MG/ML CARP IV PRN (20:03)
--- NOTE | 2020-05-02 20:09 | History & Physical Report ---
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 The patients family had spoken with the Palliative Medicine care team and the Inpatient service team and made the decision to transition to "just stop everything and make her comfortable." Allergies Allergy/AdvReac Type Severity Reaction Status Date / Time metformin AdvReac Intermediate DIARRHEA Verified 04/05/20 16:46 oxycodone AdvReac Intermediate GI Verified 04/05/20 16:46 SYMPTOMS, DISORIENTATION ampicillin AdvReac Mild Nausea/vomi Verified 04/05/20 16:46 ting codeine AdvReac Mild NAUSEA Verified 04/05/20 16:46 gabapentin AdvReac Mild DIZZINESS, Verified 04/05/20 16:46 FIDGETY hydrocodone AdvReac Mild "MADE ME Verified 04/05/20 16:46 FEEL WEIRD" lorazepam AdvReac Mild DIZZY Verified 04/05/20 16:46 lovastatin AdvReac Mild WASN'T Verified 04/05/20 16:46 EFFECTIVE meloxicam AdvReac Mild DIZZINESS Verified 04/05/20 16:46 propoxyphene AdvReac Mild NAUSEA Verified 04/05/20 16:46 tramadol AdvReac Mild GI SYMPTOMS Verified 04/05/20 16:46 narcotics AdvReac Mild Hallucinati Uncoded 04/05/20 16:46 ng Home Medications Home Medications Medication Instructions Recorded Confirmed Type nebulizer accessories #1 ea 12/07/19 04/04/20 Rx lidocaine [Lidoderm] 1 patch TOP UD PRN 12/26/19 04/05/20 History nystatin 100,000 unit/gram topical 1 appln TOP BID #60 gm 03/14/20 04/05/20 Rx powder miscellaneous medical supply #1 ea 03/23/20 04/04/20 Rx Past Med/Surg History Social History Preferred Language: Ukrainian Communication Ability: Impaired Visual Impairment: Limited Hearing Ability: Hard of Hearing Automation Control Technician Required: No Beliefs That Will Affect Care: None marital status: Current Living Situation: Spouse and Family Current Living Situation Comment: AND SON current occupational status: retired Feels Safe at Home: Yes Smoking Status: Never smoker Second Hand Exposure: Yes ( smoked/parents smoked) ; Hx Alcohol Use: No Hx Substance Use: No caffeine: Yes Seatbelt Use: always Review of Systems Review of Systems: Unobtainable due to cognitive status Physical Exam Constitutional: + altered mental status and + frail appearing Respiratory: normal respiratory effort; no respiratory distress and + not able to speak in complete sentence patient moaning Cardiovascular: Rate/Rhythm: regular rate and regular rhythm Heart Sounds: no murmur Gastrointestinal (Abdomen): Inspection/Auscultation: + abdomen distended and normal bowel sounds Percussion/Palpation: abdomen soft; abdomen nontender Skin: right lower extremity lower limb inflammation and erythema Neurologic: awake Speech / Cognition: + abnormal speech (severe dysarthria ) Psychiatric: Orientation: alert Eye Contact: + poor eye contact PG Care Time/CCT Total # of Minutes Spent Total Time Spent with Patient: Total time spent is greater than 50% in coordination of care (as documented) at patient's floor/unit and/or counseling patient: Coding Level of Care Code 92508 Initial Inpt Care Lvl 3 Diagnoses Cellulitis L03.113 Laterality: right Site of cellulitis: extremity Site of cellulitis of extremity: upper extremity Lingual dysarthria R47.1 Right sided weakness R53.1 Dysarthria R47.1 Resident Activity Tracking Resident Involvement: Resident Care Provided Care Provided: Adult Hospital Medicine (1) Cellulitis Laterality: right Site of cellulitis: extremity Site of cellulitis of extremity: upper extremity Qualified Code(s): L03.113 - Cellulitis of right upper limb
[2020-05-03] MEDS: MoRPHine SULFATE 2 MG/ML CARP IV PRN ×11 (00:56→19:21)
--- NOTE | 2020-05-03 14:18 | Palliative Care Progress Note ---
Date of Service May 03, 2020 Assessment & Plan (1) Palliative care patient: Pt is a 69 year old female patient with PMH CAD, COPD, Depression, HTN, obstructive lung disease, morbid obesity, episode of aphasia and right sided weakness back in , but MRI in ED at the time was negative, presented to the hospital on 04/05 with increased abdominal pain and weakness. Patient reported that she had ongoing diarrhea at home. In ED, she was hypotensive, tachycardic, and oxygenating well on room air. She was given fluid boluses and admitted. Patient unfortunately had ongoing hypotension, lactic acidosis, and progressive renal failure. She was transferred to the ICU for septic shock li [facility] due to bacterial translocation from recent disimpaction and colonic distention. CT scan on 04/05 concerning for progression of the distal proctocolitis, possibly representing an infectious or inflammatory process. She also has fluid-filled borderline distended loops of large and small bowel, this may represent an ileus or diarrheal illness or a low-grade partial large bowel obstruction due to the thickened distal sigmoid colon/rectum could also have a similar appearance. Patient was also noted to have an unstable thoracic spine fracture. Ortho consulted who stated to strictly log roll patient-- fracture is unstable and likely would require surgery but she is not a surgical candidate. - CODE STATUS changed to DNR, goals of care - comfort measures only. -Patient seen this afternoon. Continues to moan when trying to speak. Patient can nod yes or no to simple questions at times, appears to understand. 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 -Spoke with patient's regarding goals of care- and son agreed to comfort measures and be allowed to pass in the hospital. Patient is unstable for transfer due to her unstable T-spine fracture, family unable to care for patient at home with hospice. -Patient requiring increased PRN morphine for comfort-would recommend morphine drip-we will start at 1 mg/h with a bolus of 1 mg every 15 minutes. Continue PRN Ativan -We will continue to follow and provide support to patient's family. (2) Pseudobulbar palsy: (3) Dysphagia: (4) Expressive aphasia: (2) Pseudobulbar palsy: (3) Dysphasia: (4) Expressive aphasia: Subjective Patient now admitted to hospice [facility] In the past 12 hours patient required 8 doses of IV morphine at 2 mg, and 1 dose of PRN Ativan. Patient arousable, appears comfortable at rest, still able to nod yes or no to simple questions. Denied pain on exam. Nursing reports patient not interested in taking any sips or bites p.o. Review of Systems Review of Systems: Unobtainable due to cognitive status Physical Exam Physical Exam: PE: Patient awake, denies pain on exam HEENT: EOMI, hearing within normal limits Respirations: Unlabored, no rhonchi, on O2 via nasal cannula CV: Tachycardic, edema all extremities abdomen: Soft, Nontender, obese Neuro: Expressive aphasia, dysphagia Results & Data Vital Signs (Past 12 Hours) Vital Signs Pulse Resp Pulse Ox 05/03/20 03:11 101 H 20 91 PG Care Time/CCT Total # of Minutes Spent Total Time Spent with Patient: Total time spent 35 minutes with greater than 50% of the time spent at bedside assessing patient's current level of comfort as well as collaborating with attending physician Coding Level of Care Code 32527 Subseq Hosp Care Lvl 3 Diagnoses Palliative care patient Z51.5 Pseudobulbar palsy G12.29 Dysphasia R47.02 Expressive aphasia R47.01 Time Spent (min) 35
[2020-05-03] MEDS: LORazepam 0.5 MG/1 ML VIAL IV PRN ×2 (14:27→19:47)
[2020-05-03] MEDS ORDERED: MoRPHine Bolus from PCA IV ONE (14:33)
[2020-05-03] MEDS ORDERED: MoRPHine Bolus from PCA IV PRN (14:43)
[2020-05-03] MEDS ORDERED: MORPHINE SULFATE PCA 30 MG/30 ML IV SCH (14:45)
[2020-05-03] MEDS ORDERED: MORPHINE SULFATE PCA 30 MG/30 ML IV PRN (14:51)
[2020-05-03] MEDS ORDERED: NALOXONE HCL 0.4 MG/1 ML VIAL/CARP IV PRN (14:51)
[2020-05-03] MEDS ORDERED: SODIUM CHLORIDE 0.9% 1000ML 1,000 ML IV SCH (15:00)
[2020-05-03] MEDS ORDERED: STAT IV Infusion **Titration per Protocol STA (15:41)
[2020-05-03] MEDS: MoRPHine SULF/NSS 250 MG/250 ML BTL IV SCH (16:39)
[2020-05-03] MEDS: SODIUM CHLORIDE 0.9% 500 ML IV SCH (17:03)
--- NOTE | 2020-05-03 19:01 | Hospitalist Progress Note ---
Date of Service May 03, 2020 Assessment & Plan (1) Palliative care patient: (1) Palliative care patient: - CODE STATUS changed to DNR, goals of care - comfort measures only. Palliative care placed on morphine drip today (2) Pseudobulbar palsy: (3) Dysphagia: (4) Expressive aphasia: (2) Pseudobulbar palsy: (3) Dysphasia: (4) Expressive aphasia: Admission and Anticipated Discharge Date Admission Date: May 02, 2020 Subjective Pt is on hospice. She did not interact with me today, which is stable with prior. Review of Systems Review of Systems: Unable to obtain Physical Exam Constitutional: WD/WN, vitals as above Eyes: normal visual weiner by confrontation and + anicteric sclerae Neck: normal visual inspection and trachea midline Respiratory: normal respiratory effort, lungs clear to auscultation Cardiovascular: Rate/Rhythm: regular rate and regular rhythm Gastrointestinal (Abdomen): Inspection/Auscultation: abdomen not distended Percussion/Palpation: abdomen soft; abdomen nontender Musculoskeletal: Head/Neck/Chest: normocephalic and head atraumatic negativ e for edema, peripheral pulses intact Skin: no rashes, warm and dry Neurologic: awake; not confused Speech / Cognition: normal speech Psychiatric: Pt is nonresponsive or moaning only No eye contact Does not respond to verbal stimuli PG Care Time/CCT Total # of Minutes Spent Total Time Spent with Patient: Total time spent is greater than 50% in coordination of care (as documented) at patient's floor/unit and/or counseling patient: Coding Level of Care Code 48744 Subseq Hosp Care Lvl 2 Diagnoses Palliative care patient Z51.5
[2020-05-03] MEDS ORDERED: NYSTATIN POWDER 15GM BTL EXT PRN (20:15)
[2020-05-04] MEDS: SODIUM CHLORIDE 0.9% 500 ML IV SCH (08:05)
[2020-05-04] MEDS: LORazepam 0.5 MG/1 ML VIAL IV PRN ×3 (09:12→17:56)
[2020-05-04] MEDS: MoRPHine SULFATE 2 MG/ML CARP IV PRN ×8 (12:19→20:57)
[2020-05-04] MEDS ORDERED: bisacodyL 10 MG SUPP PR STA (13:57)
--- NOTE | 2020-05-04 15:17 | Palliative Care Progress Note ---
Date of Service May 04, 2020 Assessment & Plan (1) Palliative care patient: Pt is a 69 year old female patient with PMH CAD, COPD, Depression, HTN, obstructive lung disease, morbid obesity, episode of aphasia and right sided weakness back in , but MRI in ED at the time was negative, presented to the hospital on 04/05 with increased abdominal pain and weakness. Patient reported that she had ongoing diarrhea at home. In ED, she was hypotensive, tachycardic, and oxygenating well on room air. She was given fluid boluses and admitted. Patient unfortunately had ongoing hypotension, lactic acidosis, and progressive renal failure. She was transferred to the ICU for septic shock [facility] due to bacterial translocation from recent disimpaction and colonic distention. CT scan on 04/05 concerning for progression of the distal proctocolitis, possibly representing an infectious or inflammatory process. She also has fluid-filled borderline distended loops of large and small bowel, this may represent an ileus or diarrheal illness or a low-grade partial large bowel obstruction due to the thickened distal sigmoid colon/rectum could also have a similar appearance. Patient was also noted to have an unstable thoracic spine fracture. Ortho consulted who stated to strictly log roll patient-- fracture is unstable and likely would require surgery but she is not a surgical candidate. - CODE STATUS changed to DNR, goals of care - comfort measures only. -Patient seen this afternoon. Continues to moan when trying to speak. Patient can nod yes or no to simple questions at times, appears to understand. 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 -Spoke with patient's and updated him on her current status. Family unable to provide care at home, have a disabled son in the home and are currently on the low income. -Patient currently on a morphine drip-at 1 mg/h , additional PRN IV morphine. Continue PRN Ativan -We will continue to follow and provide support to patient's family. (2) Pseudobulbar palsy: (3) Dysphagia: (4) Expressive aphasia: (2) Pseudobulbar palsy: (3) Dysphasia: (4) Expressive aphasia: Subjective Patient seen and examined, collaborated with patient's nurse at bedside. Patient responds to voice and touch, still able to nod yes or no to questions. When asked if she was having pain, patient did not know. Patient currently on a morphine drip at 1 mg/h, she required an additional 4 mg in the past 24 hours, she also required for doses of PRN Ativan for comfort. Patient's 24-hour urine output was 675 cc on 05/03. Patient appears comfortable, moaning out less, spoke with patient's , Pablo, [phone] to update him on her current condition. Review of Systems Review of Systems: Unobtainable due to cognitive status Physical Exam Physical Exam: PE: Patient awake, alert, comfortable at rest HEENT: EOMI, hearing within normal limits Respirations: Unlabored, clear breath sounds anteriorly CV: Tachycardic, decreasing edema Abdomen: Soft, nontender, obese Extremities: Increased weakness Results & Data Vital Signs (Past 12 Hours) Vital Signs Pulse Resp Pulse Ox 05/04/20 03:16 103 H 16 90 PG Care Time/CCT Total # of Minutes Spent Total Time Spent with Patient: Total time spent 35 minutes with greater than 50% of the time spent at bedside assessing patient's current comfort level, collaborating with nursing as well as contacting to update him on her status. Coding Level of Care Code 22199 Subseq Hosp Care Lvl 3 Diagnoses Palliative care patient Z51.5 Pseudobulbar palsy G12.29 Dysphasia R47.02 Expressive aphasia R47.01 Time Spent (min) 35
[2020-05-04] MEDS: MoRPHine SULF/NSS 250 MG/250 ML BTL IV SCH (16:07)
--- NOTE | 2020-05-04 16:37 | Hospitalist Progress Note ---
Date of Service May 04, 2020 Assessment & Plan (1) Palliative care patient: (1) Palliative care patient: - CODE STATUS changed to DNR, goals of care - comfort measures only. Palliative care placed on morphine drip 05/04 Inpt hospice at [facility] for now. CM reports that bed will be available at [facility] on 05/07 if needed. (2) Pseudobulbar palsy: (3) Dysphagia: (4) Expressive aphasia: (2) Pseudobulbar palsy: (3) Dysphasia: (4) Expressive aphasia: (2) Right sided weakness: (3) Dysarthria: (4) Lingual dysarthria: (5) Cellulitis: Admission and Anticipated Discharge Date Admission Date: May 02, 2020 Subjective Pt is on hospice. She did not interact with me. Ongoing morphine titration per nursing. Review of Systems Review of Systems: Unable to obtain Physical Exam Constitutional: WD/WN, vitals as above Eyes: normal visual weiner by confrontation and + anicteric sclerae Neck: normal visual inspection and trachea midline Respiratory: normal respiratory effort, lungs clear to auscultation Cardiovascular: Rate/Rhythm: regular rate and regular rhythm Gastrointestinal (Abdomen): Inspection/Auscultation: abdomen not distended Percussion/Palpation: abdomen soft; abdomen nontender Musculoskeletal: Head/Neck/Chest: normocephalic and head atraumatic Skin: no rashes, warm and dry Neurologic: awake; not confused Speech / Cognition: normal speech PG Care Time/CCT Total # of Minutes Spent Total Time Spent with Patient: Total time spent is greater than 50% in coordination of care (as documented) at patient's floor/unit and/or counseling patient: Coding Level of Care Code 93776 Subseq Hosp Care Lvl 1 Diagnoses Palliative care patient Z51.5 Right sided weakness R53.1 Dysarthria R47.1 Lingual dysarthria R47.1 Cellulitis L03.113 Site of cellulitis: extremity Site of cellulitis of extremity: upper extremity Laterality: right (1) Cellulitis Site of cellulitis: extremity Site of cellulitis of extremity: upper extremity Laterality: right Qualified Code(s): L03.113 - Cellulitis of right upper limb
[2020-05-05] MEDS: SODIUM CHLORIDE 0.9% 500 ML IV SCH ×2 (00:20→16:17)
[2020-05-05] MEDS: LORazepam 0.5 MG/1 ML VIAL IV PRN ×2 (00:23→09:26)
[2020-05-05] MEDS: MoRPHine SULFATE 2 MG/ML CARP IV PRN ×4 (04:32→12:44)
[2020-05-05] MEDS ORDERED: ATROPINE SULFATE 1% OP SOLN 2 ML BTL OP SCH (11:30)
--- NOTE | 2020-05-05 11:33 | Hospitalist Progress Note ---
Date of Service May 05, 2020 Assessment & Plan (1) Palliative care patient: (1) Palliative care patient: - CODE STATUS changed to DNR, goals of care - comfort measures only. Palliative care placed on morphine drip 05/04 Inpt hospice at [facility] for now. CM reports that bed will be available at [facility] on 05/07 if needed. (2) Pseudobulbar palsy: (3) Dysphagia: (4) Expressive aphasia: (2) Pseudobulbar palsy: (3) Dysphasia: (4) Expressive aphasia: Family present and questions about other visitors. I did d/w Keren, nursing watermelon harvesting supervisor. Pt is allowed to have max 3 visitors at a time. It can be different people, but no more than 3. There can be no visitors congregating in the waiting areas or other hospital locations other than the parking lot. All visitors must wear masks. I let family know this and they are in agreement. If there are questions, please call nursing watermelon harvesting supervisor or page me directly. (2) Right sided weakness: (3) Dysarthria: (4) Lingual dysarthria: (5) Cellulitis: Admission and Anticipated Discharge Date Admission Date: May 02, 2020 Subjective Pt looks more comfortable than other days. She is moaning some, but not writhing. Family is present and agree with this. She is having some increased secretions and is gurgling more. Physical Exam Constitutional: WD/WN, vitals as above Eyes: normal visual weiner by confrontation and + anicteric sclerae Neck: normal visual inspection and trachea midline Respiratory: normal respiratory effort, lungs clear to auscultation Cardiovascular: Rate/Rhythm: regular rate and regular rhythm Gastrointestinal (Abdomen): Inspection/Auscultation: abdomen not distended Percussion/Palpation: abdomen soft; abdomen nontender Musculoskeletal: Head/Neck/Chest: normocephalic and head atraumatic Skin: no rashes, warm and dry Neurologic: awake (opens eyes to verbal stimulus, but no responses) and + confused Results & Data Results & Data ([facility]) Vital Signs (Past 12 Hours) Vital Signs Pulse Resp Pulse Ox 05/05/20 03:13 111 H 22 93 PG Care Time/CCT Total # of Minutes Spent Total Time Spent with Patient: Total time spent is greater than 50% in coordination of care (as documented) at patient's floor/unit and/or counseling patient: Coding Level of Care Code 34376 Subseq Hosp Care Lvl 1 Diagnoses Palliative care patient Z51.5 Right sided weakness R53.1 Dysarthria R47.1 Lingual dysarthria R47.1 Cellulitis L03.113 Site of cellulitis: extremity Site of cellulitis of extremity: upper extremity Laterality: right (1) Cellulitis Site of cellulitis: extremity Site of cellulitis of extremity: upper extremity Laterality: right Qualified Code(s): L03.113 - Cellulitis of right upper limb
[2020-05-05] MEDS: ATROPINE SULFATE 1% OP SOLN 2 ML BTL SL SCH ×7 (12:09→23:26)
[2020-05-05] MEDS: MoRPHine SULF/NSS 250 MG/250 ML BTL IV SCH (16:19)
[2020-05-06] MEDS: ATROPINE SULFATE 1% OP SOLN 2 ML BTL SL SCH ×7 (01:42→13:57)
[2020-05-06] MEDS: MoRPHine SULFATE 2 MG/ML CARP IV PRN ×4 (01:48→14:52)
[2020-05-06] MEDS: LORazepam 0.5 MG/1 ML VIAL IV PRN (02:15)
[2020-05-06] MEDS: SODIUM CHLORIDE 0.9% 500 ML IV SCH (07:26)
--- NOTE | 2020-05-06 13:14 | Hospitalist Progress Note ---
Date of Service May 06, 2020 Assessment & Plan (1) Palliative care patient: (1) Palliative care patient: - CODE STATUS changed to DNR, goals of care - comfort measures only. Palliative care placed on morphine drip 05/04 Inpt hospice at [facility] for now. CM reports that bed will be available at [facility] on 05/07 if needed. (2) Pseudobulbar palsy: (3) Dysphagia: (4) Expressive aphasia: (2) Pseudobulbar palsy: (3) Dysphasia: (4) Expressive aphasia: Family present and questions about other visitors. I did d/w Keren, nursing road gang supervisor. Pt is allowed to have max 3 visitors at a time. It can be different people, but no more than 3. There can be no visitors congregating in the waiting areas or other hospital locations other than the parking lot. All visitors must wear masks. I let family know this and they are in agreement. If there are questions, please call nursing road gang supervisor or page me directly. (2) Right sided weakness: (3) Dysarthria: (4) Lingual dysarthria: (5) Cellulitis: Admission and Anticipated Discharge Date Admission Date: May 02, 2020 Subjective Pt is comfortable. Gurgling has improved with atropine drops. Family members have been in and out today. Review of Systems Review of Systems: Unable to obtain Physical Exam Constitutional: WD/WN, vitals as above Eyes: normal visual weiner by confrontation and + anicteric sclerae Neck: normal visual inspection and trachea midline Respiratory: normal respiratory effort, lungs clear to auscultation Cardiovascular: Rate/Rhythm: regular rate and regular rhythm Gastrointestinal (Abdomen): Inspection/Auscultation: abdomen not distended Percussion/Palpation: abdomen soft; abdomen nontender Musculoskeletal: Head/Neck/Chest: normocephalic and head atraumatic Skin: no rashes, warm and dry Neurologic: awake (opens eyes to verbal stimulus, but no responses) and + confused Speech / Cognition: normal speech Results & Data Results & Data ([facility]) Vital Signs (Past 12 Hours) Vital Signs Pulse Resp Pulse Ox 05/06/20 01:18 116 H 20 92 PG Care Time/CCT Total # of Minutes Spent Total Time Spent with Patient: Total time spent is greater than 50% in coordination of care (as documented) at patient's floor/unit and/or counseling patient: Coding Level of Care Code 88053 Subseq Hosp Care Lvl 1 Diagnoses Palliative care patient Z51.5 Right sided weakness R53.1 Dysarthria R47.1 Lingual dysarthria R47.1 Cellulitis L03.113 Site of cellulitis: extremity Site of cellulitis of extremity: upper extremity Laterality: right (1) Cellulitis Site of cellulitis: extremity Site of cellulitis of extremity: upper extremity Laterality: right Qualified Code(s): L03.113 - Cellulitis of right upper limb
--- NOTE | 2020-05-07 15:33 | Death Pronouncement Note ---
Date of Service May 06, 2020 Pronouncement Note Admission Date Admission Date: May 02, 2020 Pt at 1637 on 05/06/2020. Pronouncement via 2 nurses protocol. See nursing notes for details. Nursing contacted family. Per nursing, none present at bedside. Contributing Factors (1) Palliative care patient: (2) Right sided weakness: (3) Dysarthria: (4) Lingual dysarthria: (5) Cellulitis: Additional Data Attending physician: Daphne Donovan DO Coding Level of Care Code D/C Day Management >30 mins Diagnoses Palliative care patient Z51.5 Right sided weakness R53.1 Dysarthria R47.1 Lingual dysarthria R47.1 Cellulitis L03.113 Site of cellulitis: extremity Site of cellulitis of extremity: upper extremity Laterality: right
--- NOTE | 2020-05-24 11:42 | Discharge Summary ---
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 The patients family had spoken with the Palliative Medicine care team and the Inpatient service team and made the decision to transition to "just stop everything and make her comfortable." Principal Diagnosis Dysphagia Discharge Data Allergies Allergy/AdvReac Type Severity Reaction Status Date / Time metformin AdvReac Intermediate DIARRHEA Verified 04/05/20 16:46 oxycodone AdvReac Intermediate GI Verified 04/05/20 16:46 SYMPTOMS, DISORIENTATION ampicillin AdvReac Mild Nausea/vomi Verified 04/05/20 16:46 ting codeine AdvReac Mild NAUSEA Verified 04/05/20 16:46 gabapentin AdvReac Mild DIZZINESS, Verified 04/05/20 16:46 FIDGETY hydrocodone AdvReac Mild "MADE ME Verified 04/05/20 16:46 FEEL WEIRD" lorazepam AdvReac Mild DIZZY Verified 04/05/20 16:46 lovastatin AdvReac Mild WASN'T Verified 04/05/20 16:46 EFFECTIVE meloxicam AdvReac Mild DIZZINESS Verified 04/05/20 16:46 propoxyphene AdvReac Mild NAUSEA Verified 04/05/20 16:46 tramadol AdvReac Mild GI SYMPTOMS Verified 04/05/20 16:46 narcotics AdvReac Mild Hallucinati Uncoded 04/05/20 16:46 ng Consultations 05/02/20 19:54 Consult Case Management - Discharge Planning Routine Consult Palliative Care Routine Hospital Course (1) Palliative care patient: (1) Palliative care patient: - CODE STATUS changed to DNR, goals of care - comfort measures only. Palliative care placed on morphine drip 05/04 Inpt hospice at [facility] as bed not available at [facility] until 05/07. Pt on the evening of 05/06. See summary for details. (2) Right sided weakness: (3) Dysarthria: (4) Lingual dysarthria: (5) Cellulitis: Total Time Total Time Spent Total Time Spent (In Minutes): >30 Discharge Plan Discharge Items Patient Disposition: Reason For Visit: HYPOTENSION Follow-up/Referrals: Za Gee MD [Primary Care Provider] - Admission Data Admit Date/Time: 05/02/20 18:42 Other DC Date/Time DO NOT enter until pt leaves facility: 05/06/20 18:15 Coding Level of Care Code D/C Day Management >30 mins Diagnoses Palliative care patient Z51.5 Right sided weakness R53.1 Dysarthria R47.1 Lingual dysarthria R47.1 Cellulitis L03.113 Site of cellulitis: extremity Site of cellulitis of extremity: upper extremity Laterality: right
== END 2020-05-06 18:15 | disposition expired | DRG 951 ==
LOC: SUATTDRO 18:42 → 3E 18:42